=== PATIENT | female | born 1995 | race Two or more races ===

== ENCOUNTER 2021-09-30 12:34 | Outpatient (REF) | payer SELFPAY ==
[2021-09-30 14:18] LABS: Binax Internal Control QC Valid; Binax Now Covid-19 Ag Positive (Negative)
== END 2021-09-30 12:35 | disposition home or self-care (01) ==
LOC: HO.LAB 12:34
PROVIDERS: Visit Provider Internal Medicine
DX: Z20.822 Contact with and (suspected) exposure to COVID-19 (principal)
CPT/HCPCS: 36415; C9803

== ENCOUNTER 2022-07-12 20:42 | Emergency (ER) | payer OTHER, SELFPAY ==
--- NOTE | ~2022-07-12 | CT_ITS ---
EXAMINATION: CT ABDOMEN AND PELVIS WITH CONTRAST CT LEFT LOWER EXTREMITY WITH CONTRAST CLINICAL INFORMATION: Right hip pain. Question of abscess in the left lower extremity. COMPARISON: None TECHNIQUE: Multidetector volumetric images were obtained from the superior aspect of the liver through the pubic symphysis following administration 100 mL of Omnipaque 350 intravenous contrast. Sagittal and coronal reformatted images were obtained on the technologist's workstation. Oral contrast: No Multidetector CT imaging of the left lower extremity was subsequently performed. Coronal and sagittal reformats created on an independent workstation were reviewed. This CT examination was performed using dose optimization techniques as appropriate, variously including the following: *Automated exposure control *Adjustment of mA and/or kV according to patient size (this includes techniques or standardized protocols for targeted exams where dose is matched to indication/reason for exam; i.e. extremities or head) *Use of iterative reconstruction technique DLP: 853 mGy-cm FINDINGS: LUNG BASES: The visualized lung bases are unremarkable. LIVER, GALLBLADDER, AND BILIARY TREE: The liver is normal in size, shape, and attenuation. Subcentimeter cyst in the right lobe liver. No suspicious liver lesions. No biliary ductal dilatation is present. Gallbladder unremarkable. PANCREAS: Unremarkable. SPLEEN: Unremarkable. ADRENAL GLANDS: Unremarkable. KIDNEYS AND URETERS: The kidneys are normal in size, shape, and attenuation. No hydronephrosis, hydroureter, or calculi seen. No perinephric stranding. BLADDER: Unremarkable. GASTROINTESTINAL TRACT: Moderate stool and gas present throughout the right colon. No intestinal obstruction or inflammation. Tiny sliding-type hiatal hernia. ABDOMINAL WALL: No significant hernia is appreciated. LYMPH NODES: Normal. VASCULAR: Unremarkable. PELVIC VISCERA: Uterus and adnexa unremarkable. OSSEOUS STRUCTURES: No acute or suspicious osseous abnormalities. Femoral heads are spherical. No hip joint effusion. LEFT LOWER EXTREMITY: There is mild subcutaneous induration overlying distal peroneal musculature at the level of the distal fibula. Subcutaneous fat otherwise unremarkable. Musculature of the left lower leg is normal in bulk and attenuation. No evidence of myositis or intramuscular abscess. No soft tissue gas to suggest necrotizing fasciitis. No periosteal reaction or cortical destruction to suggest osteomyelitis. CT/CT abdomen pelvis w IV con IMPRESSION: * No acute findings within the abdomen or pelvis. * Moderate constipation, predominantly right hemicolonic. * No evidence of abscess or necrotizing fasciitis in the left lower extremity. * Minimal subcutaneous fat stranding lateral to the peroneal musculature could reflect a site of cellulitis. * No evidence of osteomyelitis. * Unremarkable right hip
[2022-07-12 21:29] VITALS: BP 133/92; PULSE 108; PULSE 92; RESP 18; TEMP 37.3; O2SAT 100; BMI 21.9
--- NOTE | 2022-07-12 21:33 | PC.NURSE ---
patient refused to have any lab work in triage.
[2022-07-12 23:44] VITALS: BP 121/84; PULSE 70; RESP 12; TEMP 37.3; O2SAT 100
[2022-07-13 00:46] LABS: Basophils Percent Auto 0.2 % (0-2); Eosinophils Percent Auto 0.5 % (0-4); Hematocrit 29.2 % (37.0-47.0); Hemoglobin 8.4 g/dl (12.0-16.0); Imm Gran Abs Auto 0.04 X10*3/uL (0.00-0.03); Imm Gran Pct Auto 0.5 % (0.0-0.4); Lymphocytes Absolute Auto 1.1 X10*3/uL (1.2-4.9); Lymphocytes Percent Auto 12.2 % (20-40); MANUAL DIFF FLAG NO; Mean Corpuscular HGB Conc 28.8 g/dl (31.0-35.0); Mean Corpuscular Hemoglobin 19.3 pg (27.0-33.0); Mean Platelet Volume 9.5 fL (9.4-12.3); Monocytes Absolute Auto 0.8 X10*3/uL (0.1-1.2); Monocytes Percent Auto 8.8 % (2-11); Neutrophils Absolute Auto 6.9 x10*3/uL (2.0-8.3); Neutrophils Percent Auto 77.8 % (45-73); Platelet Count 216 X10*3/uL (160-400); Red Blood Count 4.36 X10*6/uL (4.20-5.50); Red Cell Distribution Width 17.3 % (11.0-16.0); White Blood Count 8.9 X10*3/uL (4.8-10.8)
[2022-07-13 00:52] LABS: INTERNATIONAL NORM RATIO 1.2 (0.9-1.1); Prothrombin Time 13.4 SEC (10.0-13.1)
[2022-07-13 01:03] LABS: Lactic Acid 0.7 mmol/L (0.5-2.0)
[2022-07-13 01:06] LABS: Alanine Aminotransferase 26 U/L (0-31); Alkaline Phosphatase 57 U/L (39-117); Anion Gap 17 (12-20); Aspartate Amino Transferase 36 U/L (5-31); Bilirubin Total 0.4 mg/dL (0.0-1.0); Blood Urea Nitrogen 7 mg/dL (9-16); Carbon Dioxide 20 mmol/L (22-29); Chloride 106 mmol/L (96-108); Creatinine Clr Calc Pharmacy 80.8; Estimated Glomerular Filt Rate > 60; Glucose Random 103 mg/dL (60-115); Potassium 3.8 mmol/L (3.3-5.1); Sodium 139 mmol/L (135-145); Total Protein 7.2 g/dL (6.5-8.0)
[2022-07-13 01:13] LABS: HCG Quantitative < 2 mIU/mL
--- NOTE | 2022-07-13 01:22 | ED.GENADULT ---
HPI - General Adult General Chief complaint: General Medical Stated complaint: leg pain Time Seen by Provider: 07/12/22 23:58 Source: patient Mode of arrival: EMS History of Present Illness HPI narrative: 27-year-old female with history of IVDA, brought in by EMS when [place] and patient states that her left lower leg has been hurting since 3 days and worsening. She states that she cannot find any position where the left leg is comfortable. She denies any falls, physical assault, and denies any fevers or chills. Related Data Allergies Allergy/AdvReac Type Severity Reaction Status Date / Time No Known Allergies Allergy Verified 07/13/22 00:07 Review of Systems Review of Systems: Pertinent positives and negatives as stated in HPI 10 point review of systems is otherwise negative. PMFSH Past Medical History Source: nursing notes reviewed Social History Social History Advance Directives: No Advance Directives Information Provided: Yes Physical Exam ED Vital Signs: Vital Signs - 24 hr 07/12/22 21:29 07/12/22 23:44 07/13/22 02:21 Temperature 99.1 F 99.2 F 98.8 F Pulse Rate 92 70 76 Respiratory Rate 18 12 16 Blood Pressure 133/92 H 121/84 124/83 Pulse Oximetry 100 100 100 Oxygen Delivery Method Room Air Room Air Room Air 07/13/22 04:10 Temperature Pulse Rate Respiratory Rate 16 Blood Pressure Pulse Oximetry Oxygen Delivery Method BMI result Body Mass Index 21.9 VITAL SIGNS: Reviewed. GENERAL: Well developed, well nourished, in no acute distress. HEAD: Normocephalic/atraumatic EYES: PERRLA, EOMI EARS: Ext canals without abnormality OROPHARYNX: no oral lesions noted, posterior pharynx clear LUNGS: Normal breath sounds. No adventitious sounds or accessory muscle use. SpO2<100> CARDIOVASCULAR: Regular rate and rhythm without noted murmurs ABDOMEN: Soft, non-tender, non-distended with bowel sounds. MUSCULOSKELETAL: No tenderness, deformities, or effusions noted on gross inspection. EXTREMITIES: No cyanosis, clubbing or edema; LEFT LOWER EXTREMITY: No erythema or induration noted, no palpable cords, no edema but patient reporting significant pain down entire left lower extremity there is no obvious skin color change or coolness to the skin. SKIN: Inspection of the skin reveals no rashes NEUROLOGIC: Alert and oriented x 4. Strength and sensation to light touch were grossly intact x 4. Course Course Course Narrative: 27-year-old female with history and clinical presentation suspicious for possible abscess versus less likely DVT. Review of all investigations negative for acute findings. Patient is otherwise medically cleared for discharge with home Narcan. She is declining any detox at this time. Procedures EJ/Peripheral Line Arm L: Time Out Performed: No Skin Cleansed in Sterile Fashion: Yes Size (gauge): 18 IV Secured and Dressing Applied: Yes Patient Tolerated Procedure: well and no complications Additional Comments: Placed via ultrasound guidance Medical Decision Making Lab Data Result diagrams: 07/13/22 00:17 07/13/22 00:17 Labs: Lab Results 07/13/22 07/13/22 07/13/22 Range/Units 00:17 00:17 00:17 WBC 8.9 (4.8-10.8) X10*3/uL RBC 4.36 (4.20-5.50) X10*6/uL Hgb 8.4 L (12.0-16.0) g/dl Hct 29.2 L (37.0-47.0) % MCV 67.0 L (80.0-98.0) fL MCH 19.3 L (27.0-33.0) pg MCHC 28.8 L (31.0-35.0) g/dl RDW 17.3 H (11.0-16.0) % Plt Count 216 (160-400) X10*3/uL MPV 9.5 (9.4-12.3) fL Immature Gran % (Auto) 0.5 H (0.0-0.4) % Neut % (Auto) 77.8 H (45-73) % Lymph % (Auto) 12.2 L (20-40) % [place] % (Auto) 8.8 (2-11) % Eos % (Auto) 0.5 (0-4) % Baso % (Auto) 0.2 (0-2) % Lymph # (Auto) 1.1 L (1.2-4.9) X10*3/uL [place] # (Auto) 0.8 (0.1-1.2) X10*3/uL Eos # (Auto) 0.0 (0.0-0.4) X10*3/uL Baso # (Auto) 0.0 (0.0-0.2) X10*3/uL Abs Immat Gran (auto) 0.04 H (0.00-0.03) X10*3/uL Absolute Neuts (auto) 6.9 (2.0-8.3) x10*3/uL Absolute Nucleated RBC 0.000 (0.0-0.012) X10*3/uL Nucleated RBC % (auto) 0.0 (0.0-0.2) /100WBC PT 13.4 H (10.0-13.1) SEC INR 1.2 H (0.9-1.1) Sodium 139 (135-145) mmol/L Potassium 3.8 (3.3-5.1) mmol/L Chloride 106 (96-108) mmol/L Carbon Dioxide 20 L (22-29) mmol/L Anion Gap 17 (12-20) BUN 7 L (9-16) mg/dL Creatinine 0.82 (0.5-1.4) mg/dL Estim Creat Clear Calc 80.8 Estimated GFR > 60 Random Glucose 103 (60-115) mg/dL Lactic Acid (0.5-2.0) mmol/L Calcium 9.0 (8.4-10.2) mg/dL Total Bilirubin 0.4 (0.0-1.0) mg/dL AST 36 H (5-31) U/L ALT 26 (0-31) U/L Alkaline Phosphatase 57 (39-117) U/L Total Protein 7.2 (6.5-8.0) g/dL Albumin 4.0 (3.5-5.0) g/dL Beta HCG, Quant < 2 mIU/mL 07/13/22 Range/Units 00:17 WBC (4.8-10.8) X10*3/uL RBC (4.20-5.50) X10*6/uL Hgb (12.0-16.0) g/dl Hct (37.0-47.0) % MCV (80.0-98.0) fL MCH (27.0-33.0) pg MCHC (31.0-35.0) g/dl RDW (11.0-16.0) % Plt Count (160-400) X10*3/uL MPV (9.4-12.3) fL Immature Gran % (Auto) (0.0-0.4) % Neut % (Auto) (45-73) % Lymph % (Auto) (20-40) % [place] % (Auto) (2-11) % Eos % (Auto) (0-4) % Baso % (Auto) (0-2) % Lymph # (Auto) (1.2-4.9) X10*3/uL [place] # (Auto) (0.1-1.2) X10*3/uL Eos # (Auto) (0.0-0.4) X10*3/uL Baso # (Auto) (0.0-0.2) X10*3/uL Abs Immat Gran (auto) (0.00-0.03) X10*3/uL Absolute Neuts (auto) (2.0-8.3) x10*3/uL Absolute Nucleated RBC (0.0-0.012) X10*3/uL Nucleated RBC % (auto) (0.0-0.2) /100WBC PT (10.0-13.1) SEC INR (0.9-1.1) Sodium (135-145) mmol/L Potassium (3.3-5.1) mmol/L Chloride (96-108) mmol/L Carbon Dioxide (22-29) mmol/L Anion Gap (12-20) BUN (9-16) mg/dL Creatinine (0.5-1.4) mg/dL Estim Creat Clear Calc Estimated GFR Random Glucose (60-115) mg/dL Lactic Acid 0.7 (0.5-2.0) mmol/L Calcium (8.4-10.2) mg/dL Total Bilirubin (0.0-1.0) mg/dL AST (5-31) U/L ALT (0-31) U/L Alkaline Phosphatase (39-117) U/L Total Protein (6.5-8.0) g/dL Albumin (3.5-5.0) g/dL Beta HCG, Quant mIU/mL Critical Care Time Critical Care Time Critical Care Time: Yes Total Critical Care Time: 30 Attestation: I personally attest to this time spent taking care of the patient. Discharge Plan Discharge Clinical Impression: Polysubstance use disorder, Leg pain Patient Disposition: Home, Self-Care Instructions: Polysubstance Abuse (ED), Leg Pain (ED) Additional Instructions: Follow-up with your primary care provider in the next 2-3 days.
[2022-07-13] MEDS: 0.9 % Sodium Chloride 1,000 ML 999 ML IV (02:14)
[2022-07-13] MEDS: iohexoL 350 MG/ML 100 ML INFUS..BTL IV (02:16)
[2022-07-13 02:21] VITALS: BP 124/83; PULSE 76; RESP 16; TEMP 37.1; O2SAT 100
--- NOTE | 2022-07-13 03:50 | PC.NURSE ---
pt refusing second set of blood cultures, wants to sleep .
[2022-07-13 04:10] VITALS: RESP 16
[2022-07-13 05:59] VITALS: BP 123/81; PULSE 71; RESP 16; TEMP 37.1; O2SAT 100
== END 2022-07-13 08:07 | disposition home or self-care (01) ==
PROVIDERS: Emergency Provider Student in an Organized Health Care Education/Training Program
DX: M79.662 Pain in left lower leg (principal); R10.2 Pelvic and perineal pain; F11.10 Opioid abuse, uncomplicated; Z71.51 Drug abuse counseling and surveillance of drug abuser; Z79.899 Other long term (current) drug therapy
CPT/HCPCS: 36415; 36556; 73701; 74177; 80053; 83605; 84702; 85025; 85610; 87040; 87077; 87205; 99283; 99284; Q9967

== ENCOUNTER 2022-08-19 05:40 | Inpatient (IN) | payer OTHER, SELFPAY ==
[2022-08-19] VITALS (8 sets, daily range): BP systolic 120–137; BP diastolic 64–83; PULSE 65–97; RESP 15–18; TEMP 36.8–37.4; O2SAT 95–100; BMI 22.3
--- NOTE | ~2022-08-19 | CT_ITS ---
EXAMINATION: CT ABDOMEN AND PELVIS WITH CONTRAST CLINICAL INFORMATION: Abdominal and leg pain. History of IVDA. COMPARISON: None TECHNIQUE: Multidetector volumetric images were obtained from the superior aspect of the liver through the pubic symphysis following administration 85 mL of Omnipaque 350 intravenous contrast. Sagittal and coronal reformatted images were obtained on the technologist's workstation. Oral contrast: No. Subsequently axial 5 mm thin and reformatted 2 mm thin sagittal coronal images of left lower extremity were were obtained. DLP [id number] examination was performed using dose optimization techniques as appropriate, variously including the following: *Automated exposure control *Adjustment of mA and/or kV according to patient size (this includes techniques or standardized protocols for targeted exams where dose is matched to indication/reason for exam; i.e. extremities or head) *Use of iterative reconstruction technique DLP: 937 mGy-cm FINDINGS: Abdomen and pelvis: LUNG BASES: The lung bases are clear. Heart size is normal. LIVER, GALLBLADDER, AND BILIARY TREE: The liver is enlarged in size, normal shape, and attenuation. There are 4 mm hypodense lesions in right left lobes of the liver, too small to correctly characterize. No intrahepatic ductal dilatation seen. The gallbladder is unremarkable with no evidence of radiopaque gallstones, gallbladder wall thickening, or obvious pericholecystic inflammatory changes. PANCREAS: Unremarkable. SPLEEN: Unremarkable. ADRENAL GLANDS: Unremarkable. KIDNEYS AND URETERS: The kidneys are normal in size, shape, and attenuation. No hydronephrosis, hydroureter, or calculi seen. No perinephric stranding. BLADDER: Unremarkable. GASTROINTESTINAL TRACT: There is large amount of stool seen in the colon without significant distention. The small bowel loops are normal caliber. There is no free air or free fluid. Appendix is not visualized. No free fluid seen. ABDOMINAL WALL: No significant hernia is appreciated. LYMPH NODES: Normal. VASCULAR: Unremarkable. PELVIC VISCERA: Unremarkable. OSSEOUS STRUCTURES: Unremarkable. Left lower extremity: There is no visible soft tissue edema, gas collection or abscess in the left lower extremity. There is no gross bony abnormality seen. CT/CT abdomen pelvis w IV con IMPRESSION: 1. Moderate constipation. No obstruction seen. 2. No radiopaque urolith or hydroureteronephrosis. There is no soft tissue abscess, mass or fluid collection in the left lower extremity. No abnormal enhancement seen either. Fleischner guidelines were followed.
--- NOTE | ~2022-08-19 | US_ITS ---
EXAMINATION: US ABDOMEN LIMITED CLINICAL INFORMATION: Right upper quadrant pain, transaminitis. COMPARISON: CT abdomen and pelvis 08/19/2022. TECHNIQUE: Real-time imaging of the right upper quadrant abdominal viscera. FINDINGS: PANCREAS: Normal. LIVER: The liver is enlarged measuring less than 16 cm in length. The liver contour is normal. Parenchymal echogenicity is normal. No focal hepatic lesion. There is no intrahepatic biliary duct dilatation seen. There is normal hepatopedal flow seen in the portal vein and antegrade flow is seen in the hepatic vein. The waveforms appear normal. GALLBLADDER: The gallbladder is contracted as patient is non-fasting. Gallbladder wall thickness is 0.7 cm. COMMON BILE DUCT: Normal in caliber measuring 0.6 cm in diameter. RIGHT KIDNEY: Normal. No hydronephrosis. No renal calculi or focal parenchymal lesions. The kidney measures 11.3 cm in maximum dimension. FREE FLUID: None. US/US duplex arterial venous comp IMPRESSION: 1. Mild hepatomegaly. No focal lesion seen. 2. The gallbladder is contracted as patient is non fasting. 3. Visualized pancreas, right kidney and the CBD appears unremarkable.
--- NOTE | ~2022-08-19 | US_ITS ---
EXAMINATION: US VENOUS ULTRASOUND WITH DOPPLER LOWER EXTREMITY, LEFT CLINICAL INFORMATION: Swollen left leg COMPARISON: None TECHNIQUE: Ultrasound of the deep veins is performed from the hip to the calf with compression sonography and color and pulse Doppler assessment. Spectral analysis with color-flow imaging is performed. FINDINGS: There is normal venous compression and respiratory variation and augmented flow. The visualized common femoral vein, superficial femoral vein, profunda femoral vein, popliteal vein, and the trifurcation region shows no evidence of deep venous thrombosis. There is no significant popliteal fossa cyst. If the patient's symptoms persist, followup ultrasound in 5 days 7 days might be of value to exclude proximal propagation from a non-visualized calf vein. US/US venous duplex LE LT IMPRESSION: No DVT demonstrated in the left lower extremity.
--- NOTE | ~2022-08-19 | US_ITS ---
EXAMINATION: US ABDOMEN LIMITED CLINICAL INFORMATION: Right upper quadrant pain, transaminitis. COMPARISON: CT abdomen and pelvis 08/19/2022. TECHNIQUE: Real-time imaging of the right upper quadrant abdominal viscera. FINDINGS: PANCREAS: Normal. LIVER: The liver is enlarged measuring less than 16 cm in length. The liver contour is normal. Parenchymal echogenicity is normal. No focal hepatic lesion. There is no intrahepatic biliary duct dilatation seen. There is normal hepatopedal flow seen in the portal vein and antegrade flow is seen in the hepatic vein. The waveforms appear normal. GALLBLADDER: The gallbladder is contracted as patient is non-fasting. Gallbladder wall thickness is 0.7 cm. COMMON BILE DUCT: Normal in caliber measuring 0.6 cm in diameter. RIGHT KIDNEY: Normal. No hydronephrosis. No renal calculi or focal parenchymal lesions. The kidney measures 11.3 cm in maximum dimension. FREE FLUID: None. US/US abdomen limited IMPRESSION: 1. Mild hepatomegaly. No focal lesion seen. 2. The gallbladder is contracted as patient is non fasting. 3. Visualized pancreas, right kidney and the CBD appears unremarkable.
--- NOTE | ~2022-08-19 | XR_ITS ---
EXAMINATION: XR CHEST CLINICAL INFORMATION: Cough COMPARISON: None TECHNIQUE: Frontal view of the chest was obtained. FINDINGS: No significant abnormality is noted involving the heart, lungs, mediastinum, bony thorax or soft tissues. XR/XR chest 1V IMPRESSION: Unremarkable examination.
--- NOTE | 2022-08-19 05:49 | ED.GENADULT ---
HPI - General Adult General Chief complaint: Extremity Injury, Lower Stated complaint: Leg pain Time Seen by Provider: 08/19/22 05:52 Source: patient and EMS Mode of arrival: EMS Limitations: no limitations History of Present Illness HPI narrative: Patient comes to the emergency room complaining of left lower extremity pain that started approximately 2 weeks ago. Patient denies fever chills. Patient states that she has noticed some swelling from the knee towards her ankle. Patient states that she has not used any recent IV drugs. Patient was seen here approximately a month ago with similar complaints. Patient denies any injury, denies any signs of cellulitis. Related Data Allergies Allergy/AdvReac Type Severity Reaction Status Date / Time No Known Allergies Allergy Verified 07/13/22 00:07 Review of Systems Review of Systems: Constitutional : No Weight loss, No Fever, No Chills, No Night Sweats, No Fatigue, No Malaise ENT/Mouth : No Hearing loss, No Ear Pain, No Nasal Congestion, No Sinus Pain, No Hoarseness, No sore throat, No Rhinorrhea, No Swallowing Difficulty Eyes: No Eye Pain, No Swelling, No Redness, No Foreign Body, No Discharge, No Vision Changes Cardiovascular : No Chest Pain, No SOB, No Dyspnea on Exertion, No Orthopnea, No Edema, No Palpitations Respiratory : No Cough, No Sputum, No Wheezing, No Smoke Exposure, No Dyspnea Gastrointestinal : No Nausea, No Vomiting, No Diarrhea, No Constipation, No abdominal Pain, No Hematochezia, No Melena Genitourinary : no irregular bleeding, No Dysuria, No Urinary Frequency, No Hematuria, No Urinary Incontinence, No Urgency, No Flank Pain, No Urinary Flow Changes, No Hesitancy Musculoskeletal : No joint pain, No Myalgias, complaining of left lower extremity pain and swelling especially from the knee down Skin : No Skin Lesions, No rash Neuro : No Weakness, No Numbness, No Paresthesias, No Loss of Consciousness, No Dizziness, No Headache Psych : No Anxiety/Panic, No Depression, No SI/HI/AH/VH, No Social Issues, Heme/Lymph: No Bruising, No Bleeding,No Lymphadenopathy Endocrine : No Polyuria, No Polydipsia, No Temperature Intolerance PMFSH Past Medical History Medical History IV drug user Social History Social History Alcohol intake: unknown Use of substances other than those prescribed or required for medical reasons: Unknown Advance Directives: No Advance Directives Information Provided: Yes Physical Exam ED Vital Signs: Vital Signs - 24 hr 08/19/22 05:54 Temperature 98.2 F Pulse Rate 88 Respiratory Rate 18 Blood Pressure 137/83 Pulse Oximetry 100 Oxygen Delivery Method Room Air BMI result Body Mass Index 22.3 Const Other: Appearance: Alert. Oriented X3. No acute distress. Eyes: Pupils equal, round and reactive to light. ENT: Pharynx normal. Neck: Normal inspection. Neck supple. No lymph nodes noted. No crepitus CVS: Normal heart rate and rhythm. Pulses normal. Normal S1 and S2 Respiratory: No respiratory distress. Breath sounds normal. No Wheezing. No rales Abdomen: Soft and nontender. No rigidity. No distention. Skin: Skin warm and dry. Normal skin color. Normal skin turgor. Extremities: +1 pitting edema in the left lower extremity, no erythema. No Lacerations. No Rash Neuro: Oriented X 3. No motor deficit. No sensory deficit. Moving all extremities. No slurred speech. CN 2 through 12 grossly intact Psych: calm, cooperative, normal affect Course Course Course Narrative: Patient's labs pending. Also, ultrasound of the lower extremity will be ordered to rule out DVT. US/labs pending, sign out given to Dr. Cintron Discharge Plan Discharge Clinical Impression: Left leg pain Patient Disposition: Still a Patient
--- NOTE | 2022-08-19 06:25 | PC.NURSE ---
Pt taken to ultrasound prior to lab workup
[2022-08-19 06:50] LABS: COVID-19 Test Negative (Negative); IDNOW Serial# 16C4AD1C
[2022-08-19 06:53] LABS: MANUAL DIFF FLAG NO
[2022-08-19 06:56] LABS: Basophils Percent Auto 0.5 % (0-2); Eosinophils Absolute Auto 0.2 X10*3/uL (0.0-0.4); Eosinophils Percent Auto 2.5 % (0-4); Hematocrit 33.7 % (37.0-47.0); Hemoglobin 9.9 g/dl (12.0-16.0); Imm Gran Abs Auto 0.03 X10*3/uL (0.00-0.03); Imm Gran Pct Auto 0.4 % (0.0-0.4); Lymphocytes Percent Auto 25.2 % (20-40); Mean Corpuscular HGB Conc 29.4 g/dl (31.0-35.0); Mean Corpuscular Hemoglobin 20.1 pg (27.0-33.0); Mean Corpuscular Volume 68.4 fL (80.0-98.0); Mean Platelet Volume 9.6 fL (9.4-12.3); Monocytes Absolute Auto 0.8 X10*3/uL (0.1-1.2); Monocytes Percent Auto 9.4 % (2-11); Neutrophils Absolute Auto 4.9 x10*3/uL (2.0-8.3); Platelet Count 282 X10*3/uL (160-400); Red Blood Count 4.93 X10*6/uL (4.20-5.50); Red Cell Distribution Width 21.3 % (11.0-16.0)
[2022-08-19 07:17] LABS: Alanine Aminotransferase 1159 U/L (0-31); Albumin Level 3.2 g/dL (3.5-5.0); Alkaline Phosphatase 217 U/L (39-117); Anion Gap 8 (12-20); Aspartate Amino Transferase 873 U/L (5-31); Bilirubin Total 2.1 mg/dL (0.0-1.0); Blood Urea Nitrogen 9 mg/dL (9-16); C Reactive Protein 4.04 mg/dL (< or = 0.50); Calcium 8.9 mg/dL (8.4-10.2); Carbon Dioxide 27 mmol/L (22-29); Chloride 103 mmol/L (96-108); Creatinine Clr Calc Pharmacy 118.5; Estimated Glomerular Filt Rate > 60; Glucose Random 92 mg/dL (60-115); Potassium 3.6 mmol/L (3.3-5.1); Sodium 134 mmol/L (135-145); Total Protein 6.9 g/dL (6.5-8.0)
[2022-08-19 07:37] LABS: Erythrocyte Sedimentation Rate 22 MM/HR (0-20)
[2022-08-19] MEDS: Ketorolac Tromethamine 30 MG/ML VIAL IVPUSH (07:53)
--- NOTE | 2022-08-19 08:40 | PC.NURSE ---
patient a/ox4 . igor . heart rate regular at 71 beats per minute .breathing even and unlabored . lungs clear though out . left ankle cool to touchby this RN , pain 8 out of 10 patient reports consistently progressing over the last three weeks . pulses positive . skin pink warm and dry on rest of body . abdomen soft not tender . positive bowel sounds . patient has been medicated with IVP toridal and Ketamine 20mg . patient on child monitor . patient aware of plan of care .
--- NOTE | 2022-08-19 09:28 | PC.NURSE ---
Patient transported to [facility] for images . patient aware of plan of care .
[2022-08-19] MEDS: iohexoL 350 MG/ML 100 ML INFUS..BTL IV (10:14)
[2022-08-19] MEDS: vancomycin HCL 1,250 MG in 0.9 % Sodium Chloride 250 ML 166.67 MG IV (10:40)
--- NOTE | 2022-08-19 13:35 | P.HPHOSP_ITS ---
History of Present Illness Date of Service: 08/19/22 Attending physician on admission: Ihsan Waldrop Chief Complaint: Left Leg Pain Pt is a 37-year-old female with a PMH significant for homelessness and IVDA who last used five hours prior to arrival, who was brought to the ED via ambulance c omplaining of left leg pain. Pt describes the pain as stabbing/shooting, is located from above her left knee to her ankle, and has been going on for the past few weeks. She was unable to walk due to pain. She has also noticed some swelling around her left knee. Pt states she has occasionally been SOB and had palpitations since the onset of the pain. Denies chest pain or pressure. No F/C, N/V, abdominal pain. Denies erythema of leg. Of note, pt was seen in the ED on 07/13/22 for a similar complaint and blood cultures came back positive for strep viridans. However pt left before cultures came back and the ED was unable to reach her by phone so her bacteremia was left untreated. In the ED pt's ultrasound of left leg showed no evidence of DVT. CT of abdomen, pelvis, and lower leg revealed an enlarged liver with 4mm hypodense lesions on the right and left lobes, moderate constipation, and no soft tissue abscess, mass or fluid collection in the left lower extremity. Labs were significant for elevated AST 873, ALT 1159, Alk Phos 217, total Bilirubin 2.1, direct bilirubin 1.0, and C-reactive protein 4.04. She was treated with Vanco 1.250g IV and ketorolac and ketamine for pain control. Pt will be admitted to the hospital for treatment of bacteremia. Review of Systems Review of Systems: Left left pain from above knee to ankle SOB and palpitations Swelling around left knee Denies F/C, N/V Denies left leg erythema Yes all other systems are reviewed and are negative [facility] Medical History IV drug user Social History Alcohol intake: unknown Use of substances other than those prescribed or required for medical reasons: Unknown Advance Directives: No Advance Directives Information Provided: Yes Meds Allergies Allergy/AdvReac Type Severity Reaction Status Date / Time No Known Allergies Allergy Verified 07/13/22 00:07 Active Medications: Current Medications Acetaminophen (Acetaminophen 325 Mg Tablet) 650 mg PO Q6H PRN PRN Reason: Pain, Mild (Pain Scale 1-3) Docusate Sodium (Docusate Sodium 100 Mg Capsule) 100 mg PO DAILY PRN PRN Reason: Constipation Enoxaparin Sodium (Enoxaparin Sodium 40 Mg/0.4 Ml Syringe) 40 mg SUBCUT Q24H SC H Hydromorphone HCl (Hydromorphone Hcl 1 Mg/Ml Syringe) 0.5 mg IVPUSH Q4H PRN; Protocol PRN Reason: Pain, Severe (Pain Scale 7-10) Ondansetron HCl (Ondansetron Hcl 4 Mg/2 Ml Vial) 4 mg IVPUSH Q8H PRN PRN Reason: Nausea and Vomiting Oxycodone HCl (Oxycodone Hcl Immed Release 5 Mg Tablet) 5 mg PO Q6H PRN PRN Reason: Pain, Moderate (Pain Scale 4-6 Pharmacy Consult (Consult Rx Perform Med Rec) 1 each MISCELLANE ONCE PRN PRN Reason: Consult order Sodium Chloride (0.9 % Sodium Chloride Flush 3 Ml Syringe) 3 ml IVFLUSH QSHIFT PENDING SALE TO [facility] Physical Exam Vital Signs and Narrative: Vital Signs: Last Vital Signs Temp 98.9 F 08/19/22 13:25 Pulse 97 08/19/22 13:25 Resp 16 08/19/22 13:25 BP 123/74 08/19/22 13:25 Pulse Ox 98 08/19/22 13:25 O2 Del Method 08/19/22 13:25 BMI result Body Mass Index 22.3 Constitutional: Alert, in no acute distress. Mental Status: Oriented to person, place and time. Eyes: Pupils are equal, round, and reactive to light. Ear, Nose, and Throat: Oropharynx clear, mucous membranes moist. Ears and nose without deformities. Trachea midline. Respiratory: Clear to auscultation bilaterally. No wheezing, rales, or rhonchi. Cardiovascular: S1, S2 regular. Faint, 1/6 systolic murmur best heard at left sternal border. No rubs or gallops. Gastrointestinal: RUQ tenderness to palpation. Abdomen soft, non-distended. Normal bowel sounds. Neurologic: Cranial nerves II-XI are grossly intact. No focal neurological defi cits. Moves all extremities spontaneously. Skin: Warm and dry. Normal skin color. Musculoskeletal: No cyanosis or clubbing. Extremities: 1+ pitting edema lower left leg. No erythema. Psychiatric: Normal mood and affect. Results Labs CBC and Chem 7: 08/19/22 06:07 08/19/22 06:07 Labs: Laboratory Results - last 24 hr 08/19/22 08/19/22 08/19/22 06:07 06:07 06:07 MCV 68.4 L MCH 20.1 L MCHC 29.4 L RDW 21.3 H Plt Count 282 D MPV 9.6 Immature Gran % (Auto) 0.4 Neut % (Auto) 62.0 Lymph % (Auto) 25.2 [place] % (Auto) 9.4 Eos % (Auto) 2.5 Baso % (Auto) 0.5 Lymph # (Auto) 2.0 [place] # (Auto) 0.8 Eos # (Auto) 0.2 Baso # (Auto) 0.0 Abs Immat Gran (auto) 0.03 Absolute Neuts (auto) 4.9 Absolute Nucleated RBC 0.000 Nucleated RBC % (auto) 0.0 ESR Anion Gap 8 L Estim Creat Clear Calc 118.5 Estimated GFR > 60 Random Glucose 92 Lactic Acid 1.0 Calcium 8.9 Total Bilirubin 2.1 H Direct Bilirubin 1.0 H AST 873 H ALT 1159 H Alkaline Phosphatase 217 H Total Creatine Kinase 107 C-Reactive Protein 4.04 H Total Protein 6.9 Albumin 3.2 L COVID-19 ([place]) COVID-19 Clin Com 08/19/22 08/19/22 06:07 06:07 MCV MCH MCHC RDW Plt Count MPV Immature Gran % (Auto) Neut % (Auto) Lymph % (Auto) [place] % (Auto) Eos % (Auto) Baso % (Auto) Lymph # (Auto) [place] # (Auto) Eos # (Auto) Baso # (Auto) Abs Immat Gran (auto) Absolute Neuts (auto) Absolute Nucleated RBC Nucleated RBC % (auto) ESR 22 H Anion Gap Estim Creat Clear Calc Estimated GFR Random Glucose Lactic Acid Calcium Total Bilirubin Direct Bilirubin AST ALT Alkaline Phosphatase Total Creatine Kinase C-Reactive Protein Total Protein Albumin COVID-19 ([place]) Negative COVID-19 Clin Com See Note Imaging Radiologist's Impressions: Impressions Venous Duplex 08/19/22 06:25 IMPRESSION: No DVT demonstrated in the left lower extremity. Abdomen/Pelvis CT 08/19/22 10:14 IMPRESSION: 1. Moderate constipation. No obstruction seen. 2. No radiopaque urolith or hydroureteronephrosis. There is no soft tissue abscess, mass or fluid collection in the left lower extremity. No abnormal enhancement seen either. Fleischner guidelines were followed. Lower Extremity CT 08/19/22 10:14 IMPRESSION: 1. Moderate constipation. No obstruction seen. 2. No radiopaque urolith or hydroureteronephrosis. There is no soft tissue abscess, mass or fluid collection in the left lower extremity. No abnormal enhancement seen either. Fleischner guidelines were followed. Assessment and Plan (1) Left leg pain: Status: Acute (2) IV drug abuse: Status: Acute Plan Pt is a 37-year-old female with a PMH significant for homelessness and IVDA who last used five hours prior to arrival, who was brought to the ED via ambulance complaining of left leg pain. Pt was seen in the ED on 07/13/22 for a similar complaint and blood cultures came back positive for strep viridans, but pt left before receiving treatment. Pt does not meet sepsis criteria. She will be admitted to the hospital and treated for bacteremia. # bacteremia likely caused by IVDA -- pt seen on 07/13/22 for a similar complaint of left leg pain. Blood cultures came back positive for strep viridans but pt left before receiving treatment -- cultures pending -- vanco 1g IV q12 -- zosyn 3.375g IV q6 -- pt does not meet sepsis criteria -- ID consult -- echocardiogram to r/o endocarditis # elevated LFTs & hyperbilirubinemia -- AST 873, ALT 1159, Alk Phos 217, total Bilirubin 2.1, direct bilirubin 1.0 -- possibly secondary to bacteremia -- CT of abdomen showed hepatomegaly -- RUQ pain on physical exam -- RUQ ultrasound to r/o cholecystitis -- hepatitis panel -- follow CMP -- GI consult # IVDU -- HIV panel -- consult with addiction medicine Full code DVT prophylaxis: Lovenox Attending: Dr. Waldrop Due to pt's need for treatment for bacteremia, the pt will require a minimum hospital stay of at least two nights. Quality Stroke Does the patient have a stroke diagnosis?: No VTE Prior VTE?: No VTE Risk Level:: Medical - moderate - high VTE Device Contraindication: N/A - Device Ordered VTE Drug Contraindication: N/A - Med Ordered
[2022-08-19 15:12] LABS: Lactate Dehydrogenase 584 U/L (122-220)
--- NOTE | 2022-08-19 15:19 | PM.GICN ---
History of Present Illness Data of Consult Service Date: 08/19/22 Requesting physician: Kanu Braden Primary Care Provider: Unknown Physician HPI Reason for consult: Elevated LFTs This is a 27-year-old female with past medical history of IV drug use, ongoing neck pain for months, who presents to the emergency room earlier today for left leg. She had a similar ER visit last month. At that time, blood cultures were positive for strep viridans, however patient had left AMA before treatment. Gastroenterology has been consulted due to findings of elevated LFTs on labs. Patient does not report any abdominal pain, nausea, vomiting, changes in appetite, diarrhea, blood in stool. No fevers, chills or night sweats. Main complaint is excruciating left leg pain. Reports pain more severe in upper leg than lower leg, feels better when she moves her leg around compared to resting. She reports using heroin and cocaine last night (injected). She is not aware of any personal history of hepatitis. No family history of chronic liver disease or liver cancer. Labs show microcytic anemia, elevated ESR, INR 1.2. CMP significant for ALT 1159, AST 873, alk-phos 217 and total bilirubin 2.1. Review of Systems Review of Systems: Yes all other systems are reviewed and are negative PMFSH Past Medical History Medical History IV drug user Social History Social History Alcohol intake: unknown Use of substances other than those prescribed or required for medical reasons: Unknown Advance Directives: No Advance Directives Information Provided: Yes Meds Allergies Allergy/AdvReac Type Severity Reaction Status Date / Time No Known Allergies Allergy Verified 07/13/22 00:07 Active Medications: Current Medications Acetaminophen (Acetaminophen 325 Mg Tablet) 650 mg PO Q6H PRN PRN Reason: Pain, Mild (Pain Scale 1-3) Docusate Sodium (Docusate Sodium 100 Mg Capsule) 100 mg PO DAILY PRN PRN Reason: Constipation Enoxaparin Sodium (Enoxaparin Sodium 40 Mg/0.4 Ml Syringe) 40 mg SUBCUT Q24H [facility] Hydromorphone HCl (Hydromorphone Hcl 1 Mg/Ml Syringe) 0.5 mg IVPUSH Q4H PRN; Protocol PRN Reason: Pain, Severe (Pain Scale 7-10) Piperacillin Sod/Tazobactam (Sod 3.375 gm/ Sodium Chloride) 50 mls @ 100 mls/hr IV Q6H [facility] Vancomycin HCl 750 mg/ Sodium (Chloride) 265 mls @ 265 mls/hr IV Q12H [facility] Ondansetron HCl (Ondansetron Hcl 4 Mg/2 Ml Vial) 4 mg IVPUSH Q8H PRN PRN Reason: Nausea and Vomiting Oxycodone HCl (Oxycodone Hcl Immed Release 5 Mg Tablet) 5 mg PO Q6H PRN PRN Reason: Pain, Moderate (Pain Scale 4-6 Pharmacy Consult (Consult Rx Perform Med Rec) 1 each MISCELLANE ONCE PRN PRN Reason: Consult order Pharmacy Consult (Consult Rx Vancomycin Dosing) 1 each MISCELLANE DAILY PRN PRN Reason: Consult order Sodium Chloride (0.9 % Sodium Chloride Flush 3 Ml Syringe) 3 ml IVFLUSH QSHIFT [facility] Physical Exam Vital Signs: Vital Signs: Last Vital Signs Temp 98.9 F 08/19/22 13:25 Pulse 97 08/19/22 13:25 Resp 16 08/19/22 13:25 BP 123/74 08/19/22 13:25 Pulse Ox 98 08/19/22 13:25 O2 Del Method 08/19/22 13:25 BMI result Body Mass Index 22.3 Gen appear: Young female, somnolent but easily awakened to verbal cues HEENT: mild scleral icterus, no cervical lymphadenopathy Chest: No overt resp distress CVS: S1/S2, regular Abd: soft, nontender, nondistended Psych: answering questions appropriately Neuro: Initially somnolent but easily awakened, Ox3, Ext: L leg warm to touch, no redness or swelling noted. Very tender to touch. Derm: multiple track enriquez on L hand Results Labs CBC & Chem 7: 08/19/22 06:07 08/19/22 06:07 Labs: Short CBC 08/19/22 Range/Units 06:07 WBC 8.0 (4.8-10.8) X10*3/uL Hgb 9.9 L (12.0-16.0) g/dl Hct 33.7 L (37.0-47.0) % Plt Count 282 D (160-400) X10*3/uL BMP 08/19/22 06:07 Sodium 134 L Potassium 3.6 Chloride 103 Carbon Dioxide 27 BUN 9 Creatinine 0.61 Calcium 8.9 Cardiac Enzymes 08/19/22 Range/Units 06:07 Total Creatine Kinase 107 (26-140) U/L Liver Function 08/19/22 Range/Units 06:07 Total Bilirubin 2.1 H (0.0-1.0) mg/dL Direct Bilirubin 1.0 H (0.0-0.5) mg/dL AST 873 H (5-31) U/L ALT 1159 H (0-31) U/L Alkaline Phosphatase 217 H (39-117) U/L Albumin 3.2 L (3.5-5.0) g/dL Assessment and Plan (1) Elevated LFTs: Status: Acute (2) IV drug abuse: Status: Acute (3) Anemia: Status: Acute Plan LFTs elevated in a predominantly hepatocellular pattern with high LDH. Most likely due to toxic hepatic injury in the setting of cocaine use which can have a pattern similar to ischemic hepatitis. Other DDx include ischemic hepatitis, acute viral hepatitis, tylenol toxicity less likely as pt reports no use in the last few days. Chronic microcytic anemia noted. No evidence of overt GIB at this time. Recommendations: - Urine tox screen ordered - Follow hepatitis serology - Agree with US abd, please obtain with doppler for hepatic and portal vein - ASA and Tylenol level ordered - Addiction medicine consult once pt able to participate - Repeat LFTs tomorrow AM Procedures Date of Service Date of Service: 08/19/22
[2022-08-19] MEDS: Piperacillin Sodium/Tazobactam 3.375 GM in 0.9 % Sodium Chloride 50 ML IV ×2 (15:37→20:07)
[2022-08-19] MEDS: Enoxaparin Sodium 40 MG/0.4 ML SYRINGE SUBCUT (15:38)
[2022-08-19] MEDS: HYDROmorphone HCl 1 MG/ML SYRINGE 0.5 MG IVPUSH ×2 (15:47→21:48)
--- NOTE | 2022-08-19 16:16 | HO.ADDICTCON ---
History of Present Illness Date of Service: 08/19/2022 Chief Complaint: Left leg pain Reason for Consult: OUD-withdrawal management HPI Narrative: Patient is a 27 year old famle currently medically admitted with bacteremia secondary to IVDU. Consult requested to eval and treat withdrawal sx. Patient seen in ED room 9 while awaiting room assignment. Laying in bed, awake, moaning and restless. Reporting she uses approx 4 bags of heroin daily IV along with cocaine. Reporting she has been using for more than one year. Denies any history of overdose Denies any history of methadone Previously prescribed suboxone (per [facility]) Reporting withdrawal sx and pain---restlessness, anxiety, nausea, chills Review of Systems Constitutional: Reports as per HPI Diagnostics Vital Signs (24Hr): Vital Signs - 24 hr 08/19/22 05:54 08/19/22 08:39 08/19/22 11:32 Temperature 98.2 F 98.5 F Pulse Rate 88 84 82 Respiratory Rate 18 16 18 Blood Pressure 137/83 136/78 120/64 Pulse Oximetry 100 100 100 Oxygen Delivery Method Room Air Room Air Room Air 08/19/22 12:49 08/19/22 13:25 08/19/22 15:34 Temperature 98.9 F 99.4 F Pulse Rate 65 97 93 Respiratory Rate 15 16 16 Blood Pressure 123/74 Pulse Oximetry 98 98 Oxygen Delivery Method Room Air Room Air BMI result Body Mass Index 22.3 Labs Results: 08/19/22 06:07 08/19/22 06:07 Labs: Laboratory Results - last 48 hr 08/19/22 08/19/22 08/19/22 06:07 06:07 06:07 WBC 8.0 RBC 4.93 Hgb 9.9 L Hct 33.7 L MCV 68.4 L MCH 20.1 L MCHC 29.4 L RDW 21.3 H Plt Count 282 D MPV 9.6 Immature Gran % (Auto) 0.4 Neut % (Auto) 62.0 Lymph % (Auto) 25.2 [place] % (Auto) 9.4 Eos % (Auto) 2.5 Baso % (Auto) 0.5 Lymph # (Auto) 2.0 [place] # (Auto) 0.8 Eos # (Auto) 0.2 Baso # (Auto) 0.0 Abs Immat Gran (auto) 0.03 Absolute Neuts (auto) 4.9 Absolute Nucleated RBC 0.000 Nucleated RBC % (auto) 0.0 ESR Sodium 134 L Potassium 3.6 Chloride 103 Carbon Dioxide 27 Anion Gap 8 L BUN 9 Creatinine 0.61 Estim Creat Clear Calc 118.5 Estimated GFR > 60 Random Glucose 92 Lactic Acid 1.0 Calcium 8.9 Total Bilirubin 2.1 H Direct Bilirubin 1.0 H AST 873 H ALT 1159 H Alkaline Phosphatase 217 H Lactate Dehydrogenase 584 H Total Creatine Kinase 107 C-Reactive Protein 4.04 H Total Protein 6.9 Albumin 3.2 L COVID-19 ([place]) COVID-19 Clin Com 08/19/22 08/19/22 06:07 06:07 WBC RBC Hgb Hct MCV MCH MCHC RDW Plt Count MPV Immature Gran % (Auto) Neut % (Auto) Lymph % (Auto) [place] % (Auto) Eos % (Auto) Baso % (Auto) Lymph # (Auto) [place] # (Auto) Eos # (Auto) Baso # (Auto) Abs Immat Gran (auto) Absolute Neuts (auto) Absolute Nucleated RBC Nucleated RBC % (auto) ESR 22 H Sodium Potassium Chloride Carbon Dioxide Anion Gap BUN Creatinine Estim Creat Clear Calc Estimated GFR Random Glucose Lactic Acid Calcium Total Bilirubin Direct Bilirubin AST ALT Alkaline Phosphatase Lactate Dehydrogenase Total Creatine Kinase C-Reactive Protein Total Protein Albumin COVID-19 ([place]) Negative COVID-19 Clin Com See Note Imaging Radiology Impressions: ITS Impressions Venous Duplex 08/19/22 06:25 IMPRESSION: No DVT demonstrated in the left lower extremity. Abdomen/Pelvis CT 08/19/22 10:14 IMPRESSION: 1. Moderate constipation. No obstruction seen. 2. No radiopaque urolith or hydroureteronephrosis. There is no soft tissue abscess, mass or fluid collection in the left lower extremity. No abnormal enhancement seen either. Fleischner guidelines were followed. Lower Extremity CT 08/19/22 10:14 IMPRESSION: 1. Moderate constipation. No obstruction seen. 2. No radiopaque urolith or hydroureteronephrosis. There is no soft tissue abscess, mass or fluid collection in the left lower extremity. No abnormal enhancement seen either. Fleischner guidelines were followed. Chest X-Ray 08/19/22 12:40 IMPRESSION: Unremarkable examination. Mental Status Exam Mental Status Exam Patient Appearance: Disheveled Level of Consciousness: Awake and Restless Affect Description: Anxious Medications Medications Current Medications Acetaminophen (Acetaminophen 325 Mg Tablet) 650 mg PO Q6H PRN PRN Reason: Pain, Mild (Pain Scale 1-3) Docusate Sodium (Docusate Sodium 100 Mg Capsule) 100 mg PO DAILY PRN PRN Reason: Constipation Enoxaparin Sodium (Enoxaparin Sodium 40 Mg/0.4 Ml Syringe) 40 mg SUBCUT Q24H [facility] Last Admin: 08/19/22 15:38 Dose: 40 mg Hydromorphone HCl (Hydromorphone Hcl 1 Mg/Ml Syringe) 0.5 mg IVPUSH Q4H PRN; Protocol PRN Reason: Pain, Severe (Pain Scale 7-10) Last Admin: 08/19/22 15:47 Dose: 0.5 mg Piperacillin Sod/Tazobactam (Sod 3.375 gm/ Sodium Chloride) 50 mls @ 100 mls/hr IV Q6H [facility] Last Admin: 08/19/22 15:37 Dose: 100 mls/hr Vancomycin HCl 750 mg/ Sodium (Chloride) 265 mls @ 265 mls/hr IV Q12H [facility] Methadone HCl (Methadone Hcl 20 Mg/2 Ml Oral.Conc) 20 mg PO ONCE ONE Stop: 08/19/22 16:15 Ondansetron HCl (Ondansetron Hcl 4 Mg/2 Ml Vial) 4 mg IVPUSH Q8H PRN PRN Reason: Nausea and Vomiting Oxycodone HCl (Oxycodone Hcl Immed Release 5 Mg Tablet) 5 mg PO Q6H PRN PRN Reason: Pain, Moderate (Pain Scale 4-6 Pharmacy Consult (Consult Rx Perform Med Rec) 1 each MISCELLANE ONCE PRN PRN Reason: Consult order Pharmacy Consult (Consult Rx Vancomycin Dosing) 1 each MISCELLANE DAILY PRN PRN Reason: Consult order Sodium Chloride (0.9 % Sodium Chloride Flush 3 Ml Syringe) 3 ml IVFLUSH QSHIFT [facility] Allergies Allergies Allergy/AdvReac Type Severity Reaction Status Date / Time No Known Allergies Allergy Verified 07/13/22 00:07 Assessment & Plan Assessment & Plan (1) Opioid withdrawal: Status: Acute Code(s): F11.93 - Opioid use, unspecified with withdrawal Assessment and Plan: UDS methadone 20mg X1 will follow up in AM HIV, hepatitis panel (2) Opioid use disorder: Status: Acute Code(s): F11.90 - Opioid use, unspecified, uncomplicated I spent ___30___ minutes with the patient and/or on the patient floor today, greater than?50% of which was spent counseling/coordinating care. [facility] Past Medical History Medical History IV drug user Social History Social History Alcohol intake: unknown Use of substances other than those prescribed or required for medical reasons: Unknown Advance Directives: No Advance Directives Information Provided: Yes
--- NOTE | 2022-08-19 16:27 | PHA.MEDREC ---
MED REC COMPLETE, PATIENT SAYS NO MEDICATIONS Pharmacy Consult ? Medication Reconciliation Pharmacy has completed the medication reconciliation.
[2022-08-19] MEDS: 0.9 % Sodium Chloride Flush 3 ML SYRINGE IVFLUSH (17:30)
[2022-08-19] MEDS: methADONE HCl 20 MG/2 ML ORAL.CONC PO (17:34)
--- NOTE | 2022-08-19 18:43 | PC.NURSE ---
pt was incontinent of urine ,bed bath given linen change ,pt boyfriend at bedside .
--- NOTE | 2022-08-19 18:56 | MHC.CM.PN ---
Addendum entered by Luz Benitez 08/19/22 19:04: coach driver, Shimon, aware of patient admission. Original Note: CM met with admitted patient with bed assignment pending. Pt awakened for assessment. Pt is homeless and does not have a phone. Pt did not have any contact information listed. Pt provided contact with telephone number. Pt has no PCP or HCP. Pt agreeable to complete HCP. Reviewed, completed and signed. Copies given. Uploaded into [employer] and [facility] [employer]. HCP/boyfriend/contact Remy Dallas ([phone]). Remy stays in a retirement. Pt is actively using IV drugs, heroin and cocaine. Had 2 covid vaccinations, cannot remember occupational ther. No booster. Pt agreeable to MAT. Rubina Ortega is following patient. Methadone started. Pt reports that she has no d/c plan or transport at discharge. Pt is considering rehab treatment at discharge. CM will follow for any discharge needs.
--- NOTE | 2022-08-19 19:48 | PC.NURSE ---
Pt asked to provide urine for urine sample. P t states she is unable to go right now. Pt educated on the need for urine for a drug screen . Pt instructed to ring call rodgers if assisted is needed walking to the bathroom Rn made aware
--- NOTE | 2022-08-19 21:41 | MHC.RECOVSUP ---
? Reason for consult:OTHER o? Current location:ED09? o? Identified substance use concern:? -? Overdose ? Intervention: o? Harm reduction discussion ? Plan: o? Follow up tomorrow? o? Patient awaiting crisis evaluation ? Additional information:RC went to meet with pt but she was sleeping, so I didn't speak with her.
--- NOTE | 2022-08-19 21:54 | PC.NURSE ---
Assumed care of pt. at 190. Pt. sleeping but arousable. Pt. c/o pain 10/10 in legs. Medicated with PRN dilaudid per NOV. Was unable to scan med as syringe was discarded in sharps container prior to scanning. Pt. is moving to overflow. Report called and [facility] is transporting.
--- NOTE | 2022-08-19 21:57 | PC.NURSE ---
Pt. still pending urine tox screen. Pt. is aware that we need urine but hasn't been able to void at this time.
[2022-08-19] MEDS: vancomycin HCL 750 MG in 0.9 % Sodium Chloride 250 ML 265 MG IV (23:22)
[2022-08-19] MEDS: Midazolam HCl/PF 2 MG/2 ML VIAL IVPUSH (23:22)
[2022-08-20 00:16] LABS: Amphetamine Screen Urine Not Detected (Not Detect); Barbiturates, Urine Not Detected (Not Detect); Benzodiazepines Screen Urine Not Detected (Not Detect); Cannabinoid Screen Urine POSITIVE (Not Detect); Cocaine Screen Urine POSITIVE (Not Detect); Fentanyl, urine POSITIVE (Not Detect); Opiate Screen Urine POSITIVE (Not Detect); Phencyclidine Screen Urine Not Detected (Not Detect)
[2022-08-20] MEDS: Piperacillin Sodium/Tazobactam 3.375 GM in 0.9 % Sodium Chloride 50 ML IV ×3 (02:00→15:34)
[2022-08-20] MEDS: oxyCODONE HCl Immed Release 5 MG TABLET PO ×2 (02:28→09:08)
--- NOTE | 2022-08-20 06:13 | PC.NURSE ---
pt was in and out of sleep snaking on her food , pt cant walk , i ask how does she go to the br her other half stated he helps her on and off the bedpan, her urine was obtain last night on my shift.. no problems or issues
--- NOTE | 2022-08-20 06:37 | PC.NURSE ---
pt has boyfriend at the bedside. boyfriend was asked to leave at the time of transfer of patient from ED to overflow as visiting hours were over. patient threatened to leave AMA if he had to go. MD and Airport Operations Duty Manager to the bedside. MD made exception due to patient illness and not wanting her to AMA. Boyfriend educated that he cannot go in and out and that if he does leave he cannot come back until visiting hours start.
--- NOTE | 2022-08-20 07:00 | CA_ITS ---
Transthoracic Echocardiogram Patient (Last, First, Middle): Adry Le A Gender: Female Date of : 1995 Age: 27 Procedure Date: 08/20/2022 Procedure Type: Transthoracic Echocardiogram Location: ER Height: 162.56 cm Weight: 58.97 kg BSA: 1.63 m2 Heart Rate: 72 bpm BP: 123 / 74 mmHg Cellophane Press Operator: SB Referring MD: Kanu CASTANEDA Symptoms: IVDU w/possible bacteremia Study Quality: Adequate ECG Rhythm: Sinus Conclusions: - Essentially normal study. Findings Left Ventricle Normal left ventricular size, thickness, systolic function, and wall motion. The visually estimated ejection fraction is between 65-70%. Diastolic function is normal for age. Right Ventricle Normal right ventricular cavity size and systolic function. Atria Both atria are normal in size. Aortic Valve Normal aortic valve structure and function. There is no aortic valve stenosis. There is no aortic valve regurgitation. Mitral Valve Normal mitral valve structure and function. There is no mitral valve regurgitation. There is no mitral valve stenosis. Pulmonic Valve The pulmonic valve was not well visualized. Tricuspid Valve Normal tricuspid valve structure and function. There is no tricuspid valve regurgitation. Normal right atrial pressure. There is no evidence of pulmonary hypertension. Great Vessels All visible segments of the aorta are normal in size. The visualized portions of the pulmonary artery and branches are normal. Venous The inferior vena cava is normal in size and collapses greater than 50% with inspiration. Pericardium/Pleural There is no evidence of pericardial effusion. Measurements 2D Linear Measurements IVSd: 0.65 0.6-0.9/0.6-1.0 cm LVIDd: 4.45 3.9-5.3/4.2-5.9 cm LVIDd Index: 2.73 2.4-3.2/2.2-3.1 cm/m2 LVIDs: 2.53 2.0-3.6 cm LVPWd: 0.80 0.7-1.1 cm LA Diam: 2.90 2.7-3.8/3.0-4.0 cm LAIDs Index: 1.78 1.5-2.3 cm/m2 LV Mass: 122.38 67-162/88-224 g LV Mass Index: 75.08 43-95/49-115 g/m2 LVOT Diam: 1.90 3.0+(-)1.3 cm 2D Systolic Function EF 4C: 73.80 >55% EF 2C: 78.80 >55% EF BiP: 76.20 >55% Mitral Valve MV Pk E: 0.95 MV PK A: 0.43 MV Decel Time: 136.00 E/A: 2.20 E'Lateral: 14.30 E'Medial: 11.20 E/E' Med: 8.50 E/E' Lat: 6.70 PHT: 40.00 MVA PHT: 5.50 Decel Turner: 7.01 Aortic Valve AoV Pk Nando: 1.50 AoV Pk Grad: 9.00 HORACE: 3.00 LVOT LVOT Pk Nando: 1.59 LVOT Mn Nando: 1.03 LVOT VTI: 0.33 LVOT Pk Grad: 10.00 LVOT Mn Grad: 5.00 LVOT Diam: 1.90 LVOT Area: 2.84 Diastolic Function MV Pk E: 0.95 MV Pk A: 0.43 E/A: 2.20 E'Medial: 11.20 E/E' Med: 8.50 E' Laterial: 14.30 E/E' Lat: 6.70 Right Ventricle TAPSE (mm): 25.00 TVS' Nando: 16.90 Tricuspid Valve TR Pk Nando: 2.46 TR Pk Grad: 24.00 RA Press: 3.00 RVSP: 27.00 Great Vessels Aorta Sinus of Valsalva: 2.60 2.0-3.5 cm Pulmonary Veins Pulm Vein S/D 1.00 Pulmonary Valve PV Pk Nando: 1.09 Peak PV Grad: 5.00 Updated in Other Vendor System with Status of Final Patrice Werner MD electronically signed on 08/20/2022 9:13:24 PM with status of Final
[2022-08-20 07:17] LABS: Hematocrit 27.3 % (37.0-47.0); Hemoglobin 8.1 g/dl (12.0-16.0); Mean Corpuscular HGB Conc 29.7 g/dl (31.0-35.0); Mean Corpuscular Hemoglobin 20.1 pg (27.0-33.0); Mean Corpuscular Volume 67.7 fL (80.0-98.0); Mean Platelet Volume 9.7 fL (9.4-12.3); Platelet Count 275 X10*3/uL (160-400); Red Blood Count 4.03 X10*6/uL (4.20-5.50); White Blood Count 6.7 X10*3/uL (4.8-10.8)
[2022-08-20 07:32] LABS: Creatinine Clr Calc Pharmacy 116.6; Estimated Glomerular Filt Rate > 60
[2022-08-20 07:40] LABS: Acetaminophen LAB < 1 mcg/mL (<30); Salicylate < 5.0 mg/dL (15-30)
[2022-08-20 07:41] LABS: Blood Urea Nitrogen 8 mg/dL (9-16); Calcium 8.3 mg/dL (8.4-10.2); Creatinine Clr Calc Pharmacy 118.5; Estimated Glomerular Filt Rate > 60; Glucose Random 87 mg/dL (60-115)
[2022-08-20 07:52] LABS: Anion Gap 9 (12-20); Carbon Dioxide 24 mmol/L (22-29); Chloride 106 mmol/L (96-108); Potassium 3.9 mmol/L (3.3-5.1); Sodium 135 mmol/L (135-145)
--- NOTE | 2022-08-20 08:00 | PC.NURSE ---
pt currently sleeping, will assess shortly
[2022-08-20 08:56] LABS: HIV AB/AG Nonreactive (Nonreactive); HIV Num 1 0.06 S/CO (0.00-0.99)
[2022-08-20 09:02] LABS: HBS Num1 26.71 mIU/mL (0-7.99); HBc Num1 0.34 S/CO (0.00-0.79); HBsAGNum1 0.25 S/CO (0.00-0.99); Hepatitis A Antibody IgM 0.16 Index (0-0.79); Hepatitis B Core Antibody Nonreactive (Nonreactive); Hepatitis B Surface Antigen Negative (Negative); ~HepC Num1 10.91 S/CO (0.00-0.79); ~Hepatitis A Antibody IgM Nonreactive (Nonreactive); ~Hepatitis B Surface Antibody REACTIVE (Nonreactive); ~Hepatitis C Antibody Reactive (Nonreactive)
[2022-08-20 09:07] VITALS: BP 133/69; PULSE 81; RESP 14; TEMP 36.7; O2SAT 98
[2022-08-20] MEDS: Docusate Sodium 100 MG CAPSULE PO (09:08)
[2022-08-20] MEDS: 0.9 % Sodium Chloride Flush 3 ML SYRINGE IVFLUSH ×2 (09:16→15:34)
--- NOTE | 2022-08-20 09:16 | PC.NURSE ---
patient a&ox3, iv antibiotics given per order, pt medicated for leg pain per order 04/30, pt turn/positioned to comfort, call rodgers within reach, will continue to monitor
--- NOTE | 2022-08-20 10:03 | MHC.RECOVRN ---
This rewriter met w/ pt. Pt was awake and alert, on the phone when t/w entered room. Pt states I need something , pt states Methadone only worked for a little bit, like 2 hours . Pt reporting body aches, cold sweat/chills, pt visibly diaphoretic. Provider aware.
[2022-08-20 10:19] LABS: Alanine Aminotransferase 765 U/L (0-31); Albumin Level 2.6 g/dL (3.5-5.0); Alkaline Phosphatase 171 U/L (39-117); Aspartate Amino Transferase 569 U/L (5-31); Bilirubin Direct 0.8 mg/dL (0.0-0.5); Bilirubin Total 1.2 mg/dL (0.0-1.0); C Reactive Protein 3.43 mg/dL (< or = 0.50); Total Protein 5.5 g/dL (6.5-8.0)
[2022-08-20] MEDS: vancomycin HCL 750 MG in 0.9 % Sodium Chloride 250 ML 265 MG IV (10:55)
[2022-08-20] MEDS: methADONE HCl 20 MG/2 ML ORAL.CONC 30 MG PO (10:55)
--- NOTE | 2022-08-20 11:01 | PC.NURSE ---
pt medicated per order, c/o 04/30 pain.
--- NOTE | 2022-08-20 11:44 | P.PNIM_ITS ---
Subjective Subjective Date of Service: 08/20/22 Interval History: Pt seen for f/u for left leg pain and possible bacteremia secondary to IVDU. Interval history: pt continues to complain of left leg pain, though feels better than yesterday. Complains of heroin withdrawal symptoms -- F/C, SOTO, diaphoresis, restlessness. Was seen by addiction medicine and prescribed methadone 20mg daily. No N/V, rhinorrhea, lacrimation, or diarrhea. No chest pain/pressure, palpitations, or SOB. Denies abdominal pain. Review of Systems Left leg pain centered around the knee F/C SOTO Diaphoresis No chest pain or pressure, palpitaitons or SOB Review of Systems: Yes all other systems are reviewed and are negative Physical Exam Vital Signs: Vital Signs: Last Vital Signs Temp 98.1 F 08/20/22 09:07 Pulse 81 08/20/22 09:07 Resp 14 08/20/22 09:07 BP 133/69 08/20/22 09:07 Pulse Ox 98 08/20/22 09:07 O2 Del Method 08/20/22 09:07 BMI result Body Mass Index 22.3 General: AOx3, no acute distress Eyes: sclera nonicteric Resp: CTA bilaterally CVS: S1, S2, RRR GI: Mild RUQ tenderness to palpation, diminished from yesterday. +BS, NT, no distention Skin: No rash Extremeties: Mild tenderness to palpation throughout, much diminished from yesterday. No erythema. Neuro: Motor grossly intact Psych: Appropriate affect Objective Data Active Medications Acetaminophen (Acetaminophen 325 Mg Tablet) 650 mg PO Q6H PRN PRN Reason: Pain, Mild (Pain Scale 1-3) Docusate Sodium (Docusate Sodium 100 Mg Capsule) 100 mg PO DAILY PRN PRN Reason: Constipation Last Admin: 08/20/22 09:08 Dose: 100 mg Documented By: GISELLA Enoxaparin Sodium (Enoxaparin Sodium 40 Mg/0.4 Ml Syringe) 40 mg SUBCUT Q24H BENNETT Last Admin: 08/19/22 15:38 Dose: 40 mg Documented By: LORRIE Hydromorphone HCl (Hydromorphone Hcl 1 Mg/Ml Syringe) 0.5 mg IVPUSH Q4H PRN; Protocol PRN Reason: Pain, Severe (Pain Scale 7-10) Last Admin: 08/19/22 21:48 Dose: 0.5 mg Documented By: ESPERANZA Piperacillin Sod/Tazobactam (Sod 3.375 gm/ Sodium Chloride) 50 mls @ 100 mls/hr IV Q6H [facility] Last Infusion: 08/20/22 09:59 Dose: 0 mls/hr Documented By: GISELLA Vancomycin HCl 750 mg/ Sodium (Chloride) 265 mls @ 265 mls/hr IV Q12H [facility] Last Admin: 08/20/22 10:55 Dose: 265 mls/hr Documented By: GISELLA Ondansetron HCl (Ondansetron Hcl 4 Mg/2 Ml Vial) 4 mg IVPUSH Q8H PRN PRN Reason: Nausea and Vomiting Oxycodone HCl (Oxycodone Hcl Immed Release 5 Mg Tablet) 5 mg PO Q6H PRN PRN Reason: Pain, Moderate (Pain Scale 4-6 Last Admin: 08/20/22 09:08 Dose: 5 mg Documented By: GISELLA Pharmacy Consult (Consult Rx Perform Med Rec) 1 each MISCELLANE ONCE PRN PRN Reason: Consult order Pharmacy Consult (Consult Rx Vancomycin Dosing) 1 each MISCELLANE DAILY PRN PRN Reason: Consult order Sodium Chloride (0.9 % Sodium Chloride Flush 3 Ml Syringe) 3 ml IVFLUSH QSHIFT [facility] Last Admin: 08/20/22 09:16 Dose: 3 ml Documented By: GISELLA Labs CBC & Chem 7: 08/20/22 06:56 08/20/22 06:56 Labs: Laboratory Results - last 24 hr 08/19/22 08/19/22 08/19/22 06:07 14:14 14:15 MCV MCH MCHC RDW Plt Count MPV Absolute Nucleated RBC Nucleated RBC % (auto) Anion Gap Estim Creat Clear Calc Estimated GFR Random Glucose Calcium Total Bilirubin Direct Bilirubin AST ALT Alkaline Phosphatase Lactate Dehydrogenase 584 H Total Creatine Kinase C-Reactive Protein Total Protein Albumin Salicylates Urine Opiates Screen Urine Fentanyl Screen Acetaminophen Ur Barbiturates Screen Ur Phencyclidine Scrn Ur Amphetamines Screen U Benzodiazepines Scrn Urine Cocaine Screen U Marijuana (THC) Screen Hepatitis A IgM Ab Nonreactive Hep Bs Antigen Negative Hep Bs Antibody REACTIVE Hep B Core Total Ab Nonreactive Hepatitis C Ab (EIA) Reactive H HIV 1&2 Ab/P24 Ag 4thGn Nonreactive 08/19/22 08/20/22 08/20/22 23:49 06:56 06:56 MCV 67.7 L MCH 20.1 L MCHC 29.7 L RDW 21.0 H Plt Count 275 MPV 9.7 Absolute Nucleated RBC 0.000 Nucleated RBC % (auto) 0.0 Anion Gap Estim Creat Clear Calc Estimated GFR Random Glucose Calcium Total Bilirubin Direct Bilirubin AST ALT Alkaline Phosphatase Lactate Dehydrogenase Total Creatine Kinase 34 C-Reactive Protein Total Protein Albumin Salicylates < 5.0 L Urine Opiates Screen POSITIVE H Urine Fentanyl Screen POSITIVE H Acetaminophen < 1 Ur Barbiturates Screen Not Detected Ur Phencyclidine Scrn Not Detected Ur Amphetamines Screen Not Detected U Benzodiazepines Scrn Not Detected Urine Cocaine Screen POSITIVE H U Marijuana (THC) Screen POSITIVE H Hepatitis A IgM Ab Hep Bs Antigen Hep Bs Antibody Hep B Core Total Ab Hepatitis C Ab (EIA) HIV 1&2 Ab/P24 Ag 4thGn 08/20/22 08/20/22 06:56 06:56 MCV MCH MCHC RDW Plt Count MPV Absolute Nucleated RBC Nucleated RBC % (auto) Anion Gap 9 L Estim Creat Clear Calc 118.5 116.6 Estimated GFR > 60 > 60 Random Glucose 87 Calcium 8.3 L D Total Bilirubin 1.2 H Direct Bilirubin 0.8 H AST 569 H ALT 765 H Alkaline Phosphatase 171 H Lactate Dehydrogenase Total Creatine Kinase C-Reactive Protein 3.43 H Total Protein 5.5 L Albumin 2.6 L Salicylates Urine Opiates Screen Urine Fentanyl Screen Acetaminophen Ur Barbiturates Screen Ur Phencyclidine Scrn Ur Amphetamines Screen U Benzodiazepines Scrn Urine Cocaine Screen U Marijuana (THC) Screen Hepatitis A IgM Ab Hep Bs Antigen Hep Bs Antibody Hep B Core Total Ab Hepatitis C Ab (EIA) HIV 1&2 Ab/P24 Ag 4thGn Microbiology Microbiology Results: Microbiology 08/19/22 06:50 Blood Culture - Preliminary Blood - Venous No growth after 24 hours. 08/19/22 06:50 Blood Culture - Preliminary Blood - Venous No growth after 24 hours. Assessment and Plan (1) Opioid use disorder: Status: Acute (2) Opioid withdrawal: Status: Acute (3) Elevated LFTs: Status: Acute (4) Bacteremia due to Gram-positive bacteria: Status: Acute (5) IV drug abuse: Status: Acute Plan Plan Pt is a 37-year-old female with a PMH significant for homelessness and IVDA who last used five hours prior to arrival, who was brought to the ED via ambulance complaining of left leg pain. Pt was seen in the ED on 07/13/22 for a similar complaint and blood cultures came back positive for strep viridans, but pt left before receiving treatment. Pt does not meet sepsis criteria. She was admitted to the hospital and treated for bacteremia and opioid withdrawal. # bacteremia likely caused by IVDA -- pt seen on 07/13/22 for a similar complaint of left leg pain. Blood cultures came back positive for strep viridans but pt left before receiving treatment -- cultures pending, no growth after 24 hours -- vanco 1g IV q12 -- zosyn 3.375g IV q6 -- pt does not meet sepsis criteria -- ID consult, will switch abx to ceftriaxone 2mg daily if blood cultures positive for strep viridans -- echocardiogram to r/o endocarditis # transaminitis & hyperbilirubinemia -- GI consulted and suggest likely due to toxic hepatic injury in the setting of cocaine use -- LFTs trending down, AST 873-->569, ALT 1159-->765, Alk Phos 217-->171, total Bilirubin 2.1-->1.2, direct bilirubin 1.0-->0.8 -- CT of abdomen showed hepatomegaly -- mild RUQ pain on physical exam, diminished since yesterday -- RUQ ultrasound to r/o cholecystitis, read pending -- hepatitis panel was positive for Hepatitis C Ab. Viral load and genotype ordered -- follow CMP # IVDU -- pt says she uses at least four bags daily along with cocaine -- currently shoots up in her arms -- HIV panel negative -- urine drug screen positive for opiates, fentanyl, cocaine, and marijuana -- addiction medicine consulted, treating for opioid withdrawal with methadone 20mg daily # constipation -- CT of abdomen showed moderate constipation with no obstruction seen -- pt has not reported bowel movement since admission -- docusate/senna 1 tablet bid -- monitor Full code DVT prophylaxis: Lovenox Attending: Dr. Waldrop Quality Stroke Does the patient have a stroke diagnosis?: No VTE Prior VTE?: No VTE Risk Level:: Medical - moderate - high VTE Device Contraindication: N/A - Device Ordered VTE Drug Contraindication: N/A - Med Ordered
--- NOTE | 2022-08-20 11:45 | PM.GIPN ---
Subjective Subjective Date of Service: 08/20/22 Interval History: Pt seen and examined at bedside. C/o chills and restlessness. No abd pain, N,V. Just finished a sandwich. Tox screen + cocaine, heroin, fentanyl and marijuana HCV Ab + Pt not aware of prior dx of Hep C. Critical Care Time (minutes): 0 Physical Exam Vital Signs: Vital Signs: Last Vital Signs Temp 98.1 F 08/20/22 09:07 Pulse 81 08/20/22 09:07 Resp 14 08/20/22 09:07 BP 133/69 08/20/22 09:07 Pulse Ox 98 08/20/22 09:07 O2 Del Method 08/20/22 09:07 BMI result Body Mass Index 22.3 Gen appear: Somnolent Abd: soft, nontender, nondistended Objective Data Labs CBC & Chem 7: 08/20/22 06:56 08/20/22 06:56 Labs: Laboratory Results - last 24 hr 08/19/22 08/19/22 08/19/22 06:07 14:14 14:15 WBC RBC Hgb Hct MCV MCH MCHC RDW Plt Count MPV Absolute Nucleated RBC Nucleated RBC % (auto) Sodium Potassium Chloride Carbon Dioxide Anion Gap BUN Creatinine Estim Creat Clear Calc Estimated GFR Random Glucose Calcium Total Bilirubin Direct Bilirubin AST ALT Alkaline Phosphatase Lactate Dehydrogenase 584 H Total Creatine Kinase C-Reactive Protein Total Protein Albumin Salicylates Urine Opiates Screen Urine Fentanyl Screen Acetaminophen Ur Barbiturates Screen Ur Phencyclidine Scrn Ur Amphetamines Screen U Benzodiazepines Scrn Urine Cocaine Screen U Marijuana (THC) Screen Hepatitis A IgM Ab Nonreactive Hep Bs Antigen Negative Hep Bs Antibody REACTIVE Hep B Core Total Ab Nonreactive Hepatitis C Ab (EIA) Reactive H HIV 1&2 Ab/P24 Ag 4thGn Nonreactive 08/19/22 08/20/22 08/20/22 23:49 06:56 06:56 WBC 6.7 RBC 4.03 L Hgb 8.1 L Hct 27.3 L MCV 67.7 L MCH 20.1 L MCHC 29.7 L RDW 21.0 H Plt Count 275 MPV 9.7 Absolute Nucleated RBC 0.000 Nucleated RBC % (auto) 0.0 Sodium Potassium Chloride Carbon Dioxide Anion Gap BUN Creatinine Estim Creat Clear Calc Estimated GFR Random Glucose Calcium Total Bilirubin Direct Bilirubin AST ALT Alkaline Phosphatase Lactate Dehydrogenase Total Creatine Kinase 34 C-Reactive Protein Total Protein Albumin Salicylates < 5.0 L Urine Opiates Screen POSITIVE H Urine Fentanyl Screen POSITIVE H Acetaminophen < 1 Ur Barbiturates Screen Not Detected Ur Phencyclidine Scrn Not Detected Ur Amphetamines Screen Not Detected U Benzodiazepines Scrn Not Detected Urine Cocaine Screen POSITIVE H U Marijuana (THC) Screen POSITIVE H Hepatitis A IgM Ab Hep Bs Antigen Hep Bs Antibody Hep B Core Total Ab Hepatitis C Ab (EIA) HIV 1&2 Ab/P24 Ag 4thGn 08/20/22 08/20/22 06:56 06:56 WBC RBC Hgb Hct MCV MCH MCHC RDW Plt Count MPV Absolute Nucleated RBC Nucleated RBC % (auto) Sodium 135 Potassium 3.9 Chloride 106 Carbon Dioxide 24 Anion Gap 9 L BUN 8 L Creatinine 0.61 0.62 Estim Creat Clear Calc 118.5 116.6 Estimated GFR > 60 > 60 Random Glucose 87 Calcium 8.3 L D Total Bilirubin 1.2 H Direct Bilirubin 0.8 H AST 569 H ALT 765 H Alkaline Phosphatase 171 H Lactate Dehydrogenase Total Creatine Kinase C-Reactive Protein 3.43 H Total Protein 5.5 L Albumin 2.6 L Salicylates Urine Opiates Screen Urine Fentanyl Screen Acetaminophen Ur Barbiturates Screen Ur Phencyclidine Scrn Ur Amphetamines Screen U Benzodiazepines Scrn Urine Cocaine Screen U Marijuana (THC) Screen Hepatitis A IgM Ab Hep Bs Antigen Hep Bs Antibody Hep B Core Total Ab Hepatitis C Ab (EIA) HIV 1&2 Ab/P24 Ag 4thGn Microbiology Microbiology Results: Microbiology 08/19/22 06:50 Blood - Venous Blood Culture - Preliminary No growth after 24 hours. 08/19/22 06:50 Blood - Venous Blood Culture - Preliminary No growth after 24 hours. Procedures Date of Service Date of Service: 08/20/22 Progress Note: A&P Assessment and plan (1) Elevated LFTs: Status: Acute (2) IV drug abuse: Status: Acute (3) Hepatitis C antibody positive in blood: Status: Acute Plan LFTs trending down as expected likely from cocaine related hepato-toxicity. Reviewed finding of positive hep C antibody with the patient. Discussed that we will need RNA levels to determine if she has chronic hep C vs resolved infection. Plan: - HCV RNA and genotype ordered. - US Abd read pending - Will follow Time Spent With Patient Time: Total time spent is greater than 50% in coordination of care (as documented) at patient's floor/unit and/or counseling patient: Quality Stroke Does the patient have a stroke diagnosis?: No VTE Prior VTE?: No VTE Risk Level:: Medical - moderate - high VTE Device Contraindication: N/A - Device Ordered VTE Drug Contraindication: N/A - Med Ordered
--- NOTE | 2022-08-20 11:52 | PC.NURSE ---
pt had minimal relief of pain despite po pain medications, pt also got a dose of methadone. iv antibiotics continue to run per order, call rodgers within reach, will continue to monitor
--- NOTE | 2022-08-20 13:12 | PC.NURSE ---
first dose of senokot was held by provider as pt already had colace at 9am, pt colace is now on hold and will have bid senokot instead.
[2022-08-20] MEDS: Enoxaparin Sodium 40 MG/0.4 ML SYRINGE SUBCUT (15:34)
[2022-08-20] MEDS: Acetaminophen 325 MG TABLET 650 MG PO (15:37)
[2022-08-20] MEDS: Nicotine 21 MG PATCH.TD24 TRANSDERMA (15:39)
--- NOTE | 2022-08-20 15:42 | PC.NURSE ---
pt medicated per order
--- NOTE | 2022-08-20 16:37 | PC.NURSE ---
pt assisted oob to wheelchair to bathroom with tech, boyfriend at bedside and wished to help, this nurse sent tech to assist patient.
--- NOTE | 2022-08-20 18:25 | PC.NURSE ---
patient was found to be smoking in the bathroom, security was called. pt was confronted by this nurse about smoking as pt had requested a second nicotine patch after losing her previous patch. dr. hassan was notified of the patient smoking as well. will apply the new nicotine patch if pt still wants it.
--- NOTE | 2022-08-20 18:57 | PC.NURSE ---
security came to see the patient, pt now refusing all medications, pt wanting to leave ama, dr. hassan notified and ja come see the patient shortly pt made aware
--- NOTE | 2022-08-20 19:10 | PC.NURSE ---
Addendum entered by Cee Leung RN 08/20/22 20:40: pt threating to remove her IV if the provider doesnt come. pt stated that she wants to leave AMA. Dr. Driscoll arrived to bedside, spoke with the pt regarding the life risk of leaving AMA, pt stated that she is aware of the risk and stated that she wants to leave. pt had two IV which was removed by this RN. Pt signed AMA form, left with significant other. all pt belonging left with the pt Original Note: report received from SHAR Rudolph
--- NOTE | 2022-08-20 20:08 | PC.NURSE ---
pt refused vitals because she wanted to leave.
--- NOTE | 2022-08-20 20:39 | HO.ADDICTPRO ---
Subjective Subjective Date of Service: 08/20/22 Reason For Visit: Left leg pain Interim History: Patient seen in follow up. Friend Viktor at bedside during interview. At time of visit patient was awake, alert and reporting feeling much better . Received methadone 30mg earlier in the day which she reports was helpful, but still complaining of chills and body aches. Overall patient presentation much improved from yesterday--no longer restless, diaphoretic, grimacing, moaning. She has been able to eat some. Received methadone 20mg yesterday and methadone 30mg today She would like to continue with methadone titration a this time. Review of Systems Acute medical concerns: Yes Review of Systems Constitutional: Reports as per [facility] Mental Status Exam Mental Status Exam Patient Appearance: Appropriate Patient Orientation: Person, Place, Time and Situation Level of Consciousness: Awake, Appropriate and Alert Patient Behavior: Appropriate and Guarded Mood Description: Blunted Affect Description: Blunted Speech Pattern: Clear Thought Process: Intact Thought Content: positive for Intact Judgement: Fair Diagnostics Vital Signs (24Hr): Vital Signs - 24 hr 08/19/22 21:48 08/20/22 09:07 Temperature 98.1 F Pulse Rate 81 Respiratory Rate 16 14 Blood Pressure 133/69 Pulse Oximetry 98 Oxygen Delivery Method Room Air BMI result Body Mass Index 22.3 Labs Results: 08/20/22 06:56 08/20/22 06:56 Labs: Laboratory Results - last 48 hr 08/19/22 08/19/22 08/19/22 06:07 06:07 06:07 WBC 8.0 RBC 4.93 Hgb 9.9 L Hct 33.7 L MCV 68.4 L MCH 20.1 L MCHC 29.4 L RDW 21.3 H Plt Count 282 D MPV 9.6 Immature Gran % (Auto) 0.4 Neut % (Auto) 62.0 Lymph % (Auto) 25.2 Edwards % (Auto) 9.4 Eos % (Auto) 2.5 Baso % (Auto) 0.5 Lymph # (Auto) 2.0 Edwards # (Auto) 0.8 Eos # (Auto) 0.2 Baso # (Auto) 0.0 Abs Immat Gran (auto) 0.03 Absolute Neuts (auto) 4.9 Absolute Nucleated RBC 0.000 Nucleated RBC % (auto) 0.0 ESR Sodium 134 L Potassium 3.6 Chloride 103 Carbon Dioxide 27 Anion Gap 8 L BUN 9 Creatinine 0.61 Estim Creat Clear Calc 118.5 Estimated GFR > 60 Random Glucose 92 Lactic Acid 1.0 Calcium 8.9 Total Bilirubin 2.1 H Direct Bilirubin 1.0 H AST 873 H ALT 1159 H Alkaline Phosphatase 217 H Lactate Dehydrogenase 584 H Total Creatine Kinase 107 C-Reactive Protein 4.04 H Total Protein 6.9 Albumin 3.2 L Salicylates Urine Opiates Screen Urine Fentanyl Screen Acetaminophen Ur Barbiturates Screen Ur Phencyclidine Scrn Ur Amphetamines Screen U Benzodiazepines Scrn Urine Cocaine Screen U Marijuana (THC) Screen COVID-19 ([place]) COVID-19 Clin Com Hepatitis A IgM Ab Hep Bs Antigen Hep Bs Antibody Hep B Core Total Ab Hepatitis C Ab (EIA) Hep C Viral Load Hep C Viral Load Log Hepatitis C Genotype HIV 1&2 Ab/P24 Ag 4thGn 08/19/22 08/19/22 08/19/22 06:07 06:07 14:14 WBC RBC Hgb Hct MCV MCH MCHC RDW Plt Count MPV Immature Gran % (Auto) Neut % (Auto) Lymph % (Auto) Edwards % (Auto) Eos % (Auto) Baso % (Auto) Lymph # (Auto) Edwards # (Auto) Eos # (Auto) Baso # (Auto) Abs Immat Gran (auto) Absolute Neuts (auto) Absolute Nucleated RBC Nucleated RBC % (auto) ESR 22 H Sodium Potassium Chloride Carbon Dioxide Anion Gap BUN Creatinine Estim Creat Clear Calc Estimated GFR Random Glucose Lactic Acid Calcium Total Bilirubin Direct Bilirubin AST ALT Alkaline Phosphatase Lactate Dehydrogenase Total Creatine Kinase C-Reactive Protein Total Protein Albumin Salicylates Urine Opiates Screen Urine Fentanyl Screen Acetaminophen Ur Barbiturates Screen Ur Phencyclidine Scrn Ur Amphetamines Screen U Benzodiazepines Scrn Urine Cocaine Screen U Marijuana (THC) Screen COVID-19 ([place]) Negative COVID-19 Clin Com See Note Hepatitis A IgM Ab Nonreactive Hep Bs Antigen Negative Hep Bs Antibody REACTIVE Hep B Core Total Ab Nonreactive Hepatitis C Ab (EIA) Reactive H Hep C Viral Load Hep C Viral Load Log Hepatitis C Genotype HIV 1&2 Ab/P24 Ag 4thGn 08/19/22 08/19/22 08/20/22 14:15 23:49 06:56 WBC RBC Hgb Hct MCV MCH MCHC RDW Plt Count MPV Immature Gran % (Auto) Neut % (Auto) Lymph % (Auto) Edwards % (Auto) Eos % (Auto) Baso % (Auto) Lymph # (Auto) Edwards # (Auto) Eos # (Auto) Baso # (Auto) Abs Immat Gran (auto) Absolute Neuts (auto) Absolute Nucleated RBC Nucleated RBC % (auto) ESR Sodium Potassium Chloride Carbon Dioxide Anion Gap BUN Creatinine Estim Creat Clear Calc Estimated GFR Random Glucose Lactic Acid Calcium Total Bilirubin Direct Bilirubin AST ALT Alkaline Phosphatase Lactate Dehydrogenase Total Creatine Kinase 34 C-Reactive Protein Total Protein Albumin Salicylates < 5.0 L Urine Opiates Screen POSITIVE H Urine Fentanyl Screen POSITIVE H Acetaminophen < 1 Ur Barbiturates Screen Not Detected Ur Phencyclidine Scrn Not Detected Ur Amphetamines Screen Not Detected U Benzodiazepines Scrn Not Detected Urine Cocaine Screen POSITIVE H U Marijuana (THC) Screen POSITIVE H COVID-19 ([place]) COVID-19 Clin Com Hepatitis A IgM Ab Hep Bs Antigen Hep Bs Antibody Hep B Core Total Ab Hepatitis C Ab (EIA) Hep C Viral Load Hep C Viral Load Log Hepatitis C Genotype HIV 1&2 Ab/P24 Ag 4thGn Nonreactive 08/20/22 08/20/22 08/20/22 06:56 06:56 06:56 WBC 6.7 RBC 4.03 L Hgb 8.1 L Hct 27.3 L MCV 67.7 L MCH 20.1 L MCHC 29.7 L RDW 21.0 H Plt Count 275 MPV 9.7 Immature Gran % (Auto) Neut % (Auto) Lymph % (Auto) Edwards % (Auto) Eos % (Auto) Baso % (Auto) Lymph # (Auto) Edwards # (Auto) Eos # (Auto) Baso # (Auto) Abs Immat Gran (auto) Absolute Neuts (auto) Absolute Nucleated RBC 0.000 Nucleated RBC % (auto) 0.0 ESR Sodium 135 Potassium 3.9 Chloride 106 Carbon Dioxide 24 Anion Gap 9 L BUN 8 L Creatinine 0.61 0.62 Estim Creat Clear Calc 118.5 116.6 Estimated GFR > 60 > 60 Random Glucose 87 Lactic Acid Calcium 8.3 L D Total Bilirubin 1.2 H Direct Bilirubin 0.8 H AST 569 H ALT 765 H Alkaline Phosphatase 171 H Lactate Dehydrogenase Total Creatine Kinase C-Reactive Protein 3.43 H Total Protein 5.5 L Albumin 2.6 L Salicylates Urine Opiates Screen Urine Fentanyl Screen Acetaminophen Ur Barbiturates Screen Ur Phencyclidine Scrn Ur Amphetamines Screen U Benzodiazepines Scrn Urine Cocaine Screen U Marijuana (THC) Screen COVID-19 ([place]) COVID-19 Clin Com Hepatitis A IgM Ab Hep Bs Antigen Hep Bs Antibody Hep B Core Total Ab Hepatitis C Ab (EIA) Hep C Viral Load Hep C Viral Load Log Hepatitis C Genotype HIV 1&2 Ab/P24 Ag 4thGn 08/20/22 12:32 WBC RBC Hgb Hct MCV MCH MCHC RDW Plt Count MPV Immature Gran % (Auto) Neut % (Auto) Lymph % (Auto) Edwards % (Auto) Eos % (Auto) Baso % (Auto) Lymph # (Auto) Edwards # (Auto) Eos # (Auto) Baso # (Auto) Abs Immat Gran (auto) Absolute Neuts (auto) Absolute Nucleated RBC Nucleated RBC % (auto) ESR Sodium Potassium Chloride Carbon Dioxide Anion Gap BUN Creatinine Estim Creat Clear Calc Estimated GFR Random Glucose Lactic Acid Calcium Total Bilirubin Direct Bilirubin AST ALT Alkaline Phosphatase Lactate Dehydrogenase Total Creatine Kinase C-Reactive Protein Total Protein Albumin Salicylates Urine Opiates Screen Urine Fentanyl Screen Acetaminophen Ur Barbiturates Screen Ur Phencyclidine Scrn Ur Amphetamines Screen U Benzodiazepines Scrn Urine Cocaine Screen U Marijuana (THC) Screen COVID-19 ([place]) COVID-19 Clin Com Hepatitis A IgM Ab Hep Bs Antigen Hep Bs Antibody Hep B Core Total Ab Hepatitis C Ab (EIA) Hep C Viral Load Cancelled Hep C Viral Load Log Cancelled Hepatitis C Genotype Cancelled HIV 1&2 Ab/P24 Ag 4thGn Imaging Radiology Impressions: ITS Impressions Venous Duplex 08/19/22 06:25 IMPRESSION: No DVT demonstrated in the left lower extremity. Abdomen/Pelvis CT 08/19/22 10:14 IMPRESSION: 1. Moderate constipation. No obstruction seen. 2. No radiopaque urolith or hydroureteronephrosis. There is no soft tissue abscess, mass or fluid collection in the left lower extremity. No abnormal enhancement seen either. Fleischner guidelines were followed. Lower Extremity CT 08/19/22 10:14 IMPRESSION: 1. Moderate constipation. No obstruction seen. 2. No radiopaque urolith or hydroureteronephrosis. There is no soft tissue abscess, mass or fluid collection in the left lower extremity. No abnormal enhancement seen either. Fleischner guidelines were followed. Chest X-Ray 08/19/22 12:40 IMPRESSION: Unremarkable examination. Abdomen Ultrasound 08/19/22 19:13 IMPRESSION: 1. Mild hepatomegaly. No focal lesion seen. 2. The gallbladder is contracted as patient is non fasting. 3. Visualized pancreas, right kidney and the CBD appears unremarkable. Medications Medications Current Medications Acetaminophen (Acetaminophen 325 Mg Tablet) 650 mg PO Q6H PRN PRN Reason: Pain, Mild (Pain Scale 1-3) Last Admin: 08/20/22 15:37 Dose: 650 mg Docusate Sodium (Docusate Sodium 100 Mg Capsule) 100 mg PO DAILY PRN PRN Reason: Constipation Last Admin: 08/20/22 09:08 Dose: 100 mg Enoxaparin Sodium (Enoxaparin Sodium 40 Mg/0.4 Ml Syringe) 40 mg SUBCUT Q24H [facility] Last Admin: 08/20/22 15:34 Dose: 40 mg Hydromorphone HCl (Hydromorphone Hcl 1 Mg/Ml Syringe) 0.5 mg IVPUSH Q4H PRN; Protocol PRN Reason: Pain, Severe (Pain Scale 7-10) Last Admin: 08/19/22 21:48 Dose: 0.5 mg Piperacillin Sod/Tazobactam (Sod 3.375 gm/ Sodium Chloride) 50 mls @ 100 mls/hr IV Q6H [facility] Last Infusion: 08/20/22 16:04 Dose: Infused Vancomycin HCl 750 mg/ Sodium (Chloride) 265 mls @ 265 mls/hr IV Q12H [facility] Last Infusion: 08/20/22 11:55 Dose: Infused Nicotine (Nicotine 21 Mg Patch.Td24) 21 mg TRANSDERMA DAILY [facility] Last Admin: 08/20/22 19:15 Dose: Not Given Ondansetron HCl (Ondansetron Hcl 4 Mg/2 Ml Vial) 4 mg IVPUSH Q8H PRN PRN Reason: Nausea and Vomiting Oxycodone HCl (Oxycodone Hcl Immed Release 5 Mg Tablet) 5 mg PO Q6H PRN PRN Reason: Pain, Moderate (Pain Scale 4-6 Last Admin: 08/20/22 09:08 Dose: 5 mg Pharmacy Consult (Consult Rx Perform Med Rec) 1 each MISCELLANE ONCE PRN PRN Reason: Consult order Pharmacy Consult (Consult Rx Vancomycin Dosing) 1 each MISCELLANE DAILY PRN PRN Reason: Consult order Senna/Docusate Sodium (Sennosides/Docusate Sodium Tablet) 1 tab PO BID [facility] Last Admin: 08/20/22 13:11 Dose: Not Given Sodium Chloride (0.9 % Sodium Chloride Flush 3 Ml Syringe) 3 ml IVFLUSH QSHIFT [facility] Last Admin: 08/20/22 15:34 Dose: 3 ml Allergies Allergies Allergy/AdvReac Type Severity Reaction Status Date / Time No Known Allergies Allergy Verified 07/13/22 00:07 Assessment & Plan Assessment & Plan (1) Opioid use disorder: Status: Acute Code(s): F11.90 - Opioid use, unspecified, uncomplicated Assessment and Plan: methadone 40mg tomorrow AM continue to follow RSRN to coordinate OTP referral I spent __30____ minutes with the patient and/or on the patient floor today, greater than?50% of which was spent counseling/coordinating care.
--- NOTE | 2022-08-21 05:22 | PM.EVENT ---
Event Note Date of Service: 08/21/22 Event Note: I was mssgd by nurse that pt wanted to leave AMA. It appears that pt was found smoking in her room earlier, pt got upset and requested to leave. I spoke to pt exentsively about her need to stay given her hx and need for IV antibiotics until further results of blood work as well as echo. pt adamant that she wants to leave. family memeber at bedside. explained the risk of leaving AMA including risk of sepsis and worst case scenario, due to sepsis. pt demonstrated understanding of the risk and wants to leave. She will be leaving AMA. I did send a script for doxycycline to pharmacy for her , informed her and asked her to follow with primary doctor as soon as possible or return to ED when she feels that she needs to
--- NOTE | 2022-08-21 13:49 | PM.DS ---
DS: Providers Provider Date of Service: 08/21/22 Date of admission: 08/19/22 12:53 Primary care physician: Unknown Physician Consults: 08/19/22 12:37 Consult to Care Team Stat Comment: Reason for consultation: ? strting methadone pt will be admitted to the hospital she is IVDA 08/19/22 12:59 Consult to Infectious Diseases Routine Consulting Provider: Krista Sutton Reason for consultation: Possible Bacteremia Has provider been notified: No 08/19/22 13:17 Consult to Gastroenterology Routine Consulting Provider: Margareth Rodriguez Reason for consultation: Elevated LFTs and hyperbilirubinemia Has provider been notified: No 08/19/22 14:30 Addiction Medicine Routine Consulting Provider: Addiction Covering Reason for consultation: IVDA Has provider been notified: No DS: Diagnosis Discharge Diagnosis (1) Opioid use disorder: Status: Acute DS: Summary Hospital Course Hospital Course: Presenting HPI: Chief Complaint: Left Leg Pain Pt is a 37-year-old female with a PMH significant for homelessness and IVDA who last used five hours prior to arrival, who was brought to the ED via ambulance complaining of left leg pain. Pt describes the pain as stabbing/shooting, is located from above her left knee to her ankle, and has been going on for the past few weeks. She was unable to walk due to pain. She has also noticed some swelling around her left knee. Pt states she has occasionally been SOB and had palpitations since the onset of the pain. Denies chest pain or pressure. No F/C, N/V, abdominal pain. Denies erythema of leg. Of note, pt was seen in the ED on 07/13/22 for a similar complaint and blood cultures came back positive for strep viridans. However pt left before cultures came back and the ED was unable to reach her by phone so her bacteremia was left untreated. In the ED pt's ultrasound of left leg showed no evidence of DVT. CT of abdomen, pelvis, and lower leg revealed an enlarged liver with 4mm hypodense lesions on the right and left lobes, moderate constipation, and no soft tissue abscess, mass or fluid collection in the left lower extremity. Labs were significant for elevated AST 873, ALT 1159, Alk Phos 217, total Bilirubin 2.1, direct bilirubin 1.0, and C-reactive protein 4.04. She was treated with Vanco 1.250g IV and ketorolac and ketamine for pain control. Pt will be admitted to the hospital for treatment of bacteremia. Hospital course: Patient was admitted for transaminitis and possible bacteremia. Consult placed to Addiction Medicine, Gastroenterology, and Infectious Disease. While cultures were pending pt was treated with vanco 750mg IV q12 and Zosyn 3.375g IV q6 for possible bacteremia. During initial exam patient complained of right upper quadrant pain and an ultrasound was ordered to rule out cholecystitis; ultrasound showed no acute concerns. Hepatitis panel was positive for hep C antibody is with genotype and viral load pending. Patient received an echocardiogram the that was a ?essentially normal study. After the first night the patient began experiencing early opioid withdrawal symptoms -- F/C, SOTO, diaphoresis, restlessness -- and was prescribed methadone 20mg daily by addiction medicine. During the course of the day pt became increasingly agitated and desirous of going outside to smoke and get some fresh air. Nicotine replacement therapy offered little relief. Later in the day patient was caught smoking in in her bed by a nurse, whereupon she became upset and then requested to leave. Dr Driscoll spoke to the patient about her need to continue her treatment and the risks of leaving early, including risk of sepsis and worst case scenario, due to sepsis. However, she still requested to leave AMA. She was prescribed doxycycline and encouraged to follow-up with her PCP as soon as possible. Time spent discussing smoking cessation with patient: 3 to 10 minutes Status at Discharge Cognitive/behavioral status at discharge: Pt left AMA Time Spent with Patient Time attestation: Total time spent providing and/or coordinating discharge services: Discharge coordination time: Greater than 30 minutes Quality: Safe Use of Opioids Does Pt have an Active Cancer Diagnosis on the Problem List?: No Quality: Stroke Does the patient have a stroke diagnosis?: No Physical Exam Vital Signs: Vital Signs: Last Vital Signs Temp 98.1 F 08/20/22 09:07 Pulse 81 08/20/22 09:07 Resp 14 08/20/22 09:07 BP 133/69 08/20/22 09:07 Pulse Ox 98 08/20/22 09:07 O2 Del Method 08/20/22 09:07 BMI result Body Mass Index 22.3 Pt left hospital AMA. Physical exam was unable to be performed. DS: Data Data Completed and Pending Labs on day of discharge: Laboratory Results - last 24 hr 08/20/22 12:32 Hep C Viral Load Cancelled Hep C Viral Load Log Cancelled Hepatitis C Genotype Cancelled Preliminary micro results at discharge 08/19/22 06:50 Blood Culture - Preliminary Blood - Venous No growth after 48 hours. 08/19/22 06:50 Blood Culture - Preliminary Blood - Venous No growth after 48 hours. Discharge Plan Discharge Patient Disposition: Left Against Medical Advice Discharge Diagnosis: Left leg pain Opioid use disorder Referrals: Physician,Unknown J [Primary Care Provider] - 1 Week Discharge Medications: New doxycycline hyclate 100 mg tablet 100 mg PO BID 14 Days Qty: 28 0RF No Action No Known Home Meds Discharge Orders: Discharge Order (Routine); Ordered 08/21/22 Ordered By: Kanu Braden Diet: Advance to usual diet Activity on Discharge: As tolerated Stand Alone Forms: Community Support Care Plan Goals: Resume all home meds Health Concerns: Follow up with PCP as soon as possible Follow up with addiction medicine Plan of Treatment: Complete course of antibiotics Return to ED if pain persists or worsens, or you develop fever or chills Assessment: See discharge summary Discharge Date/Time: 08/20/22 20:10
[2022-08-23 14:13] LABS: HCV RNA PCR Qn 249000 IU/mL (NOT DETECTED)
[2022-09-04 13:13] LABS: HCV Genotype LiPA 1a
== END 2022-08-20 20:10 | disposition left against medical advice (07) | DRG 816 ==
LOC: HO.ED 06:51 → HO.EDOVER 13:45 → HO.S3 08-20 19:17
PROVIDERS: Emergency Medicine; Internal Medicine; Admitting Provider Student in an Organized Health Care Education/Training Program; Emergency Provider Emergency Medicine; Visit Provider Student in an Organized Health Care Education/Training Program
DX: T40.5X1A Poisoning by cocaine, accidental (unintentional), initial encounter (principal); K71.9 Toxic liver disease, unspecified; R78.81 Bacteremia; D50.9 Iron deficiency anemia, unspecified; F11.13 Opioid abuse with withdrawal; F14.10 Cocaine abuse, uncomplicated; B19.20 Unspecified viral hepatitis C without hepatic coma; K59.00 Constipation, unspecified; Z20.822 Contact with and (suspected) exposure to COVID-19; Z59.02 Unsheltered homelessness; Z56.0 Unemployment, unspecified; Z71.51 Drug abuse counseling and surveillance of drug abuser
CPT/HCPCS: 36415; 71045; 73701; 74177; 76705; 80048; 80076; 80143; 80179; 80307; 82550; 82565; 83605; 83615; 85025; 85027; 85652; 86140; 86704; 86706; 86709; 86803; 87040; 87340; 87389; 87522; 87635; 87902; 93306; 93971; 93975; 94640; 99218; 99285; J1170; J1650; J1885; J2250; J2543; J3370; Q9967

== ENCOUNTER 2022-10-07 23:23 | Inpatient (IN) | payer OTHER, SELFPAY ==
--- NOTE | ~2022-10-07 | XR_ITS ---
EXAMINATION: XR HIP, LEFT CLINICAL INFORMATION: Hip fracture COMPARISON: CT abdomen and pelvis with runoff TECHNIQUE: Two views of the left hip. FINDINGS: There is a intertrochanteric fracture medial angulation as seen on previous CAT scans. There is no dislocation. Right hip joint is normal. SI joints are normal. The soft tissues are normal. XR/XR hip LT w PEL1V IMPRESSION: Intertrochanteric fracture left hip with medial angulation.
--- NOTE | ~2022-10-07 | FL_ITS ---
EXAMINATION: XR FLUOROSCOPY WITH IMAGES CLINICAL INFORMATION: Left hip fracture COMPARISON: Left hip x-ray on 10/10/2022 TECHNIQUE: Fluoroscopy Supervised By: Dr. Doug Vieyra. Fluoroscopy Time: 0.1 minutes. Cumulative Dose: 1.37 mGy. DAP: 0.0237 Gycm2. Images: 2. FINDINGS: Redemonstration of the left intertrochanteric femoral neck fracture. FL/FL guidance in OR IMPRESSION: Fluoroscopy provided for the orthopedic department. Please see operative report for additional information.
--- NOTE | ~2022-10-07 | CT_ITS ---
EXAMINATION: CT ANGIOGRAPHY LEGS WITH RUNOFF CLINICAL INFORMATION: Bilateral leg pain, swelling, ischemic toes. COMPARISON: CT 08/19/2022 TECHNIQUE: Multidetector volumetric imaging of the abdomen, pelvis, and bilateral lower extremities is performed after administration of 100 mL of Omnipaque 350 IV contrast. Coronal, sagittal, and three-dimensional/MIP reformatted images are obtained on the technologist workstation under concurrent radiologist supervision. This CT examination was performed using dose optimization techniques as appropriate, variously including the following: *Automated exposure control *Adjustment of mA and/or kV according to patient size (this includes techniques or standardized protocols for targeted exams where dose is matched to indication/reason for exam; i.e. extremities or head) *Use of iterative reconstruction technique DLP: 350 mGy-cm FINDINGS: VASCULAR: 1. The aorta is normal in course and caliber. No dissection or atherosclerotic disease. 2. Normal appearance of the celiac axis, superior mesenteric artery, and inferior mesenteric artery. 3. Single bilateral renal arteries are widely patent. 4. The bilateral common iliac arteries, internal iliac arteries, and external iliac arteries are widely patent. 5. Right lower extremity: The common femoral artery, superficial femoral artery, profunda femoral artery, and popliteal artery are widely patent. Normal 3 vessel runoff in the calf to the ankle. 6. Left lower extremity: The common femoral artery, superficial femoral artery, profunda femoral artery, and popliteal artery are widely patent. Normal 3 vessel runoff in the calf to the ankle. NONVASCULAR: LUNG BASES: The visualized lung bases are unremarkable. LIVER, GALLBLADDER, AND BILIARY TREE: The liver is normal in size, shape, and attenuation. No focal hepatic lesion or biliary ductal dilatation is present. The gallbladder is unremarkable with no evidence of radiopaque gallstones, gallbladder wall thickening, or obvious pericholecystic inflammatory changes. PANCREAS: Unremarkable. SPLEEN: Unremarkable. ADRENAL GLANDS: Unremarkable. KIDNEYS AND URETERS: The kidneys are normal in size, shape, and attenuation. No hydronephrosis, hydroureter, or calculi seen. No perinephric stranding. BLADDER: Unremarkable. GASTROINTESTINAL TRACT: The small and large bowel are unremarkable. The appendix is not seen. ABDOMINAL WALL: No significant hernia is appreciated. LYMPH NODES: Normal. PELVIC VISCERA: The uterus and adnexa are unremarkable. LOWER EXTREMITY SOFT TISSUES: There is mild edema in the subcutaneous tissues of both thighs. There is left greater than right subcutaneous edema in the lower legs. Mild circumferential edema at the left ankle. Symmetric appearance of the lower extremity musculature. No soft tissue gas. No fluid collection. OSSEOUS STRUCTURES: No acute or suspicious osseous abnormality. Redemonstration of a left femoral neck fracture, as seen on the prior CT. There is some callus formation noted, though the fracture remains and is still well evident. Persistent varus angulation at the fracture site. The femoral head remains seated within its acetabulum. Appropriate alignment throughout both lower extremities otherwise. CT/CT angio abd aorta runoff IMPRESSION: 1. Normal appearance of the vasculature with no evidence of stenosis or occlusion. 2. No acute finding in the abdomen or pelvis. 3. Redemonstration of the left femoral neck fracture with persistent varus angulation. There is some callus formation now present.
[2022-10-07 23:31] VITALS: BMI 25.0
[2022-10-07 23:32] VITALS: BP 144/51; PULSE 112; RESP 21; TEMP 36.9; O2SAT 96
[2022-10-07 23:42] VITALS: BP 129/83; PULSE 125; RESP 16; TEMP 36.9; O2SAT 98
[2022-10-08] VITALS (10 sets, daily range): BP systolic 107–152; BP diastolic 62–93; PULSE 100–134; RESP 14–28; TEMP 36.6–39.2; O2SAT 95–100
[2022-10-08 00:31] LABS: MANUAL DIFF FLAG NO
[2022-10-08 00:33] LABS: Basophils Absolute Auto 0.1 X10*3/uL (0.0-0.2); Basophils Percent Auto 0.2 % (0-2); Eosinophils Absolute Auto 0.2 X10*3/uL (0.0-0.4); Eosinophils Percent Auto 0.8 % (0-4); Hemoglobin 8.3 g/dl (12.0-16.0); Imm Gran Abs Auto 0.11 X10*3/uL (0.00-0.03); Imm Gran Pct Auto 0.5 % (0.0-0.4); Lymphocytes Absolute Auto 2.5 X10*3/uL (1.2-4.9); Lymphocytes Percent Auto 12.1 % (20-40); Mean Corpuscular HGB Conc 29.6 g/dl (31.0-35.0); Mean Corpuscular Hemoglobin 19.6 pg (27.0-33.0); Mean Platelet Volume 9.2 fL (9.4-12.3); Monocytes Absolute Auto 1.2 X10*3/uL (0.1-1.2); Monocytes Percent Auto 5.8 % (2-11); Neutrophils Absolute Auto 16.5 x10*3/uL (2.0-8.3); Neutrophils Percent Auto 80.6 % (45-73); Platelet Count 276 X10*3/uL (160-400); Red Blood Count 4.24 X10*6/uL (4.20-5.50); Red Cell Distribution Width 17.4 % (11.0-16.0); White Blood Count 20.5 X10*3/uL (4.8-10.8)
[2022-10-08 00:36] LABS: Appearance Urine Cloudy; Color Urine Dark Yellow; Glucose Urine UA Negative (Negative); Leukocyte Esterase Urine Small (1+) (Negative); Nitrite Urine Negative (Negative); Specific Gravity - Urine >= 1.030 (1.005-1.025); UMIC TRIGGER UACC YES; Urine Blood Negative (Negative); Urine Ketones Trace mg/dL (Negative); Urine Protein Trace mg/dL (Neg-Trace)
[2022-10-08 00:47] LABS: Alanine Aminotransferase 135 U/L (0-31); Albumin Level 3.4 g/dL (3.5-5.0); Alkaline Phosphatase 82 U/L (39-117); Anion Gap 13 (12-20); Aspartate Amino Transferase 100 U/L (5-31); Bilirubin Total 0.4 mg/dL (0.0-1.0); Blood Urea Nitrogen 20 mg/dL (9-16); Calcium 9.2 mg/dL (8.4-10.2); Carbon Dioxide 25 mmol/L (22-29); Chloride 104 mmol/L (96-108); Creatinine Clr Calc Pharmacy 112.5; Estimated Glomerular Filt Rate > 60; Glucose Random 119 mg/dL (60-115); Sodium 138 mmol/L (135-145); Total Protein 6.9 g/dL (6.5-8.0)
[2022-10-08 00:57] LABS: Bacteria Urine 1+ (None Seen); Calcium Oxalate Crystals Urine Present; Hyaline Casts Urine 0-2 /LPF (0-2); UACC Culture Trigger YES
[2022-10-08 01:03] LABS: UPreg QC Valid YES; Urine Pregnancy NEGATIVE (NEGATIVE)
--- NOTE | 2022-10-08 01:34 | PC.NURSE ---
The pt present ed via EMS, sobbing in pain, for evaluation of LLE severe pain presumably due to harp bite, per the pt and per EMS who brought pt in. Pt was immediately undressed on arrival - her skin is all cool to the touch, body temperature WNL per oral thermometer. Pt's feet are dusky, dark colored, very cold to the touch. Pedal pulses present via doppler on arrival to both R and L feet. Shahana LUI was notified of these symptoms upon pts arrival. Warm blankets were applied to feet while pt awaits initial provider eval. Pt remains alert, oriented x 3, writhing in pain. No chest pain. NO SOB.
--- NOTE | 2022-10-08 01:36 | ED_ITS ---
HPI - Extremity Injury (Lower) General Chief Complaint: Extremity Injury, Lower Stated Complaint: leg injury Time Seen by Provider: 10/08/22 01:25 Source: patient Mode of arrival: EMS Limitations: no limitations History of Present Illness HPI Narrative: 27-year-old female who presents emergency department for evaluation of bilateral lower extremity swelling and pain. The patient states that she is homeless and was living outside. She believes that she may have gotten frostbite of both of her lower extremities 1 week prior. She states that she has been having severe pain in her lower legs specially over her feet. She states that her feet are numb and she cannot feel them. She denied fever or chills. I did review the patient's last hospital admission from 08/19/2022 until 08/21/2022. According the record the patient is homeless and has a history of of IVDA. At that time the patient was complaining of pain in both of her legs. Patient had blood cultures which grew strep viridans. She was treated with vancomycin and Zosyn. Patient left against medical advice prior to completing her treatment. She was discharged with a prescription for doxycycline of the son clear she completed this course of medications. Related Data Home Medications Medication Instructions Recorded Confirmed No Known Home Meds 08/19/22 08/19/22 Previous Rx's Medication Instructions Recorded doxycycline hyclate 100 mg tablet 100 mg PO BID 14 days #28 tabs 08/20/22 Allergies Allergy/AdvReac Type Severity Reaction Status Date / Time No Known Allergies Allergy Verified 07/13/22 00:07 [facility] Past Medical History Medical History Anemia Bacteremia due to Gram-positive bacteria Elevated LFTs IV drug user Left leg pain Opioid withdrawal Social History Social History Alcohol intake: unknown Patient Tobacco Use Status: Current everyday Tobacco user Advance Directives: No Advance Directives Information Provided: No service: No Current occupational status: unemployed Physical Exam Vital Signs: Vital Signs: Last Vital Signs Temp 102.4 F H 10/08/22 05:55 Pulse 125 H 10/08/22 07:10 Resp 28 H 10/08/22 07:10 BP 134/68 10/08/22 07:10 Pulse Ox 100 10/08/22 07:10 O2 Del Method 10/08/22 07:10 BMI result Body Mass Index 25.0 Const: Other: General: The patient is awake, she appears to be in significant distress secondary to her lower extremity pain HEENT : Normal cephalic atraumatic, pupils equal round reactive light, sclera contact however normal, mouth revealed moist membranes neck: Supple lungs: Breath sounds symmetric bilaterally heart: Regular rate rhythm, normal S1-S2, no murmurs rubs gallops abdomen: Soft nontender , normal active bowel sounds Extremities: The patient has any purplish discoloration of her to lose and feet bilaterally, there is an open blister to the left ventral aspect of the foot, patient does have swelling of both lower extremities left greater than right with erythema to the left lower extremity. Extrem: Other: Medications Administered Discontinued Medications Generic Name Dose Route Start Last Admin Trade Name Freq PRN Reason Stop Dose Admin Acetaminophen 650 mg 10/08/22 05:53 10/08/22 06:50 Acetaminophen Supp 650 Mg Supp.Rect NC 10/08/22 05:54 650 mg ONCE ONE Administration Diphenhydramine HCl 25 mg 10/08/22 03:33 10/08/22 03:40 Diphenhydramine Hcl 50 Mg/Ml Vial IVPUSH 10/08/22 03:34 25 mg ONCE ONE Administration Haloperidol Lactate 5 mg 10/08/22 03:33 10/08/22 03:40 Haloperidol Lactate 5 Mg/Ml Vial IVPUSH 10/08/22 03:34 5 mg STAT STA Administration Haloperidol Lactate 5 mg 10/08/22 04:35 10/08/22 04:41 Haloperidol Lactate 5 Mg/Ml Vial IVPUSH 10/08/22 04:36 5 mg ONCE ONE Administration Hydromorphone HCl 1 mg 10/08/22 01:34 10/08/22 01:52 Hydromorphone Hcl 1 Mg/Ml Syringe IVPUSH 10/08/22 01:35 1 mg ONCE STA Administration Protocol Hydromorphone HCl 2 mg 10/08/22 02:45 10/08/22 02:52 Hydromorphone Hcl 2 Mg/Ml Vial IVPUSH 10/08/22 02:46 2 mg ONCE ONE Administration Protocol Hydromorphone HCl 1 mg 10/08/22 04:35 10/08/22 04:42 Hydromorphone Hcl 1 Mg/Ml Syringe IVPUSH 10/08/22 04:36 1 mg ONCE STA Administration Protocol Ceftriaxone Sodium 1 gm/ 50 mls @ 100 mls/hr 10/08/22 01:34 10/08/22 02:27 Sodium Chloride IV 10/08/22 02:03 Infused ONCE ONE Infusion Vancomycin HCl 1,000 mg/ 535 mls @ 267.5 mls/hr 10/08/22 01:34 10/08/22 02:53 Vancomycin HCl 750 mg/ Sodium IV 10/08/22 03:33 267.5 mls/hr Chloride ONCE ONE Administration Iohexol 100 ml 10/08/22 05:55 10/08/22 05:56 Iohexol 350 Mg/Ml 100 Ml Infus..Btl IV 10/08/22 05:56 100 ml ONCE ONE Administration Ketamine HCl 70 mg 10/08/22 05:16 10/08/22 05:16 Ketamine Hcl/Ns 50 Mg/5 Ml Syringe IVPUSH 10/08/22 05:17 70 mg ONCE ONE Administration Ketamine HCl 100 mg 10/08/22 05:31 10/08/22 05:31 Ketamine Hcl/Ns 50 Mg/5 Ml Syringe IVPUSH 10/08/22 05:32 100 mg ONCE ONE Administration Medical Decision Making Medical Decision Making MDM Narrative: 27-year-old female with a history of IVDA, bacteremia with strep viridans 08/19/2022 who presents emergency department for evaluation of 1 week of lower extremity pain possibly secondary to frostbite. Patient was in significant distress secondary to her lower extremity pain. Patient's findings are consistent for vascular damage to the toes and feet which could be consistent with frostbite. I did order laboratory evaluation on the patient to include CBC, CMP, lactic acid, blood cultures x2, urinalysis, urine test. I also ordered a CT aortic angiogram with runoff to evaluate the arterial circu lation of her lower extremities. Patient was ordered to get vancomycin and ceftriaxone IV. patient was ordered to get Dilaudid 1 mg IV and Zofran 4 mg I 0513: My interpretation of the laboratory evaluation is as follows: Elevated WBC 69505, anemia which is chronic with an H&H of 8.3 and 28. Elevated glucose 119. [place] [address]. The patient has not been able tolerate lying flat at CT scan despite being medicated with Dilaudid, Haldol, Benadryl. Therefore the patient will be given procedural sedation with ketamine IV in order to complete the CT scan. 0559: Patient does have a fever of 102.4. and was ordered to get Tylenol 650 mg per rectum 0715: The CT angiogram of the abdominal morning with runoff did not reveal any arterial vascular compromise, the patient's presentation is consistent with cellulitis of the lower extremities. I will discuss admission with the covering hospitalist. 0739: I did discuss the patient's presentation with the covering hospitalist, Dr. Berger. After this discussion Dr. Albright requested a surgical consult. I did discuss the patient's presentation over tiger text with the covering surgeon, Dr. Hackett and he states that his see the patient in emergency department. Differential Diagnosis Differential diagnosis includes but is not limited to cellulitis, arterial thrombosis secondary to septic emboli or frostbite injury Consult Healthcare Provider Management of the patient was discussed with: Hospitalist Lab Data MDM Lab Attestation statement: I reviewed the patient's lab results. 10/08/22 00:27 10/08/22 00:27 Labs: Lab Results 10/08/22 10/08/22 10/08/22 Range/Units 00:27 00:27 00:29 WBC 20.5 H (4.8-10.8) X10*3/uL RBC 4.24 (4.20-5.50) X10*6/uL Hgb 8.3 L (12.0-16.0) g/dl Hct 28.0 L (37.0-47.0) % MCV 66.0 L (80.0-98.0) fL MCH 19.6 L (27.0-33.0) pg MCHC 29.6 L (31.0-35.0) g/dl RDW 17.4 H (11.0-16.0) % Plt Count 276 (160-400) X10*3/uL MPV 9.2 L (9.4-12.3) fL Immature Gran % (Auto) 0.5 H (0.0-0.4) % Neut % (Auto) 80.6 H (45-73) % Lymph % (Auto) 12.1 L (20-40) % Lipscomb % (Auto) 5.8 (2-11) % Eos % (Auto) 0.8 (0-4) % Baso % (Auto) 0.2 (0-2) % Lymph # (Auto) 2.5 (1.2-4.9) X10*3/uL Lipscomb # (Auto) 1.2 (0.1-1.2) X10*3/uL Eos # (Auto) 0.2 (0.0-0.4) X10*3/uL Baso # (Auto) 0.1 (0.0-0.2) X10*3/uL Abs Immat Gran (auto) 0.11 H (0.00-0.03) X10*3/uL Absolute Neuts (auto) 16.5 H (2.0-8.3) x10*3/uL Absolute Nucleated RBC 0.000 (0.0-0.012) X10*3/uL Nucleated RBC % (auto) 0.0 (0.0-0.2) /100WBC Sodium 138 (135-145) mmol/L Potassium 4.0 (3.3-5.1) mmol/L Chloride 104 (96-108) mmol/L Carbon Dioxide 25 (22-29) mmol/L Anion Gap 13 (12-20) BUN 20 H (9-16) mg/dL Creatinine 0.67 (0.5-1.4) mg/dL Estim Creat Clear Calc 112.5 Estimated GFR > 60 Random Glucose 119 H (60-115) mg/dL Lactic Acid (0.5-2.0) mmol/L Calcium 9.2 D (8.4-10.2) mg/dL Total Bilirubin 0.4 (0.0-1.0) mg/dL AST 100 H (5-31) U/L ALT 135 H (0-31) U/L Alkaline Phosphatase 82 (39-117) U/L Total Protein 6.9 (6.5-8.0) g/dL Albumin 3.4 L (3.5-5.0) g/dL Urine Color Dark Yellow Urine Appearance Cloudy Urine pH 6.0 (5.0-9.0) Ur Specific Warren >= 1.030 H (1.005-1.025) Urine Protein Trace (Neg-Trace) mg/dL Urine Glucose (UA) Negative (Negative) mg/dL Urine Ketones Trace (Negative) mg/dL Urine Blood Negative (Negative) Urine Nitrite Negative (Negative) Ur Leukocyte Esterase Small (1+) H (Negative) Urine RBC 11-20 H (0-2) /HPF Urine WBC 6-10 H (0-5) /HPF Ur Squamous Epith Cells 3-5 (0-2) /HPF Calcium Oxalate Crystal Present Urine Bacteria 1+ (None Seen) Hyaline Casts 0-2 (0-2) /LPF Urine Test (NEGATIVE) Urine Opiates Screen (Not Detect) Urine Fentanyl Screen (Not Detect) Ur Barbiturates Screen (Not Detect) Ur Phencyclidine Scrn (Not Detect) Ur Amphetamines Screen (Not Detect) U Benzodiazepines Scrn (Not Detect) Urine Cocaine Screen (Not Detect) U Marijuana (THC) Screen (Not Detect) 10/08/22 10/08/22 10/08/22 Range/Units 00:29 00:29 01:55 WBC (4.8-10.8) X10*3/uL RBC (4.20-5.50) X10*6/uL Hgb (12.0-16.0) g/dl Hct (37.0-47.0) % MCV (80.0-98.0) fL MCH (27.0-33.0) pg MCHC (31.0-35.0) g/dl RDW (11.0-16.0) % Plt Count (160-400) X10*3/uL MPV (9.4-12.3) fL Immature Gran % (Auto) (0.0-0.4) % Neut % (Auto) (45-73) % Lymph % (Auto) (20-40) % Lipscomb % (Auto) (2-11) % Eos % (Auto) (0-4) % Baso % (Auto) (0-2) % Lymph # (Auto) (1.2-4.9) X10*3/uL Lipscomb # (Auto) (0.1-1.2) X10*3/uL Eos # (Auto) (0.0-0.4) X10*3/uL Baso # (Auto) (0.0-0.2) X10*3/uL Abs Immat Gran (auto) (0.00-0.03) X10*3/uL Absolute Neuts (auto) (2.0-8.3) x10*3/uL Absolute Nucleated RBC (0.0-0.012) X10*3/uL Nucleated RBC % (auto) (0.0-0.2) /100WBC Sodium (135-145) mmol/L Potassium (3.3-5.1) mmol/L Chloride (96-108) mmol/L Carbon Dioxide (22-29) mmol/L Anion Gap (12-20) BUN (9-16) mg/dL Creatinine (0.5-1.4) mg/dL Estim Creat Clear Calc Estimated GFR Random Glucose (60-115) mg/dL Lactic Acid 1.3 (0.5-2.0) mmol/L Calcium (8.4-10.2) mg/dL Total Bilirubin (0.0-1.0) mg/dL AST (5-31) U/L ALT (0-31) U/L Alkaline Phosphatase (39-117) U/L Total Protein (6.5-8.0) g/dL Albumin (3.5-5.0) g/dL Urine Color Urine Appearance Urine pH (5.0-9.0) Ur Specific Warren (1.005-1.025) Urine Protein (Neg-Trace) mg/dL Urine Glucose (UA) (Negative) mg/dL Urine Ketones (Negative) mg/dL Urine Blood (Negative) Urine Nitrite (Negative) Ur Leukocyte Esterase (Negative) Urine RBC (0-2) /HPF Urine WBC (0-5) /HPF Ur Squamous Epith Cells (0-2) /HPF Calcium Oxalate Crystal Urine Bacteria (None Seen) Hyaline Casts (0-2) /LPF Urine Test NEGATIVE (NEGATIVE) Urine Opiates Screen POSITIVE H (Not Detect) Urine Fentanyl Screen POSITIVE H (Not Detect) Ur Barbiturates Screen Not Detected (Not Detect) Ur Phencyclidine Scrn Not Detected (Not Detect) Ur Amphetamines Screen POSITIVE H (Not Detect) U Benzodiazepines Scrn Not Detected (Not Detect) Urine Cocaine Screen POSITIVE H (Not Detect) U Marijuana (THC) Screen POSITIVE H (Not Detect) Radiology Impression Discussion of test interpretation with radiology: I have reviewed the radiologist's reading. Radiologist Impression: CT angio abd aorta runoff IMPRESSION: 1. Normal appearance of the vasculature with no evidence of stenosis or occlusion. 2. No acute finding in the abdomen or pelvis. 3. Redemonstration of the left femoral neck fracture with persistent varus angulation. There is some callus formation now present. Dictated By:Joseluis Escalona MDSigned By:<Electronically signed by Joseluis Escalona MD in OV>10/08/22 0627 Procedures Procedural Sedation Indication: other ( CT angiogram of abdominal aorta with runoff) Presedation Evaluation: patient was somnolent secondary to medications given to try to obtain the CT scan and she was unable to give consent for procedural sedation ASA Class: I Mallampati Class: I Preparation: athletic monitor applied, pulse oximeter and supplemental O2 applied Ketamine: IV Ketamine dose (mg): 240 Patient Tolerated Procedure: well Complications: none Interventions: oxygen applied ( prior to procedure, patient had no drop in her O2 saturation) Discharge Plan Discharge Patient Disposition: Admitted As Inpatient
[2022-10-08] MEDS: HYDROmorphone HCl 1 MG/ML SYRINGE IVPUSH ×2 (01:52→04:42)
[2022-10-08] MEDS: cefTRIAXone sodium 1 GM in 0.9 % Sodium Chloride 50 ML IV (01:53)
[2022-10-08 02:04] LABS: Amphetamine Screen Urine POSITIVE (Not Detect); Barbiturates, Urine Not Detected (Not Detect); Benzodiazepines Screen Urine Not Detected (Not Detect); Cannabinoid Screen Urine POSITIVE (Not Detect); Cocaine Screen Urine POSITIVE (Not Detect); Fentanyl, urine POSITIVE (Not Detect); Opiate Screen Urine POSITIVE (Not Detect); Phencyclidine Screen Urine Not Detected (Not Detect)
[2022-10-08 02:15] LABS: Lactic Acid 1.3 mmol/L (0.5-2.0)
[2022-10-08] MEDS: HYDROmorphone HCl 2 MG/ML VIAL IVPUSH (02:52)
[2022-10-08] MEDS: vancomycin HCL 1,000 MG, vancomycin HCL 750 MG in 0.9 % Sodium Chloride 500 ML 267.5 MG IV (02:53)
[2022-10-08] MEDS: Haloperidol Lactate 5 MG/ML VIAL IVPUSH ×2 (03:40→04:41)
[2022-10-08] MEDS: diphenhydrAMINE HCL 50 MG/ML VIAL 25 MG IVPUSH (03:40)
--- NOTE | 2022-10-08 05:10 | PC.NURSE ---
Pt to CT via stretcher. This is the third attempt at obtaining the CT of her lower extremities. it has been difficult to help the pt obtain adequate pain control that would allow us to obtain an artifact free scan. Prior to bringing pt to CT it was noted that she had things in her bra - she was completely undressed and placed in hospital clothes with security standing by. all of her clothes and belongings were given to security and placed in decon.
[2022-10-08] MEDS: Ketamine HCl/NS 50 MG/5 ML SYRINGE 70 MG IVPUSH (05:16)
[2022-10-08] MEDS: Ketamine HCl/NS 50 MG/5 ML SYRINGE 100 MG IVPUSH (05:31)
[2022-10-08] MEDS: iohexoL 350 MG/ML 100 ML INFUS..BTL IV (05:56)
--- NOTE | 2022-10-08 06:02 | PC.NURSE ---
Adry has had her CT and is currently awaiting result. It was difficult to make Adry comfortable and still enough to obtain an adequate CT. In order to obtain the CT we needed to give multiple doses of ketamine per direction Dr. Arreaga who was at the beside throughout. We began to administer Ketamine IVP in ED bed 12 and then moved the pt to CT where, while preparing her for CT, she became too arousable and, under the direction of Guanako LUI who was at the CT bedside, administered additional ketamine IVP. The pt was monitored throughout with all bedside monitors, RT remained at bedside, ETCO2 monitoring performed. Awaiting CT dispo. Will continue to monitor.
[2022-10-08] MEDS: Acetaminophen Supp 650 MG SUPP.RECT PR ×2 (06:50→07:33)
--- NOTE | 2022-10-08 07:47 | PC.NURSE ---
patient answers to name . arielvalentino . heart rate regular band tachcardic at 125 beats per minute . breathing even and labored . circumferential redness and darkness noted around buttocks and back of patient . bilaterally on patients feet and toes are red and black , pulses found with Doppler . left foot has wound on top noted . right foot has blister . see provider chart for documented pictures . patient has rectal tempter of 101.6 , medicated with UT of 650mg Tylenol and cool packs under arms also changed patient due to incontinent episodes . patient continues on traffic monitor specialist .
--- NOTE | 2022-10-08 07:58 | PC.NURSE ---
Hospitalist had bedside for admission assessment . patient aware of plan of care .
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
--- NOTE | 2022-10-08 08:29 | MHC.EDTECH ---
put a purewick on pt, washed and cleaned patient
[2022-10-08 08:33] LABS: C Reactive Protein 11.41 mg/dL (< or = 0.50)
[2022-10-08] MEDS: Lactated Ringers 1,000 ML 999 ML IV ×2 (09:03)
[2022-10-08 09:06] LABS: Influenza A PCR NEGATIVE (Negative); Influenza B PCR NEGATIVE (Negative); Resp Syncy Virus RNA Qual PCR NEGATIVE (Negative); SARS COV2 PCR INHOUSE NEGATIVE (Negative)
[2022-10-08 09:54] LABS: Erythrocyte Sedimentation Rate 54 MM/HR (0-20)
[2022-10-08] MEDS: Ketorolac Tromethamine 15 MG/ML VIAL 30 MG IVPUSH (10:45)
--- NOTE | 2022-10-08 10:55 | PC.NURSE ---
Patient remains febrile at 101 rectally . obtained order from DR Brown for IVP toradal 30mg , administered as ordered . will reassess . patient continues on monitor .
--- NOTE | 2022-10-08 12:35 | PHA.PROG ---
Admission Date/Time: October 08, 2022 11:36 Indication: Sepsis Weight in k.039 kg Adjusted body weight in K.416 [place] body weight in K.666 Obesity Dosing Indication % IBW: Not obese Serum Creatinine - Last 168 Hours 10/08/22 00:27 Creatinine 0.67 Estimated CrCl and GFR - Last 168 Hours 10/08/22 00:27 Estim Creat Clear Calc 112.5 Estimated GFR > 60 Vancomycin Loading Dose: 1750 MG Current Vancomycin Dosing Regimen: 1250 MG q12h Vancomycin Monitoring using AUC goal of 400 - 600 range with trough as surrogate marker: 507 mg/L/hr Date and Time for next Vancomycin Level to be drawn: 10/09 @1300 Pharmacist Comments on Vancomycin Plan: Patient received proper load dose Patient has good renal function, crcl 112.5 mL/min. Q12H dosing chosen Patients indication is sepsis, went with more aggressive dosing 18.4 mg/kg Vancomycin dosing will take advantage of [employer] as a clinical decision support tool that uses Bayesian modeling to calculate individual patient's pharmacokinetic parameters and forecast the patient's drug concentration time course with the target goal AUC 24 range of 400 - 600 mg/L/hr.
[2022-10-08] MEDS: Enoxaparin Sodium 40 MG/0.4 ML SYRINGE SUBCUT (12:37)
[2022-10-08] MEDS: Dextrose 5 % and 0.9 % NaCl 1,000 ML 100 ML IVCONT ×2 (12:38→23:03)
--- NOTE | 2022-10-08 13:15 | PC.NURSE ---
DR Villafuerte aware of patient temperature of 101.2 rectally and interventions done at this point . no new orders at this time . 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
--- NOTE | 2022-10-08 13:55 | PHA.MEDREC ---
Pharmacy Consult ? Medication Reconciliation Pharmacy has completed the medication reconciliation.
--- NOTE | 2022-10-08 15:00 | MHC.EDTECH ---
this pct assumed care of patient at 1500 ,patient is asleep vitals sign taken ,call rodgers within reach .
[2022-10-08] MEDS: vancomycin HCL 1,250 MG in 0.9 % Sodium Chloride 250 ML 166.67 MG IV (15:26)
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
--- NOTE | 2022-10-08 17:09 | PM.EVENT ---
Event Note Date of Service: 10/08/22 Event Note: seen on afternoon rounds seems to be comfortable, asleep stable VS no change with regards to discoloration on lower extremities urine positive for multiple substances of abuse continue IV hydration rule out other sources of infections will follow Time Spent With Patient Time: Total time managing care of this patient today ____ minutes.
--- NOTE | 2022-10-08 17:11 | MHC.CM.PN ---
CM attempted to meet with admitted patient with bed assignment [id number] for discharge planning, but pt soundly asleep. Pt with frostbite to lower extremities/feet. Homeless. IVDA. Positive tox screen-opiates, fentanyl, cocaine, amphetamines. Pt hep C positive. Admitted to [facility] on 08/19 for positive blood cultures, but left AMA on 08/21. Was given script for po antibiotics, unclear if pt completed po antibiotics. Pt has HCP on file. CM will need to meet with patient for discharge planning when she wakes. CM to follow for discharge planning.
[2022-10-08] MEDS: Acetaminophen 325 MG TABLET 650 MG PO (18:33)
--- NOTE | 2022-10-08 18:34 | PC.NURSE ---
Patient given 650 mg of Tylenol P.O. for temperature of 102.6 . patient aware of plan of care for admission up stairs .
--- NOTE | 2022-10-08 18:49 | PC.NURSE ---
Report given to Fatou MYLES . patient ready for transport to floor .
[2022-10-09] VITALS (7 sets, daily range): BP systolic 119–139; BP diastolic 63–86; PULSE 80–100; RESP 17–20; TEMP 36.6–36.9; O2SAT 98–100
[2022-10-09] MEDS: vancomycin HCL 1,250 MG in 0.9 % Sodium Chloride 250 ML 166.67 MG IV ×2 (03:11→15:32)
[2022-10-09] MEDS: cloNIDine HCL 0.1 MG TABLET PO ×2 (03:22→19:04)
[2022-10-09] MEDS: Morphine Sulfate 4 MG/ML CARTRIDGE 2 MG IVPUSH ×3 (04:49→19:04)
[2022-10-09 07:58] LABS: Hematocrit 25.9 % (37.0-47.0); Hemoglobin 7.7 g/dl (12.0-16.0); Mean Corpuscular HGB Conc 29.7 g/dl (31.0-35.0); Mean Corpuscular Hemoglobin 19.9 pg (27.0-33.0); Mean Corpuscular Volume 67.1 fL (80.0-98.0); Platelet Count 299 X10*3/uL (160-400); Red Blood Count 3.86 X10*6/uL (4.20-5.50); Red Cell Distribution Width 17.7 % (11.0-16.0)
[2022-10-09 08:21] LABS: Creatinine Clr Calc Pharmacy 134.6; Estimated Glomerular Filt Rate > 60
--- NOTE | 2022-10-09 09:50 | MHC.CM.PN ---
PATIENT IS ASLEEP SHE DID WAKE TO THIS FILM COLOR TESTER'S ATTEMPTS AND THEN CLOSED HER EYES AND HAS NOT RESPONDED TO ANY CONVERSATION ATTEMPTS. PATIENT AWARE THAT CM WILL RETURN AT A MORE APPROPRIATE TIME. CM NAME AND DC PLAN WRITTEN ON [facility] HCP ON FILE AND VERIFIED
--- NOTE | 2022-10-09 10:24 | P.PNIM_ITS ---
Subjective Subjective Date of Service: 10/09/22 Review of Systems f/u cellulitis of the feet interval history: fever resolved, feet still in pain, she is more awake Physical Exam Vital Signs: Vital Signs: Last Vital Signs Temp 97.8 F 10/09/22 07:56 Pulse 80 10/09/22 07:56 Resp 20 10/09/22 07:56 BP 120/70 10/09/22 07:56 Pulse Ox 98 10/09/22 07:56 O2 Del Method 10/09/22 07:56 BMI result Body Mass Index 25.0 Const: Other: General: AO X 3, no acute distress, essentially unchanged Resp: CTA bilateral CVS: S1,S2,RRR GI: +BS, NT, no distention Skin: Neuro: motor grossly intact Psych: appropriate affect Objective Data Active Medications Acetaminophen (Acetaminophen 325 Mg Tablet) 650 mg PO Q4H PRN PRN Reason: fever Last Admin: 10/08/22 18:33 Dose: 650 mg Documented By: LORRIE Clonidine HCl (Clonidine Hcl 0.1 Mg Tablet) 0.1 mg PO BID PRN; Protocol PRN Reason: opioid withdrawal Last Admin: 10/09/22 03:22 Dose: 0.1 mg Documented By: SATYA Enoxaparin Sodium (Enoxaparin Sodium 40 Mg/0.4 Ml Syringe) 40 mg SUBCUT Q24H [facility] Last Admin: 10/08/22 12:37 Dose: 40 mg Documented By: LORRIE Dextrose/Sodium Chloride (D5ns) 1,000 mls @ 100 mls/hr IVCONT .Q10H [facility] Last Infusion: 10/09/22 04:41 Dose: 100 mls/hr Documented By: SATYA Vancomycin HCl 1,250 mg/ (Sodium Chloride) 250 mls @ 166.667 mls/hr IV Q12H [facility] Last Infusion: 10/09/22 04:42 Dose: 0 mls/hr Documented By: SATYA Melatonin (Melatonin 3 Mg Tablet) 6 mg PO BEDTIME PRN PRN Reason: Sleep Morphine Sulfate (Morphine Sulfate 4 Mg/Ml Cartridge) 2 mg IVPUSH Q4H PRN; Protocol PRN Reason: Pain, Severe (Pain Scale 7-10) Last Admin: 10/09/22 04:49 Dose: 2 mg Documented By: SATYA Ondansetron HCl (Ondansetron Hcl 4 Mg/2 Ml Vial) 4 mg IVPUSH Q8H PRN PRN Reason: Nausea and Vomiting Pharmacy Consult (Consult Rx Perform Med Rec) 1 each MISCELLANE ONCE PRN PRN Reason: Consult order Pharmacy Consult (Consult Rx Vancomycin Dosing) 1 each MISCELLANE DAILY PRN PRN Reason: Consult order Sodium Chloride (0.9 % Sodium Chloride Flush 3 Ml Syringe) 3 ml IVFLUSH QSHIFT [facility] Last Admin: 10/09/22 07:21 Dose: Not Given Documented By: MARCIN Non-Admin Reason: IV Running Labs 10/09/22 07:51 10/09/22 07:51 Labs: Laboratory Results - last 24 hr 10/09/22 10/09/22 07:51 07:51 MCV 67.1 L MCH 19.9 L MCHC 29.7 L RDW 17.7 H Plt Count 299 MPV 10.0 Absolute Nucleated RBC 0.000 Nucleated RBC % (auto) 0.0 Estim Creat Clear Calc 134.6 Estimated GFR > 60 Microbiology Microbiology Results: Microbiology 10/08/22 01:55 Blood Culture - Preliminary Blood - Venous No growth after 24 hours. 10/08/22 01:55 Blood Culture - Preliminary Blood - Venous No growth after 24 hours. Assessment and Plan (1) Bilateral cellulitis of lower leg: Status: Acute (2) Frostbite of both lower extremities: Status: Acute (3) Hepatitis C antibody positive in blood: Status: Acute (4) Opioid use disorder: Status: Acute (5) IV drug abuse: Status: Acute Plan / with substance abuse, history of strep viridan bacteremaia here with pain in the feet, concern for cellulitis, fever and sepsis Cellulitis of the feet, Sepsis, history of sepsis.. blood cultures thus far negative at 24 horus continue vancomycin and follow culture ID consult IVF fluid morphine for pain Frosbite--early stage, seen by surgery, no indication for surgery IVDA + for opioid, amphetamine, cocaine, canabis, fentanyl clonidine for withdrawal addiction med consult pending, but I personally advised her against substance use Time Spent With Patient Time: Total time managing care of this patient today ____ minutes. Quality Stroke Does the patient have a stroke diagnosis?: No VTE Prior VTE?: No VTE Risk Level:: Medical - moderate - high VTE Device Contraindication: N/A - Device Ordered VTE Drug Contraindication: N/A - Med Ordered
--- NOTE | 2022-10-09 10:57 | P.PNGS_ITS ---
Subjective Subjective Date of Service: 10/09/22 Interval history: no further fever spikes seems to have been more comfortable overnight Physical Exam Vital Signs: Vital Signs: Last Vital Signs Temp 97.8 F 10/09/22 07:56 Pulse 80 10/09/22 07:56 Resp 20 10/09/22 07:56 BP 120/70 10/09/22 07:56 Pulse Ox 98 10/09/22 07:56 O2 Del Method 10/09/22 07:56 BMI result Body Mass Index 25.0 Const: Other: still very drowsy General: comfortable and no acute distress Resp: Effort & Inspection: normal respiratory effort Cardio: Rate: regular rate GI: Palpation (GI): Soft to palpation, not firm and no guarding Extrem: Other: ecchymotic dark discoloration on both feet thighs and buttocks consistent with frostbite, some cellulitic changes on both lower legs, no induration, no discharge Objective Data Active Medications Acetaminophen (Acetaminophen 325 Mg Tablet) 650 mg PO Q4H PRN PRN Reason: fever Last Admin: 10/08/22 18:33 Dose: 650 mg Documented By: LORRIE Clonidine HCl (Clonidine Hcl 0.1 Mg Tablet) 0.1 mg PO BID PRN; Protocol PRN Reason: opioid withdrawal Last Admin: 10/09/22 03:22 Dose: 0.1 mg Documented By: SATYA Enoxaparin Sodium (Enoxaparin Sodium 40 Mg/0.4 Ml Syringe) 40 mg SUBCUT Q24H [facility] Last Admin: 10/08/22 12:37 Dose: 40 mg Documented By: LORRIE Dextrose/Sodium Chloride (D5ns) 1,000 mls @ 100 mls/hr IVCONT .Q10H [facility] Last Infusion: 10/09/22 04:41 Dose: 100 mls/hr Documented By: SATYA Vancomycin HCl 1,250 mg/ (Sodium Chloride) 250 mls @ 166.667 mls/hr IV Q12H [facility] Last Infusion: 10/09/22 04:42 Dose: 0 mls/hr Documented By: SATYA Melatonin (Melatonin 3 Mg Tablet) 6 mg PO BEDTIME PRN PRN Reason: Sleep Morphine Sulfate (Morphine Sulfate 4 Mg/Ml Cartridge) 2 mg IVPUSH Q4H PRN; Protocol PRN Reason: Pain, Severe (Pain Scale 7-10) Last Admin: 10/09/22 04:49 Dose: 2 mg Documented By: SATYA Ondansetron HCl (Ondansetron Hcl 4 Mg/2 Ml Vial) 4 mg IVPUSH Q8H PRN PRN Reason: Nausea and Vomiting Pharmacy Consult (Consult Rx Perform Med Rec) 1 each MISCELLANE ONCE PRN PRN Reason: Consult order Pharmacy Consult (Consult Rx Vancomycin Dosing) 1 each MISCELLANE DAILY PRN PRN Reason: Consult order Sodium Chloride (0.9 % Sodium Chloride Flush 3 Ml Syringe) [facility] Last Admin: 10/09/22 07:21 Dose: Not Given Documented By: MARCIN Non-Admin Reason: IV Running Labs 10/09/22 07:51 10/09/22 07:51 Labs: Laboratory Results - last 24 hr 10/09/22 10/09/22 07:51 07:51 MCV 67.1 L MCH 19.9 L MCHC 29.7 L RDW 17.7 H Plt Count 299 MPV 10.0 Absolute Nucleated RBC 0.000 Nucleated RBC % (auto) 0.0 Estim Creat Clear Calc 134.6 Estimated GFR > 60 Microbiology Microbiology Results: Microbiology 10/08/22 01:55 Blood Culture - Preliminary Blood - Venous No growth after 24 hours. 10/08/22 01:55 Blood Culture - Preliminary Blood - Venous No growth after 24 hours. Procedures Date of Service Date of Service: 10/09/22 Progress Note: A&P Assessment and plan (1) Frostbite of both lower extremities: Status: Acute Assessment and Plan: skin changes have been stable good palpable pulses noted distally hopefully, ecchymotic changes will be limited to the skin will await for demarcation as there is a possibility she might require amputation continue current care will continue to follow closely Time Spent With Patient Time: Total time managing care of this patient today ____ minutes. Quality Stroke Does the patient have a stroke diagnosis?: No VTE Prior VTE?: No VTE Risk Level:: Medical - moderate - high VTE Device Contraindication: N/A - Device Ordered VTE Drug Contraindication: N/A - Med Ordered
[2022-10-09] MEDS: Dextrose 5 % and 0.9 % NaCl 1,000 ML 100 ML IVCONT ×2 (11:15→20:14)
[2022-10-09] MEDS: Enoxaparin Sodium 40 MG/0.4 ML SYRINGE SUBCUT (11:15)
[2022-10-09] MEDS: methADONE HCl 20 MG/2 ML ORAL.CONC 30 MG PO (12:19)
[2022-10-09] MEDS: Nicotine 21 MG PATCH.TD24 TRANSDERMA (14:19)
[2022-10-09 14:35] LABS: Vancomycin Trough 3.7 mcg/mL (10.0-20.0)
--- NOTE | 2022-10-09 15:05 | HE.PHANOTE ---
vancomycin addendum Trough came back at 3.7, increased dosing to 1250 mg q 8 hours, will recheck level after 3 more doses
--- NOTE | 2022-10-09 15:43 | HO.ADDICTCON ---
History of Present Illness Date of Service: 10/09/2022 Chief Complaint: Sepsis Cellulitis Reason for Consult: opioid use HPI Narrative: Patient is a 27 year old female with OUD currently medically admitted with frostbite and bilateral cellulitis of lower legs. Patient known to this fiction writer via previous admission Seen in room 387. Guarded, providing minimal responses to questions Reporting withdrawal sx including chills, body aches, irritability. Visibly diaphoretic when seen by this fiction writer. Methadone 30mg ordered and administered with some effect--no longer diaphoretic when seen by this fiction writer in follow up, however reporting that she still feels sick . Agreeable to continuation of methadone dose titration Review of Systems Constitutional: Reports as per HPI, Reports body ache(s), Reports difficulty sleeping and Reports malaise Diagnostics Vital Signs (24Hr): Vital Signs - 24 hr 10/08/22 15:58 10/08/22 17:44 10/08/22 19:50 Temperature 99.6 F 102.6 F H 97.9 F Pulse Rate 112 H 104 H Respiratory Rate 16 18 Blood Pressure 107/67 119/65 Pulse Oximetry 100 98 Oxygen Delivery Method Room Air Room Air 10/08/22 23:37 10/09/22 03:37 10/09/22 05:50 Temperature 98 F 98.4 F Pulse Rate 100 100 Respiratory Rate 18 18 18 Blood Pressure 130/62 139/63 Pulse Oximetry 97 100 Oxygen Delivery Method Room Air Room Air 10/09/22 07:56 10/09/22 11:15 Temperature 97.8 F Pulse Rate 80 Respiratory Rate 20 20 Blood Pressure 120/70 Pulse Oximetry 98 Oxygen Delivery Method Room Air BMI result Body Mass Index 25.0 Labs 10/09/22 07:51 10/09/22 07:51 Labs: Laboratory Results - last 48 hr 10/08/22 10/08/22 10/08/22 00:27 00:27 00:29 WBC 20.5 H RBC 4.24 Hgb 8.3 L Hct 28.0 L MCV 66.0 L MCH 19.6 L MCHC 29.6 L RDW 17.4 H Plt Count 276 MPV 9.2 L Immature Gran % (Auto) 0.5 H Neut % (Auto) 80.6 H Lymph % (Auto) 12.1 L [place]al[place] % (Auto) 5.8 Eos % (Auto) 0.8 Baso % (Auto) 0.2 Lymph # (Auto) 2.5 [place]alier # (Auto) 1.2 Eos # (Auto) 0.2 Baso # (Auto) 0.1 Abs Immat Gran (auto) 0.11 H Absolute Neuts (auto) 16.5 H Absolute Nucleated RBC 0.000 Nucleated RBC % (auto) 0.0 ESR Sodium 138 Potassium 4.0 Chloride 104 Carbon Dioxide 25 Anion Gap 13 BUN 20 H Creatinine 0.67 Estim Creat Clear Calc 112.5 Estimated GFR > 60 Random Glucose 119 H Lactic Acid Calcium 9.2 D Total Bilirubin 0.4 AST 100 H ALT 135 H Alkaline Phosphatase 82 Total Creatine Kinase 1264 H C-Reactive Protein 11.41 H Total Protein 6.9 Albumin 3.4 L Urine Color Dark Yellow Urine Appearance Cloudy Urine pH 6.0 Ur Specific [place] >= 1.030 H Urine Protein Trace Urine Glucose (UA) Negative Urine Ketones Trace Urine Blood Negative Urine Nitrite Negative Ur Leukocyte Esterase Small (1+) H Urine RBC 11-20 H Urine WBC 6-10 H Ur Squamous Epith Cells 3-5 Calcium Oxalate Crystal Present Urine Bacteria 1+ Hyaline Casts 0-2 Urine Test Vancomycin Trough Urine Opiates Screen Urine Fentanyl Screen Ur Barbiturates Screen Ur Phencyclidine Scrn Ur Amphetamines Screen U Benzodiazepines Scrn Urine Cocaine Screen U Marijuana (THC) Screen Influenza Type A (PCR) Influenza Type B (PCR) RSV RNA Qual (PCR) SARS-CoV-2 RNA (RT-PCR) 10/08/22 10/08/22 10/08/22 00:29 00:29 01:55 WBC RBC Hgb Hct MCV MCH MCHC RDW Plt Count MPV Immature Gran % (Auto) Neut % (Auto) Lymph % (Auto) [place] % (Auto) Eos % (Auto) Baso % (Auto) Lymph # (Auto) [place] # (Auto) Eos # (Auto) Baso # (Auto) Abs Immat Gran (auto) Absolute Neuts (auto) Absolute Nucleated RBC Nucleated RBC % (auto) ESR Sodium Potassium Chloride Carbon Dioxide Anion Gap BUN Creatinine Estim Creat Clear Calc Estimated GFR Random Glucose Lactic Acid 1.3 Calcium Total Bilirubin AST ALT Alkaline Phosphatase Total Creatine Kinase C-Reactive Protein Total Protein Albumin Urine Color Urine Appearance Urine pH Ur Specific [place] Urine Protein Urine Glucose (UA) Urine Ketones Urine Blood Urine Nitrite Ur Leukocyte Esterase Urine RBC Urine WBC Ur Squamous Epith Cells Calcium Oxalate Crystal Urine Bacteria Hyaline Casts Urine Test NEGATIVE Vancomycin Trough Urine Opiates Screen POSITIVE H Urine Fentanyl Screen POSITIVE H Ur Barbiturates Screen Not Detected Ur Phencyclidine Scrn Not Detected Ur Amphetamines Screen POSITIVE H U Benzodiazepines Scrn Not Detected Urine Cocaine Screen POSITIVE H U Marijuana (THC) Screen POSITIVE H Influenza Type A (PCR) Influenza Type B (PCR) RSV RNA Qual (PCR) SARS-CoV-2 RNA (RT-PCR) 10/08/22 10/08/22 10/09/22 08:18 08:54 07:51 WBC RBC Hgb Hct MCV MCH MCHC RDW Plt Count MPV Immature Gran % (Auto) Neut % (Auto) Lymph % (Auto) [place] % (Auto) Eos % (Auto) Baso % (Auto) Lymph # (Auto) [place] # (Auto) Eos # (Auto) Baso # (Auto) Abs Immat Gran (auto) Absolute Neuts (auto) Absolute Nucleated RBC Nucleated RBC % (auto) ESR 54 H Sodium Potassium Chloride Carbon Dioxide Anion Gap BUN Creatinine 0.56 Estim Creat Clear Calc 134.6 Estimated GFR > 60 Random Glucose Lactic Acid Calcium Total Bilirubin AST ALT Alkaline Phosphatase Total Creatine Kinase C-Reactive Protein Total Protein Albumin Urine Color Urine Appearance Urine pH Ur Specific [place] Urine Protein Urine Glucose (UA) Urine Ketones Urine Blood Urine Nitrite Ur Leukocyte Esterase Urine RBC Urine WBC Ur Squamous Epith Cells Calcium Oxalate Crystal Urine Bacteria Hyaline Casts Urine Test Vancomycin Trough Urine Opiates Screen Urine Fentanyl Screen Ur Barbiturates Screen Ur Phencyclidine Scrn Ur Amphetamines Screen U Benzodiazepines Scrn Urine Cocaine Screen U Marijuana (THC) Screen Influenza Type A (PCR) NEGATIVE Influenza Type B (PCR) NEGATIVE RSV RNA Qual (PCR) NEGATIVE SARS-CoV-2 RNA (RT-PCR) NEGATIVE 10/09/22 10/09/22 07:51 13:15 WBC 13.0 H RBC 3.86 L Hgb 7.7 L Hct 25.9 L MCV 67.1 L MCH 19.9 L MCHC 29.7 L RDW 17.7 H Plt Count 299 MPV 10.0 Immature Gran % (Auto) Neut % (Auto) Lymph % (Auto) [place] % (Auto) Eos % (Auto) Baso % (Auto) Lymph # (Auto) [place] # (Auto) Eos # (Auto) Baso # (Auto) Abs Immat Gran (auto) Absolute Neuts (auto) Absolute Nucleated RBC 0.000 Nucleated RBC % (auto) 0.0 ESR Sodium Potassium Chloride Carbon Dioxide Anion Gap BUN Creatinine Estim Creat Clear Calc Estimated GFR Random Glucose Lactic Acid Calcium Total Bilirubin AST ALT Alkaline Phosphatase Total Creatine Kinase C-Reactive Protein Total Protein Albumin Urine Color Urine Appearance Urine pH Ur Specific [place] Urine Protein Urine Glucose (UA) Urine Ketones Urine Blood Urine Nitrite Ur Leukocyte Esterase Urine RBC Urine WBC Ur Squamous Epith Cells Calcium Oxalate Crystal Urine Bacteria Hyaline Casts Urine Test Vancomycin Trough 3.7 L Urine Opiates Screen Urine Fentanyl Screen Ur Barbiturates Screen Ur Phencyclidine Scrn Ur Amphetamines Screen U Benzodiazepines Scrn Urine Cocaine Screen U Marijuana (THC) Screen Influenza Type A (PCR) Influenza Type B (PCR) RSV RNA Qual (PCR) SARS-CoV-2 RNA (RT-PCR) Imaging Radiology Impressions: ITS Impressions Aorta w/Runoff CTA 10/08/22 06:10 IMPRESSION: 1. Normal appearance of the vasculature with no evidence of stenosis or occlusion. 2. No acute finding in the abdomen or pelvis. 3. Redemonstration of the left femoral neck fracture with persistent varus angulation. There is some callus formation now present. Mental Status Exam Mental Status Exam Patient Appearance: Unkempt Level of Consciousness: Awake and Alert Patient Behavior: Guarded Affect Description: Blunted Judgement: Fair Medications Medications Current Medications Acetaminophen (Acetaminophen 325 Mg Tablet) 650 mg PO Q4H PRN PRN Reason: fever Last Admin: 10/08/22 18:33 Dose: 650 mg Clonidine HCl (Clonidine Hcl 0.1 Mg Tablet) 0.1 mg PO BID PRN; Protocol PRN Reason: opioid withdrawal Last Admin: 10/09/22 03:22 Dose: 0.1 mg Enoxaparin Sodium (Enoxaparin Sodium 40 Mg/0.4 Ml Syringe) 40 mg SUBCUT Q24H [facility] Last Admin: 10/09/22 11:15 Dose: 40 mg Dextrose/Sodium Chloride (D5ns) 1,000 mls @ 100 mls/hr IVCONT .Q10H [facility] Last Admin: 10/09/22 11:15 Dose: 100 mls/hr Vancomycin HCl 1,250 mg/ (Sodium Chloride) 250 mls @ 166.667 mls/hr IV Q8H [facility] Last Admin: 01/19/23 15:32 Dose: 166.67 mls/hr Melatonin (Melatonin 3 Mg Tablet) 6 mg PO BEDTIME PRN PRN Reason: Sleep Methadone HCl (Methadone Hcl 20 Mg/2 Ml Oral.Conc) 30 mg PO DAILY [facility] Last Admin: 10/09/22 12:19 Dose: 30 mg Morphine Sulfate (Morphine Sulfate 4 Mg/Ml Cartridge) 2 mg IVPUSH Q4H PRN; Protocol PRN Reason: Pain, Severe (Pain Scale 7-10) Last Admin: 10/09/22 11:15 Dose: 2 mg Nicotine (Nicotine 21 Mg Patch.Td24) 21 mg TRANSDERMA DAILY [facility] Last Admin: 10/09/22 14:19 Dose: 21 mg Ondansetron HCl (Ondansetron Hcl 4 Mg/2 Ml Vial) 4 mg IVPUSH Q8H PRN PRN Reason: Nausea and Vomiting Pharmacy Consult (Consult Rx Perform Med Rec) 1 each MISCELLANE ONCE PRN PRN Reason: Consult order Pharmacy Consult (Consult Rx Vancomycin Dosing) 1 each MISCELLANE DAILY PRN PRN Reason: Consult order Sodium Chloride (0.9 % Sodium Chloride Flush 3 Ml Syringe) 3 ml IVFLUSH QSHIFT [facility] Last Admin: 10/09/22 14:37 Dose: Not Given Allergies Allergies Allergy/AdvReac Type Severity Reaction Status Date / Time No Known Allergies Allergy Verified 07/13/22 00:07 Assessment & Plan Assessment & Plan (1) Opioid use disorder: Status: Acute Code(s): F11.90 - Opioid use, unspecified, uncomplicated Assessment and Plan: methadone 40mg in AM will continue to follow Total time managing care of this patient today __45__ minutes. PMFSH Past Medical History Medical History Anemia Bacteremia due to Gram-positive bacteria Elevated LFTs IV drug user Left leg pain Opioid withdrawal Social History Social History Household Members: Unknown / Unable to assess Housing: Homeless Alcohol intake: unknown Patient Tobacco Use Status: Tobacco use Unknown Substance Use Type: Unknown service: No Current occupational status: unemployed
[2022-10-10] MEDS: vancomycin HCL 1,250 MG in 0.9 % Sodium Chloride 250 ML 166.67 MG IV (00:12)
[2022-10-10] MEDS: Morphine Sulfate 4 MG/ML CARTRIDGE 2 MG IVPUSH ×5 (03:54→21:16)
[2022-10-10 04:00] VITALS: BP 121/69; PULSE 91; RESP 18; TEMP 37.1; O2SAT 99
[2022-10-10] MEDS: cloNIDine HCL 0.1 MG TABLET PO ×2 (06:14→22:19)
[2022-10-10 06:22] LABS: Creatinine Clr Calc Pharmacy 129.9; Estimated Glomerular Filt Rate > 60
[2022-10-10] MEDS: Nicotine 21 MG PATCH.TD24 TRANSDERMA (07:43)
[2022-10-10] MEDS: methADONE HCl 20 MG/2 ML ORAL.CONC 40 MG PO (07:43)
[2022-10-10] MEDS: Dextrose 5 % and 0.9 % NaCl 1,000 ML 100 ML IVCONT ×3 (07:44→20:22)
[2022-10-10] MEDS: vancomycin HCL 1,250 MG in 0.9 % Sodium Chloride 250 ML 166.66 MG IV ×2 (07:44→16:45)
[2022-10-10 07:59] VITALS: BP 114/64; PULSE 86; RESP 17; TEMP 37.1; O2SAT 99
[2022-10-10 09:40] LABS: Anion Gap 12 (12-20); Blood Urea Nitrogen 6 mg/dL (9-16); Calcium 8.2 mg/dL (8.4-10.2); Carbon Dioxide 21 mmol/L (22-29); Chloride 109 mmol/L (96-108); Glucose Random 115 mg/dL (60-115); Potassium 3.5 mmol/L (3.3-5.1); Sodium 138 mmol/L (135-145)
--- NOTE | 2022-10-10 09:44 | MHC.RECOVRN ---
Met with pt in 387 to assess for withdrawal and discuss methadone titration. Pt sitting in bed, awake, alert, visibly uncomfortable, diaphoretic. Pt reporting need for increased methadone dose. Pt states I'm sweating, hot and cold, I feel like I'm going to shit my pants. Pt reports using 1-2 packs heroin daily, IV, last use [employer]. Pt reports hx Suboxone about 2 years ago. Has not been on methadone in the past. Pt would like to continue titration and be linked to OTP. Pt is currently unstably housed, has been living outside x 4 months in [place]. Pt denies questions and concerns at this time. Discussed with Rubina Vivas APRN.
[2022-10-10] MEDS: methADONE HCl 20 MG/2 ML ORAL.CONC 10 MG PO (10:34)
[2022-10-10] MEDS: Enoxaparin Sodium 40 MG/0.4 ML SYRINGE SUBCUT (10:34)
[2022-10-10] MEDS: Acetaminophen 325 MG TABLET 650 MG PO (10:40)
--- NOTE | 2022-10-10 10:52 | P.PNIM_ITS ---
Subjective Subjective Date of Service: 10/10/22 Review of Systems f/u cellulitis of the feet interval history: fever resolved, feet still in pain, frosbite is more prominent Physical Exam Vital Signs: Vital Signs: Last Vital Signs Temp 98.7 F 10/10/22 07:59 Pulse 86 10/10/22 07:59 Resp 17 10/10/22 07:59 BP 114/64 10/10/22 07:59 Pulse Ox 99 10/10/22 07:59 O2 Del Method 10/10/22 07:59 BMI result Body Mass Index 25.0 Const: Other: General: AO X 3, no acute distress, essentially unchanged Resp: CTA bilateral CVS: S1,S2,RRR GI: +BS, NT, no distention Skin: admission today Neuro: motor grossly intact Psych: appropriate affect Objective Data Active Medications Acetaminophen (Acetaminophen 325 Mg Tablet) 650 mg PO Q4H PRN PRN Reason: fever Last Admin: 10/10/22 10:40 Dose: 650 mg Documented By: LUCIO Clonidine HCl (Clonidine Hcl 0.1 Mg Tablet) 0.1 mg PO BID PRN; Protocol PRN Reason: opioid withdrawal Last Admin: 10/10/22 06:14 Dose: 0.1 mg Documented By: SATYA Enoxaparin Sodium (Enoxaparin Sodium 40 Mg/0.4 Ml Syringe) 40 mg SUBCUT Q24H [facility] Last Admin: 10/10/22 10:34 Dose: 40 mg Documented By: LUCIO Dextrose/Sodium Chloride (D5ns) 1,000 mls @ 100 mls/hr IVCONT .Q10H [facility] Last Admin: 10/10/22 09:27 Dose: 100 mls/hr Documented By: LUCIO Vancomycin HCl 1,250 mg/ (Sodium Chloride) 250 mls @ 166.667 mls/hr IV Q8H [facility] Last Infusion: 10/10/22 09:29 Dose: 0 mls/hr Documented By: LUCIO Melatonin (Melatonin 3 Mg Tablet) 6 mg PO BEDTIME PRN PRN Reason: Sleep Methadone HCl (Methadone Hcl 20 Mg/2 Ml Oral.Conc) 55 mg PO DAILY [facility] Morphine Sulfate (Morphine Sulfate 4 Mg/Ml Cartridge) 2 mg IVPUSH Q4H PRN; Protocol PRN Reason: Pain, Severe (Pain Scale 7-10) Last Admin: 10/10/22 07:52 Dose: 2 mg Documented By: LUCIO Nicotine (Nicotine 21 Mg Patch.Td24) 21 mg TRANSDERMA DAILY [facility] Last Admin: 10/10/22 07:43 Dose: 21 mg Documented By: LUCIO Ondansetron HCl (Ondansetron Hcl 4 Mg/2 Ml Vial) 4 mg IVPUSH Q8H PRN PRN Reason: Nausea and Vomiting Pharmacy Consult (Consult Rx Perform Med Rec) 1 each MISCELLANE ONCE PRN PRN Reason: Consult order Pharmacy Consult (Consult Rx Vancomycin Dosing) 1 each MISCELLANE DAILY PRN PRN Reason: Consult order Sodium Chloride (0.9 % Sodium Chloride Flush 3 Ml Syringe) 3 ml IVFLUSH QSHIFT [facility] Last Admin: 10/10/22 07:44 Dose: Not Given Documented By: LUCIO Non-Admin Reason: IV Running Labs 10/09/22 07:51 10/10/22 05:16 Labs: Laboratory Results - last 24 hr 10/09/22 10/10/22 13:15 05:16 Anion Gap 12 Estim Creat Clear Calc 129.9 Estimated GFR > 60 Random Glucose 115 Calcium 8.2 L D Vancomycin Trough 3.7 L Microbiology Microbiology Results: Microbiology 10/08/22 01:55 Blood Culture - Preliminary Blood - Venous No growth after 48 hours. 10/08/22 01:55 Blood Culture - Preliminary Blood - Venous No growth after 48 hours. 10/08/22 00:00 Urine Culture - Final Urine clean catch - Clean Catch Midstream Assessment and Plan (1) Bilateral cellulitis of lower leg: Status: Acute (2) Frostbite of both lower extremities: Status: Acute (3) Hepatitis C antibody positive in blood: Status: Acute (4) Opioid use disorder: Status: Acute (5) IV drug abuse: Status: Acute Plan 27/ with substance abuse, history of strep viridan bacteremaia here with pain in the feet, concern for cellulitis, fever and sepsis Cellulitis of the feet, Sepsis, history of sepsis.. blood cultures thus far negative at 24 horus continue vancomycin and follow culture ID consult IVF fluid morphine for pain Frosbite--more prominent today see pictures above, surgery following IVDA + for opioid, amphetamine, cocaine, canabis, fentanyl clonidine for withdrawal addiction med consult pending, but I personally advised her against substance . Methadone Time Spent With Patient Time: Total time managing care of this patient today ____ minutes. Quality Stroke Does the patient have a stroke diagnosis?: No VTE Prior VTE?: No VTE Risk Level:: Medical - moderate - high VTE Device Contraindication: N/A - Device Ordered VTE Drug Contraindication: N/A - Med Ordered
--- NOTE | 2022-10-10 13:06 | P.CONOP_ITS ---
History of Present Illness HPI Consult date: 10/10/22 Chief complaint: Sepsis Cellulitis Narrative: ?27-year-old female who admitted to the medical service for bilateral lower extremity swelling and pain/frostbite.? The patient states that she is homeless and living outside has a history of of IVDA with heroin and cocaine. Last use was just prior to admission.? On exam in the hospital, a CT scan was obtained on the pelvis which demonstrated a non union / fracture through the intertro chanteric region of the left femur. She is being treated by general surgery for the harp bite injuries. Orthopedics was consulted for further recommendations of the left hip. Review of Systems Review of Systems: per [facility] Past Medical History Medical History Anemia Bacteremia due to Gram-positive bacteria Elevated LFTs IV drug user Left leg pain Opioid withdrawal Social History Social History Household Members: Unknown / Unable to assess Housing: Homeless Alcohol intake: unknown Patient Tobacco Use Status: Tobacco use Unknown Substance Use Type: Unknown service: No Current occupational status: unemployed Meds Allergies Allergy/AdvReac Type Severity Reaction Status Date / Time No Known Allergies Allergy Verified 07/13/22 00:07 Active Medications: Current Medications Acetaminophen (Acetaminophen 325 Mg Tablet) 650 mg PO Q4H PRN PRN Reason: fever Last Admin: 10/10/22 10:40 Dose: 650 mg Clonidine HCl (Clonidine Hcl 0.1 Mg Tablet) 0.1 mg PO BID PRN; Protocol PRN Reason: opioid withdrawal Last Admin: 10/10/22 06:14 Dose: 0.1 mg Enoxaparin Sodium (Enoxaparin Sodium 40 Mg/0.4 Ml Syringe) 40 mg SUBCUT Q24H [facility] Last Admin: 10/10/22 10:34 Dose: 40 mg Dextrose/Sodium Chloride (D5ns) 1,000 mls @ 100 mls/hr IVCONT .Q10H [facility] Last Admin: 10/10/22 09:27 Dose: 100 mls/hr Vancomycin HCl 1,250 mg/ (Sodium Chloride) 250 mls @ 166.667 mls/hr IV Q8H [facility] Last Infusion: 10/10/22 09:29 Dose: Infused Melatonin (Melatonin 3 Mg Tablet) 6 mg PO BEDTIME PRN PRN Reason: Sleep Methadone HCl (Methadone Hcl 20 Mg/2 Ml Oral.Conc) 55 mg PO DAILY [facility] Morphine Sulfate (Morphine Sulfate 4 Mg/Ml Cartridge) 2 mg IVPUSH Q4H PRN; Protocol PRN Reason: Pain, Severe (Pain Scale 7-10) Last Admin: 10/10/22 12:25 Dose: 2 mg Nicotine (Nicotine 21 Mg Patch.Td24) 21 mg TRANSDERMA DAILY [facility] Last Admin: 10/10/22 07:43 Dose: 21 mg Ondansetron HCl (Ondansetron Hcl 4 Mg/2 Ml Vial) 4 mg IVPUSH Q8H PRN PRN Reason: Nausea and Vomiting Pharmacy Consult (Consult Rx Perform Med Rec) 1 each MISCELLANE ONCE PRN PRN Reason: Consult order Pharmacy Consult (Consult Rx Vancomycin Dosing) 1 each MISCELLANE DAILY PRN PRN Reason: Consult order Sodium Chloride (0.9 % Sodium Chloride Flush 3 Ml Syringe) 3 ml IVFLUSH QSHIFT [facility] Last Admin: 10/10/22 07:44 Dose: Not Given Home Medications Medication Instructions Recorded Confirmed Last Taken Type No Known Home Meds 08/19/22 10/08/22 Unknown History Physical Exam Vital Signs: Vital Signs: Last Vital Signs Temp 98.7 F 10/10/22 07:59 Pulse 86 10/10/22 07:59 Resp 17 10/10/22 07:59 BP 114/64 10/10/22 07:59 Pulse Ox 99 10/10/22 07:59 O2 Del Method 10/10/22 07:59 BMI result Body Mass Index 25.0 Const: General: cooperative, healthy appearing, comfortable and no acute distress Extrem: Other: Left hip normal to inspection, she has pain with log roll and is unable to perform SLR. ecchymotic dark di scoloration on bot h feet thighs and buttocks consisten t with? frostbite, some cellulitic c hanges on both low er legs, no indura tion, no discharge Results Labs 10/09/22 07:51 10/10/22 05:16 Labs: Abnormal lab results 10/09/22 10/10/22 Range/Units 13:15 05:16 Chloride 109 H (96-108) mmol/L Carbon Dioxide 21 L (22-29) mmol/L BUN 6 L (9-16) mg/dL Calcium 8.2 L D (8.4-10.2) mg/dL Vancomycin Trough 3.7 L (10.0-20.0) mcg/mL H & H 10/08/22 10/09/22 Range/Units 00:27 07:51 Hgb 8.3 L 7.7 L (12.0-16.0) g/dl Hct 28.0 L 25.9 L (37.0-47.0) % All other labs normal. Assessment and Plan (1) Intertrochanteric fracture of left femur: Status: Acute Plan I discussed the case with Dr Vieyra and explained the extent of the injury to the patient and options available which include surgical intervention. I explained the procedure in detail along with the length of recovery and rehab course. I explained the risk, benefits and alternatives. Risk including, but not limited to infection, blood clots, bleeding, non union or malunion and nerve/tissue damage to surrounding areas. I answered all their questions and with their understanding they have consented to move forward with Operative Fixation of the left femur . The patient will be T&S, med clearance obtained and we will plan for surgery this upcoming thu/ due to chronicity of fracture. Time Spent With Patient Time: Total time managing care of this patient today ____ minutes. Procedures Date of Service Date of Service: 10/10/22
[2022-10-10] MEDS: oxyCODONE HCl Immed Release 5 MG TABLET PO ×2 (14:21→20:22)
--- NOTE | 2022-10-10 14:53 | P.PNADD_ITS ---
Subjective Subjective Date of Service: 10/10/22 Reason For Visit: Sepsis Cellulitis Interim History: Patient seen in follow up Seen by [facility] RN this after receiving methadone 40mg dose, patient reporting continued withdrawal sx and appearing uncomfortable, diaphoretic and restless. Additional 10mg methadone ordered (total of 50mg today). Seen several hours later, and no longer diaphoretic or restless, however still reporting cravings and feeling sick . Use history provided to RN--reporting 1-1.5 packs daily (100-150 bags). Please see oceanologist note for additional information. found to have fracture of the left femur. Surgery scheduled for early next week. Review of Systems Constitutional: Reports as per HPI Mental Status Exam Mental Status Exam Patient Appearance: Unkempt Level of Consciousness: Awake and Alert Patient Behavior: Guarded Affect Description: Blunted Judgement: Fair Diagnostics Vital Signs (24Hr): Vital Signs - 24 hr 10/09/22 16:00 10/09/22 19:04 10/09/22 19:22 Temperature 98.4 F 98.4 F Pulse Rate 99 98 Respiratory Rate 17 19 18 Blood Pressure 119/68 130/86 Pulse Oximetry 98 98 Oxygen Delivery Method Room Air Room Air 10/10/22 04:00 10/10/22 07:59 Temperature 98.8 F 98.7 F Pulse Rate 91 86 Respiratory Rate 18 17 Blood Pressure 121/69 114/64 Pulse Oximetry 99 99 Oxygen Delivery Method Room Air Room Air BMI result Body Mass Index 25.0 Labs 10/09/22 07:51 10/10/22 05:16 Labs: Laboratory Results - last 48 hr 10/09/22 10/09/22 10/09/22 07:51 07:51 13:15 WBC 13.0 H RBC 3.86 L Hgb 7.7 L Hct 25.9 L MCV 67.1 L MCH 19.9 L MCHC 29.7 L RDW 17.7 H Plt Count 299 MPV 10.0 Absolute Nucleated RBC 0.000 Nucleated RBC % (auto) 0.0 Sodium Potassium Chloride Carbon Dioxide Anion Gap BUN Creatinine 0.56 Estim Creat Clear Calc 134.6 Estimated GFR > 60 Random Glucose Calcium Vancomycin Trough 3.7 L 10/10/22 05:16 WBC RBC Hgb Hct MCV MCH MCHC RDW Plt Count MPV Absolute Nucleated RBC Nucleated RBC % (auto) Sodium 138 Potassium 3.5 Chloride 109 H Carbon Dioxide 21 L Anion Gap 12 BUN 6 L Creatinine 0.58 Estim Creat Clear Calc 129.9 Estimated GFR > 60 Random Glucose 115 Calcium 8.2 L D Vancomycin Trough Imaging Radiology Impressions: ITS Impressions Aorta w/Runoff CTA 10/08/22 06:10 IMPRESSION: 1. Normal appearance of the vasculature with no evidence of stenosis or occlusion. 2. No acute finding in the abdomen or pelvis. 3. Redemonstration of the left femoral neck fracture with persistent varus angulation. There is some callus formation now present. Medications Medications Current Medications Acetaminophen (Acetaminophen 325 Mg Tablet) 650 mg PO Q4H PRN PRN Reason: fever Last Admin: 10/10/22 10:40 Dose: 650 mg Clonidine HCl (Clonidine Hcl 0.1 Mg Tablet) 0.1 mg PO BID PRN; Protocol PRN Reason: opioid withdrawal Last Admin: 10/10/22 06:14 Dose: 0.1 mg Enoxaparin Sodium (Enoxaparin Sodium 40 Mg/0.4 Ml Syringe) 40 mg SUBCUT Q24H [facility] Last Admin: 10/10/22 10:34 Dose: 40 mg Dextrose/Sodium Chloride (D5ns) 1,000 mls @ 100 mls/hr IVCONT .Q10H [facility] Last Admin: 10/10/22 09:27 Dose: 100 mls/hr Vancomycin HCl 1,250 mg/ (Sodium Chloride) 250 mls @ 166.667 mls/hr IV Q8H [facility] Last Infusion: 10/10/22 09:29 Dose: Infused Melatonin (Melatonin 3 Mg Tablet) 6 mg PO BEDTIME PRN PRN Reason: Sleep Methadone HCl (Methadone Hcl 20 Mg/2 Ml Oral.Conc) 55 mg PO DAILY [facility] Morphine Sulfate (Morphine Sulfate 4 Mg/Ml Cartridge) 2 mg IVPUSH Q4H PRN; Protocol PRN Reason: Pain, Severe (Pain Scale 7-10) Last Admin: 10/10/22 12:25 Dose: 2 mg Nicotine (Nicotine 21 Mg Patch.Td24) 21 mg TRANSDERMA DAILY [facility] Last Admin: 10/10/22 07:43 Dose: 21 mg Ondansetron HCl (Ondansetron Hcl 4 Mg/2 Ml Vial) 4 mg IVPUSH Q8H PRN PRN Reason: Nausea and Vomiting Oxycodone HCl (Oxycodone Hcl Immed Release 5 Mg Tablet) 5 mg PO Q6H PRN PRN Reason: Pain, Severe (Pain Scale 7-10) Last Admin: 10/10/22 14:21 Dose: 5 mg Pharmacy Consult (Consult Rx Perform Med Rec) 1 each MISCELLANE ONCE PRN PRN Reason: Consult order Pharmacy Consult (Consult Rx Vancomycin Dosing) 1 each MISCELLANE DAILY PRN PRN Reason: Consult order Sodium Chloride (0.9 % Sodium Chloride Flush 3 Ml Syringe) 3 ml IVFLUSH QSHIFT [facility] Last Admin: 10/10/22 07:44 Dose: Not Given Allergies Allergies Allergy/AdvReac Type Severity Reaction Status Date / Time No Known Allergies Allergy Verified 07/13/22 00:07 Assessment & Plan Assessment & Plan (1) Opioid use disorder: Status: Acute Code(s): F11.90 - Opioid use, unspecified, uncomplicated Assessment and Plan: * methadone 55mg tomorrow (10/11) AM. * will continue to follow Total time managing care of this patient today _25___ minutes.
[2022-10-10 15:33] VITALS: BP 126/75; PULSE 86; RESP 18; TEMP 36.6; O2SAT 100
[2022-10-10 16:20] LABS: Vancomycin Trough 11.3 mcg/mL (10.0-20.0)
--- NOTE | 2022-10-10 16:32 | P.PNGS_ITS ---
Subjective Subjective Date of Service: 10/10/22 Interval history: Complains of pain on both lower extremities more communicative and alert today Physical Exam Vital Signs: Vital Signs: Last Vital Signs Temp 97.9 F 10/10/22 15:33 Pulse 86 10/10/22 15:33 Resp 18 10/10/22 15:33 BP 126/75 10/10/22 15:33 Pulse Ox 100 10/10/22 15:33 O2 Del Method 10/10/22 15:33 BMI result Body Mass Index 25.0 Const: General: comfortable and no acute distress Resp: Effort & Inspection: normal respiratory effort Cardio: Rate: regular rate GI: Palpation (GI): Soft to palpation Extrem: Other: dark discoloration on all toes, consistent with frostbite with beginning demarcation of ischemic process; patchy areas of duration on both feet noted as well Objective Data Active Medications Acetaminophen (Acetaminophen 325 Mg Tablet) 650 mg PO Q4H PRN PRN Reason: fever Last Admin: 10/10/22 10:40 Dose: 650 mg Documented By: LUCIO Clonidine HCl (Clonidine Hcl 0.1 Mg Tablet) 0.1 mg PO BID PRN; Protocol PRN Reason: opioid withdrawal Last Admin: 10/10/22 06:14 Dose: 0.1 mg Documented By: SATYA Enoxaparin Sodium (Enoxaparin Sodium 40 Mg/0.4 Ml Syringe) 40 mg SUBCUT Q24H [facility] Last Admin: 10/10/22 10:34 Dose: 40 mg Documented By: LUCIO Dextrose/Sodium Chloride (D5ns) 1,000 mls @ 100 mls/hr IVCONT .Q10H [facility] Last Admin: 10/10/22 09:27 Dose: 100 mls/hr Documented By: LUCIO Vancomycin HCl 1,250 mg/ (Sodium Chloride) 250 mls @ 166.667 mls/hr IV Q8H [facility] Last Infusion: 10/10/22 09:29 Dose: 0 mls/hr Documented By: LUCIO Melatonin (Melatonin 3 Mg Tablet) 6 mg PO BEDTIME PRN PRN Reason: Sleep Methadone HCl (Methadone Hcl 20 Mg/2 Ml Oral.Conc) 55 mg PO DAILY [facility] Morphine Sulfate (Morphine Sulfate 4 Mg/Ml Cartridge) 2 mg IVPUSH Q4H PRN; Protocol PRN Reason: Pain, Severe (Pain Scale 7-10) Last Admin: 10/10/22 12:25 Dose: 2 mg Documented By: JAMIN Nicotine (Nicotine 21 Mg Patch.Td24) 21 mg TRANSDERMA DAILY [facility] Last Admin: 10/10/22 07:43 Dose: 21 mg Documented By: LUCIO Ondansetron HCl (Ondansetron Hcl 4 Mg/2 Ml Vial) 4 mg IVPUSH Q8H PRN PRN Reason: Nausea and Vomiting Oxycodone HCl (Oxycodone Hcl Immed Release 5 Mg Tablet) 5 mg PO Q6H PRN PRN Reason: Pain, Severe (Pain Scale 7-10) Last Admin: 10/10/22 14:21 Dose: 5 mg Documented By: JAMIN Pharmacy Consult (Consult Rx Perform Med Rec) 1 each MISCELLANE ONCE PRN PRN Reason: Consult order Pharmacy Consult (Consult Rx Vancomycin Dosing) 1 each MISCELLANE DAILY PRN PRN Reason: Consult order Sodium Chloride (0.9 % Sodium Chloride Flush 3 Ml Syringe) 3 ml IVFLUSH QSHIFT [facility] Last Admin: 10/10/22 07:44 Dose: Not Given Documented By: LUCIO Non-Admin Reason: IV Running Labs 10/09/22 07:51 10/10/22 05:16 Labs: Laboratory Results - last 24 hr 10/10/22 10/10/22 05:16 14:20 Anion Gap 12 Estim Creat Clear Calc 129.9 Estimated GFR > 60 Random Glucose 115 Calcium 8.2 L D Vancomycin Trough 11.3 Microbiology Microbiology Results: Microbiology 10/08/22 01:55 Blood Culture - Preliminary Blood - Venous No growth after 48 hours. 10/08/22 01:55 Blood Culture - Preliminary Blood - Venous No growth after 48 hours. Procedures Date of Service Date of Service: 10/10/22 Progress Note: A&P Assessment and plan (1) Frostbite of both lower extremities: Status: Acute Assessment and Plan: allow demarcation of ischemic areas both feet appears to be starting to have mummification of the tips of the toes mild cellulitis I had a long discussion with patient and family at bedside- I explained to them that we will await for further demarcation of this ischemic changes of the foot wants demarcation is clear, she will likely need amputation, at least of all the toes and possibly BKA control pain antibiotics Time Spent With Patient Time: Total time managing care of this patient today ____ minutes. Quality Stroke Does the patient have a stroke diagnosis?: No VTE Prior VTE?: No VTE Risk Level:: Medical - moderate - high VTE Device Contraindication: N/A - Device Ordered VTE Drug Contraindication: N/A - Med Ordered
[2022-10-10] MEDS: 0.9 % Sodium Chloride Flush 3 ML SYRINGE IVFLUSH (16:45)
[2022-10-10] MEDS: Melatonin 3 MG TABLET 6 MG PO (18:07)
[2022-10-10 19:29] VITALS: BP 120/62; PULSE 98; RESP 17; TEMP 37; O2SAT 99
[2022-10-11] MEDS: vancomycin HCL 1,250 MG in 0.9 % Sodium Chloride 250 ML 166.67 MG IV ×3 (00:03→15:02)
[2022-10-11] MEDS: 0.9 % Sodium Chloride Flush 3 ML SYRINGE IVFLUSH ×2 (00:03→23:57)
[2022-10-11] MEDS: Morphine Sulfate 4 MG/ML CARTRIDGE 2 MG IVPUSH ×3 (02:04→10:25)
[2022-10-11 03:34] VITALS: BP 133/75; PULSE 93; RESP 18; TEMP 36.8; O2SAT 98
[2022-10-11] MEDS: oxyCODONE HCl Immed Release 5 MG TABLET PO ×3 (04:31→19:56)
[2022-10-11 06:37] LABS: Creatinine Clr Calc Pharmacy 127.7; Estimated Glomerular Filt Rate > 60
[2022-10-11] MEDS: methADONE HCl 20 MG/2 ML ORAL.CONC 55 MG PO (07:42)
[2022-10-11] MEDS: Nicotine 21 MG PATCH.TD24 TRANSDERMA (07:43)
--- NOTE | 2022-10-11 07:55 | PM.EVENT ---
Event Note Date of Service: 10/11/22 Event Note: closer reviewed of CT of abdomen and pelvis showed that there was a left hip fracture which was present in July. She denies hip pain. Ortho consulted for further management. Time Spent With Patient Time: Total time managing care of this patient today ____ minutes.
--- NOTE | 2022-10-11 07:57 | HO.PM.IMPN ---
Subjective Subjective Date of Service: 10/11/22 Interval History: f/u on frosbite, cellulitis, hip fracture interval history: toes continues to be necrotic looking and painful Review of Systems pain in the feet, no hip pain Physical Exam Vital Signs: Vital Signs: Last Vital Signs Temp 98.3 F 10/11/22 03:34 Pulse 93 10/11/22 03:34 Resp 18 10/11/22 03:34 BP 133/75 10/11/22 03:34 Pulse Ox 98 10/11/22 03:34 O2 Del Method 10/11/22 03:34 BMI result Body Mass Index 25.0 Const: General: comfortable and no acute distress Resp: Effort & Inspection: normal respiratory effort Cardio: Rate: regular rate GI: Palpation (GI): Soft to palpation Skin: Other: see Extrem: Other: dark discoloration on all toes, consistent with frostbite with beginning demarcation of ischemic process; patchy areas of duration on both feet noted as well Objective Data Active Medications Acetaminophen (Acetaminophen 325 Mg Tablet) 650 mg PO Q4H PRN PRN Reason: fever Last Admin: 10/10/22 10:40 Dose: 650 mg Documented By: LUCIO Clonidine HCl (Clonidine Hcl 0.1 Mg Tablet) 0.1 mg PO BID PRN; Protocol PRN Reason: opioid withdrawal Last Admin: 10/10/22 22:19 Dose: 0.1 mg Documented By: ALYSSA Enoxaparin Sodium (Enoxaparin Sodium 40 Mg/0.4 Ml Syringe) 40 mg SUBCUT Q24H [facility] Last Admin: 10/10/22 10:34 Dose: 40 mg Documented By: LUCIO Dextrose/Sodium Chloride (D5ns) 1,000 mls @ 100 mls/hr IVCONT .Q10H [facility] Last Admin: 10/10/22 20:22 Dose: 100 mls/hr Documented By: ALYSSA Vancomycin HCl 1,250 mg/ (Sodium Chloride) 250 mls @ 166.667 mls/hr IV Q8H [facility] Last Admin: 10/11/22 07:43 Dose: 166.67 mls/hr Documented By: PITA Melatonin (Melatonin 3 Mg Tablet) 6 mg PO BEDTIME PRN PRN Reason: Sleep Last Admin: 10/10/22 18:07 Dose: 6 mg Documented By: ALYSSA Methadone HCl (Methadone Hcl 20 Mg/2 Ml Oral.Conc) 55 mg PO DAILY [facility] Last Admin: 10/11/22 07:42 Dose: 55 mg Documented By: PITA Morphine Sulfate (Morphine Sulfate 4 Mg/Ml Cartridge) 2 mg IVPUSH Q4H PRN; Protocol PRN Reason: Pain, Severe (Pain Scale 7-10) Last Admin: 10/11/22 06:39 Dose: 2 mg Documented By: JULIO Nicotine (Nicotine 21 Mg Patch.Td24) 21 mg TRANSDERMA DAILY [facility] Last Admin: 10/11/22 07:43 Dose: 21 mg Documented By: PITA Ondansetron HCl (Ondansetron Hcl 4 Mg/2 Ml Vial) 4 mg IVPUSH Q8H PRN PRN Reason: Nausea and Vomiting Oxycodone HCl (Oxycodone Hcl Immed Release 5 Mg Tablet) 5 mg PO Q6H PRN PRN Reason: Pain, Severe (Pain Scale 7-10) Last Admin: 10/11/22 04:31 Dose: 5 mg Documented By: JULIO Pharmacy Consult (Consult Rx Perform Med Rec) 1 each MISCELLANE ONCE PRN PRN Reason: Consult order Pharmacy Consult (Consult Rx Vancomycin Dosing) 1 each MISCELLANE DAILY PRN PRN Reason: Consult order Sodium Chloride (0.9 % Sodium Chloride Flush 3 Ml Syringe) 3 ml IVFLUSH QSHIFT [facility] Last Admin: 10/11/22 07:48 Dose: Not Given Documented By: PITA Non-Admin Reason: IV Running Labs 10/09/22 07:51 10/11/22 05:44 Labs: Laboratory Results - last 24 hr 10/10/22 10/10/22 10/11/22 05:16 14:20 05:44 Anion Gap 12 Estim Creat Clear Calc 129.9 127.7 Estimated GFR > 60 > 60 Random Glucose 115 Calcium 8.2 L D Vancomycin Trough 11.3 Microbiology Microbiology Results: Microbiology 10/08/22 01:55 Blood Culture - Preliminary Blood - Venous No growth after 48 hours. 10/08/22 01:55 Blood Culture - Preliminary Blood - Venous No growth after 48 hours. Assessment and Plan (1) Bilateral cellulitis of lower leg: Status: Acute (2) Frostbite of both lower extremities: Status: Acute (3) Hepatitis C antibody positive in blood: Status: Acute (4) Opioid use disorder: Status: Acute (5) IV drug abuse: Status: Acute Plan 27/F with substance abuse, history of strep viridan bacteremaia here with pain in the feet, concern for cellulitis and frosbite, fever and sepsis Cellulitis of the feet, Sepsis, history of sepsis.. blood cultures thus far negative continue vancomycin and follow culture morphine for pain Frosbite--more prominent today see pictures above, surgery following and if continues in current direction might need surgery (amputation) IVDA + for opioid, amphetamine, cocaine, canabis, fentanyl clonidine for withdrawal addiction med consult pending, but I personally advised her against substance . Methadone started here Left hip fracture--Ortho will do surgery next week DVT prophylaxis: Lovenox Need for inpatient: Frosbite with necrotic feet, cellulitis of IV Abx and hip fracture that will need surgery Time Spent With Patient Time: Total time managing care of this patient today ____ minutes. Quality Stroke Does the patient have a stroke diagnosis?: No VTE Prior VTE?: No VTE Risk Level:: Medical - moderate - high VTE Device Contraindication: N/A - Device Ordered VTE Drug Contraindication: N/A - Med Ordered
[2022-10-11 08:00] VITALS: BP 125/81; PULSE 90; RESP 17; TEMP 36.7; O2SAT 98
[2022-10-11 08:09] LABS: Anion Gap 15 (12-20); Carbon Dioxide 20 mmol/L (22-29); Chloride 110 mmol/L (96-108); Potassium 3.5 mmol/L (3.3-5.1); Sodium 141 mmol/L (135-145)
[2022-10-11] MEDS: Dextrose 5 % and 0.9 % NaCl 1,000 ML 100 ML IVCONT (09:25)
[2022-10-11] MEDS: Enoxaparin Sodium 40 MG/0.4 ML SYRINGE SUBCUT (11:05)
[2022-10-11] MEDS: Morphine Sulfate 2 MG/ML CARTRIDGE IVPUSH (11:05)
--- NOTE | 2022-10-11 11:24 | MHC.RECOVRN ---
0900- Met with pt to follow up and assess withdrawal. Pt sitting in bed, awake, alert, eating breakfast, quiet and guarded. Pt does not appear diaphoretic, does not appear to be experiencing withdrawal symptoms. Pt reports feeling okay with methadone dose, however, is reporting increased pain in her left foot. Pt reports pain made it difficult to sleep last night. Pt requesting better pain management. Denies other questions or concerns. Discussed with Rubina Vivas. SHELLY.
[2022-10-11 13:57] LABS: Vancomycin Random 14.6 mcg/mL (15-20)
--- NOTE | 2022-10-11 14:05 | HE.PHANOTE ---
Vanocmycin Dosing Level therapeutic today. Continue current regimen vanco 1250 mg Q8H. Next level is scheduled for 10/12 @ 1400. Kirti ArenasD
[2022-10-11] MEDS: Acetaminophen 325 MG TABLET 650 MG PO ×2 (14:08→23:53)
[2022-10-11] MEDS: Morphine Sulfate 4 MG/ML CARTRIDGE IVPUSH ×2 (14:41→21:37)
--- NOTE | 2022-10-11 15:33 | MHC.RECOVRN ---
Met with pt to follow up regarding increased pain medication (morphine 2 mg to 4 mg). Pt laying in bed, awake, alert, wincing. Pt reports increased dose helped, however, continues to report increased pain in bilateral feet, tingling and throbbing. Requesting pain medication. In regards to opioid withdrawal, pt reports diaphoresis and would like to continue methadone titration. Pts partner, Remy, present. Questions regarding OTP and further ROSEMARY tx answered. Pt denies other questions or concerns. Discussed with RN as well as Rubina Vivas APRN.
[2022-10-11 16:00] VITALS: BP 125/72; PULSE 94; RESP 18; TEMP 36.4; O2SAT 99
[2022-10-11] MEDS: methADONE HCl 20 MG/2 ML ORAL.CONC 5 MG PO (17:28)
[2022-10-11 19:12] VITALS: BP 132/82; PULSE 81; RESP 16; TEMP 37.1; O2SAT 100
[2022-10-11 20:53] LABS: Glucose, Whole Blood 103 mg/dL (60-115)
[2022-10-11] MEDS: vancomycin HCL 1,250 MG in 0.9 % Sodium Chloride 250 ML 166.6 MG IV (23:53)
[2022-10-11] MEDS: Melatonin 3 MG TABLET 6 MG PO (23:53)
[2022-10-12] MEDS: Morphine Sulfate 4 MG/ML CARTRIDGE IVPUSH ×5 (01:42→21:21)
[2022-10-12 03:35] VITALS: BP 137/91; PULSE 79; RESP 16; TEMP 36.4; O2SAT 100
[2022-10-12] MEDS: oxyCODONE HCl Immed Release 5 MG TABLET PO ×3 (03:41→17:46)
[2022-10-12] MEDS: Dextrose 5 % and 0.9 % NaCl 1,000 ML 100 ML IVCONT (06:31)
[2022-10-12 06:41] LABS: Creatinine Clr Calc Pharmacy 139.5; Estimated Glomerular Filt Rate > 60
[2022-10-12 07:56] VITALS: BP 144/93; PULSE 86; RESP 16; TEMP 37.1; O2SAT 100
[2022-10-12] MEDS: methADONE HCl 20 MG/2 ML ORAL.CONC 60 MG PO (07:58)
[2022-10-12] MEDS: Nicotine 21 MG PATCH.TD24 TRANSDERMA (07:59)
[2022-10-12] MEDS: vancomycin HCL 1,250 MG in 0.9 % Sodium Chloride 250 ML 166.67 MG IV ×2 (08:30→15:17)
[2022-10-12 08:41] LABS: Hematocrit 31.4 % (37.0-47.0); Hemoglobin 9.1 g/dl (12.0-16.0); Mean Corpuscular Hemoglobin 19.4 pg (27.0-33.0); Mean Corpuscular Volume 67.1 fL (80.0-98.0); Mean Platelet Volume 9.4 fL (9.4-12.3); Platelet Count 377 X10*3/uL (160-400); Red Blood Count 4.68 X10*6/uL (4.20-5.50); Red Cell Distribution Width 17.6 % (11.0-16.0); White Blood Count 7.4 X10*3/uL (4.8-10.8)
--- NOTE | 2022-10-12 09:05 | HO.PM.IMPN ---
Subjective Subjective Date of Service: 10/12/22 Interval History: f/u on frosbite, cellulitis, hip fracture interval history: toes continues to be necrotic looking and painful Review of Systems pain in the feet, no hip pain Physical Exam Vital Signs: Vital Signs: Last Vital Signs Temp 98.8 F 10/12/22 07:56 Pulse 86 10/12/22 07:56 Resp 16 10/12/22 07:56 BP 144/93 H 10/12/22 07:56 Pulse Ox 100 10/12/22 07:56 O2 Del Method 10/12/22 07:56 BMI result Body Mass Index 25.0 Const: General: comfortable and no acute distress Resp: Effort & Inspection: normal respiratory effort Cardio: Rate: regular rate GI: Palpation (GI): Soft to palpation Skin: Other: see earlier pictures, essentially unchanged Extrem: Other: dark discoloration on all toes, consistent with frostbite with beginning demarcation of ischemic process; patchy areas of duration on both feet noted as well Objective Data Active Medications Acetaminophen (Acetaminophen 325 Mg Tablet) 650 mg PO Q4H PRN PRN Reason: fever Last Admin: 10/11/22 23:53 Dose: 650 mg Documented By: CHRISSY Clonidine HCl (Clonidine Hcl 0.1 Mg Tablet) 0.1 mg PO BID PRN; Protocol PRN Reason: opioid withdrawal Last Admin: 10/10/22 22:19 Dose: 0.1 mg Documented By: ALYSSA Enoxaparin Sodium (Enoxaparin Sodium 40 Mg/0.4 Ml Syringe) 40 mg SUBCUT Q24H [facility] Last Admin: 10/11/22 11:05 Dose: 40 mg Documented By: PITA Vancomycin HCl 1,250 mg/ (Sodium Chloride) 250 mls @ 166.667 mls/hr IV Q8H [facility] Last Admin: 10/12/22 08:30 Dose: 166.67 mls/hr Documented By: PITA Melatonin (Melatonin 3 Mg Tablet) 6 mg PO BEDTIME PRN PRN Reason: Sleep Last Admin: 10/11/22 23:53 Dose: 6 mg Documented By: CHRISSY Methadone HCl (Methadone Hcl 20 Mg/2 Ml Oral.Conc) 60 mg PO DAILY [facility] Last Admin: 10/12/22 07:58 Dose: 60 mg Documented By: PITA Methadone HCl (Methadone Hcl 20 Mg/2 Ml Oral.Conc) 5 mg PO DAILY@1800 [facility] Last Admin: 10/11/22 17:28 Dose: 5 mg Documented By: PITA Morphine Sulfate (Morphine Sulfate 4 Mg/Ml Cartridge) 4 mg IVPUSH Q4H PRN; Protocol PRN Reason: Pain, Severe (Pain Scale 7-10) Last Admin: 10/12/22 06:30 Dose: 4 mg Documented By: CHRISSY Nicotine (Nicotine 21 Mg Patch.Td24) 21 mg TRANSDERMA DAILY [facility] Last Admin: 10/12/22 07:59 Dose: 21 mg Documented By: PITA Ondansetron HCl (Ondansetron Hcl 4 Mg/2 Ml Vial) 4 mg IVPUSH Q8H PRN PRN Reason: Nausea and Vomiting Oxycodone HCl (Oxycodone Hcl Immed Release 5 Mg Tablet) 5 mg PO Q6H PRN PRN Reason: Pain, Severe (Pain Scale 7-10) Last Admin: 10/12/22 03:41 Dose: 5 mg Documented By: CHRISSY Pharmacy Consult (Consult Rx Perform Med Rec) 1 each MISCELLANE ONCE PRN PRN Reason: Consult order Pharmacy Consult (Consult Rx Vancomycin Dosing) 1 each MISCELLANE DAILY PRN PRN Reason: Consult order Sodium Chloride (0.9 % Sodium Chloride Flush 3 Ml Syringe) 3 ml IVFLUSH QSHIFT [facility] Last Admin: 10/12/22 08:01 Dose: Not Given Documented By: PITA Non-Admin Reason: IV Running Labs 10/12/22 07:40 10/12/22 05:40 Labs: Laboratory Results - last 24 hr 10/11/22 10/11/22 10/12/22 13:40 20:24 05:40 MCV MCH MCHC RDW Plt Count MPV Absolute Nucleated RBC Nucleated RBC % (auto) Estim Creat Clear Calc 139.5 Estimated GFR > 60 POC Glucose 103 Random Vancomycin 14.6 L 10/12/22 07:40 MCV 67.1 L MCH 19.4 L MCHC 29.0 L RDW 17.6 H Plt Count 377 D MPV 9.4 Absolute Nucleated RBC 0.000 Nucleated RBC % (auto) 0.0 Estim Creat Clear Calc Estimated GFR POC Glucose Random Vancomycin Assessment and Plan (1) Intertrochanteric fracture of left femur: Status: Acute (2) Bilateral cellulitis of lower leg: Status: Acute (3) Frostbite of both lower extremities: Status: Acute (4) Hepatitis C antibody positive in blood: Status: Acute Plan 27/ with substance abuse, history of strep viridan bacteremaia here with pain in the feet, concern for cellulitis and frosbite, fever and sepsis Cellulitis of the feet, Sepsis, history of sepsis.. blood cultures thus far negative continue vancomycin and follow culture morphine for pain Frosbite--more prominent today see pictures above, surgery following and if continues in current direction might need surgery (amputation) IVDA + for opioid, amphetamine, cocaine, canabis, fentanyl clonidine for withdrawal addiction med consult pending, but I personally advised her against substance . Methadone started here Left hip fracture--Ortho will do surgery next week DVT prophylaxis: Lovenox Need for inpatient: Frosbite with necrotic feet, cellulitis of IV Abx and hip fracture that will need surgery Time Spent With Patient Time: Total time managing care of this patient today ____ minutes. Quality Stroke Does the patient have a stroke diagnosis?: No VTE Prior VTE?: No VTE Risk Level:: Medical - moderate - high VTE Device Contraindication: N/A - Device Ordered VTE Drug Contraindication: N/A - Med Ordered
[2022-10-12] MEDS: Enoxaparin Sodium 40 MG/0.4 ML SYRINGE SUBCUT (11:06)
--- NOTE | 2022-10-12 11:06 | MHC.RECOVRN ---
Met with pt in 368 to follow up and provide support. Pt laying in bed, awake, alert, flat affect, does not appear to be uncomfortable. Partner at bedside. Pt reports pain continues to increase in hip and feet, however, increased dose of morphine does help. Pt reports 5 additional mg methadone at 6PM yesterday helped with sweating overnight. Received 60 mg this morning, reports this dose feels appropriate. Denies withdrawal symptoms. Pt denies questions or concerns. Discussed with Rubina Vivas APRN.
[2022-10-12] MEDS: Acetaminophen 325 MG TABLET 650 MG PO (13:02)
--- NOTE | 2022-10-12 14:57 | HE.PHANOTE ---
Vancomycin Dosing Addendum Patients level came back this evening at 13 mg/L. Patients level is therapeutic, estimated AUC is 452 mg/L/hr. Continue dose of 1250 mg Q8H, next draw 10/13 @1400.
[2022-10-12 15:34] VITALS: BP 134/89; PULSE 86; RESP 15; TEMP 36.7; O2SAT 98
[2022-10-12] MEDS: methADONE HCl 20 MG/2 ML ORAL.CONC 5 MG PO (17:14)
[2022-10-12 19:45] VITALS: BP 147/76; PULSE 90; RESP 18; TEMP 36.4; O2SAT 100
[2022-10-13] MEDS: vancomycin HCL 1,250 MG in 0.9 % Sodium Chloride 250 ML 166.67 MG IV (00:25)
[2022-10-13] MEDS: Acetaminophen 325 MG TABLET 650 MG PO ×3 (00:41→15:24)
[2022-10-13] MEDS: oxyCODONE HCl Immed Release 5 MG TABLET PO ×5 (00:41→19:59)
[2022-10-13] MEDS: Morphine Sulfate 4 MG/ML CARTRIDGE IVPUSH ×4 (02:16→22:49)
[2022-10-13 04:00] VITALS: BP 134/88; PULSE 75; RESP 15; TEMP 37.3; O2SAT 99
[2022-10-13 06:51] LABS: Creatinine Clr Calc Pharmacy 125.5; Estimated Glomerular Filt Rate > 60
[2022-10-13 07:30] VITALS: BP 140/85; PULSE 80; RESP 18; TEMP 36.9; O2SAT 100
--- NOTE | 2022-10-13 07:41 | P.PNIM_ITS ---
Subjective Subjective Date of Service: 10/13/22 Interval History: f/u on frosbite, cellulitis, hip fracture interval history: toes continues to be necrotic looking and painful Review of Systems pain in the feet, no hip pain Physical Exam Vital Signs: Vital Signs: Last Vital Signs Temp 98.5 F 10/13/22 07:30 Pulse 80 10/13/22 07:30 Resp 18 10/13/22 07:30 BP 140/85 H 10/13/22 07:30 Pulse Ox 100 10/13/22 07:30 O2 Del Method 10/13/22 07:30 BMI result Body Mass Index 25.0 Const: General: comfortable and no acute distress Resp: Effort & Inspection: normal respiratory effort Cardio: Rate: regular rate GI: Palpation (GI): Soft to palpation Skin: Other: see earlier pictures, essentially unchanged 10/13 10/13 Extrem: Other: dark discoloration on all toes, consistent with frostbite with beginning demarcation of ischemic process; patchy areas of duration on both feet noted as well Objective Data Active Medications Acetaminophen (Acetaminophen 325 Mg Tablet) 650 mg PO Q4H PRN PRN Reason: fever Last Admin: 10/13/22 00:41 Dose: 650 mg Documented By: JAMESON Clonidine HCl (Clonidine Hcl 0.1 Mg Tablet) 0.1 mg PO BID PRN; Protocol PRN Reason: opioid withdrawal Last Admin: 10/10/22 22:19 Dose: 0.1 mg Documented By: ALYSSA Enoxaparin Sodium (Enoxaparin Sodium 40 Mg/0.4 Ml Syringe) 40 mg SUBCUT Q24H [facility] Last Admin: 10/12/22 11:06 Dose: 40 mg Documented By: PITA Vancomycin HCl 1,250 mg/ (Sodium Chloride) 250 mls @ 166.667 mls/hr IV Q8H [facility] Last Infusion: 10/13/22 03:33 Dose: 0 mls/hr Documented By: JAMESON Melatonin (Melatonin 3 Mg Tablet) 6 mg PO BEDTIME PRN PRN Reason: Sleep Last Admin: 10/11/22 23:53 Dose: 6 mg Documented By: CHRISSY Methadone HCl (Methadone Hcl 20 Mg/2 Ml Oral.Conc) 60 mg PO DAILY [facility] Last Admin: 10/12/22 07:58 Dose: 60 mg Documented By: PITA Methadone HCl (Methadone Hcl 20 Mg/2 Ml Oral.Conc) 5 mg PO DAILY@1800 [facility] Last Admin: 10/12/22 17:14 Dose: 5 mg Documented By: PITA Morphine Sulfate (Morphine Sulfate 4 Mg/Ml Cartridge) 4 mg IVPUSH Q4H PRN; Protocol PRN Reason: Pain, Severe (Pain Scale 7-10) Last Admin: 10/13/22 06:13 Dose: 4 mg Documented By: JAMESON Nicotine (Nicotine 21 Mg Patch.Td24) 21 mg TRANSDERMA DAILY [facility] Last Admin: 10/12/22 07:59 Dose: 21 mg Documented By: PITA Ondansetron HCl (Ondansetron Hcl 4 Mg/2 Ml Vial) 4 mg IVPUSH Q8H PRN PRN Reason: Nausea and Vomiting Oxycodone HCl (Oxycodone Hcl Immed Release 5 Mg Tablet) 5 mg PO Q6H PRN PRN Reason: Pain, Severe (Pain Scale 7-10) Last Admin: 10/13/22 00:41 Dose: 5 mg Documented By: JAMESON Pharmacy Consult (Consult Rx Perform Med Rec) 1 each MISCELLANE ONCE PRN PRN Reason: Consult order Pharmacy Consult (Consult Rx Vancomycin Dosing) 1 each MISCELLANE DAILY PRN PRN Reason: Consult order Sodium Chloride (0.9 % Sodium Chloride Flush 3 Ml Syringe) 3 ml IVFLUSH QSHIFT [facility] Last Admin: 10/13/22 02:06 Dose: Not Given Documented By: JAMESON Non-Admin Reason: IV Running Labs 10/12/22 07:40 10/13/22 06:23 Labs: Laboratory Results - last 24 hr 10/12/22 10/12/22 10/13/22 07:40 14:23 06:23 MCV 67.1 L MCH 19.4 L MCHC 29.0 L RDW 17.6 H Plt Count 377 D MPV 9.4 Absolute Nucleated RBC 0.000 Nucleated RBC % (auto) 0.0 Estim Creat Clear Calc 125.5 Estimated GFR > 60 Vancomycin Trough 13.0 Microbiology Microbiology Results: Microbiology 10/08/22 01:55 Blood Culture - Final Blood - Venous No growth after 5 days. 10/08/22 01:55 Blood Culture - Final Blood - Venous No growth after 5 days. Assessment and Plan (1) Intertrochanteric fracture of left femur: Status: Acute (2) Bilateral cellulitis of lower leg: Status: Acute (3) Frostbite of both lower extremities: Status: Acute Plan / with substance abuse, history of strep viridan bacteremaia here with pain in the feet, concern for cellulitis and frosbite, fever and sepsis Cellulitis of the feet, at this point feet don't appear to be infected blood cultures thus far negative On vanco for 5 days now, ID eval and maybe stop Abx morphine for pain Frosbite--feet continue to demarcate with dry gangrene, surgery following IVDA + for opioid, amphetamine, cocaine, canabis, fentanyl clonidine for withdrawal addiction med following and started on Methadone, but I personally advised her against substance . Left hip fracture--Ortho will do surgery next week DVT prophylaxis: Lovenox Need for inpatient: Frosbite with necrotic feet, cellulitis of IV Abx and hip fracture that will need surgery Time Spent With Patient Time: Total time managing care of this patient today ____ minutes. Quality Stroke Does the patient have a stroke diagnosis?: No VTE Prior VTE?: No VTE Risk Level:: Medical - moderate - high VTE Device Contraindication: N/A - Device Ordered VTE Drug Contraindication: N/A - Med Ordered
--- NOTE | 2022-10-13 08:18 | PM.PNGS ---
Subjective Subjective Date of Service: 10/15/22 Interval history: says she has some pain on both feet no events reported Physical Exam Vital Signs: Vital Signs: Last Vital Signs Temp 98.5 F 10/13/22 07:30 Pulse 80 10/13/22 07:30 Resp 18 10/13/22 07:30 BP 140/85 H 10/13/22 07:30 Pulse Ox 100 10/13/22 07:30 O2 Del Method 10/13/22 07:30 BMI result Body Mass Index 25.0 Const: Other: flat affect, looks comfortable General: no acute distress Resp: Effort & Inspection: normal respiratory effort Cardio: Rate: regular rate GI: Palpation (GI): Soft to palpation Objective Data Active Medications Acetaminophen (Acetaminophen 325 Mg Tablet) 650 mg PO Q4H PRN PRN Reason: fever Last Admin: 10/13/22 00:41 Dose: 650 mg Documented By: JAMESON Clonidine HCl (Clonidine Hcl 0.1 Mg Tablet) 0.1 mg PO BID PRN; Protocol PRN Reason: opioid withdrawal Last Admin: 10/10/22 22:19 Dose: 0.1 mg Documented By: ALYSSA Enoxaparin Sodium (Enoxaparin Sodium 40 Mg/0.4 Ml Syringe) 40 mg SUBCUT Q24H [facility] Last Admin: 10/12/22 11:06 Dose: 40 mg Documented By: PITA Vancomycin HCl 1,250 mg/ (Sodium Chloride) 250 mls @ 166.667 mls/hr IV Q8H [facility] Last Infusion: 10/13/22 03:33 Dose: 0 mls/hr Documented By: JAMESON Melatonin (Melatonin 3 Mg Tablet) 6 mg PO BEDTIME PRN PRN Reason: Sleep Last Admin: 10/11/22 23:53 Dose: 6 mg Documented By: CHRISSY Methadone HCl (Methadone Hcl 20 Mg/2 Ml Oral.Conc) 60 mg PO DAILY [facility] Last Admin: 10/12/22 07:58 Dose: 60 mg Documented By: PITA Methadone HCl (Methadone Hcl 20 Mg/2 Ml Oral.Conc) 5 mg PO DAILY@1800 [facility] Last Admin: 10/12/22 17:14 Dose: 5 mg Documented By: PITA Morphine Sulfate (Morphine Sulfate 4 Mg/Ml Cartridge) 4 mg IVPUSH Q4H PRN; Protocol PRN Reason: Pain, Severe (Pain Scale 7-10) Last Admin: 10/13/22 06:13 Dose: 4 mg Documented By: JAMESON Nicotine (Nicotine 21 Mg Patch.Td24) 21 mg TRANSDERMA DAILY [facility] Last Admin: 10/12/22 07:59 Dose: 21 mg Documented By: PITA Ondansetron HCl (Ondansetron Hcl 4 Mg/2 Ml Vial) 4 mg IVPUSH Q8H PRN PRN Reason: Nausea and Vomiting Oxycodone HCl (Oxycodone Hcl Immed Release 5 Mg Tablet) 5 mg PO Q6H PRN PRN Reason: Pain, Severe (Pain Scale 7-10) Last Admin: 10/13/22 00:41 Dose: 5 mg Documented By: JAMESON Pharmacy Consult (Consult Rx Perform Med Rec) 1 each MISCELLANE ONCE PRN PRN Reason: Consult order Pharmacy Consult (Consult Rx Vancomycin Dosing) 1 each MISCELLANE DAILY PRN PRN Reason: Consult order Sodium Chloride (0.9 % Sodium Chloride Flush 3 Ml Syringe) 3 ml IVFLUSH QSHIFT [facility] Last Admin: 10/13/22 02:06 Dose: Not Given Documented By: JAMESON Non-Admin Reason: IV Running Labs 10/12/22 07:40 10/13/22 06:23 Labs: Laboratory Results - last 24 hr 10/12/22 10/12/22 10/13/22 07:40 14:23 06:23 MCV 67.1 L MCH 19.4 L MCHC 29.0 L RDW 17.6 H Plt Count 377 D MPV 9.4 Absolute Nucleated RBC 0.000 Nucleated RBC % (auto) 0.0 Estim Creat Clear Calc 125.5 Estimated GFR > 60 Vancomycin Trough 13.0 Microbiology Microbiology Results: Microbiology 10/08/22 01:55 Blood Culture - Final Blood - Venous No growth after 5 days. 10/08/22 01:55 Blood Culture - Final Blood - Venous No growth after 5 days. Procedures Date of Service Date of Service: 10/13/22 Progress Note: A&P Assessment and plan (1) Frostbite of both lower extremities: Status: Acute Assessment and Plan: tissue injury seens to be demarcating on level of all 10 toes on left foot dorsum is note of area of ischemic skin as well mummification of the toes noted will need to have amputation of all 10 toes/transmet bilaterally may not have adequate skin coverage of dorsum of left she says she will need to think about surgery Time Spent With Patient Time: Total time managing care of this patient today ____ minutes. Quality Stroke Does the patient have a stroke diagnosis?: No VTE Prior VTE?: No VTE Risk Level:: Medical - moderate - high VTE Device Contraindication: N/A - Device Ordered VTE Drug Contraindication: N/A - Med Ordered
[2022-10-13] MEDS: Nicotine 21 MG PATCH.TD24 TRANSDERMA (08:29)
[2022-10-13] MEDS: 0.9 % Sodium Chloride Flush 3 ML SYRINGE IVFLUSH (08:30)
[2022-10-13] MEDS: vancomycin HCL 1,250 MG in 0.9 % Sodium Chloride 250 ML 166.66 MG IV (08:30)
[2022-10-13] MEDS: methADONE HCl 20 MG/2 ML ORAL.CONC 60 MG PO (08:30)
[2022-10-13] MEDS: Enoxaparin Sodium 40 MG/0.4 ML SYRINGE SUBCUT (10:56)
[2022-10-13 15:00] LABS: Vancomycin Random 25.6 mcg/mL (15-20)
[2022-10-13 16:00] VITALS: BP 131/75; PULSE 84; RESP 20; TEMP 37.5; O2SAT 98
--- NOTE | 2022-10-13 17:20 | HO.MIDLINE_ITS ---
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 Using ultrasound guidance, Right Basilic vein access was obtained by this RN on second attempt after 2 attempts by Ibis Roman RN. A 20 guage 8 cm NonPASV Midline was positioned. The procedure was performed in S272. Ultrasound was used to document vein patency and for needle entry. A formal ultrasound picture was recorded. Vascular [employer] has released the line for use and it is currently dressed with a StatLock, Tegaderm, and CHG disc. Verification has been performed for blood return and line patency. Arm Circumference: 26 cm Equipment: Bard PwereGlide ST Midline Catheter Catheter Type: 20 guage 8 cm Non PASV Midline Lot #: [id number]
[2022-10-13] MEDS: methADONE HCl 20 MG/2 ML ORAL.CONC 5 MG PO (18:03)
--- NOTE | 2022-10-13 19:56 | PC.NURSE ---
Patient BS 30 at 1903,patient weak and tired and shaky.Rapid response was called,D50 administered,patient seen by Dr. Driscoll,BS 243 at 1915,patient sitting up eating food from home,family at bedside
[2022-10-13 20:00] VITALS: BP 137/85; PULSE 88; RESP 18; TEMP 36.3; O2SAT 98
[2022-10-13 22:02] LABS: Vancomycin Random 12.4 mcg/mL (15-20)
[2022-10-14] VITALS (10 sets, daily range): BP systolic 106–140; BP diastolic 56–89; PULSE 66–90; RESP 16–18; TEMP 36.1–37; O2SAT 94–100
[2022-10-14] MEDS: Heparin Sodium,Porcine Flush 50 UNITS/5 ML SYRINGE IVFLUSH ×4 (00:10→23:51)
[2022-10-14] MEDS: vancomycin HCL 1,000 MG in 0.9 % Sodium Chloride 250 ML 270 MG IV ×3 (00:10→16:57)
[2022-10-14] MEDS: Morphine Sulfate 4 MG/ML CARTRIDGE IVPUSH ×5 (02:49→21:14)
[2022-10-14 06:59] LABS: Creatinine Clr Calc Pharmacy 101.8; Estimated Glomerular Filt Rate > 60
[2022-10-14] MEDS: methADONE HCl 20 MG/2 ML ORAL.CONC 60 MG PO (07:49)
[2022-10-14] MEDS: Nicotine 21 MG PATCH.TD24 TRANSDERMA (07:50)
[2022-10-14] MEDS: 0.9 % Sodium Chloride Flush 3 ML SYRINGE IVFLUSH ×2 (07:50→23:51)
[2022-10-14 08:12] LABS: MANUAL DIFF FLAG NO
[2022-10-14 08:18] LABS: Basophils Absolute Auto 0.1 X10*3/uL (0.0-0.2); Basophils Percent Auto 0.7 % (0-2); Eosinophils Absolute Auto 0.3 X10*3/uL (0.0-0.4); Hematocrit 34.8 % (37.0-47.0); Hemoglobin 9.9 g/dl (12.0-16.0); Imm Gran Abs Auto 0.23 X10*3/uL (0.00-0.03); Imm Gran Pct Auto 1.7 % (0.0-0.4); Lymphocytes Absolute Auto 2.3 X10*3/uL (1.2-4.9); Lymphocytes Percent Auto 16.8 % (20-40); Mean Corpuscular HGB Conc 28.4 g/dl (31.0-35.0); Mean Corpuscular Hemoglobin 19.1 pg (27.0-33.0); Mean Corpuscular Volume 67.3 fL (80.0-98.0); Mean Platelet Volume 8.9 fL (9.4-12.3); Monocytes Absolute Auto 0.7 X10*3/uL (0.1-1.2); Neutrophils Absolute Auto 10.2 x10*3/uL (2.0-8.3); Neutrophils Percent Auto 73.8 % (45-73); Platelet Count 730 X10*3/uL (160-400); Red Blood Count 5.17 X10*6/uL (4.20-5.50); Red Cell Distribution Width 18.5 % (11.0-16.0); White Blood Count 13.8 X10*3/uL (4.8-10.8)
[2022-10-14 08:49] LABS: Anion Gap 18 (12-20); Blood Urea Nitrogen 12 mg/dL (9-16); Calcium 9.8 mg/dL (8.4-10.2); Carbon Dioxide 25 mmol/L (22-29); Chloride 98 mmol/L (96-108); Creatinine Clr Calc Pharmacy 106.1; Estimated Glomerular Filt Rate > 60; Glucose Random 95 mg/dL (60-115); Potassium 5.6 mmol/L (3.3-5.1); Sodium 135 mmol/L (135-145)
--- NOTE | 2022-10-14 08:50 | MHC.CM.PN ---
PATIENT GIVES PERMISSION FOR THIS PURCHASE ORDER CHECKER TO PLACE REFERRALS FOR HER LT IV ABX NEEDS. SHE DOES NOT ANSWER QUESTIONS ABOUT WHERE SHE IS CURRENTLY LIVING AND STATES I AM SO NAUSEOUS AND IN PAIN PATIENT AWARE THAT CM CAN RETURN AT A BETTER TIME. PLAN IS FOR O.R. TODAY AT APPROX. 1400.
[2022-10-14] MEDS: Acetaminophen 325 MG TABLET 650 MG PO (09:12)
[2022-10-14] MEDS: ondansetron HCL 4 MG/2 ML VIAL IVPUSH (09:13)
[2022-10-14] MEDS: oxyCODONE HCl Immed Release 5 MG TABLET PO ×2 (09:13→23:58)
[2022-10-14] MEDS: cloNIDine HCL 0.1 MG TABLET PO (09:17)
[2022-10-14] MEDS: 0.9 % Sodium Chloride 1,000 ML 999 ML IVCONT ×2 (10:44→11:51)
[2022-10-14] MEDS: LORazepam 0.5 MG TABLET PO (10:51)
[2022-10-14 12:31] LABS: Vancomycin Random 16.9 mcg/mL (15-20)
--- NOTE | 2022-10-14 12:31 | HO.PM.IMPN ---
Subjective Subjective Date of Service: 10/14/22 Interval History: f/u on frosbite, cellulitis, hip fracture,hyperkalemia Review of Systems toes continues to be necrotic looking and painful denies any fever or chest pain or sob. Physical Exam Vital Signs: Vital Signs: Last Vital Signs Temp 97.4 F 10/14/22 07:38 Pulse 69 10/14/22 12:25 Resp 18 10/14/22 12:25 BP 114/59 L 10/14/22 12:25 Pulse Ox 97 10/14/22 12:25 O2 Del Method 10/14/22 12:25 BMI result Body Mass Index 25.0 Appearance: Alert.? Oriented X3.? still has pain? cvs: rrr, [id number] . res: clear to auscultation ,no rhonchii or wheezing abd: no rebound or guarding ,nt, bs present. ext :dark discoloration on all toes, consistent with frostbite with? beginning ? demarcation of ischemic process; patchy areas of duration on both feet noted as well please see pics 10/13) neuro: axo3 , nonfocal. Objective Data Active Medications Acetaminophen (Acetaminophen 325 Mg Tablet) 650 mg PO Q4H PRN PRN Reason: fever Last Admin: 10/14/22 09:12 Dose: 650 mg Documented By: LUCIO Clonidine HCl (Clonidine Hcl 0.1 Mg Tablet) 0.1 mg PO BID PRN; Protocol PRN Reason: opioid withdrawal Last Admin: 10/14/22 09:17 Dose: 0.1 mg Documented By: LUCIO Enoxaparin Sodium (Enoxaparin Sodium 40 Mg/0.4 Ml Syringe) 40 mg SUBCUT Q24H [facility] Last Admin: 10/13/22 10:56 Dose: 40 mg Documented By: LUCIO Heparin Sodium (Porcine) (Heparin Sodium,Porcine Flush 50 Units/5 Ml Syringe) 50 units IVFLUSH QSHIFT [facility] Last Admin: 10/14/22 07:50 Dose: 50 units Documented By: LUCIO Vancomycin HCl 1,000 mg/ (Sodium Chloride) 270 mls @ 270 mls/hr IV Q8H [facility] Last Infusion: 10/14/22 08:55 Dose: 0 mls/hr Documented By: LUCIO Melatonin (Melatonin 3 Mg Tablet) 6 mg PO BEDTIME PRN PRN Reason: Sleep Last Admin: 10/11/22 23:53 Dose: 6 mg Documented By: CHRISSY Methadone HCl (Methadone Hcl 20 Mg/2 Ml Oral.Conc) 60 mg PO DAILY [facility] Last Admin: 10/14/22 07:49 Dose: 60 mg Documented By: LUCIO Methadone HCl (Methadone Hcl 20 Mg/2 Ml Oral.Conc) 5 mg PO DAILY@1800 [facility] Last Admin: 10/13/22 18:03 Dose: 5 mg Documented By: ALYSSA Morphine Sulfate (Morphine Sulfate 4 Mg/Ml Cartridge) 4 mg IVPUSH Q4H PRN; Protocol PRN Reason: Pain, Severe (Pain Scale 7-10) Last Admin: 10/14/22 12:23 Dose: 4 mg Documented By: LUCIO Nicotine (Nicotine 21 Mg Patch.Td24) 21 mg TRANSDERMA DAILY [facility] Last Admin: 10/14/22 07:50 Dose: 21 mg Documented By: LUCIO Ondansetron HCl (Ondansetron Hcl 4 Mg/2 Ml Vial) 4 mg IVPUSH Q8H PRN PRN Reason: Nausea and Vomiting Last Admin: 10/14/22 09:13 Dose: 4 mg Documented By: LUCIO Oxycodone HCl (Oxycodone Hcl Immed Release 5 Mg Tablet) 5 mg PO Q6H PRN PRN Reason: Pain, Severe (Pain Scale 7-10) Last Admin: 10/14/22 09:13 Dose: 5 mg Documented By: LUCIO Pharmacy Consult (Consult Rx Perform Med Rec) 1 each MISCELLANE ONCE PRN PRN Reason: Consult order Pharmacy Consult (Consult Rx Vancomycin Dosing) 1 each MISCELLANE DAILY PRN PRN Reason: Consult order Sodium Chloride (0.9 % Sodium Chloride Flush 3 Ml Syringe) 3 ml IVFLUSH QSHIFT [facility] Last Admin: 10/14/22 07:50 Dose: 3 ml Documented By: LUCIO Labs 10/14/22 08:00 10/14/22 08:00 Labs: Laboratory Results - last 24 hr 10/13/22 10/13/22 10/14/22 14:00 21:25 05:49 MCV MCH MCHC RDW Plt Count MPV Immature Gran % (Auto) Neut % (Auto) Lymph % (Auto) [place] % (Auto) Eos % (Auto) Baso % (Auto) Lymph # (Auto) [place] # (Auto) Eos # (Auto) Baso # (Auto) Abs Immat Gran (auto) Absolute Neuts (auto) Absolute Nucleated RBC Nucleated RBC % (auto) Anion Gap Estim Creat Clear Calc 101.8 Estimated GFR > 60 Random Glucose Calcium Random Vancomycin 25.6 H* 12.4 L Blood Type Antibody Screen 10/14/22 10/14/22 10/14/22 08:00 08:00 08:00 MCV 67.3 L MCH 19.1 L MCHC 28.4 L RDW 18.5 H Plt Count 730 H D MPV 8.9 L Immature Gran % (Auto) 1.7 H Neut % (Auto) 73.8 H Lymph % (Auto) 16.8 L [place] % (Auto) 5.0 Eos % (Auto) 2.0 Baso % (Auto) 0.7 Lymph # (Auto) 2.3 [place] # (Auto) 0.7 Eos # (Auto) 0.3 Baso # (Auto) 0.1 Abs Immat Gran (auto) 0.23 H Absolute Neuts (auto) 10.2 H Absolute Nucleated RBC 0.000 Nucleated RBC % (auto) 0.0 Anion Gap 18 Estim Creat Clear Calc 106.1 Estimated GFR > 60 Random Glucose 95 Calcium 9.8 D Random Vancomycin Blood Type A Positive Antibody Screen NEGATIVE Assessment and Plan (1) Intertrochanteric fracture of left femur: Status: Acute (2) Bilateral cellulitis of lower leg: Status: Acute (3) Frostbite of both lower extremities: Status: Acute Plan / with substance abuse, history of strep viridan bacteremaia here with pain in the feet, concern for cellulitis and frosbite, fever and sepsis Cellulitis of the feet, at this point feet don't appear to be infected blood cultures thus far negative On vanco for 5 days now, ID eval and maybe stop Abx morphine for pain Frosbite--feet continue to demarcate with dry gangrene, surgery following IVDA + for opioid, amphetamine, cocaine, canabis, fentanyl clonidine for withdrawal addiction med following and started on Methadone, but I personally advised her against substance . Left hip fracture--Ortho will do surgery next week DVT prophylaxis: Lovenox Need for inpatient: Frosbite with necrotic feet, cellulitis of IV Abx and hip fracture that will need surgery Time Spent With Patient Time: Total time managing care of this patient today ____ minutes. Quality Stroke Does the patient have a stroke diagnosis?: No VTE Prior VTE?: No VTE Risk Level:: Medical - moderate - high VTE Device Contraindication: N/A - Device Ordered VTE Drug Contraindication: N/A - Med Ordered
--- NOTE | 2022-10-14 13:02 | HE.PHANOTE ---
Vancomycin Dosing Addendum Patients level came back this afternoon at 16.9 mg/L. Patients level is therapeutic, continue dose of 1 gram Q8hr. Renal function slightly increased from 0.6 to 0.74. Predicted AUC 508 mg/L/hr
[2022-10-14 13:32] LABS: Anion Gap 13 (12-20); Blood Urea Nitrogen 11 mg/dL (9-16); Calcium 8.4 mg/dL (8.4-10.2); Carbon Dioxide 26 mmol/L (22-29); Chloride 102 mmol/L (96-108); Creatinine Clr Calc Pharmacy 119.6; Estimated Glomerular Filt Rate > 60; Glucose Random 85 mg/dL (60-115); Potassium 4.6 mmol/L (3.3-5.1); Sodium 136 mmol/L (135-145)
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
--- NOTE | 2022-10-14 15:23 | MHC.SHP ---
Pre-Procedural Eval Section A Date of Service: 10/14/22 The patient is an INPATIENT: Yes Changes since office visit: No Cold of Flu in the past 2 weeks, No New Medical Problems, No Changes in Medication and No Patient answered all questions The History & Physical has been completed within 30 days and I have reviewed it.: Yes Section B Chief Complaint: Sepsis Cellulitis Allergies: Allergies Allergy/AdvReac Type Severity Reaction Status Date / Time No Known Allergies Allergy Verified 07/13/22 00:07 Plan I have reviewed the history and physical and performed a pertinent physical examination on my patient. No changes have occurred unless specified. Time Spent With Patient Time: Total time managing care of this patient today ____ minutes.
--- NOTE | 2022-10-14 15:23 | PM.OP ---
Brief Operative Note Date of Service: 10/14/22 Pre-op diagnosis: Healed left hip IT fracture Post-op diagnosis: same Procedure: Exam under anesthesia left hip Implants: none Surgeon: Doug Vieyra MD Anesthesia: GETA Was an Employment Law Attorney used for this Procedure?: No Estimated blood loss (mL): 0 IV fluids (mL): 200 Pathology: none sent Condition: stable Disposition: PACU
--- NOTE | 2022-10-14 16:56 | PM.EVENT ---
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
[2022-10-14] MEDS: methADONE HCl 20 MG/2 ML ORAL.CONC 5 MG PO (19:47)
[2022-10-15] MEDS: vancomycin HCL 1,000 MG in 0.9 % Sodium Chloride 250 ML 270 MG IV ×4 (00:05→23:45)
[2022-10-15] MEDS: Morphine Sulfate 4 MG/ML CARTRIDGE IVPUSH ×6 (01:18→22:26)
[2022-10-15] MEDS: Acetaminophen 325 MG TABLET 650 MG PO ×3 (02:34→23:41)
[2022-10-15 04:00] VITALS: BP 128/68; PULSE 68; RESP 18; TEMP 36.8; O2SAT 98
--- NOTE | 2022-10-15 06:52 | HO.POSTANES ---
Post Anesthesia Evaluation Post Anesthesia Evaluation Vital Signs: Vital Signs Temp Pulse Resp BP Pulse Ox O2 Del Method 10/15/22 04:00 98.2 F 68 18 128/68 98 Room Air 10/14/22 19:04 98.0 F 86 18 121/67 98 Room Air Anesthesia: General Endotracheal-GETA Mental Status: Awake Pain Control: Satisfactory (05/31) Nausea/Vomiting: Mild Hydration: Adequate Anesthesia-Related Issues: No Anes. Related Issues
[2022-10-15 07:12] LABS: Creatinine Clr Calc Pharmacy 106.1; Estimated Glomerular Filt Rate > 60
[2022-10-15 07:29] VITALS: BP 127/73; PULSE 80; RESP 17; TEMP 36.9; O2SAT 100
--- NOTE | 2022-10-15 08:00 | PM.PNORT ---
Subjective Subjective Date of Service: 10/15/22 Interval history: POD 1 sp evaluation under anesthesia and fluoroscopy right hip no overnigt events resting in bed, no concerns Physical Exam Vital Signs: Vital Signs: Last Vital Signs Temp 98.5 F 10/15/22 07:29 Pulse 80 10/15/22 07:29 Resp 17 10/15/22 07:29 BP 127/73 10/15/22 07:29 Pulse Ox 100 10/15/22 07:29 O2 Del Method 10/15/22 07:29 O2 Flow Rate 2 10/14/22 16:09 BMI result Body Mass Index 25.0 Extrem: Other: Right hip normal to inspection, mild discomfort with log roll, able to initiate SLR but weak Procedures Date of Service Date of Service: 10/15/22 Progress Note: A&P Assessment and plan (1) Intertrochanteric fracture of left femur: Status: Acute Assessment and Plan: Healing, stable fracture found on exam under anesthesia and fluoro PT/OT for wbat , gait traning, strength Lovenox for dvt ppx per medicine dispo-when medically cleared Time Spent With Patient Time: Total time managing care of this patient today ____ minutes. Quality Stroke Does the patient have a stroke diagnosis?: No VTE Prior VTE?: No VTE Risk Level:: Medical - moderate - high VTE Device Contraindication: N/A - Device Ordered VTE Drug Contraindication: N/A - Med Ordered
[2022-10-15] MEDS: oxyCODONE HCl Immed Release 5 MG TABLET PO (08:02)
[2022-10-15] MEDS: methADONE HCl 20 MG/2 ML ORAL.CONC 60 MG PO (08:04)
[2022-10-15] MEDS: 0.9 % Sodium Chloride Flush 3 ML SYRINGE IVFLUSH ×3 (08:04→23:43)
[2022-10-15] MEDS: Nicotine 21 MG PATCH.TD24 TRANSDERMA (08:04)
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
[2022-10-15] MEDS: Heparin Sodium,Porcine Flush 50 UNITS/5 ML SYRINGE IVFLUSH ×3 (09:46→23:42)
[2022-10-15 10:14] LABS: Haloperidol 12 ng/mL (5-15)
--- NOTE | 2022-10-15 11:24 | MHC.RECOVRN ---
Met with pt in 368 along with Lisa RN. Pt sitting in chair, awake, alert, engages easier in conversation than previous days. Pt appears comfortable. Pt reports pain in bilateral feet has increased due to moving from bed to chair. Reports desire to continue moving around in order for hip/body to not be stiff. Pt requesting to speak with the CARE Team to discuss anxiety and mental health. Pt is also requesting partner, Remy, to be able to spend tonight at the hospital. In regards to methadone, pt reports positive effect during the day but continues to have some diaphoresis overnight. Denies other questions or concerns at this time. Discussed with RN as well as Rubina Vivas APRN.
[2022-10-15] MEDS: Enoxaparin Sodium 40 MG/0.4 ML SYRINGE SUBCUT (12:58)
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
[2022-10-15 14:39] LABS: Vancomycin Random 12.6 mcg/mL (15-20)
--- NOTE | 2022-10-15 14:53 | HE.PHANOTE ---
Vancomycin Dosing Patient is therapuetic today at 12.6. Continue current regimen. Next level 09/15 @ 1400. Elaine Pratt PharmD
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
--- NOTE | 2022-10-15 14:57 | P.PNIM_ITS ---
Subjective Subjective Date of Service: 10/15/22 Interval History: f/u on frosbite, cellulitis, hip fracture,hyperkalemia Review of Systems toes continues to be necrotic looking and painful denies any fever or chest pain or sob. Physical Exam Vital Signs: Vital Signs: Last Vital Signs Temp 98.5 F 10/15/22 07:29 Pulse 80 10/15/22 07:29 Resp 17 10/15/22 07:29 BP 127/73 10/15/22 07:29 Pulse Ox 100 10/15/22 07:29 O2 Del Method 10/15/22 07:29 O2 Flow Rate 2 10/14/22 16:09 BMI result Body Mass Index 25.0 ?Appearance: Alert.? Oriented X3.? still has pain? cvs: rrr, [id number] . res: clear to auscultation ,no rhonchii or wheezing abd: no rebound or guarding ,nt, bs present. ext :dark discoloration on all toes, consistent with frostbite with? beginning ? demarcation of ischemic process; patchy areas of duration on both feet noted as well please see pics 10/13) neuro: axo3 , nonfocal. Objective Data Active Medications Acetaminophen (Acetaminophen 325 Mg Tablet) 650 mg PO Q4H PRN PRN Reason: fever Last Admin: 10/15/22 08:01 Dose: 650 mg Documented By: LUCIO Clonidine HCl (Clonidine Hcl 0.1 Mg Tablet) 0.1 mg PO BID PRN; Protocol PRN Reason: opioid withdrawal Last Admin: 10/14/22 09:17 Dose: 0.1 mg Documented By: LUCIO Enoxaparin Sodium (Enoxaparin Sodium 40 Mg/0.4 Ml Syringe) 40 mg SUBCUT Q24H [facility] Last Admin: 10/15/22 12:58 Dose: 40 mg Documented By: LUCIO Heparin Sodium (Porcine) (Heparin Sodium,Porcine Flush 50 Units/5 Ml Syringe) 50 units IVFLUSH QSHIFT [facility] Last Admin: 10/15/22 09:46 Dose: 50 units Documented By: LUCIO Vancomycin HCl 1,000 mg/ (Sodium Chloride) 270 mls @ 270 mls/hr IV Q8H [facility] Last Infusion: 10/15/22 09:12 Dose: 0 mls/hr Documented By: LUCIO Melatonin (Melatonin 3 Mg Tablet) 6 mg PO BEDTIME PRN PRN Reason: Sleep Last Admin: 10/11/22 23:53 Dose: 6 mg Documented By: CHRISSY Methadone HCl (Methadone Hcl 20 Mg/2 Ml Oral.Conc) 60 mg PO DAILY [facility] Last Admin: 10/15/22 08:04 Dose: 60 mg Documented By: LUCIO Methadone HCl (Methadone Hcl 20 Mg/2 Ml Oral.Conc) 5 mg PO DAILY@1800 [facility] Last Admin: 10/14/22 19:47 Dose: 5 mg Documented By: ALYSSA Morphine Sulfate (Morphine Sulfate 4 Mg/Ml Cartridge) 4 mg IVPUSH Q4H PRN; Protocol PRN Reason: Pain, Severe (Pain Scale 7-10) Last Admin: 10/15/22 13:44 Dose: 4 mg Documented By: LUCIO Nicotine (Nicotine 21 Mg Patch.Td24) 21 mg TRANSDERMA DAILY [facility] Last Admin: 10/15/22 08:04 Dose: 21 mg Documented By: LUCIO Ondansetron HCl (Ondansetron Hcl 4 Mg/2 Ml Vial) 4 mg IVPUSH Q8H PRN PRN Reason: Nausea and Vomiting Last Admin: 10/14/22 09:13 Dose: 4 mg Documented By: LUCIO Ondansetron HCl (Ondansetron Hcl 4 Mg/2 Ml Vial) 4 mg IVPUSH Q6H PRN PRN Reason: Nausea Pharmacy Consult (Consult Rx Perform Med Rec) 1 each MISCELLANE ONCE PRN PRN Reason: Consult order Pharmacy Consult (Consult Rx Vancomycin Dosing) 1 each MISCELLANE DAILY PRN PRN Reason: Consult order Sodium Chloride (0.9 % Sodium Chloride Flush 3 Ml Syringe) 3 ml IVFLUSH QSHIFT [facility] Last Admin: 10/15/22 08:04 Dose: 3 ml Documented By: LUCIO Labs 10/14/22 08:00 10/15/22 06:00 Labs: Laboratory Results - last 24 hr 10/08/22 10/15/22 10/15/22 08:18 06:00 14:02 Estim Creat Clear Calc 106.1 Estimated GFR > 60 Random Vancomycin 12.6 L Haloperidol 12 Assessment and Plan (1) Intertrochanteric fracture of left femur: Status: Acute (2) Bilateral cellulitis of lower leg: Status: Acute (3) Frostbite of both lower extremities: Status: Acute Plan 27/F with substance abuse, history of strep viridan bacteremaia here with pain in the feet, concern for cellulitis and frosbite, fever and sepsis intially thought to be Cellulitis of the feet, at this point feet don't appear to be infected blood cultures thus far negative received vanco , seen by infectious disease-less likely cellulitis, more likely changes due to frosbite, seen by ID-moniter off antibiotics morphine for pain Frosbite--feet continue to demarcate with dry gangrene, surgery following added vascular eval IVDA + for opioid, amphetamine, cocaine, canabis, fentanyl clonidine for withdrawal addiction med following and started on Methadone, but I personally advised her against substance . depressed/anxiety: added psych eval. Left hip fracture-Healing, stable fracture found on exam under anesthesia and fluoro. ortho followin DVT prophylaxis: Lovenox Need for inpatient: Frosbite with necrotic feet-Need monitering /vascular eval. Time Spent With Patient Time: Total time managing care of this patient today ____ minutes. Quality Stroke Does the patient have a stroke diagnosis?: No VTE Prior VTE?: No VTE Risk Level:: Medical - moderate - high VTE Device Contraindication: N/A - Device Ordered VTE Drug Contraindication: N/A - Med Ordered
[2022-10-15 15:16] VITALS: BP 136/68; PULSE 98; RESP 16; TEMP 37.4; O2SAT 98
[2022-10-15] MEDS: methADONE HCl 20 MG/2 ML ORAL.CONC 5 MG PO (18:35)
[2022-10-15 19:22] VITALS: BP 133/72; PULSE 97; RESP 16; TEMP 36.6; O2SAT 98
[2022-10-15] MEDS: Docusate Sodium 100 MG CAPSULE PO (20:37)
[2022-10-15] MEDS: Melatonin 3 MG TABLET 6 MG PO (23:41)
--- NOTE | 2022-10-16 | ECG_ITS ---
Test Reason : QTc prolongation check Blood Pressure : / mmHG Vent. Rate : 088 BPM Atrial Rate : 088 BPM P-R Int : 114 ms QRS Dur : 072 ms QT Int : 384 ms P-R-T Axes : 000 144 136 degrees QTc Int : 464 ms Normal sinus rhythm Right axis deviation Nonspecific T wave abnormality Abnormal ECG No previous ECGs available Referred By: Rubina Vivas Electronically Signed By:MERLYN PAYNE
[2022-10-16 04:00] VITALS: BP 123/71; PULSE 83; RESP 18; TEMP 36.5; O2SAT 98
[2022-10-16] MEDS: Morphine Sulfate 4 MG/ML CARTRIDGE IVPUSH ×4 (04:13→20:58)
[2022-10-16 06:43] LABS: Creatinine Clr Calc Pharmacy 106.1; Estimated Glomerular Filt Rate > 60
[2022-10-16] MEDS: Sertraline HCL 25 MG TABLET PO (07:48)
[2022-10-16] MEDS: Docusate Sodium 100 MG CAPSULE PO (07:48)
[2022-10-16] MEDS: Nicotine 21 MG PATCH.TD24 TRANSDERMA (07:48)
[2022-10-16] MEDS: 0.9 % Sodium Chloride Flush 3 ML SYRINGE IVFLUSH ×3 (07:48→19:56)
[2022-10-16] MEDS: methADONE HCl 20 MG/2 ML ORAL.CONC 60 MG PO (07:49)
[2022-10-16 08:00] VITALS: BP 130/74; PULSE 84; RESP 17; TEMP 36.3; O2SAT 97
--- NOTE | 2022-10-16 08:31 | HO.PM.IMPN ---
Subjective Subjective Date of Service: 10/16/22 Interval History: f/u on frosbite, hip fracture. Review of Systems toes continues to be necrotic looking and painful denies any fever or chest pain or sob. Physical Exam Vital Signs: Vital Signs: Last Vital Signs Temp 97.3 F 10/16/22 08:00 Pulse 84 10/16/22 08:00 Resp 17 10/16/22 08:00 BP 130/74 10/16/22 08:00 Pulse Ox 97 10/16/22 08:00 O2 Del Method 10/16/22 08:00 O2 Flow Rate 2 10/14/22 16:09 BMI result Body Mass Index 25.0 ?Appearance: Alert.? Oriented X3.? still has pain? cvs: rrr, [id number] . res: clear to auscultation ,no rhonchii or wheezing abd: no rebound or guarding ,nt, bs present. ext :dark discoloration on all toes, consistent with frostbite with? beginning ? demarcation of ischemic process; patchy areas of duration on both feet noted as well please see pics 10/13) neuro: axo3 , nonfocal. Objective Data Active Medications Acetaminophen (Acetaminophen 325 Mg Tablet) 650 mg PO Q4H PRN PRN Reason: fever Last Admin: 10/15/22 23:41 Dose: 650 mg Documented By: SULEIMAN Clonidine HCl (Clonidine Hcl 0.1 Mg Tablet) 0.1 mg PO BID PRN; Protocol PRN Reason: opioid withdrawal Last Admin: 10/14/22 09:17 Dose: 0.1 mg Documented By: LUCIO Docusate Sodium (Docusate Sodium 100 Mg Capsule) 100 mg PO BID [facility] Last Admin: 10/16/22 07:48 Dose: 100 mg Documented By: CARMEL Enoxaparin Sodium (Enoxaparin Sodium 40 Mg/0.4 Ml Syringe) 40 mg SUBCUT Q24H [facility] Last Admin: 10/15/22 12:58 Dose: 40 mg Documented By: LUCIO Heparin Sodium (Porcine) (Heparin Sodium,Porcine Flush 50 Units/5 Ml Syringe) 50 units IVFLUSH QSHIFT [facility] Last Admin: 10/15/22 23:42 Dose: 50 units Documented By: SULEIMAN Vancomycin HCl 1,000 mg/ (Sodium Chloride) 270 mls @ 270 mls/hr IV Q8H [facility] Last Infusion: 10/16/22 01:28 Dose: 0 mls/hr Documented By: SULEIMAN Melatonin (Melatonin 3 Mg Tablet) 6 mg PO BEDTIME PRN PRN Reason: Sleep Last Admin: 10/15/22 23:41 Dose: 6 mg Documented By: SULEIMAN Methadone HCl (Methadone Hcl 20 Mg/2 Ml Oral.Conc) 60 mg PO DAILY [facility] Last Admin: 10/16/22 07:49 Dose: 60 mg Documented By: CARMEL Methadone HCl (Methadone Hcl 20 Mg/2 Ml Oral.Conc) 5 mg PO DAILY@1800 [facility] Last Admin: 10/15/22 18:35 Dose: 5 mg Documented By: ALYSSA Morphine Sulfate (Morphine Sulfate 4 Mg/Ml Cartridge) 4 mg IVPUSH Q4H PRN; Protocol PRN Reason: Pain, Severe (Pain Scale 7-10) Last Admin: 10/16/22 04:13 Dose: 4 mg Documented By: SULEIMAN Nicotine (Nicotine 21 Mg Patch.Td24) 21 mg TRANSDERMA DAILY [facility] Last Admin: 10/16/22 07:48 Dose: 21 mg Documented By: CARMEL Ondansetron HCl (Ondansetron Hcl 4 Mg/2 Ml Vial) 4 mg IVPUSH Q8H PRN PRN Reason: Nausea and Vomiting Last Admin: 10/14/22 09:13 Dose: 4 mg Documented By: LUCIO Ondansetron HCl (Ondansetron Hcl 4 Mg/2 Ml Vial) 4 mg IVPUSH Q6H PRN PRN Reason: Nausea Pharmacy Consult (Consult Rx Perform Med Rec) 1 each MISCELLANE ONCE PRN PRN Reason: Consult order Pharmacy Consult (Consult Rx Vancomycin Dosing) 1 each MISCELLANE DAILY PRN PRN Reason: Consult order Sertraline HCl (Sertraline Hcl 25 Mg Tablet) 25 mg PO DAILY [facility] Last Admin: 10/16/22 07:48 Dose: 25 mg Documented By: CARMEL Sodium Chloride (0.9 % Sodium Chloride Flush 3 Ml Syringe) 3 ml IVFLUSH QSHIFT [facility] Last Admin: 10/16/22 07:48 Dose: 3 ml Documented By: CARMEL Labs 10/14/22 08:00 10/16/22 05:41 Labs: Laboratory Results - last 24 hr 10/08/22 10/15/22 10/16/22 08:18 14:02 05:41 Estim Creat Clear Calc 106.1 Estimated GFR > 60 Random Vancomycin 12.6 L Haloperidol 12 Assessment and Plan (1) Intertrochanteric fracture of left femur: Status: Acute (2) Bilateral cellulitis of lower leg: Status: Acute (3) Frostbite of both lower extremities: Status: Acute Plan 27/ with substance abuse, history of strep viridan bacteremaia here with pain in the feet, concern for cellulitis and frosbite, fever and sepsis intially thought to be Cellulitis of the feet, at this point feet don't appear to be infected blood cultures thus far negative received vanco , seen by infectious disease-less likely cellulitis, more likely changes due to frosbite, seen by ID-moniter off antibiotics morphine for pain Frosbite--feet continue to demarcate with dry gangrene, surgery following added vascular eval IVDA + for opioid, amphetamine, cocaine, canabis, fentanyl clonidine for withdrawal addiction med following and started on Methadone, but I personally advised her against substance . depressed/anxiety: added zoloft. Left hip fracture-Healing, stable fracture found on exam under anesthesia and fluoro. ortho followin DVT prophylaxis: Lovenox Need for inpatient: Frosbite with necrotic feet-Need monitering /vascular eval. Time Spent With Patient Time: Total time managing care of this patient today ____ minutes. Quality Stroke Does the patient have a stroke diagnosis?: No VTE Prior VTE?: No VTE Risk Level:: Medical - moderate - high VTE Device Contraindication: N/A - Device Ordered VTE Drug Contraindication: N/A - Med Ordered
--- NOTE | 2022-10-16 09:04 | PM.PNORT ---
Subjective Subjective Date of Service: 10/16/22 Interval history: POD 2 sp evaluation under anesthesia and fluoroscopy right hip no overnigt events she states she did get out of bed yesterday with PT and her hip was not bad resting in bed, no concerns Physical Exam Vital Signs: Vital Signs: Last Vital Signs Temp 97.3 F 10/16/22 08:00 Pulse 84 10/16/22 08:00 Resp 17 10/16/22 08:00 BP 130/74 10/16/22 08:00 Pulse Ox 97 10/16/22 08:00 O2 Del Method 10/16/22 08:00 O2 Flow Rate 2 10/14/22 16:09 BMI result Body Mass Index 25.0 Extrem: Other: Right hip normal to inspection, mild discomfort with log roll, able to initiate SLR but weak Procedures Date of Service Date of Service: 10/16/22 Progress Note: A&P Assessment and plan (1) Intertrochanteric fracture of left femur: Status: Acute Assessment and Plan: Healing, stable fracture found on exam under anesthesia and fluoro PT/OT for wbat , gait traning, strength Lovenox for dvt ppx per medicine dispo-when medically cleared Time Spent With Patient Time: Total time managing care of this patient today ____ minutes. Quality Stroke Does the patient have a stroke diagnosis?: No VTE Prior VTE?: No VTE Risk Level:: Medical - moderate - high VTE Device Contraindication: N/A - Device Ordered VTE Drug Contraindication: N/A - Med Ordered
--- NOTE | 2022-10-16 11:21 | HO.MIDLINE ---
Midline Insertion MIDLINE INSERTION Diagnosis: cellulitis Indication: IV Access Pertinent Labs: reviewed Technique: Using sterile technique including cap and mask, glove and drape, the right arm was prepped and draped in the usual sterile fashion of full barrier technique with G. Using ultrasound guidance, right basilic vein access was obtained on first attempt. [[id number] Non PASV ST Midline] was positioned. The procedure was performed in [S272]. Ultrasound was used to document vein patency and for needle entry. A formal ultrasound picture was recorded. [employer] Supervisor has released the line for use and it is currently dressed with a StatLock, Tegaderm, and CHG disc. Verification has been performed for blood return and line patency. Arm Circumference: 24CM Equipment: BARD PowerGlide ST Midline Catheter Type: 20G X 10CM Non-PASV Midline Lot #: [id number]
--- NOTE | 2022-10-16 11:24 | HE.PHANOTE ---
Vancomycin Dosing Addendum Was called by an RN to retime vancomycin as patient missed last nights dose because the patient lost line access. Vancomycin timing changed to next dose to be given at 12. Cancelled random draw scheduled for today because its known that patient will be sub therapeutic as theyve missed a dose. Will get level now for 10/17 @1000
--- NOTE | 2022-10-16 11:39 | PC.NURSE ---
LATE ENTRY--0940AM--Right upper arm midline leaking. Dressing removed. Catheter was kinked. unable to reestablish blood flow. Midline removed.
[2022-10-16] MEDS: Enoxaparin Sodium 40 MG/0.4 ML SYRINGE SUBCUT (11:48)
[2022-10-16] MEDS: vancomycin HCL 1,000 MG in 0.9 % Sodium Chloride 250 ML 270 MG IV ×2 (11:48→19:55)
[2022-10-16 13:11] VITALS: BP 130/74; PULSE 84; O2SAT 97
[2022-10-16] MEDS: cloNIDine HCL 0.1 MG TABLET PO (13:51)
[2022-10-16] MEDS: Acetaminophen 325 MG TABLET 650 MG PO ×2 (15:26→19:51)
[2022-10-16] MEDS: Heparin Sodium,Porcine Flush 50 UNITS/5 ML SYRINGE IVFLUSH (15:27)
[2022-10-16 15:47] VITALS: BP 124/69; PULSE 102; RESP 18; TEMP 36.6; O2SAT 98
--- NOTE | 2022-10-16 15:57 | MHC.CM.PN ---
CM MET WITH PT AND S/O AT THEIR REQUEST PTS BF, MARI, REPORTS HE SPOKE TO THE NURSE AND THEY HAVE GIVEN PERMISSION FOR HIM TO SPEND THE NIGHT TOMORROW FOLLOWING THE PTS SURGERY. HE AND THE PT REPORT THEY ARE CONCERNED THAT HE HAS TO WORK TOMORROW AND WILL NOT BE ABLE TO GET HERE UNTIL LATE IN THE EVENING. PT ASKS THAT A LETTER BE PROVIDED STATING SHE WILL HAVE SURGERY TOMORROW SO THAT HE CAN PRESENT IT TO HIS BOSS. LETTER PROVIDED, REVIEWED AND ACCEPTED BY PT
--- NOTE | 2022-10-16 16:31 | P.PNGS_ITS ---
Subjective Subjective Date of Service: 10/17/22 Interval history: No changes with regards to status Sitting up on chair Complains of foot pain, hip pain Physical Exam Vital Signs: Vital Signs: Last Vital Signs Temp 98 F 10/16/22 15:47 Pulse 102 H 10/16/22 15:47 Resp 18 10/16/22 15:47 BP 124/69 10/16/22 15:47 Pulse Ox 98 10/16/22 15:47 O2 Del Method 10/16/22 15:47 O2 Flow Rate 2 10/14/22 16:09 BMI result Body Mass Index 25.0 Const: General: comfortable and no acute distress Resp: Effort & Inspection: normal respiratory effort Cardio: Rate: regular rate GI: Palpation (GI): Soft to palpation Extrem: Other: Mummification of all toes, well demarcated, some skin eschar on the dorsum of left Objective Data Active Medications Acetaminophen (Acetaminophen 325 Mg Tablet) 650 mg PO Q4H PRN PRN Reason: fever Last Admin: 10/16/22 15:26 Dose: 650 mg Documented By: CARMEL Clonidine HCl (Clonidine Hcl 0.1 Mg Tablet) 0.1 mg PO BID PRN; Protocol PRN Reason: opioid withdrawal Last Admin: 10/16/22 13:51 Dose: 0.1 mg Documented By: CARMEL Docusate Sodium (Docusate Sodium 100 Mg Capsule) 100 mg PO BID [facility] Last Admin: 10/16/22 07:48 Dose: 100 mg Documented By: CARMEL Enoxaparin Sodium (Enoxaparin Sodium 40 Mg/0.4 Ml Syringe) 40 mg SUBCUT Q24H [facility] Last Admin: 10/16/22 11:48 Dose: 40 mg Documented By: CARMEL Heparin Sodium (Porcine) (Heparin Sodium,Porcine Flush 50 Units/5 Ml Syringe) 50 units IVFLUSH QSHIFT [facility] Last Admin: 10/16/22 15:27 Dose: 50 units Documented By: CARMEL Vancomycin HCl 1,000 mg/ (Sodium Chloride) 270 mls @ 270 mls/hr IV Q8H [facility] Last Infusion: 10/16/22 12:53 Dose: 0 mls/hr Documented By: CARMEL Melatonin (Melatonin 3 Mg Tablet) 6 mg PO BEDTIME PRN PRN Reason: Sleep Last Admin: 10/15/22 23:41 Dose: 6 mg Documented By: SULEIMAN Methadone HCl (Methadone Hcl 20 Mg/2 Ml Oral.Conc) 60 mg PO DAILY [facility] Last Admin: 10/16/22 07:49 Dose: 60 mg Documented By: CARMEL Methadone HCl (Methadone Hcl 20 Mg/2 Ml Oral.Conc) 5 mg PO DAILY@1800 [facility] Last Admin: 10/15/22 18:35 Dose: 5 mg Documented By: ALYSSA Morphine Sulfate (Morphine Sulfate 4 Mg/Ml Cartridge) 4 mg IVPUSH Q4H PRN; Protocol PRN Reason: Pain, Mild (Pain Scale 1-3) Last Admin: 10/16/22 12:53 Dose: 4 mg Documented By: CARMEL Nicotine (Nicotine 21 Mg Patch.Td24) 21 mg TRANSDERMA DAILY [facility] Last Admin: 10/16/22 07:48 Dose: 21 mg Documented By: CARMEL Ondansetron HCl (Ondansetron Hcl 4 Mg/2 Ml Vial) 4 mg IVPUSH Q8H PRN PRN Reason: Nausea and Vomiting Last Admin: 10/14/22 09:13 Dose: 4 mg Documented By: LUCIO Ondansetron HCl (Ondansetron Hcl 4 Mg/2 Ml Vial) 4 mg IVPUSH Q6H PRN PRN Reason: Nausea Pharmacy Consult (Consult Rx Perform Med Rec) 1 each MISCELLANE ONCE PRN PRN Reason: Consult order Pharmacy Consult (Consult Rx Vancomycin Dosing) 1 each MISCELLANE DAILY PRN PRN Reason: Consult order Sertraline HCl (Sertraline Hcl 25 Mg Tablet) 25 mg PO DAILY [facility] Last Admin: 10/16/22 07:48 Dose: 25 mg Documented By: CARMEL Sodium Chloride (0.9 % Sodium Chloride Flush 3 Ml Syringe) 3 ml IVFLUSH QSHIFT [facility] Last Admin: 10/16/22 15:27 Dose: 3 ml Documented By: CARMEL Labs 10/14/22 08:00 10/16/22 05:41 Labs: Laboratory Results - last 24 hr 10/16/22 05:41 Estim Creat Clear Calc 106.1 Estimated GFR > 60 Procedures Date of Service Date of Service: 10/16/22 Progress Note: A&P Assessment and plan (1) Frostbite of both lower extremities: Status: Acute Assessment and Plan: She already has demarcation and mummification of all toes I had reviewed with her the technique of transmetatarsal amputation bilaterally I explained the risks including but not limited to bleeding, infections, poor healing, wound breakdown, postop pain, as well as the benefits and alternatives She understands is always a possibility of her requiring further surgeries including more proximal amputation She now agrees to proceed as long as her significant other Remy is allowed to stay with her postoperatively in the room Remy was in the room during the discussion Will put on the schedule for bilateral transmetatarsal amputation tomorrow Time Spent With Patient Time: Total time managing care of this patient today ____ minutes. Quality Stroke Does the patient have a stroke diagnosis?: No VTE Prior VTE?: No VTE Risk Level:: Medical - moderate - high VTE Device Contraindication: N/A - Device Ordered VTE Drug Contraindication: N/A - Med Ordered
--- NOTE | 2022-10-16 16:33 | MHC.RECOVRN ---
This feature writer met with patient, patient laying in bed, grimacing, wincing, only whispered very few words. Patient reports in pain. RN notified states patient not due for pain meds for 30 more minutes. Patient states experiencing sweats throughout the night. Patients fiance at bedside, with patients consent discussed MAT and recovery supports with Fiance. T/W to return tomorrow with resources at the bedside for patient and fiance to review together. Provider aware.
[2022-10-16] MEDS: methADONE HCl 20 MG/2 ML ORAL.CONC 5 MG PO (16:56)
[2022-10-16 20:00] VITALS: BP 129/62; PULSE 88; RESP 18; TEMP 36.9; O2SAT 98
[2022-10-16] MEDS: Melatonin 3 MG TABLET 6 MG PO (21:24)
[2022-10-17] VITALS (10 sets, daily range): BP systolic 98–142; BP diastolic 52–90; PULSE 71–87; RESP 8–18; TEMP 36.2–37; O2SAT 97–100
[2022-10-17] MEDS: Morphine Sulfate 4 MG/ML CARTRIDGE IVPUSH ×4 (02:42→18:33)
[2022-10-17] MEDS: oxyCODONE HCl Immed Release 5 MG TABLET PO ×3 (03:51→23:55)
[2022-10-17] MEDS: vancomycin HCL 1,000 MG in 0.9 % Sodium Chloride 250 ML 270 MG IV (03:52)
--- NOTE | 2022-10-17 07:01 | PC.NURSE ---
clarification note. Antibotics scanned 0153 10/08/22 where indeed given 1 minute after blood cultures drawn at 0155 10/08/22
[2022-10-17 07:13] LABS: Creatinine Clr Calc Pharmacy 104.6; Estimated Glomerular Filt Rate > 60
[2022-10-17] MEDS: methADONE HCl 20 MG/2 ML ORAL.CONC 65 MG PO (07:27)
[2022-10-17] MEDS: 0.9 % Sodium Chloride Flush 3 ML SYRINGE IVFLUSH ×3 (07:27→20:10)
[2022-10-17] MEDS: Nicotine 21 MG PATCH.TD24 TRANSDERMA (07:27)
[2022-10-17] MEDS: Heparin Sodium,Porcine Flush 50 UNITS/5 ML SYRINGE IVFLUSH ×3 (07:28→23:55)
[2022-10-17] MEDS: Docusate Sodium 100 MG CAPSULE PO (07:28)
[2022-10-17] MEDS: Sertraline HCL 25 MG TABLET PO (07:28)
--- NOTE | 2022-10-17 09:57 | P.PNIM_ITS ---
Subjective Subjective Date of Service: 10/17/22 Interval History: f/u on frosbite, hip fracture. Review of Systems toes -necrotic looking and painful denies any fever or chest pain or sob. Physical Exam Vital Signs: Vital Signs: Last Vital Signs Temp 97.2 F 10/17/22 09:51 Pulse 73 10/17/22 09:51 Resp 16 10/17/22 09:51 BP 110/67 10/17/22 09:51 Pulse Ox 98 10/17/22 09:51 O2 Del Method 10/17/22 09:51 O2 Flow Rate 2 10/14/22 16:09 BMI result Body Mass Index 25.0 ?Appearance: Alert.? Oriented X3.? still has pain? cvs: rrr, [id number] . res: clear to auscultation ,no rhonchii or wheezing abd: no rebound or guarding ,nt, bs present. ext :dark discoloration on all toes, consistent with frostbite with? beginning ? demarcation of ischemic process; patchy areas of duration on both feet noted as well please see pics 10/13) neuro: axo3 , nonfocal. Objective Data Active Medications Acetaminophen (Acetaminophen 325 Mg Tablet) 650 mg PO Q4H PRN PRN Reason: fever Last Admin: 10/16/22 19:51 Dose: 650 mg Documented By: PIO Clonidine HCl (Clonidine Hcl 0.1 Mg Tablet) 0.1 mg PO BID PRN; Protocol PRN Reason: opioid withdrawal Last Admin: 10/16/22 13:51 Dose: 0.1 mg Documented By: CARMEL Docusate Sodium (Docusate Sodium 100 Mg Capsule) 100 mg PO BID [facility] Last Admin: 10/17/22 07:28 Dose: 100 mg Documented By: CARMEL Enoxaparin Sodium (Enoxaparin Sodium 40 Mg/0.4 Ml Syringe) 40 mg SUBCUT Q24H [facility] Last Admin: 10/16/22 11:48 Dose: 40 mg Documented By: CARMEL Heparin Sodium (Porcine) (Heparin Sodium,Porcine Flush 50 Units/5 Ml Syringe) 50 units IVFLUSH QSHIFT [facility] Last Admin: 10/17/22 07:28 Dose: 50 units Documented By: CARMEL Vancomycin HCl 1,000 mg/ (Sodium Chloride) 270 mls @ 270 mls/hr IV Q8H [facility] Last Infusion: 10/17/22 05:18 Dose: 0 mls/hr Documented By: PIO Melatonin (Melatonin 3 Mg Tablet) 6 mg PO BEDTIME PRN PRN Reason: Sleep Last Admin: 10/16/22 21:24 Dose: 6 mg Documented By: PIO Methadone HCl (Methadone Hcl 20 Mg/2 Ml Oral.Conc) 5 mg PO DAILY@1800 [facility] Last Admin: 10/16/22 16:56 Dose: 5 mg Documented By: CARMEL Methadone HCl (Methadone Hcl 20 Mg/2 Ml Oral.Conc) 65 mg PO DAILY [facility] Last Admin: 10/17/22 07:27 Dose: 65 mg Documented By: CARMEL Morphine Sulfate (Morphine Sulfate 4 Mg/Ml Cartridge) 4 mg IVPUSH Q4H PRN; Protocol PRN Reason: Pain, Mild (Pain Scale 1-3) Last Admin: 10/17/22 07:28 Dose: 4 mg Documented By: CARMEL Nicotine (Nicotine 21 Mg Patch.Td24) 21 mg TRANSDERMA DAILY [facility] Last Admin: 10/17/22 07:27 Dose: 21 mg Documented By: CARMEL Ondansetron HCl (Ondansetron Hcl 4 Mg/2 Ml Vial) 4 mg IVPUSH Q8H PRN PRN Reason: Nausea and Vomiting Last Admin: 10/14/22 09:13 Dose: 4 mg Documented By: LUCIO Ondansetron HCl (Ondansetron Hcl 4 Mg/2 Ml Vial) 4 mg IVPUSH Q6H PRN PRN Reason: Nausea Oxycodone HCl (Oxycodone Hcl Immed Release 5 Mg Tablet) 5 mg PO Q6H PRN PRN Reason: Pain, Severe (Pain Scale 7-10) Last Admin: 10/17/22 03:51 Dose: 5 mg Documented By: PIO Pharmacy Consult (Consult Rx Perform Med Rec) 1 each MISCELLANE ONCE PRN PRN Reason: Consult order Pharmacy Consult (Consult Rx Vancomycin Dosing) 1 each MISCELLANE DAILY PRN PRN Reason: Consult order Sertraline HCl (Sertraline Hcl 25 Mg Tablet) 25 mg PO DAILY [facility] Last Admin: 10/17/22 07:28 Dose: 25 mg Documented By: CARMEL Sodium Chloride (0.9 % Sodium Chloride Flush 3 Ml Syringe) 3 ml IVFLUSH QSHIFT [facility] Last Admin: 10/17/22 07:27 Dose: 3 ml Documented By: CARMEL Labs 10/14/22 08:00 10/17/22 05:43 Labs: Laboratory Results - last 24 hr 10/17/22 05:43 Estim Creat Clear Calc 104.6 Estimated GFR > 60 Assessment and Plan (1) Intertrochanteric fracture of left femur: Status: Acute (2) Bilateral cellulitis of lower leg: Status: Acute (3) Frostbite of both lower extremities: Status: Acute Plan with substance abuse, history of strep viridan bacteremaia here with pain in the feet, concern for cellulitis and frosbite, fever and sepsis intially thought to be Cellulitis of the feet, at this point feet don't appear to be infected blood cultures thus far negative received vanco , seen by infectious disease-less likely cellulitis, more likely changes due to frosbite, seen by ID-moniter off antibiotics morphine for pain Frosbite--feet continue to demarcate with dry gangrene, surgery following added vascular eval IVDA + for opioid, amphetamine, cocaine, canabis, fentanyl clonidine for withdrawal addiction med following and started on Methadone, but I personally advised her against substance . depressed/anxiety: added zoloft. Left hip fracture-Healing, stable fracture found on exam under anesthesia and fluoro. ortho followin DVT prophylaxis: Lovenox Need for inpatient: Frosbite with necrotic feet-possible foot surgery today. Time Spent With Patient Time: Total time managing care of this patient today ____ minutes. Quality Stroke Does the patient have a stroke diagnosis?: No VTE Prior VTE?: No VTE Risk Level:: Medical - moderate - high VTE Device Contraindication: N/A - Device Ordered VTE Drug Contraindication: N/A - Med Ordered
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
--- NOTE | 2022-10-17 13:07 | P.OP_ITS ---
Operative Note Operative Note Date of Service: 10/17/22 Narrative: Preop diagnosis: frostbite, on all toes, left and right Postop diagnosis: The same Procedure: Transmetatarsal amputation, bilateral Surgeon: David Hackett MD assistant professor of marine biology: LEONEL Lancaster The patient is a 27-year-old female, homeless with a long history of IV drug abuse, admitted because of pain on left hip as well as both feet. She was noted to have left him more fracture, as well as bite of both feet as well as on patchy areas of buttocks and thighs. We had allowed demarcation of the frostbite changes. This eventually led to mummification of all 10 toes. I had explained to her that she would need bilateral transmetatarsal amputation because of this. She had initially did this but eventually gave consent yesterday after discussions with her significant other. She understood the technique of the planned procedure and was aware of the risks, benefits, and alternatives. Because of a patchy areas of gangrene of the skin on the dorsal aspect of the left foot, she understood that there was risk of wound breakdown as well of the amputation site. She was brought to the operating room placed supine under general anesthesia via laryngeal mask airway. Both feet were prepped draped in usual sterile fashion. A surgical time-out was done. The patient received cefazolin 2 g IV preoperatively. A marked the planned line of the incision. I infiltrated this with lidocaine 1%. I started with the right foot. I made the incision skin using a blade 15. His was made all around the some of the base of the toes circumferentially to was the plantar aspect. This was carried down through the full-thickness of the skin and subcutaneous fat with electrocautery. I developed my flaps on both the plantar and dorsal aspects to include skin and the healthy soft tissue and a plane was above the toes. By doing so was able to expose the metatarsal heads on all toes. I divided tissues surrounding these with may scissors as well as electrocautery. I then proceeded to start with the 1st metatarsal. I used electrocautery to dissect around the distal metatarsal and completely define this. I used the periosteal elevator to clear up the rest of the soft tissue surrounding the distal metatarsal. Once this was achieved, I encircled this distal metatarsal with gauze to isolate this. I then used the bone saw to divide this distal metatarsal completely. I divided the rest of the surrounding soft tissue including tendons. Then proceeded to define the distal metatarsal of the 2nd toe as well and insert consists again with gauze. I divided this using the bone saw. This procedure was duplicated on all the other remain on distal metatarsals until all the 5 toes were divided at the metatarsal. I then used a rongeur to make sure that we had sharp edges. I used the bone file as well to smooth an all the edges. I copiously irrigated to make sure that there were no remaining bone fragments. I then observed for hemostasis. All oozing areas and fine vessels were to arise. Once hemostasis was confirmed, I reapposed the the soft tissues Dexon 3-0 simple multiple interrupted sutures. The skin was closed with multiple nylon 2-0 sutures. I proceeded to repeat this above procedure on the left toe. This was a little more challenging because of the presence of areas of skin eschar. I debrided some of this and this did not appear to be full-thickness. I was therefore able to develop the flaps on the dorsal aspect which appeared viable as well. I also started with amputation of the 1st metatarsal at the distal end. I divided soft tissues to expose all 5 metatarsals with [place] scissors as well as with electrocautery. I used the bone so to divide all the distal metatarsals. I developed the planes both superior inferior flaps. This both appeared viable although there was note of some eschar on the dorsal flap on the superficial skin. I observed for hemostasis. Once hemostasis confirmed, I copies irrigated. I had smootehned the divided edges earlier using the bone file as well as the rongeur. I then re apposed with deep soft and subcutaneous tissues using multiple interrupted Dexon 3-0 sutures. Skin closure was achieved with nylon 2 0 simple interrupted sutures. Again the concern was because the dorsal aspect of the left had area of superficial eschar. This is therefore at risk for wound breakdown. All incisions were infiltrated with Marcaine 0.5% for postop analgesia.I covered both stumps with fluffy gauze and wrapped these with Kerlix rolls as well as Martínez bandages The procedure was completed. The patient tolerated the procedure well. There were no immediate complications. Initial and final counts of sponges and instruments were correct. Estimated blood loss was about 100 cc. No tourniquets were used. The patient was then extubated without difficulty and transferred to the recovery room with stable vital signs.
--- NOTE | 2022-10-17 15:15 | PM.EVENT ---
Event Note Date of Service: 10/17/22 Event Note: Seen postop Underwent transmetatarsal amputation, bilaterally for frostbite Appears to have good pain control at this time Dressings dry Would keep the same dressings on for 2-3 days She has this area of eschar on the some of the left foot, which appears to be non full-thickness - however, this is right on recall site so there is risk for wound breakdown Explained procedure and care with and significant other Remy at bedside Pain management Leg elevation No weight-bearing for now on both feet Explained the above to nurse as well Time Spent With Patient Time: Total time managing care of this patient today ____ minutes.
[2022-10-17] MEDS: cloNIDine HCL 0.1 MG TABLET PO (15:40)
[2022-10-17] MEDS: methADONE HCl 20 MG/2 ML ORAL.CONC 5 MG PO (16:53)
[2022-10-17] MEDS: Acetaminophen 1,000 MG/100 ML PIGGYBACK 400 MG IV ×2 (16:53→23:54)
[2022-10-17] MEDS: Ketorolac Tromethamine 30 MG/ML VIAL IVPUSH (19:55)
[2022-10-18] VITALS (9 sets, daily range): BP systolic 100–115; BP diastolic 52–77; PULSE 74–89; RESP 16–20; TEMP 36.1–37.1; O2SAT 99–100
[2022-10-18] MEDS: Morphine Sulfate 4 MG/ML CARTRIDGE IVPUSH ×4 (01:48→18:12)
[2022-10-18] MEDS: Acetaminophen 1,000 MG/100 ML PIGGYBACK 400 MG IV ×4 (04:30→22:46)
[2022-10-18] MEDS: Ketorolac Tromethamine 30 MG/ML VIAL IVPUSH ×3 (04:33→20:42)
[2022-10-18 07:10] LABS: MANUAL DIFF FLAG NO
[2022-10-18 07:21] LABS: Basophils Absolute Auto 0.1 X10*3/uL (0.0-0.2); Basophils Percent Auto 0.7 % (0-2); Eosinophils Absolute Auto 0.1 X10*3/uL (0.0-0.4); Hematocrit 23.3 % (37.0-47.0); Imm Gran Abs Auto 0.06 X10*3/uL (0.00-0.03); Imm Gran Pct Auto 0.7 % (0.0-0.4); Lymphocytes Absolute Auto 1.8 X10*3/uL (1.2-4.9); Lymphocytes Percent Auto 20.8 % (20-40); Mean Corpuscular HGB Conc 27.5 g/dl (31.0-35.0); Mean Corpuscular Hemoglobin 18.9 pg (27.0-33.0); Mean Corpuscular Volume 68.9 fL (80.0-98.0); Mean Platelet Volume 9.4 fL (9.4-12.3); Monocytes Absolute Auto 0.7 X10*3/uL (0.1-1.2); Monocytes Percent Auto 7.9 % (2-11); Neutrophils Percent Auto 68.9 % (45-73); Platelet Count 485 X10*3/uL (160-400); Red Blood Count 3.38 X10*6/uL (4.20-5.50); Red Cell Distribution Width 17.8 % (11.0-16.0); White Blood Count 8.7 X10*3/uL (4.8-10.8)
[2022-10-18 07:47] LABS: Creatinine Clr Calc Pharmacy 115.9; Estimated Glomerular Filt Rate > 60
[2022-10-18 08:05] LABS: Hemoglobin 6.4 g/dl (12.0-16.0)
[2022-10-18] MEDS: Nicotine 21 MG PATCH.TD24 TRANSDERMA (08:08)
[2022-10-18] MEDS: Heparin Sodium,Porcine Flush 50 UNITS/5 ML SYRINGE IVFLUSH ×3 (08:08→23:39)
[2022-10-18] MEDS: Sertraline HCL 25 MG TABLET PO (08:09)
[2022-10-18] MEDS: 0.9 % Sodium Chloride Flush 3 ML SYRINGE IVFLUSH ×3 (08:09→23:40)
[2022-10-18] MEDS: methADONE HCl 20 MG/2 ML ORAL.CONC 65 MG PO (08:09)
[2022-10-18] MEDS: Docusate Sodium 100 MG CAPSULE PO ×2 (08:09→20:37)
[2022-10-18] MEDS: oxyCODONE HCl Immed Release 5 MG TABLET PO ×2 (08:10→16:09)
--- NOTE | 2022-10-18 09:25 | PM.PNGS ---
Subjective Subjective Date of Service: 10/18/22 Patient reports: no new complaints Interval history: patient complains of bilateral foot pain Physical Exam Vital Signs: Vital Signs: Last Vital Signs Temp 97.7 F 10/18/22 07:24 Pulse 74 10/18/22 07:24 Resp 20 10/18/22 07:24 BP 100/57 L 10/18/22 07:24 Pulse Ox 99 10/18/22 07:24 O2 Del Method 10/18/22 07:24 O2 Flow Rate 2.0 10/17/22 14:33 BMI result Body Mass Index 25.0 Const: General: no acute distress Nutritional Appearance: well nourished Orientation/consciousness: patient oriented x3 Limitations: no limitations Resp: Effort & Inspection: normal respiratory effort, no audible wheezes, no cough and no respiratory distress Skin: Other: warm, dry, no rash Neuro: General: patient oriented x3 Extrem: Other: bilateral lower extremity dressings clean and intact without discharge. Lower extremity without edema or erythema. Objective Data Active Medications Clonidine HCl (Clonidine Hcl 0.1 Mg Tablet) 0.1 mg PO BID PRN; Protocol PRN Reason: opioid withdrawal Last Admin: 10/17/22 15:40 Dose: 0.1 mg Documented By: CARMEL Dextrose (Dextrose 50 % 25 Gm/50 Ml Syringe) 25 gm IVPUSH Q15M PRN; Protocol PRN Reason: per Hypoglycemia Standing Ord. Docusate Sodium (Docusate Sodium 100 Mg Capsule) 100 mg PO BID [facility] Last Admin: 10/18/22 08:09 Dose: 100 mg Documented By: RONNIE Enoxaparin Sodium (Enoxaparin Sodium 40 Mg/0.4 Ml Syringe) 40 mg SUBCUT Q24H [facility] Last Admin: 10/17/22 11:43 Dose: Not Given Documented By: CARMEL Non-Admin Reason: pt in surgery Glucose (Glucose Gel 15 Gm Gel..Gram.) 15 gm PO Q15M PRN; Protocol PRN Reason: per Hypoglycemia Standing Ord. Heparin Sodium (Porcine) (Heparin Sodium,Porcine Flush 50 Units/5 Ml Syringe) 50 units IVFLUSH QSHIFT [facility] Last Admin: 10/18/22 08:08 Dose: 50 units Documented By: RONNIE Acetaminophen (Ofirmev) 1,000 mg in 100 mls @ 400 mls/hr IV Q6H [facility] Last Infusion: 10/18/22 04:55 Dose: 0 mls/hr Documented By: JAMESON Ketorolac Tromethamine (Ketorolac Tromethamine 30 Mg/Ml Vial) 30 mg IVPUSH Q6H PRN PRN Reason: foot pain Last Admin: 10/18/22 04:33 Dose: 30 mg Documented By: JAMESON Melatonin (Melatonin 3 Mg Tablet) 6 mg PO BEDTIME PRN PRN Reason: Sleep Last Admin: 10/16/22 21:24 Dose: 6 mg Documented By: ODRISM Methadone HCl (Methadone Hcl 20 Mg/2 Ml Oral.Conc) 5 mg PO DAILY@1800 [facility] Last Admin: 10/17/22 16:53 Dose: 5 mg Documented By: PARFABIA Methadone HCl (Methadone Hcl 20 Mg/2 Ml Oral.Conc) 65 mg PO DAILY [facility] Last Admin: 10/18/22 08:09 Dose: 65 mg Documented By: RONNIE Morphine Sulfate (Morphine Sulfate 4 Mg/Ml Cartridge) 4 mg IVPUSH Q4H PRN; Protocol PRN Reason: Pain, Mild (Pain Scale 1-3) Last Admin: 10/18/22 05:54 Dose: 4 mg Documented By: JAMESON Nicotine (Nicotine 21 Mg Patch.Td24) 21 mg TRANSDERMA DAILY [facility] Last Admin: 10/18/22 08:08 Dose: 21 mg Documented By: RONNIE Ondansetron HCl (Ondansetron Hcl 4 Mg/2 Ml Vial) 4 mg IVPUSH Q8H PRN PRN Reason: Nausea and Vomiting Last Admin: 10/14/22 09:13 Dose: 4 mg Documented By: LUCIO Ondansetron HCl (Ondansetron Hcl 4 Mg/2 Ml Vial) 4 mg IVPUSH Q6H PRN PRN Reason: Nausea Oxycodone HCl (Oxycodone Hcl Immed Release 5 Mg Tablet) 5 mg PO Q6H PRN PRN Reason: Pain, Severe (Pain Scale 7-10) Last Admin: 10/18/22 08:10 Dose: 5 mg Documented By: RONNIE Pharmacy Consult (Consult Rx Perform Med Rec) 1 each MISCELLANE ONCE PRN PRN Reason: Consult order Sertraline HCl (Sertraline Hcl 25 Mg Tablet) 25 mg PO DAILY [facility] Last Admin: 10/18/22 08:09 Dose: 25 mg Documented By: RONNIE Sodium Chloride (0.9 % Sodium Chloride Flush 3 Ml Syringe) 3 ml IVFLUSH QSHIFT [facility] Last Admin: 10/18/22 08:09 Dose: 3 ml Documented By: RONNIE Labs 10/18/22 05:46 10/18/22 05:46 Labs: Laboratory Results - last 24 hr 10/18/22 10/18/22 05:46 05:46 MCV 68.9 L MCH 18.9 L MCHC 27.5 L RDW 17.8 H Plt Count 485 H D MPV 9.4 Immature Gran % (Auto) 0.7 H Neut % (Auto) 68.9 Lymph % (Auto) 20.8 [place] % (Auto) 7.9 Eos % (Auto) 1.0 Baso % (Auto) 0.7 Lymph # (Auto) 1.8 [place] # (Auto) 0.7 Eos # (Auto) 0.1 Baso # (Auto) 0.1 Abs Immat Gran (auto) 0.06 H Absolute Neuts (auto) 6.0 Absolute Nucleated RBC 0.000 Nucleated RBC % (auto) 0.0 Estim Creat Clear Calc 115.9 Estimated GFR > 60 Procedures Date of Service Date of Service: 10/18/22 Progress Note: A&P Assessment and plan (1) Frostbite of both lower extremities: Status: Acute Plan 27-year-old female presenting with bilateral frostbite of the toes, S/P bilateral transmetatarsal amputation pod 1. Patient reports pain in the foot. Dressings are clean, dry and intact. Plan is for dressing change on Thursday. Time Spent With Patient Time: Total time managing care of this patient today ____ minutes. Quality Stroke Does the patient have a stroke diagnosis?: No VTE Prior VTE?: No VTE Risk Level:: Medical - moderate - high VTE Device Contraindication: N/A - Device Ordered VTE Drug Contraindication: N/A - Med Ordered
--- NOTE | 2022-10-18 10:40 | P.PNIM_ITS ---
Subjective Subjective Date of Service: 10/18/22 Interval History: acute blood loss anemia /postop, frosbite Review of Systems s/p foot surgery day1 still has pains in foot, denies any fever or chest pain or sob. Physical Exam Vital Signs: Vital Signs: Last Vital Signs Temp 97.7 F 10/18/22 07:24 Pulse 74 10/18/22 07:24 Resp 20 10/18/22 07:24 BP 100/57 L 10/18/22 07:24 Pulse Ox 99 10/18/22 07:24 O2 Del Method 10/18/22 07:24 O2 Flow Rate 2.0 10/17/22 14:33 BMI result Body Mass Index 25.0 Appearance: Alert.? Oriented X3.? still has pain? cvs: rrr, [id number] . res: clear to auscultation ,no rhonchii or wheezing abd: no rebound or guarding ,nt, bs present. ext :s/p surgery feets wrapped .?bilateral lower extremity dressings clean and intact without discharge.? Lower extremity without edema or erythema. neuro: axo3 , nonfocal. Objective Data Active Medications Clonidine HCl (Clonidine Hcl 0.1 Mg Tablet) 0.1 mg PO BID PRN; Protocol PRN Reason: opioid withdrawal Last Admin: 10/17/22 15:40 Dose: 0.1 mg Documented By: CARMEL Dextrose (Dextrose 50 % 25 Gm/50 Ml Syringe) 25 gm IVPUSH Q15M PRN; Protocol PRN Reason: per Hypoglycemia Standing Ord. Docusate Sodium (Docusate Sodium 100 Mg Capsule) 100 mg PO BID [facility] Last Admin: 10/18/22 08:09 Dose: 100 mg Documented By: RONNIE Enoxaparin Sodium (Enoxaparin Sodium 40 Mg/0.4 Ml Syringe) 40 mg SUBCUT Q24H [facility] Last Admin: 10/17/22 11:43 Dose: Not Given Documented By: CARMEL Non-Admin Reason: pt in surgery Glucose (Glucose Gel 15 Gm Gel..Gram.) 15 gm PO Q15M PRN; Protocol PRN Reason: per Hypoglycemia Standing Ord. Heparin Sodium (Porcine) (Heparin Sodium,Porcine Flush 50 Units/5 Ml Syringe) 50 units IVFLUSH QSHIFT [facility] Last Admin: 10/18/22 08:08 Dose: 50 units Documented By: RONNIE Acetaminophen (Ofirmev) 1,000 mg in 100 mls @ 400 mls/hr IV Q6H [facility] Last Admin: 10/18/22 10:18 Dose: 400 mls/hr Documented By: RONNIE Ketorolac Tromethamine (Ketorolac Tromethamine 30 Mg/Ml Vial) 30 mg IVPUSH Q6H PRN PRN Reason: foot pain Last Admin: 10/18/22 04:33 Dose: 30 mg Documented By: JAMESON Melatonin (Melatonin 3 Mg Tablet) 6 mg PO BEDTIME PRN PRN Reason: Sleep Last Admin: 10/16/22 21:24 Dose: 6 mg Documented By: ODRISM Methadone HCl (Methadone Hcl 20 Mg/2 Ml Oral.Conc) 5 mg PO DAILY@1800 [facility] Last Admin: 10/17/22 16:53 Dose: 5 mg Documented By: PARROWA Methadone HCl (Methadone Hcl 20 Mg/2 Ml Oral.Conc) 65 mg PO DAILY [facility] Last Admin: 10/18/22 08:09 Dose: 65 mg Documented By: RONNIE Morphine Sulfate (Morphine Sulfate 4 Mg/Ml Cartridge) 4 mg IVPUSH Q4H PRN; Protocol PRN Reason: Pain, Mild (Pain Scale 1-3) Last Admin: 10/18/22 10:17 Dose: 4 mg Documented By: RONNIE Nicotine (Nicotine 21 Mg Patch.Td24) 21 mg TRANSDERMA DAILY [facility] Last Admin: 10/18/22 08:08 Dose: 21 mg Documented By: RONNIE Ondansetron HCl (Ondansetron Hcl 4 Mg/2 Ml Vial) 4 mg IVPUSH Q8H PRN PRN Reason: Nausea and Vomiting Last Admin: 10/14/22 09:13 Dose: 4 mg Documented By: LUCIO Ondansetron HCl (Ondansetron Hcl 4 Mg/2 Ml Vial) 4 mg IVPUSH Q6H PRN PRN Reason: Nausea Oxycodone HCl (Oxycodone Hcl Immed Release 5 Mg Tablet) 5 mg PO Q6H PRN PRN Reason: Pain, Severe (Pain Scale 7-10) Last Admin: 10/18/22 08:10 Dose: 5 mg Documented By: RONNIE Pharmacy Consult (Consult Rx Perform Med Rec) 1 each MISCELLANE ONCE PRN PRN Reason: Consult order Sertraline HCl (Sertraline Hcl 25 Mg Tablet) 25 mg PO DAILY [facility] Last Admin: 10/18/22 08:09 Dose: 25 mg Documented By: RONNIE Sodium Chloride (0.9 % Sodium Chloride Flush 3 Ml Syringe) 3 ml IVFLUSH QSHIFT [facility] Last Admin: 10/18/22 08:09 Dose: 3 ml Documented By: RONNIE Labs 10/18/22 05:46 10/18/22 05:46 Labs: Laboratory Results - last 24 hr 10/18/22 10/18/22 05:46 05:46 MCV 68.9 L MCH 18.9 L MCHC 27.5 L RDW 17.8 H Plt Count 485 H D MPV 9.4 Immature Gran % (Auto) 0.7 H Neut % (Auto) 68.9 Lymph % (Auto) 20.8 [place] % (Auto) 7.9 Eos % (Auto) 1.0 Baso % (Auto) 0.7 Lymph # (Auto) 1.8 [place] # (Auto) 0.7 Eos # (Auto) 0.1 Baso # (Auto) 0.1 Abs Immat Gran (auto) 0.06 H Absolute Neuts (auto) 6.0 Absolute Nucleated RBC 0.000 Nucleated RBC % (auto) 0.0 Estim Creat Clear Calc 115.9 Estimated GFR > 60 Assessment and Plan (1) Frostbite of both lower extremities: Status: Acute (2) Intertrochanteric fracture of left femur: Status: Acute (3) Acute blood loss anemia: Status: Acute Plan with substance abuse, history of strep viridan bacteremaia here with pain in the feet, concern for cellulitis and frosbite, fever and sepsis acute blood loss anemia postop h/h 6.4/23.3 type and cross 1 prbc moniter h/h Frosbite- s/p surgery b/l foot yesterday ?S/P bilateral transmetatarsal amputation pod 1 morphine for pain IVDA + for opioid, amphetamine, cocaine, canabis, fentanyl clonidine for withdrawal addiction med following and started on Methadone,? but I personally advised her against substance . depressed/anxiety: added zoloft. Left hip fracture-Healing, stable fracture found on exam under anesthesia and fluoro. ortho followin DVT prophylaxis: Lovenox Need for inpatient: Frosbite with necrotic feet-possible foot surgery today. Time Spent With Patient Time: Total time managing care of this patient today ____ minutes. Quality Stroke Does the patient have a stroke diagnosis?: No VTE Prior VTE?: No VTE Risk Level:: Medical - moderate - high VTE Device Contraindication: N/A - Device Ordered VTE Drug Contraindication: N/A - Med Ordered
[2022-10-18 10:55] LABS: Hematocrit 23.1 % (37.0-47.0)
[2022-10-18 11:01] LABS: Hemoglobin 6.6 g/dl (12.0-16.0)
[2022-10-18] MEDS: Enoxaparin Sodium 40 MG/0.4 ML SYRINGE SUBCUT (13:32)
--- NOTE | 2022-10-18 13:39 | HO.POSTANES ---
Post Anesthesia Evaluation Post Anesthesia Evaluation Vital Signs: Vital Signs Temp Pulse Resp BP Pulse Ox O2 Del Method 10/18/22 13:37 97 F 76 20 107/54 L 10/18/22 07:24 97.7 F 74 20 100/57 L 99 Room Air 10/18/22 03:32 98.7 F 89 18 104/55 L 99 Room Air Anesthesia: General Mental Status: Awake Pain Control: Satisfactory Nausea/Vomiting: None Hydration: Adequate Anesthesia-Related Issues: No Anes. Related Issues
[2022-10-18] MEDS: methADONE HCl 20 MG/2 ML ORAL.CONC 5 MG PO (18:12)
[2022-10-18 20:21] LABS: Hematocrit 25.4 % (37.0-47.0); Hemoglobin 7.6 g/dl (12.0-16.0); Mean Corpuscular HGB Conc 29.9 g/dl (31.0-35.0); Mean Corpuscular Hemoglobin 21.2 pg (27.0-33.0); Mean Corpuscular Volume 70.8 fL (80.0-98.0); Mean Platelet Volume 8.9 fL (9.4-12.3); Platelet Count 441 X10*3/uL (160-400); Red Blood Count 3.59 X10*6/uL (4.20-5.50); Red Cell Distribution Width 19.1 % (11.0-16.0)
[2022-10-18] MEDS: cloNIDine HCL 0.1 MG TABLET PO (21:48)
[2022-10-18] MEDS: Melatonin 3 MG TABLET 6 MG PO (21:48)
[2022-10-19 03:07] VITALS: RESP 19
[2022-10-19] MEDS: Morphine Sulfate 4 MG/ML CARTRIDGE IVPUSH ×5 (03:07→22:46)
[2022-10-19] MEDS: Acetaminophen 1,000 MG/100 ML PIGGYBACK 400 MG IV ×4 (04:51→22:46)
[2022-10-19] MEDS: Ketorolac Tromethamine 30 MG/ML VIAL IVPUSH (04:59)
[2022-10-19 07:03] LABS: Creatinine Clr Calc Pharmacy 129.9; Estimated Glomerular Filt Rate > 60
[2022-10-19 08:00] VITALS: BP 104/57; PULSE 71; RESP 18; TEMP 36.3; O2SAT 100
[2022-10-19 08:30] LABS: Hemoglobin 7.3 g/dl (12.0-16.0)
[2022-10-19] MEDS: Heparin Sodium,Porcine Flush 50 UNITS/5 ML SYRINGE IVFLUSH ×3 (08:44→22:47)
[2022-10-19] MEDS: methADONE HCl 20 MG/2 ML ORAL.CONC 65 MG PO (08:44)
[2022-10-19 08:45] LABS: Iron 21 mcg/dL (30-160); Percent Iron Saturation 6 % (15-50); Total Iron Binding Capacity 353 mcg/dL (228-428); Unsaturated Iron Binding 332 ug/dL
[2022-10-19] MEDS: Nicotine 21 MG PATCH.TD24 TRANSDERMA (08:45)
[2022-10-19] MEDS: Sertraline HCL 25 MG TABLET PO (08:46)
[2022-10-19 08:58] LABS: Ferritin 70 ng/mL (10-122)
[2022-10-19 09:14] LABS: Folate 3.1 ng/mL (> or = 4.0); Vitamin B12 306 pg/mL (200-900)
--- NOTE | 2022-10-19 10:38 | P.PNGS_ITS ---
Subjective Subjective Date of Service: 10/19/22 Patient reports: no new complaints Interval history: Continues to report foot pain however does get comfort when taking pain medication. Physical Exam Vital Signs: Vital Signs: Last Vital Signs Temp 97.4 F 10/19/22 08:00 Pulse 71 10/19/22 08:00 Resp 18 10/19/22 08:00 BP 104/57 L 10/19/22 08:00 Pulse Ox 100 10/19/22 08:00 O2 Del Method 10/19/22 08:00 O2 Flow Rate 2.0 10/17/22 14:33 BMI result Body Mass Index 25.0 Const: General: no acute distress Nutritional Appearance: well nourished Orientation/consciousness: patient oriented x3 Limitations: no limitations Resp: Effort & Inspection: normal respiratory effort, no audible wheezes, no cough and no respiratory distress Skin: Other: warm, dry, no rash Neuro: General: patient oriented x3 Extrem: Other: bilateral lower extremity dressings clean and intact without discharge. Lower extremity without edema or erythema. Objective Data Active Medications Clonidine HCl (Clonidine Hcl 0.1 Mg Tablet) 0.1 mg PO BID PRN; Protocol PRN Reason: opioid withdrawal Last Admin: 10/18/22 21:48 Dose: 0.1 mg Documented By: ALYSSA Dextrose (Dextrose 50 % 25 Gm/50 Ml Syringe) 25 gm IVPUSH Q15M PRN; Protocol PRN Reason: per Hypoglycemia Standing Ord. Docusate Sodium (Docusate Sodium 100 Mg Capsule) 100 mg PO BID [facility] [place] Last Admin: 10/19/22 09:21 Dose: Not Given Documented By: RONNIE Non-Admin Reason: Patient Refused Enoxaparin Sodium (Enoxaparin Sodium 40 Mg/0.4 Ml Syringe) 40 mg SUBCUT Q24H [facility] [place] Last Admin: 10/18/22 13:32 Dose: 40 mg Documented By: RONNIE Glucose (Glucose Gel 15 Gm Gel..Gram.) 15 gm PO Q15M PRN; Protocol PRN Reason: per Hypoglycemia Standing Ord. Heparin Sodium (Porcine) (Heparin Sodium,Porcine Flush 50 Units/5 Ml Syringe) 50 units IVFLUSH QSHIFT [facility] [place] Last Admin: 10/19/22 08:44 Dose: 50 units Documented By: RONNIE Acetaminophen (Ofirmev) 1,000 mg in 100 mls @ 400 mls/hr IV Q6H [facility] [place] Last Infusion: 10/19/22 05:11 Dose: 0 mls/hr Documented By: MARCIN Ketorolac Tromethamine (Ketorolac Tromethamine 30 Mg/Ml Vial) 30 mg IVPUSH Q6H PRN PRN Reason: foot pain Last Admin: 10/19/22 04:59 Dose: 30 mg Documented By: MARCIN Melatonin (Melatonin 3 Mg Tablet) 6 mg PO BEDTIME PRN PRN Reason: Sleep Last Admin: 10/18/22 21:48 Dose: 6 mg Documented By: ALYSSA Methadone HCl (Methadone Hcl 20 Mg/2 Ml Oral.Conc) 5 mg PO DAILY@1800 [facility] [place] Last Admin: 10/18/22 18:12 Dose: 5 mg Documented By: ALYSSA Methadone HCl (Methadone Hcl 20 Mg/2 Ml Oral.Conc) 65 mg PO DAILY [facility] [place] Last Admin: 10/19/22 08:44 Dose: 65 mg Documented By: RONNIE Morphine Sulfate (Morphine Sulfate 4 Mg/Ml Cartridge) 4 mg IVPUSH Q4H PRN; Protocol PRN Reason: Pain, Mild (Pain Scale 1-3) Last Admin: 10/19/22 08:45 Dose: 4 mg Documented By: RONNIE Nicotine (Nicotine 21 Mg Patch.Td24) 21 mg TRANSDERMA DAILY [facility] [place] Last Admin: 10/19/22 08:45 Dose: 21 mg Documented By: RONNIE Ondansetron HCl (Ondansetron Hcl 4 Mg/2 Ml Vial) 4 mg IVPUSH Q8H PRN PRN Reason: Nausea and Vomiting Last Admin: 10/14/22 09:13 Dose: 4 mg Documented By: LUCIO Ondansetron HCl (Ondansetron Hcl 4 Mg/2 Ml Vial) 4 mg IVPUSH Q6H PRN PRN Reason: Nausea Oxycodone HCl (Oxycodone Hcl Immed Release 5 Mg Tablet) 5 mg PO Q6H PRN PRN Reason: Pain, Severe (Pain Scale 7-10) Last Admin: 10/18/22 16:09 Dose: 5 mg Documented By: ALYSSA Pharmacy Consult (Consult Rx Perform Med Rec) 1 each MISCELLANE ONCE PRN PRN Reason: Consult order Sertraline HCl (Sertraline Hcl 25 Mg Tablet) 25 mg PO DAILY [facility] [place] Last Admin: 10/19/22 08:46 Dose: 25 mg Documented By: RONNIE Sodium Chloride (0.9 % Sodium Chloride Flush 3 Ml Syringe) 3 ml IVFLUSH QSHIFT [facility] [place] Last Admin: 10/19/22 09:20 Dose: Not Given Documented By: RONNIE Non-Admin Reason: No Access Labs 10/19/22 05:41 10/19/22 05:41 Labs: Laboratory Results - last 24 hr 10/18/22 10/18/22 10/19/22 10:43 20:12 05:41 MCV 70.8 L MCH 21.2 L MCHC 29.9 L RDW 19.1 H Plt Count 441 H MPV 8.9 L Absolute Nucleated RBC 0.000 Nucleated RBC % (auto) 0.0 Estim Creat Clear Calc 129.9 Estimated GFR > 60 Iron 21 L TIBC 353 % Saturation 6 L Unsat Iron Binding 332 Ferritin 70 Vitamin B12 Folate Blood Type A Positive Antibody Screen NEGATIVE Crossmatch See Detail 10/19/22 05:41 MCV MCH MCHC RDW Plt Count MPV Absolute Nucleated RBC Nucleated RBC % (auto) Estim Creat Clear Calc Estimated GFR Iron TIBC % Saturation Unsat Iron Binding Ferritin Vitamin B12 306 Folate 3.1 L Blood Type Antibody Screen Crossmatch Procedures Date of Service Date of Service: 10/19/22 Progress Note: A&P Assessment and plan (1) Frostbite of both lower extremities: Status: Acute Plan 27-year-old female presenting with bilateral frostbite of the toes, S/P bilateral transmetatarsal amputation pod 2. Patient reports pain in the foot but overall seems much improved. Dressings are clean, dry and intact. Plan is for dressing change tomorrow. Time Spent With Patient Time: Total time managing care of this patient today ____ minutes. Quality Stroke Does the patient have a stroke diagnosis?: No VTE Prior VTE?: No VTE Risk Level:: Medical - moderate - high VTE Device Contraindication: N/A - Device Ordered VTE Drug Contraindication: N/A - Med Ordered
[2022-10-19] MEDS: Enoxaparin Sodium 40 MG/0.4 ML SYRINGE SUBCUT (11:03)
[2022-10-19] MEDS: oxyCODONE HCl Immed Release 5 MG TABLET PO ×2 (11:03→19:34)
--- NOTE | 2022-10-19 12:42 | HO.PM.IMPN ---
Subjective Subjective Date of Service: 10/19/22 Interval History: acute blood loss anemia /postop, frosbite Review of Systems s/p foot surgery day2 still has pains in foot,no fevers denies any fever or chest pain or sob. Physical Exam Vital Signs: Vital Signs: Last Vital Signs Temp 97.4 F 10/19/22 08:00 Pulse 71 10/19/22 08:00 Resp 18 10/19/22 08:00 BP 104/57 L 10/19/22 08:00 Pulse Ox 100 10/19/22 08:00 O2 Del Method 10/19/22 08:00 O2 Flow Rate 2.0 10/17/22 14:33 BMI result Body Mass Index 25.0 ? Appearance: Alert.? Oriented X3.? still has pain? cvs: [id number], [id number] . res: clear to auscultation ,no rhonchii or wheezing abd: no rebound or guarding ,nt, bs present. ext :s/p surgery feets wrapped .?bilateral lower extremity dressings clean and intact without discharge.? Lower extremity without edema or erythema. neuro: axo3 , nonfocal. Objective Data Active Medications Clonidine HCl (Clonidine Hcl 0.1 Mg Tablet) 0.1 mg PO BID PRN; Protocol PRN Reason: opioid withdrawal Last Admin: 10/18/22 21:48 Dose: 0.1 mg Documented By: ALYSSA Dextrose (Dextrose 50 % 25 Gm/50 Ml Syringe) 25 gm IVPUSH Q15M PRN; Protocol PRN Reason: per Hypoglycemia Standing Ord. Docusate Sodium (Docusate Sodium 100 Mg Capsule) 100 mg PO BID [facility] Last Admin: 10/19/22 09:21 Dose: Not Given Documented By: RONNIE Non-Admin Reason: Patient Refused Enoxaparin Sodium (Enoxaparin Sodium 40 Mg/0.4 Ml Syringe) 40 mg SUBCUT Q24H [facility] Last Admin: 10/19/22 11:03 Dose: 40 mg Documented By: ROSE Glucose (Glucose Gel 15 Gm Gel..Gram.) 15 gm PO Q15M PRN; Protocol PRN Reason: per Hypoglycemia Standing Ord. Heparin Sodium (Porcine) (Heparin Sodium,Porcine Flush 50 Units/5 Ml Syringe) 50 units IVFLUSH QSHIFT [facility] Last Admin: 10/19/22 08:44 Dose: 50 units Documented By: RONNIE Acetaminophen (Ofirmev) 1,000 mg in 100 mls @ 400 mls/hr IV Q6H [facility] Last Admin: 10/19/22 11:02 Dose: 400 mls/hr Documented By: ROSE Ketorolac Tromethamine (Ketorolac Tromethamine 30 Mg/Ml Vial) 30 mg IVPUSH Q6H PRN PRN Reason: foot pain Last Admin: 10/19/22 04:59 Dose: 30 mg Documented By: COTEMA Melatonin (Melatonin 3 Mg Tablet) 6 mg PO BEDTIME PRN PRN Reason: Sleep Last Admin: 10/18/22 21:48 Dose: 6 mg Documented By: ALYSSA Methadone HCl (Methadone Hcl 20 Mg/2 Ml Oral.Conc) 5 mg PO DAILY@1800 [facility] Last Admin: 10/18/22 18:12 Dose: 5 mg Documented By: ALYSSA Methadone HCl (Methadone Hcl 20 Mg/2 Ml Oral.Conc) 65 mg PO DAILY [facility] Last Admin: 10/19/22 08:44 Dose: 65 mg Documented By: RONNIE Morphine Sulfate (Morphine Sulfate 4 Mg/Ml Cartridge) 4 mg IVPUSH Q4H PRN; Protocol PRN Reason: Pain, Mild (Pain Scale 1-3) Last Admin: 10/19/22 08:45 Dose: 4 mg Documented By: RONNIE Nicotine (Nicotine 21 Mg Patch.Td24) 21 mg TRANSDERMA DAILY [facility] Last Admin: 10/19/22 08:45 Dose: 21 mg Documented By: RONNIE Ondansetron HCl (Ondansetron Hcl 4 Mg/2 Ml Vial) 4 mg IVPUSH Q8H PRN PRN Reason: Nausea and Vomiting Last Admin: 10/14/22 09:13 Dose: 4 mg Documented By: LUCIO Ondansetron HCl (Ondansetron Hcl 4 Mg/2 Ml Vial) 4 mg IVPUSH Q6H PRN PRN Reason: Nausea Oxycodone HCl (Oxycodone Hcl Immed Release 5 Mg Tablet) 5 mg PO Q6H PRN PRN Reason: Pain, Severe (Pain Scale 7-10) Last Admin: 10/19/22 11:03 Dose: 5 mg Documented By: ROSE Pharmacy Consult (Consult Rx Perform Med Rec) 1 each MISCELLANE ONCE PRN PRN Reason: Consult order Sertraline HCl (Sertraline Hcl 25 Mg Tablet) 25 mg PO DAILY [facility] Last Admin: 10/19/22 08:46 Dose: 25 mg Documented By: RONNIE Sodium Chloride (0.9 % Sodium Chloride Flush 3 Ml Syringe) 3 ml IVFLUSH QSHIFT [facility] Last Admin: 10/19/22 09:20 Dose: Not Given Documented By: RONNIE Non-Admin Reason: No Access Labs 10/19/22 05:41 10/19/22 05:41 Labs: Laboratory Results - last 24 hr 10/18/22 10/18/22 10/19/22 10:43 20:12 05:41 MCV 70.8 L MCH 21.2 L MCHC 29.9 L RDW 19.1 H Plt Count 441 H MPV 8.9 L Absolute Nucleated RBC 0.000 Nucleated RBC % (auto) 0.0 Estim Creat Clear Calc 129.9 Estimated GFR > 60 Iron 21 L TIBC 353 % Saturation 6 L Unsat Iron Binding 332 Ferritin 70 Vitamin B12 Folate Blood Type A Positive Antibody Screen NEGATIVE Crossmatch See Detail 10/19/22 05:41 MCV MCH MCHC RDW Plt Count MPV Absolute Nucleated RBC Nucleated RBC % (auto) Estim Creat Clear Calc Estimated GFR Iron TIBC % Saturation Unsat Iron Binding Ferritin Vitamin B12 306 Folate 3.1 L Blood Type Antibody Screen Crossmatch Assessment and Plan (1) Frostbite of both lower extremities: Status: Acute (2) Intertrochanteric fracture of left femur: Status: Acute (3) Acute blood loss anemia: Status: Acute Plan with substance abuse, history of strep viridan bacteremaia here with pain in the feet, concern for cellulitis and frosbite, fever and sepsis. acute blood loss anemia postop s/p 1 pprbc -h/h improvin.3/25 moniter h/h Frosbite- s/p surgery b/l foot yesterday ?s/P bilateral transmetatarsal amputation pod 2 morphine for pain IVDA + for opioid, amphetamine, cocaine, canabis, fentanyl clonidine for withdrawal addiction med following and started on Methadone,? but I personally advised her against substance . depressed/anxiety: added zoloft. Left hip fracture-Healing, stable fracture found on exam under anesthesia and fluoro. ortho followin DVT prophylaxis: Lovenox Need for inpatient: Frosbite with necrotic feet-s/p s/p surgery b/l foot day2,acute blood loss anemia postop s/p transfusion -moniter h/h. Time Spent With Patient Time: Total time managing care of this patient today ____ minutes. Quality Stroke Does the patient have a stroke diagnosis?: No VTE Prior VTE?: No VTE Risk Level:: Medical - moderate - high VTE Device Contraindication: N/A - Device Ordered VTE Drug Contraindication: N/A - Med Ordered
[2022-10-19 15:20] VITALS: BP 111/58; PULSE 86; RESP 16; TEMP 36.1; O2SAT 100
[2022-10-19] MEDS: 0.9 % Sodium Chloride Flush 3 ML SYRINGE IVFLUSH ×2 (15:31→22:47)
[2022-10-19] MEDS: Ferrous Sulfate 324 MG TABLET.DR PO (17:11)
[2022-10-19] MEDS: methADONE HCl 20 MG/2 ML ORAL.CONC 5 MG PO (17:11)
[2022-10-19] MEDS: cloNIDine HCL 0.1 MG TABLET PO (19:34)
[2022-10-19] MEDS: Docusate Sodium 100 MG CAPSULE PO (22:48)
[2022-10-19 23:49] VITALS: BP 116/59; PULSE 74; RESP 16; TEMP 36.3; O2SAT 99
[2022-10-20] MEDS: oxyCODONE HCl Immed Release 5 MG TABLET PO ×3 (01:48→20:53)
[2022-10-20] MEDS: Melatonin 3 MG TABLET 6 MG PO (01:54)
[2022-10-20] MEDS: Morphine Sulfate 4 MG/ML CARTRIDGE IVPUSH ×5 (03:05→23:57)
[2022-10-20] MEDS: Acetaminophen 1,000 MG/100 ML PIGGYBACK 400 MG IV ×3 (05:05→16:03)
[2022-10-20] MEDS: Omeprazole 20 MG CAPSULE.DR PO (05:05)
[2022-10-20 06:49] LABS: Creatinine Clr Calc Pharmacy 110.8; Estimated Glomerular Filt Rate > 60
[2022-10-20 06:58] LABS: Hemoglobin 7.4 g/dl (12.0-16.0)
[2022-10-20 07:37] VITALS: BP 125/61; PULSE 77; RESP 18; TEMP 36.1; O2SAT 99
[2022-10-20] MEDS: Heparin Sodium,Porcine Flush 50 UNITS/5 ML SYRINGE IVFLUSH ×3 (09:28→23:58)
[2022-10-20] MEDS: Nicotine 21 MG PATCH.TD24 TRANSDERMA (09:28)
[2022-10-20] MEDS: Ferrous Sulfate 324 MG TABLET.DR PO ×2 (09:28→16:03)
[2022-10-20] MEDS: Docusate Sodium 100 MG CAPSULE PO ×2 (09:28→20:48)
[2022-10-20] MEDS: Sertraline HCL 25 MG TABLET PO (09:29)
[2022-10-20] MEDS: 0.9 % Sodium Chloride Flush 3 ML SYRINGE IVFLUSH ×3 (09:30→23:58)
[2022-10-20] MEDS: methADONE HCl 20 MG/2 ML ORAL.CONC 65 MG PO (09:30)
--- NOTE | 2022-10-20 11:29 | P.PNGS_ITS ---
Subjective Subjective Date of Service: 10/20/22 Interval history: Complaints of some pain on the hip on the left, and both amputation sites No event reported Physical Exam Vital Signs: Vital Signs: Last Vital Signs Temp 96.9 F 10/20/22 07:37 Pulse 77 10/20/22 07:37 Resp 18 10/20/22 07:37 BP 125/61 10/20/22 07:37 Pulse Ox 99 10/20/22 07:37 O2 Del Method 10/20/22 07:37 O2 Flow Rate 2.0 10/17/22 14:33 BMI result Body Mass Index 25.0 Const: General: comfortable and no acute distress Resp: Effort & Inspection: normal respiratory effort Cardio: Rate: regular rate Extrem: Other: Dressings taken down - both amputation sites are healing well, sutures intact, flaps all viable, no obvious wound breakdown at this time Objective Data Active Medications Clonidine HCl (Clonidine Hcl 0.1 Mg Tablet) 0.1 mg PO BID PRN; Protocol PRN Reason: opioid withdrawal Last Admin: 10/19/22 19:34 Dose: 0.1 mg Documented By: NICOLE Dextrose (Dextrose 50 % 25 Gm/50 Ml Syringe) 25 gm IVPUSH Q15M PRN; Protocol PRN Reason: per Hypoglycemia Standing Ord. Docusate Sodium (Docusate Sodium 100 Mg Capsule) 100 mg PO BID [facility] Last Admin: 10/20/22 09:28 Dose: 100 mg Documented By: CARMEL Enoxaparin Sodium (Enoxaparin Sodium 40 Mg/0.4 Ml Syringe) 40 mg SUBCUT Q24H [facility] Last Admin: 10/19/22 11:03 Dose: 40 mg Documented By: ROSE Ferrous Sulfate (Ferrous Sulfate 324 Mg Tablet.Dr) 324 mg PO BIDWM [facility] Last Admin: 10/20/22 09:28 Dose: 324 mg Documented By: CARMEL Glucose (Glucose Gel 15 Gm Gel..Gram.) 15 gm PO Q15M PRN; Protocol PRN Reason: per Hypoglycemia Standing Ord. Heparin Sodium (Porcine) (Heparin Sodium,Porcine Flush 50 Units/5 Ml Syringe) 50 units IVFLUSH QSHIFT [facility] Last Admin: 10/20/22 09:28 Dose: 50 units Documented By: CARMEL Acetaminophen (Ofirmev) 1,000 mg in 100 mls @ 400 mls/hr IV Q6H [facility] Last Infusion: 10/20/22 09:53 Dose: 0 mls/hr Documented By: CARMEL Melatonin (Melatonin 3 Mg Tablet) 6 mg PO BEDTIME PRN PRN Reason: Sleep Last Admin: 10/20/22 01:54 Dose: 6 mg Documented By: NICOLE Methadone HCl (Methadone Hcl 20 Mg/2 Ml Oral.Conc) 5 mg PO DAILY@1800 [facility] Last Admin: 10/19/22 17:11 Dose: 5 mg Documented By: ALYSSA Methadone HCl (Methadone Hcl 20 Mg/2 Ml Oral.Conc) 65 mg PO DAILY [facility] Last Admin: 10/20/22 09:30 Dose: 65 mg Documented By: CARMEL Morphine Sulfate (Morphine Sulfate 4 Mg/Ml Cartridge) 4 mg IVPUSH Q4H PRN; Protocol PRN Reason: Pain, Mild (Pain Scale 1-3) Last Admin: 10/20/22 07:26 Dose: 4 mg Documented By: CARMEL Nicotine (Nicotine 21 Mg Patch.Td24) 21 mg TRANSDERMA DAILY [facility] Last Admin: 10/20/22 09:28 Dose: 21 mg Documented By: CARMEL Omeprazole (Omeprazole 20 Mg Capsule.Dr) 20 mg PO DAILY@0630 [facility] Last Admin: 10/20/22 05:05 Dose: 20 mg Documented By: NICOLE Ondansetron HCl (Ondansetron Hcl 4 Mg/2 Ml Vial) 4 mg IVPUSH Q8H PRN PRN Reason: Nausea and Vomiting Last Admin: 10/14/22 09:13 Dose: 4 mg Documented By: LUCIO Ondansetron HCl (Ondansetron Hcl 4 Mg/2 Ml Vial) 4 mg IVPUSH Q6H PRN PRN Reason: Nausea Oxycodone HCl (Oxycodone Hcl Immed Release 5 Mg Tablet) 5 mg PO Q6H PRN PRN Reason: Pain, Severe (Pain Scale 7-10) Last Admin: 10/20/22 01:48 Dose: 5 mg Documented By: NICOLE Pharmacy Consult (Consult Rx Perform Med Rec) 1 each MISCELLANE ONCE PRN PRN Reason: Consult order Polyethylene Glycol (Polyethylene Glycol 3350 17 Gm Powd.Pack) 17 gm PO DAILY PRN PRN Reason: Constipation Sertraline HCl (Sertraline Hcl 25 Mg Tablet) 25 mg PO DAILY [facility] Last Admin: 10/20/22 09:29 Dose: 25 mg Documented By: CARMEL Sodium Chloride (0.9 % Sodium Chloride Flush 3 Ml Syringe) 3 ml IVFLUSH QSHIFT [facility] Last Admin: 10/20/22 09:30 Dose: 3 ml Documented By: CARMEL Labs 10/20/22 06:18 10/20/22 06:18 Labs: Laboratory Results - last 24 hr 10/18/22 10/20/22 05:46 06:18 Smear Path Review Estim Creat Clear Calc 110.8 Estimated GFR > 60 Procedures Date of Service Date of Service: 10/20/22 Progress Note: A&P Assessment and plan (1) Frostbite of both lower extremities: Status: Acute Assessment and Plan: Status post transmetatarsal amputation, bilateral Dressings changed Both amputation sites healing sutures intact, flaps viable, no evidence of wound infection Both feet wrapped in Kerlix roll and Martínez bandage No weight-bearing for now on both feet Daily dressing changes Time Spent With Patient Time: Total time managing care of this patient today ____ minutes. Quality Stroke Does the patient have a stroke diagnosis?: No VTE Prior VTE?: No VTE Risk Level:: Medical - moderate - high VTE Device Contraindication: N/A - Device Ordered VTE Drug Contraindication: N/A - Med Ordered
[2022-10-20] MEDS: Enoxaparin Sodium 40 MG/0.4 ML SYRINGE SUBCUT (11:38)
--- NOTE | 2022-10-20 14:17 | P.PNIM_ITS ---
Subjective Subjective Date of Service: 10/20/22 Interval History: frosbite Review of Systems s/p foot surgery day3 still has pains in foot,no fevers denies any fever or chest pain or sob. Physical Exam Vital Signs: Vital Signs: Last Vital Signs Temp 96.9 F 10/20/22 07:37 Pulse 77 10/20/22 07:37 Resp 18 10/20/22 07:37 BP 125/61 10/20/22 07:37 Pulse Ox 99 10/20/22 07:37 O2 Del Method 10/20/22 07:37 O2 Flow Rate 2.0 10/17/22 14:33 BMI result Body Mass Index 25.0 Appearance: Alert.? Oriented X3.? still has pain? cvs: rrr, [id number] . res: clear to auscultation ,no rhonchii or wheezing abd: no rebound or guarding ,nt, bs present. ext :s/p surgery feets wrapped .?bilateral lower extremity dressings clean and intact without discharge.? Lower extremity without edema or erythema. neuro: axo3 , nonfocal. ? Objective Data Active Medications Clonidine HCl (Clonidine Hcl 0.1 Mg Tablet) 0.1 mg PO BID PRN; Protocol PRN Reason: opioid withdrawal Last Admin: 10/19/22 19:34 Dose: 0.1 mg Documented By: NICOLE Dextrose (Dextrose 50 % 25 Gm/50 Ml Syringe) 25 gm IVPUSH Q15M PRN; Protocol PRN Reason: per Hypoglycemia Standing Ord. Docusate Sodium (Docusate Sodium 100 Mg Capsule) 100 mg PO BID [facility] Last Admin: 10/20/22 09:28 Dose: 100 mg Documented By: CARMEL Enoxaparin Sodium (Enoxaparin Sodium 40 Mg/0.4 Ml Syringe) 40 mg SUBCUT Q24H [facility] Last Admin: 10/20/22 11:38 Dose: 40 mg Documented By: CARMEL Ferrous Sulfate (Ferrous Sulfate 324 Mg Tablet.) 324 mg PO BIDWM [facility] Last Admin: 10/20/22 09:28 Dose: 324 mg Documented By: CARMEL Glucose (Glucose Gel 15 Gm Gel..Gram.) 15 gm PO Q15M PRN; Protocol PRN Reason: per Hypoglycemia Standing Ord. Heparin Sodium (Porcine) (Heparin Sodium,Porcine Flush 50 Units/5 Ml Syringe) 50 units IVFLUSH QSHIFT [facility] Last Admin: 10/20/22 09:28 Dose: 50 units Documented By: CARMEL Acetaminophen (Ofirmev) 1,000 mg in 100 mls @ 400 mls/hr IV Q6H [facility] Last Infusion: 10/20/22 09:53 Dose: 0 mls/hr Documented By: CARMEL Melatonin (Melatonin 3 Mg Tablet) 6 mg PO BEDTIME PRN PRN Reason: Sleep Last Admin: 10/20/22 01:54 Dose: 6 mg Documented By: NICOLE Methadone HCl (Methadone Hcl 20 Mg/2 Ml Oral.Conc) 5 mg PO DAILY@1800 [facility] Last Admin: 10/19/22 17:11 Dose: 5 mg Documented By: ALYSSA Methadone HCl (Methadone Hcl 20 Mg/2 Ml Oral.Conc) 65 mg PO DAILY [facility] Last Admin: 10/20/22 09:30 Dose: 65 mg Documented By: CARMEL Morphine Sulfate (Morphine Sulfate 4 Mg/Ml Cartridge) 4 mg IVPUSH Q4H PRN; Protocol PRN Reason: Pain, Mild (Pain Scale 1-3) Last Admin: 10/20/22 11:38 Dose: 4 mg Documented By: CARMEL Nicotine (Nicotine 21 Mg Patch.Td24) 21 mg TRANSDERMA DAILY [facility] Last Admin: 10/20/22 09:28 Dose: 21 mg Documented By: CARMEL Omeprazole (Omeprazole 20 Mg Capsule.Dr) 20 mg PO DAILY@0630 [facility] Last Admin: 10/20/22 05:05 Dose: 20 mg Documented By: NICOLE Ondansetron HCl (Ondansetron Hcl 4 Mg/2 Ml Vial) 4 mg IVPUSH Q8H PRN PRN Reason: Nausea and Vomiting Last Admin: 10/14/22 09:13 Dose: 4 mg Documented By: LUCIO Ondansetron HCl (Ondansetron Hcl 4 Mg/2 Ml Vial) 4 mg IVPUSH Q6H PRN PRN Reason: Nausea Oxycodone HCl (Oxycodone Hcl Immed Release 5 Mg Tablet) 5 mg PO Q6H PRN PRN Reason: Pain, Severe (Pain Scale 7-10) Last Admin: 10/20/22 14:06 Dose: 5 mg Documented By: CARMEL Pharmacy Consult (Consult Rx Perform Med Rec) 1 each MISCELLANE ONCE PRN PRN Reason: Consult order Polyethylene Glycol (Polyethylene Glycol 3350 17 Gm Powd.Pack) 17 gm PO DAILY PRN PRN Reason: Constipation Sertraline HCl (Sertraline Hcl 25 Mg Tablet) 25 mg PO DAILY [facility] Last Admin: 10/20/22 09:29 Dose: 25 mg Documented By: CARMEL Sodium Chloride (0.9 % Sodium Chloride Flush 3 Ml Syringe) 3 ml IVFLUSH QSHIFT [facility] Last Admin: 10/20/22 09:30 Dose: 3 ml Documented By: CARMEL Labs 10/20/22 06:18 10/20/22 06:18 Labs: Laboratory Results - last 24 hr 10/18/22 10/20/22 05:46 06:18 Smear Path Review Estim Creat Clear Calc 110.8 Estimated GFR > 60 Assessment and Plan (1) Frostbite of both lower extremities: Status: Acute (2) Intertrochanteric fracture of left femur: Status: Acute (3) Acute blood loss anemia: Status: Acute Plan with substance abuse, history of strep viridan bacteremaia here with pain in the feet, concern for cellulitis and frosbite, fever and sepsis. acute blood loss anemia postop s/p 1 prbc -h/h improvin.3/25 moniter h/h Frosbite- s/p surgery b/l foot yesterday ?s/P bilateral transmetatarsal amputation pod 2 morphine for pain IVDA + for opioid, amphetamine, cocaine, canabis, fentanyl clonidine for withdrawal addiction med following and started on Methadone,? but I personally advised her against substance . depressed/anxiety: added zoloft. Left hip fracture-Healing, stable fracture found on exam under anesthesia and fluoro. ortho followin DVT prophylaxis: Lovenox Need for inpatient: Frosbite with necrotic feet-s/p s/p surgery b/l foot day3,acute blood loss anemia postop s/p transfusion -moniter h/h. Time Spent With Patient Time: Total time managing care of this patient today ____ minutes. Quality Stroke Does the patient have a stroke diagnosis?: No VTE Prior VTE?: No VTE Risk Level:: Medical - moderate - high VTE Device Contraindication: N/A - Device Ordered VTE Drug Contraindication: N/A - Med Ordered
--- NOTE | 2022-10-20 14:53 | MHC.CM.PN ---
PER MD ROUNDS, PT NOT YET MEDICALLY CLEARED PT HAD A BI TRANSMET AMP ON 10/18/22 AND HAS A HIP FX AWAITING POST SURGERY PT EVAL TO DETERMINE DC NEEDS REFERRALS WERE MADE FOR STR, HOWEVER SHE HAS HAD NO BED OFFERS
[2022-10-20 15:47] VITALS: BP 107/57; PULSE 82; RESP 18; TEMP 36.3; O2SAT 98
--- NOTE | 2022-10-20 17:21 | HO.ADDICTPRO ---
Subjective Subjective Date of Service: 10/20/22 Reason For Visit: Sepsis Cellulitis Interim History: Patient seen in follow up Recently amputation of all toes Current methadone dose is 65mg in AM and 5mg at 6pm Patient laying in bed, appearing comfortable. Reporting withdrawal sx are managed during the day, but still experiencing some sweating at night . Review of Systems Acute medical concerns: Yes Medical Review of Systems: unchanged Mental Status Exam Mental Status Exam Patient Appearance: Disheveled Patient Orientation: Person, Place, Time and Situation Level of Consciousness: Awake and Appropriate Patient Behavior: Appropriate and Guarded Affect Description: Blunted Diagnostics Vital Signs (24Hr): Vital Signs - 24 hr 10/19/22 23:49 10/20/22 07:37 10/20/22 15:47 Temperature 97.4 F 96.9 F 97.3 F Pulse Rate 74 77 82 Respiratory Rate 16 18 18 Blood Pressure 116/59 L 125/61 107/57 L Pulse Oximetry 99 99 98 Oxygen Delivery Method Room Air Room Air Room Air BMI result Body Mass Index 25.0 Labs 10/20/22 06:18 10/20/22 06:18 Labs: Laboratory Results - last 48 hr 10/18/22 10/18/22 10/19/22 05:46 20:12 05:41 WBC 10.0 RBC 3.59 L Hgb 7.6 L Hct 25.4 L MCV 70.8 L MCH 21.2 L MCHC 29.9 L RDW 19.1 H Plt Count 441 H MPV 8.9 L Absolute Nucleated RBC 0.000 Nucleated RBC % (auto) 0.0 Smear Path Review Creatinine 0.58 Estim Creat Clear Calc 129.9 Estimated GFR > 60 Iron 21 L TIBC 353 % Saturation 6 L Unsat Iron Binding 332 Ferritin 70 Vitamin B12 Folate 10/19/22 10/19/22 10/20/22 05:41 05:41 06:18 WBC RBC Hgb 7.3 L Hct 25.0 L MCV MCH MCHC RDW Plt Count MPV Absolute Nucleated RBC Nucleated RBC % (auto) Smear Path Review Creatinine 0.68 Estim Creat Clear Calc 110.8 Estimated GFR > 60 Iron TIBC % Saturation Unsat Iron Binding Ferritin Vitamin B12 306 Folate 3.1 L 10/20/22 06:18 WBC RBC Hgb 7.4 L Hct 25.0 L MCV MCH MCHC RDW Plt Count MPV Absolute Nucleated RBC Nucleated RBC % (auto) Smear Path Review Creatinine Estim Creat Clear Calc Estimated GFR Iron TIBC % Saturation Unsat Iron Binding Ferritin Vitamin B12 Folate Imaging Radiology Impressions: ITS Impressions Aorta w/Runoff CTA 10/08/22 06:10 IMPRESSION: 1. Normal appearance of the vasculature with no evidence of stenosis or occlusion. 2. No acute finding in the abdomen or pelvis. 3. Redemonstration of the left femoral neck fracture with persistent varus angulation. There is some callus formation now present. Hip/Pelvis X-Ray 10/10/22 12:50 IMPRESSION: Intertrochanteric fracture left hip with medial angulation. Guidance Fluoroscopy 10/14/22 15:21 IMPRESSION: Fluoroscopy provided for the orthopedic department. Please see operative report for additional information. Medications Medications Current Medications Clonidine HCl (Clonidine Hcl 0.1 Mg Tablet) 0.1 mg PO BID PRN; Protocol PRN Reason: opioid withdrawal Last Admin: 10/19/22 19:34 Dose: 0.1 mg Dextrose (Dextrose 50 % 25 Gm/50 Ml Syringe) 25 gm IVPUSH Q15M PRN; Protocol PRN Reason: per Hypoglycemia Standing Ord. Docusate Sodium (Docusate Sodium 100 Mg Capsule) 100 mg PO BID [facility] Last Admin: 10/20/22 09:28 Dose: 100 mg Enoxaparin Sodium (Enoxaparin Sodium 40 Mg/0.4 Ml Syringe) 40 mg SUBCUT Q24H [facility] Last Admin: 10/20/22 11:38 Dose: 40 mg Ferrous Sulfate (Ferrous Sulfate 324 Mg Tablet.Dr) 324 mg PO BIDWM [facility] Last Admin: 10/20/22 16:03 Dose: 324 mg Glucose (Glucose Gel 15 Gm Gel..Gram.) 15 gm PO Q15M PRN; Protocol PRN Reason: per Hypoglycemia Standing Ord. Heparin Sodium (Porcine) (Heparin Sodium,Porcine Flush 50 Units/5 Ml Syringe) 50 units IVFLUSH QSHIFT [facility] Last Admin: 10/20/22 16:22 Dose: 50 units Melatonin (Melatonin 3 Mg Tablet) 6 mg PO BEDTIME PRN PRN Reason: Sleep Last Admin: 10/20/22 01:54 Dose: 6 mg Methadone HCl (Methadone Hcl 20 Mg/2 Ml Oral.Conc) 5 mg PO DAILY@1800 [facility] Last Admin: 10/19/22 17:11 Dose: 5 mg Methadone HCl (Methadone Hcl 20 Mg/2 Ml Oral.Conc) 65 mg PO DAILY [facility] Last Admin: 10/20/22 09:30 Dose: 65 mg Morphine Sulfate (Morphine Sulfate 4 Mg/Ml Cartridge) 4 mg IVPUSH Q4H PRN; Protocol PRN Reason: Pain, Mild (Pain Scale 1-3) Last Admin: 10/20/22 11:38 Dose: 4 mg Nicotine (Nicotine 21 Mg Patch.Td24) 21 mg TRANSDERMA DAILY [facility] Last Admin: 10/20/22 09:28 Dose: 21 mg Omeprazole (Omeprazole 20 Mg Capsule.Dr) 20 mg PO DAILY@0630 [facility] Last Admin: 10/20/22 05:05 Dose: 20 mg Ondansetron HCl (Ondansetron Hcl 4 Mg/2 Ml Vial) 4 mg IVPUSH Q8H PRN PRN Reason: Nausea and Vomiting Last Admin: 10/14/22 09:13 Dose: 4 mg Ondansetron HCl (Ondansetron Hcl 4 Mg/2 Ml Vial) 4 mg IVPUSH Q6H PRN PRN Reason: Nausea Oxycodone HCl (Oxycodone Hcl Immed Release 5 Mg Tablet) 5 mg PO Q6H PRN PRN Reason: Pain, Severe (Pain Scale 7-10) Last Admin: 10/20/22 14:06 Dose: 5 mg Pharmacy Consult (Consult Rx Perform Med Rec) 1 each MISCELLANE ONCE PRN PRN Reason: Consult order Polyethylene Glycol (Polyethylene Glycol 3350 17 Gm Powd.Pack) 17 gm PO DAILY PRN PRN Reason: Constipation Sertraline HCl (Sertraline Hcl 25 Mg Tablet) 25 mg PO DAILY [facility] Last Admin: 10/20/22 09:29 Dose: 25 mg Sodium Chloride (0.9 % Sodium Chloride Flush 3 Ml Syringe) 3 ml IVFLUSH QSHIFT [facility] Last Admin: 10/20/22 16:09 Dose: 3 ml Allergies Allergies Allergy/AdvReac Type Severity Reaction Status Date / Time No Known Allergies Allergy Verified 07/13/22 00:07 Assessment & Plan Assessment & Plan (1) Opioid use disorder: Status: Acute Code(s): F11.90 - Opioid use, unspecified, uncomplicated Assessment and Plan: continue methadone at current dose will continue to follow Total time managing care of this patient today __15__ minutes.
[2022-10-20] MEDS: methADONE HCl 20 MG/2 ML ORAL.CONC 5 MG PO (18:12)
[2022-10-20] MEDS: cloNIDine HCL 0.1 MG TABLET PO (20:56)
[2022-10-20 23:34] VITALS: BP 105/53; PULSE 77; RESP 18; TEMP 36.4; O2SAT 98
[2022-10-21] MEDS: oxyCODONE HCl Immed Release 5 MG TABLET PO ×2 (02:52→23:57)
[2022-10-21] MEDS: Morphine Sulfate 4 MG/ML CARTRIDGE IVPUSH ×5 (04:29→22:25)
[2022-10-21] MEDS: Omeprazole 20 MG CAPSULE.DR PO (06:09)
[2022-10-21 07:47] VITALS: BP 111/57; PULSE 72; RESP 18; TEMP 36.2; O2SAT 98
[2022-10-21 08:17] LABS: Hematocrit 29.5 % (37.0-47.0); Hemoglobin 8.9 g/dl (12.0-16.0); Mean Corpuscular HGB Conc 30.2 g/dl (31.0-35.0); Mean Corpuscular Hemoglobin 21.2 pg (27.0-33.0); Mean Corpuscular Volume 70.4 fL (80.0-98.0); Mean Platelet Volume 8.8 fL (9.4-12.3); Platelet Count 612 X10*3/uL (160-400); Red Blood Count 4.19 X10*6/uL (4.20-5.50); Red Cell Distribution Width 20.7 % (11.0-16.0); White Blood Count 9.6 X10*3/uL (4.8-10.8)
--- NOTE | 2022-10-21 08:26 | PM.PNGS ---
Subjective Subjective Date of Service: 10/21/22 <Estefanía Lancaster PA-C - Last Filed: 10/21/22 09:36> 10/21/22 <David Hackett MD - Last Filed: 10/21/22 15:36> Interval history: C/o severe pain. Relieved with medication but wears off too quickly. Nursing unable to access midline this morning. Has been participating a little with PT. <Estefanía Lancaster PA-C - Last Filed: 10/21/22 09:36> Physical Exam Vital Signs: Vital Signs: Last Vital Signs Temp 97.1 F 10/21/22 07:47 Pulse 72 10/21/22 07:47 Resp 18 10/21/22 07:47 BP 111/57 L 10/21/22 07:47 Pulse Ox 98 10/21/22 07:47 O2 Del Method 10/21/22 07:47 O2 Flow Rate 2.0 10/17/22 14:33 BMI result Body Mass Index 25.0 <Estefanía Lancaster PA-C - Last Filed: 10/21/22 09:36> Const: General: no acute distress and alert <Estefanía Lancaster PA-C - Last Filed: 10/21/22 09:36> Orientation/consciousness: patient oriented x3 <CONNOR Medrano Last Filed: 10/21/22 09:36> Resp: Effort & Inspection: normal respiratory effort <Estefanía Lancaster PA-C - Last Filed: 10/21/22 09:36> Skin: General skin exam: no rashes or lesions noted <Estefanía Lancaster PA-C - Last Filed: 10/21/22 09:36> Neuro: General: patient oriented x3 and moves all extremities <Estefanía Lancaster PA-C - Last Filed: 10/21/22 09:36> Extrem: Other: b/l foot dressings intact <CONNOR Medrano Last Filed: 10/21/22 09:36> Objective Data Active Medications Acetaminophen (Acetaminophen 325 Mg Tablet) 650 mg PO Q6H [facility] Clonidine HCl (Clonidine Hcl 0.1 Mg Tablet) 0.1 mg PO BID PRN; Protocol PRN Reason: opioid withdrawal Last Admin: 10/20/22 20:56 Dose: 0.1 mg Documented By: NICOLE Dextrose (Dextrose 50 % 25 Gm/50 Ml Syringe) 25 gm IVPUSH Q15M PRN; Protocol PRN Reason: per Hypoglycemia Standing Ord. Docusate Sodium (Docusate Sodium 100 Mg Capsule) 100 mg PO BID [facility] Last Admin: 10/20/22 20:48 Dose: 100 mg Documented By: NICOLE Enoxaparin Sodium (Enoxaparin Sodium 40 Mg/0.4 Ml Syringe) 40 mg SUBCUT Q24H [facility] Last Admin: 10/20/22 11:38 Dose: 40 mg Documented By: CARMEL Ferrous Sulfate (Ferrous Sulfate 324 Mg Tablet.) 324 mg PO BIDWM [facility] Last Admin: 10/20/22 16:03 Dose: 324 mg Documented By: CARMEL Glucose (Glucose Gel 15 Gm Gel..Gram.) 15 gm PO Q15M PRN; Protocol PRN Reason: per Hypoglycemia Standing Ord. Heparin Sodium (Porcine) (Heparin Sodium,Porcine Flush 50 Units/5 Ml Syringe) 50 units IVFLUSH QSHIFT [facility] Last Admin: 10/20/22 23:58 Dose: 50 units Documented By: NICOLE Melatonin (Melatonin 3 Mg Tablet) 6 mg PO BEDTIME PRN PRN Reason: Sleep Last Admin: 10/20/22 01:54 Dose: 6 mg Documented By: NICOLE Methadone HCl (Methadone Hcl 20 Mg/2 Ml Oral.Conc) 5 mg PO DAILY@1800 [facility] Last Admin: 10/20/22 18:12 Dose: 5 mg Documented By: CARMEL Methadone HCl (Methadone Hcl 20 Mg/2 Ml Oral.Conc) 65 mg PO DAILY [facility] Last Admin: 10/20/22 09:30 Dose: 65 mg Documented By: CARMEL Morphine Sulfate (Morphine Sulfate 4 Mg/Ml Cartridge) 4 mg IVPUSH Q4H PRN; Protocol PRN Reason: Pain, Mild (Pain Scale 1-3) Last Admin: 10/21/22 04:29 Dose: 4 mg Documented By: NICOLE Nicotine (Nicotine 21 Mg Patch.Td24) 21 mg TRANSDERMA DAILY [facility] Last Admin: 10/20/22 09:28 Dose: 21 mg Documented By: CARMEL Omeprazole (Omeprazole 20 Mg Capsule.) 20 mg PO DAILY@0630 [facility] Last Admin: 10/21/22 06:09 Dose: 20 mg Documented By: NICOLE Ondansetron HCl (Ondansetron Hcl 4 Mg/2 Ml Vial) 4 mg IVPUSH Q8H PRN PRN Reason: Nausea and Vomiting Last Admin: 10/14/22 09:13 Dose: 4 mg Documented By: LUCIO Ondansetron HCl (Ondansetron Hcl 4 Mg/2 Ml Vial) 4 mg IVPUSH Q6H PRN PRN Reason: Nausea Oxycodone HCl (Oxycodone Hcl Immed Release 5 Mg Tablet) 5 mg PO Q4H PRN PRN Reason: Pain, Moderate (Pain Scale 4-6 Oxycodone HCl (Oxycodone Hcl Immed Release 5 Mg Tablet) 10 mg PO Q4H PRN PRN Reason: Pain, Severe (Pain Scale 7-10) Pharmacy Consult (Consult Rx Perform Med Rec) 1 each MISCELLANE ONCE PRN PRN Reason: Consult order Polyethylene Glycol (Polyethylene Glycol 3350 17 Gm Powd.Pack) 17 gm PO DAILY PRN PRN Reason: Constipation Sertraline HCl (Sertraline Hcl 25 Mg Tablet) 25 mg PO DAILY [facility] Last Admin: 10/20/22 09:29 Dose: 25 mg Documented By: CARMEL Sodium Chloride (0.9 % Sodium Chloride Flush 3 Ml Syringe) [facility] Last Admin: 10/20/22 23:58 Dose: 3 ml Documented By: NICOLE <Estefanía Lancaster PA-C - Last Filed: 10/21/22 09:36> Labs CBC & Chem 7: 10/21/22 07:43 10/20/22 06:18 <Estefanía Lancaster PA-C - Last Filed: 10/21/22 09:36> Labs: Laboratory Results - last 24 hr 10/18/22 10/21/22 05:46 07:43 MCV 70.4 L MCH 21.2 L MCHC 30.2 L RDW 20.7 H Plt Count 612 H D MPV 8.8 L Absolute Nucleated RBC 0.000 Nucleated RBC % (auto) 0.0 Smear Path Review <Estefanía Lancaster PA-C - Last Filed: 10/21/22 09:36> Procedures Date of Service Date of Service: 10/21/22 <Estefanía Lancaster PA-C - Last Filed: 10/21/22 09:36> Progress Note: A&P Assessment and plan (1) Frostbite of both lower extremities: Status: Acute <Estefanía Lancaster PA-C - Last Filed: 10/21/22 09:36> Assessment and Plan: seen and examined agree with LEONEL guevaraiue pain mgt wound care with dry dressings daily <David Hackett MD - Last Filed: 10/21/22 15:36> (2) S/P transmetatarsal amputation of foot: Status: Acute <Estefanía Lancaster PA-C - Last Filed: 10/21/22 09:36> Assessment and Plan: 27 year old female s/p b/l transmetatarsal amputation for b/l frostbite. Dressings intact this morning- both amp sites clean and flaps viable on dressing change yesterday. Reports continued severe pain- analgesics adjusted this am with tylenol ATC. Pain control will be difficult in light of IVDA. ?Midline functioning. Will return to change dressings once she is able to be medicated. Cont non weight bearing both feet, PT. <Estefanía Lancaster PA-C - Last Filed: 10/21/22 09:36> Time Spent With Patient Time: Total time managing care of this patient today ____ minutes. <Estefanía Lancaster PA-C - Last Filed: 10/21/22 09:36> Quality Stroke Does the patient have a stroke diagnosis?: No <CONNOR Medrano Last Filed: 10/21/22 09:36> VTE Prior VTE?: No <Estefanía Lancaster PA-C - Last Filed: 10/21/22 09:36> VTE Risk Level:: Medical - moderate - high <CONNOR Medrano Last Filed: 10/21/22 09:36> VTE Device Contraindication: N/A - Device Ordered <CONNOR Medrano Last Filed: 10/21/22 09:36> VTE Drug Contraindication: N/A - Med Ordered <Estefanía Lancaster PA-C - Last Filed: 10/21/22 09:36>
[2022-10-21 08:27] LABS: Creatinine Clr Calc Pharmacy 110.8; Estimated Glomerular Filt Rate > 60
[2022-10-21] MEDS: Docusate Sodium 100 MG CAPSULE PO ×2 (08:28→20:04)
[2022-10-21] MEDS: Ferrous Sulfate 324 MG TABLET.DR PO ×2 (08:28→16:10)
[2022-10-21] MEDS: Sertraline HCL 25 MG TABLET PO (08:28)
[2022-10-21] MEDS: 0.9 % Sodium Chloride Flush 3 ML SYRINGE IVFLUSH ×3 (08:29→23:53)
[2022-10-21] MEDS: methADONE HCl 20 MG/2 ML ORAL.CONC 65 MG PO (08:29)
[2022-10-21] MEDS: Heparin Sodium,Porcine Flush 50 UNITS/5 ML SYRINGE IVFLUSH ×3 (08:30→22:26)
[2022-10-21] MEDS: Acetaminophen 325 MG TABLET 650 MG PO ×3 (08:54→20:04)
[2022-10-21] MEDS: Nicotine 21 MG PATCH.TD24 TRANSDERMA (08:54)
[2022-10-21] MEDS: oxyCODONE HCl Immed Release 5 MG TABLET 10 MG PO ×2 (11:45→20:03)
[2022-10-21] MEDS: Enoxaparin Sodium 40 MG/0.4 ML SYRINGE SUBCUT (11:45)
--- NOTE | 2022-10-21 12:55 | HO.PM.IMPN ---
Subjective Subjective Date of Service: 10/21/22 Interval History: f/u on frosbite of feet s/p noé TMA interval history : has pain in feet Physical Exam Vital Signs: Vital Signs: Last Vital Signs Temp 97.1 F 10/21/22 07:47 Pulse 72 10/21/22 07:47 Resp 18 10/21/22 07:47 BP 111/57 L 10/21/22 07:47 Pulse Ox 98 10/21/22 07:47 O2 Del Method 10/21/22 07:47 O2 Flow Rate 2.0 10/17/22 14:33 BMI result Body Mass Index 25.0 Const: Other: General: AO X 3, no acute distress Resp: CTA bilateral CVS: S1,S2,RRR GI: +BS, NT, no distention Skin: No rash, noé feet dressing in place Neuro: motor grossly intact Psych: appropriate affect Objective Data Active Medications Acetaminophen (Acetaminophen 325 Mg Tablet) 650 mg PO Q6H [facility] Last Admin: 10/21/22 08:54 Dose: 650 mg Documented By: CARMEL Clonidine HCl (Clonidine Hcl 0.1 Mg Tablet) 0.1 mg PO BID PRN; Protocol PRN Reason: opioid withdrawal Last Admin: 10/20/22 20:56 Dose: 0.1 mg Documented By: NICOLE Dextrose (Dextrose 50 % 25 Gm/50 Ml Syringe) 25 gm IVPUSH Q15M PRN; Protocol PRN Reason: per Hypoglycemia Standing Ord. Docusate Sodium (Docusate Sodium 100 Mg Capsule) 100 mg PO BID [facility] Last Admin: 10/21/22 08:28 Dose: 100 mg Documented By: CARMEL Enoxaparin Sodium (Enoxaparin Sodium 40 Mg/0.4 Ml Syringe) 40 mg SUBCUT Q24H [facility] Last Admin: 10/21/22 11:45 Dose: 40 mg Documented By: CARMEL Ferrous Sulfate (Ferrous Sulfate 324 Mg Tablet.) 324 mg PO BIDWM [facility] Last Admin: 10/21/22 08:28 Dose: 324 mg Documented By: CARMEL Glucose (Glucose Gel 15 Gm Gel..Gram.) 15 gm PO Q15M PRN; Protocol PRN Reason: per Hypoglycemia Standing Ord. Heparin Sodium (Porcine) (Heparin Sodium,Porcine Flush 50 Units/5 Ml Syringe) 50 units IVFLUSH QSHIFT [facility] Last Admin: 10/21/22 08:30 Dose: 50 units Documented By: CARMEL Melatonin (Melatonin 3 Mg Tablet) 6 mg PO BEDTIME PRN PRN Reason: Sleep Last Admin: 10/20/22 01:54 Dose: 6 mg Documented By: NICOLE Methadone HCl (Methadone Hcl 20 Mg/2 Ml Oral.Conc) 5 mg PO DAILY@1800 [facility] Last Admin: 10/20/22 18:12 Dose: 5 mg Documented By: CARMEL Methadone HCl (Methadone Hcl 20 Mg/2 Ml Oral.Conc) 65 mg PO DAILY [facility] Last Admin: 10/21/22 08:29 Dose: 65 mg Documented By: CARMEL Morphine Sulfate (Morphine Sulfate 4 Mg/Ml Cartridge) 4 mg IVPUSH Q4H PRN; Protocol PRN Reason: Pain, Mild (Pain Scale 1-3) Last Admin: 10/21/22 08:29 Dose: 4 mg Documented By: CARMEL Nicotine (Nicotine 21 Mg Patch.Td24) 21 mg TRANSDERMA DAILY [facility] Last Admin: 10/21/22 08:54 Dose: 21 mg Documented By: CARMEL Omeprazole (Omeprazole 20 Mg Capsule.Dr) 20 mg PO DAILY@0630 [facility] Last Admin: 10/21/22 06:09 Dose: 20 mg Documented By: NICOLE Ondansetron HCl (Ondansetron Hcl 4 Mg/2 Ml Vial) 4 mg IVPUSH Q8H PRN PRN Reason: Nausea and Vomiting Last Admin: 10/14/22 09:13 Dose: 4 mg Documented By: LUCIO Ondansetron HCl (Ondansetron Hcl 4 Mg/2 Ml Vial) 4 mg IVPUSH Q6H PRN PRN Reason: Nausea Oxycodone HCl (Oxycodone Hcl Immed Release 5 Mg Tablet) 5 mg PO Q4H PRN PRN Reason: Pain, Moderate (Pain Scale 4-6 Oxycodone HCl (Oxycodone Hcl Immed Release 5 Mg Tablet) 10 mg PO Q4H PRN PRN Reason: Pain, Severe (Pain Scale 7-10) Last Admin: 10/21/22 11:45 Dose: 10 mg Documented By: CARMEL Pharmacy Consult (Consult Rx Perform Med Rec) 1 each MISCELLANE ONCE PRN PRN Reason: Consult order Polyethylene Glycol (Polyethylene Glycol 3350 17 Gm Powd.Pack) 17 gm PO DAILY PRN PRN Reason: Constipation Sertraline HCl (Sertraline Hcl 25 Mg Tablet) 25 mg PO DAILY [facility] Last Admin: 10/21/22 08:28 Dose: 25 mg Documented By: CARMEL Sodium Chloride (0.9 % Sodium Chloride Flush 3 Ml Syringe) 3 ml IVFLUSH QSHIFT [facility] Last Admin: 10/21/22 08:29 Dose: 3 ml Documented By: CARMEL Labs 10/21/22 07:43 10/21/22 07:43 Labs: Laboratory Results - last 24 hr 10/21/22 10/21/22 07:43 07:43 MCV 70.4 L MCH 21.2 L MCHC 30.2 L RDW 20.7 H Plt Count 612 H D MPV 8.8 L Absolute Nucleated RBC 0.000 Nucleated RBC % (auto) 0.0 Estim Creat Clear Calc 110.8 Estimated GFR > 60 Assessment and Plan (1) Frostbite of both lower extremities: Status: Acute (2) Intertrochanteric fracture of left femur: Status: Acute (3) Acute blood loss anemia: Status: Acute Plan / with substance abuse, history of strep viridan bacteremaia here with pain in the feet, concern for cellulitis and frosbite, fever and sepsis. Frosbite-noé gangrene of toes s/p TMA POD3 continue dressing changes, pain management with morphine, oxy PT acute blood loss anemia postop s/p 1 prbc, H/H improved IVDA + for opioid, amphetamine, cocaine, canabis, fentanyl clonidine for withdrawal addiction med following and started on Methadone,? but I personally advised her against substance . depressed/anxiety: added zoloft. Left hip fracture- old and healing, no pain so no surgery DVT prophylaxis: Lovenox Need for inpatient: Frosbite with necrotic feet-s/p s/p surgery b/l foot day3,acute blood loss anemia postop s/p transfusion -moniter h/h. Time Spent With Patient Time: Total time managing care of this patient today ____ minutes. Quality Stroke Does the patient have a stroke diagnosis?: No VTE Prior VTE?: No VTE Risk Level:: Medical - moderate - high VTE Device Contraindication: N/A - Device Ordered VTE Drug Contraindication: N/A - Med Ordered
--- NOTE | 2022-10-21 14:45 | MHC.CM.PN ---
[facility] HAS A BED FOR THURSDAY IF PATIENT IS DC THEN
[2022-10-21 15:45] VITALS: BP 118/55; PULSE 82; RESP 18; TEMP 36.1; O2SAT 98
[2022-10-21] MEDS: methADONE HCl 20 MG/2 ML ORAL.CONC 5 MG PO (17:51)
[2022-10-22] VITALS: BP 114/57; PULSE 74; RESP 18; TEMP 36.5; O2SAT 97
[2022-10-22] MEDS: Melatonin 3 MG TABLET 6 MG PO
[2022-10-22] MEDS: Acetaminophen 325 MG TABLET 650 MG PO ×4 (02:04→20:54)
[2022-10-22] MEDS: oxyCODONE HCl Immed Release 5 MG TABLET 10 MG PO ×4 (05:18→20:54)
[2022-10-22] MEDS: Omeprazole 20 MG CAPSULE.DR PO (05:20)
[2022-10-22 07:47] VITALS: BP 116/69; PULSE 68; RESP 18; TEMP 36.2; O2SAT 98
[2022-10-22 07:50] LABS: Creatinine Clr Calc Pharmacy 109.2; Estimated Glomerular Filt Rate > 60
[2022-10-22] MEDS: Nicotine 21 MG PATCH.TD24 TRANSDERMA (08:47)
[2022-10-22] MEDS: methADONE HCl 20 MG/2 ML ORAL.CONC 65 MG PO (08:47)
[2022-10-22] MEDS: 0.9 % Sodium Chloride Flush 3 ML SYRINGE IVFLUSH ×3 (08:48→20:55)
[2022-10-22] MEDS: Heparin Sodium,Porcine Flush 50 UNITS/5 ML SYRINGE IVFLUSH ×3 (08:48→23:48)
[2022-10-22] MEDS: Sertraline HCL 25 MG TABLET PO (08:48)
[2022-10-22] MEDS: Ferrous Sulfate 324 MG TABLET.DR PO ×2 (08:48→17:48)
--- NOTE | 2022-10-22 10:18 | MHC.RECOVRN ---
Met with pt to follow up and provide support. Pt laying in bed, awake, watching tv, does not easily engage in conversation, guarded. Appears comfortable. Pt has food containers scattered around the room, has eaten breakfast. Pt reports doing okay but pain is not controlled. Pt also continues to report opioid withdrawal symptoms including diaphoresis throughout the day and night as well as upset stomach. Pt asking about dc plans, educated on short term rehab placement. Denies other questions or concerns at this time.
--- NOTE | 2022-10-22 10:44 | P.PNIM_ITS ---
Subjective Subjective Date of Service: 10/22/22 Interval History: f/u on frosbite of feet s/p noé TMA interval history : pain is well managed Physical Exam Vital Signs: Vital Signs: Last Vital Signs Temp 97.1 F 10/22/22 07:47 Pulse 68 10/22/22 07:47 Resp 18 10/22/22 07:47 BP 116/69 10/22/22 07:47 Pulse Ox 98 10/22/22 07:47 O2 Del Method 10/22/22 07:47 O2 Flow Rate 2.0 10/17/22 14:33 BMI result Body Mass Index 25.0 Const: Other: General: AO X 3, no acute distress Resp: CTA bilateral CVS: S1,S2,RRR GI: +BS, NT, no distention Skin: No rash, noé feet dressing in place Neuro: motor grossly intact Psych: appropriate affect Objective Data Active Medications Acetaminophen (Acetaminophen 325 Mg Tablet) 650 mg PO Q6H [facility] Last Admin: 10/22/22 08:48 Dose: 650 mg Documented By: COMPA Clonidine HCl (Clonidine Hcl 0.1 Mg Tablet) 0.1 mg PO BID PRN; Protocol PRN Reason: opioid withdrawal Last Admin: 10/20/22 20:56 Dose: 0.1 mg Documented By: NICOLE Dextrose (Dextrose 50 % 25 Gm/50 Ml Syringe) 25 gm IVPUSH Q15M PRN; Protocol PRN Reason: per Hypoglycemia Standing Ord. Docusate Sodium (Docusate Sodium 100 Mg Capsule) 100 mg PO BID [facility] Last Admin: 10/22/22 08:53 Dose: Not Given Documented By: COMPA Non-Admin Reason: Patient Refused Enoxaparin Sodium (Enoxaparin Sodium 40 Mg/0.4 Ml Syringe) 40 mg SUBCUT Q24H S Last Admin: 10/21/22 11:45 Dose: 40 mg Documented By: CARMEL Ferrous Sulfate (Ferrous Sulfate 324 Mg Tablet.) 324 mg PO BIDWM [facility] Last Admin: 10/22/22 08:48 Dose: 324 mg Documented By: COMPA Glucose (Glucose Gel 15 Gm Gel..Gram.) 15 gm PO Q15M PRN; Protocol PRN Reason: per Hypoglycemia Standing Ord. Heparin Sodium (Porcine) (Heparin Sodium,Porcine Flush 50 Units/5 Ml Syringe) 50 units IVFLUSH QSHIFT [facility] Last Admin: 10/22/22 08:48 Dose: 50 units Documented By: COMPA Melatonin (Melatonin 3 Mg Tablet) 6 mg PO BEDTIME PRN PRN Reason: Sleep Last Admin: 10/22/22 00:00 Dose: 6 mg Documented By: MELO Methadone HCl (Methadone Hcl 20 Mg/2 Ml Oral.Conc) 5 mg PO DAILY@1800 [facility] Last Admin: 10/21/22 17:51 Dose: 5 mg Documented By: CARMEL Methadone HCl (Methadone Hcl 20 Mg/2 Ml Oral.Conc) 65 mg PO DAILY [facility] Last Admin: 10/22/22 08:47 Dose: 65 mg Documented By: COMPA Morphine Sulfate (Morphine Sulfate 4 Mg/Ml Cartridge) 4 mg IVPUSH Q4H PRN; Protocol PRN Reason: Pain, Mild (Pain Scale 1-3) Last Admin: 10/21/22 22:25 Dose: 4 mg Documented By: JAMESON Nicotine (Nicotine 21 Mg Patch.Td24) 21 mg TRANSDERMA DAILY [facility] Last Admin: 10/22/22 08:47 Dose: 21 mg Documented By: COMPA Omeprazole (Omeprazole 20 Mg Capsule.Dr) 20 mg PO DAILY@0630 [facility] Last Admin: 10/22/22 05:20 Dose: 20 mg Documented By: MELO Ondansetron HCl (Ondansetron Hcl 4 Mg/2 Ml Vial) 4 mg IVPUSH Q8H PRN PRN Reason: Nausea and Vomiting Last Admin: 10/14/22 09:13 Dose: 4 mg Documented By: LUCIO Ondansetron HCl (Ondansetron Hcl 4 Mg/2 Ml Vial) 4 mg IVPUSH Q6H PRN PRN Reason: Nausea Oxycodone HCl (Oxycodone Hcl Immed Release 5 Mg Tablet) 5 mg PO Q4H PRN PRN Reason: Pain, Moderate (Pain Scale 4-6 Last Admin: 10/21/22 23:57 Dose: 5 mg Documented By: MELO Oxycodone HCl (Oxycodone Hcl Immed Release 5 Mg Tablet) 10 mg PO Q4H PRN PRN Reason: Pain, Severe (Pain Scale 7-10) Last Admin: 10/22/22 05:18 Dose: 10 mg Documented By: MELO Pharmacy Consult (Consult Rx Perform Med Rec) 1 each MISCELLANE ONCE PRN PRN Reason: Consult order Polyethylene Glycol (Polyethylene Glycol 3350 17 Gm Powd.Pack) 17 gm PO DAILY PRN PRN Reason: Constipation Sertraline HCl (Sertraline Hcl 25 Mg Tablet) 25 mg PO DAILY [facility] Last Admin: 10/22/22 08:48 Dose: 25 mg Documented By: COMPA Sodium Chloride (0.9 % Sodium Chloride Flush 3 Ml Syringe) 3 ml IVFLUSH QSHIFT [facility] Last Admin: 10/22/22 08:48 Dose: 3 ml Documented By: COMPA Labs 10/21/22 07:43 10/22/22 06:06 Labs: Laboratory Results - last 24 hr 10/22/22 06:06 Estim Creat Clear Calc 109.2 Estimated GFR > 60 Assessment and Plan (1) Frostbite of both lower extremities: Status: Acute (2) Intertrochanteric fracture of left femur: Status: Acute (3) Acute blood loss anemia: Status: Acute Plan / with substance abuse, history of strep viridan bacteremaia here with pain in the feet, concern for cellulitis and frosbite, fever and sepsis. Frosbite-oné gangrene of toes s/p TMA on 10/17 continue dressing changes, pain management with morphine, oxy PT acute blood loss anemia postop s/p 1 prbc, H/H improved IVDA + for opioid, amphetamine, cocaine, canabis, fentanyl clonidine for withdrawal addiction med following and started on Methadone,? but I personally advised her against substance . depressed/anxiety: added zoloft. Left hip fracture- old and healing, no pain so no surgery DVT prophylaxis: Lovenox Need for inpatient: post op care, awaiting placement Time Spent With Patient Time: Total time managing care of this patient today ____ minutes. Quality Stroke Does the patient have a stroke diagnosis?: No VTE Prior VTE?: No VTE Risk Level:: Medical - moderate - high VTE Device Contraindication: N/A - Device Ordered VTE Drug Contraindication: N/A - Med Ordered
[2022-10-22] MEDS: Enoxaparin Sodium 40 MG/0.4 ML SYRINGE SUBCUT (11:02)
[2022-10-22] MEDS: Morphine Sulfate 4 MG/ML CARTRIDGE IVPUSH ×2 (12:58→17:47)
--- NOTE | 2022-10-22 13:34 | P.PNGS_ITS ---
Subjective Subjective Date of Service: 10/22/22 <Estefanía Lancaster PA-C - Last Filed: 10/22/22 13:41> 10/23/22 <David Hackett MD - Last Filed: 10/23/22 09:20> Interval history: Was comfortable on PO oxycodone for pain control but refusing to do dressing change without IV morphine. Has been doing PT exercises. <Estefanía Lancaster PA-C - Last Filed: 10/22/22 13:41> Physical Exam Vital Signs: Vital Signs: Last Vital Signs Temp 97.1 F 10/22/22 07:47 Pulse 68 10/22/22 07:47 Resp 18 10/22/22 07:47 BP 116/69 10/22/22 07:47 Pulse Ox 98 10/22/22 07:47 O2 Del Method 10/22/22 07:47 O2 Flow Rate 2.0 10/17/22 14:33 BMI result Body Mass Index 25.0 <Estefanía Lancaster PA-C - Last Filed: 10/22/22 13:41> Const: General: comfortable, no acute distress and alert <Estefanía Lancaster PA-C - Last Filed: 10/22/22 13:41> Orientation/consciousness: patient oriented x3 <Estefanía Lancaster PA-C - Last Filed: 10/22/22 13:41> Resp: Effort & Inspection: normal respiratory effort <Estefanía Lancaster PA-C - Last Filed: 10/22/22 13:41> Skin: Other: b/l transmet amp site: left and right amputation sites are healing well for the most part, flaps viable, there is a small area centrally on the left foot where the suture has pulled through; eschar of dorsum of remaining left foot persists but is not progressing and beginning to scab in some areas <Estefanía Lancaster PA-C - Last Filed: 10/22/22 13:41> General skin exam: no rashes or lesions noted <CONNOR Medrano Last Filed: 10/22/22 13:41> Neuro: General: patient oriented x3 <CONNOR Medrano Last Filed: 10/22/22 13:41> Objective Data Active Medications Acetaminophen (Acetaminophen 325 Mg Tablet) 650 mg PO Q6H [facility] Last Admin: 10/22/22 08:48 Dose: 650 mg Documented By: COMPA Clonidine HCl (Clonidine Hcl 0.1 Mg Tablet) 0.1 mg PO BID PRN; Protocol PRN Reason: opioid withdrawal Last Admin: 10/20/22 20:56 Dose: 0.1 mg Documented By: NICOLE Dextrose (Dextrose 50 % 25 Gm/50 Ml Syringe) 25 gm IVPUSH Q15M PRN; Protocol PRN Reason: per Hypoglycemia Standing Ord. Docusate Sodium (Docusate Sodium 100 Mg Capsule) 100 mg PO BID [facility] Last Admin: 10/22/22 08:53 Dose: Not Given Documented By: COMPA Non-Admin Reason: Patient Refused Enoxaparin Sodium (Enoxaparin Sodium 40 Mg/0.4 Ml Syringe) 40 mg SUBCUT Q24H [facility] Last Admin: 10/22/22 11:02 Dose: 40 mg Documented By: COMPA Ferrous Sulfate (Ferrous Sulfate 324 Mg Tablet.) 324 mg PO BIDWM [facility] Last Admin: 10/22/22 08:48 Dose: 324 mg Documented By: COMPA Glucose (Glucose Gel 15 Gm Gel..Gram.) 15 gm PO Q15M PRN; Protocol PRN Reason: per Hypoglycemia Standing Ord. Heparin Sodium (Porcine) (Heparin Sodium,Porcine Flush 50 Units/5 Ml Syringe) 50 units IVFLUSH QSHIFT [facility] Last Admin: 10/22/22 08:48 Dose: 50 units Documented By: COMPA Melatonin (Melatonin 3 Mg Tablet) 6 mg PO BEDTIME PRN PRN Reason: Sleep Last Admin: 10/22/22 00:00 Dose: 6 mg Documented By: MELO Methadone HCl (Methadone Hcl 20 Mg/2 Ml Oral.Conc) 5 mg PO DAILY@1800 [facility] Last Admin: 10/21/22 17:51 Dose: 5 mg Documented By: CARMEL Methadone HCl (Methadone Hcl 20 Mg/2 Ml Oral.Conc) 65 mg PO DAILY [facility] Last Admin: 10/22/22 08:47 Dose: 65 mg Documented By: COMPA Morphine Sulfate (Morphine Sulfate 4 Mg/Ml Cartridge) 4 mg IVPUSH Q4H PRN; Protocol PRN Reason: Pain, Mild (Pain Scale 1-3) Last Admin: 10/22/22 12:58 Dose: 4 mg Documented By: COMPA Nicotine (Nicotine 21 Mg Patch.Td24) 21 mg TRANSDERMA DAILY [facility] Last Admin: 10/22/22 08:47 Dose: 21 mg Documented By: COMPA Omeprazole (Omeprazole 20 Mg Capsule.Dr) 20 mg PO DAILY@0630 [facility] Last Admin: 10/22/22 05:20 Dose: 20 mg Documented By: MELO Ondansetron HCl (Ondansetron Hcl 4 Mg/2 Ml Vial) 4 mg IVPUSH Q8H PRN PRN Reason: Nausea and Vomiting Last Admin: 10/14/22 09:13 Dose: 4 mg Documented By: LUCIO Ondansetron HCl (Ondansetron Hcl 4 Mg/2 Ml Vial) 4 mg IVPUSH Q6H PRN PRN Reason: Nausea Oxycodone HCl (Oxycodone Hcl Immed Release 5 Mg Tablet) 5 mg PO Q4H PRN PRN Reason: Pain, Moderate (Pain Scale 4-6 Last Admin: 10/21/22 23:57 Dose: 5 mg Documented By: MELO Oxycodone HCl (Oxycodone Hcl Immed Release 5 Mg Tablet) 10 mg PO Q4H PRN PRN Reason: Pain, Severe (Pain Scale 7-10) Last Admin: 10/22/22 11:02 Dose: 10 mg Documented By: COMPA Pharmacy Consult (Consult Rx Perform Med Rec) 1 each MISCELLANE ONCE PRN PRN Reason: Consult order Polyethylene Glycol (Polyethylene Glycol 3350 17 Gm Powd.Pack) 17 gm PO DAILY PRN PRN Reason: Constipation Sertraline HCl (Sertraline Hcl 25 Mg Tablet) 25 mg PO DAILY [facility] Last Admin: 10/22/22 08:48 Dose: 25 mg Documented By: COMPA Sodium Chloride (0.9 % Sodium Chloride Flush 3 Ml Syringe) 3 ml IVFLUSH QSHIFT [facility] Last Admin: 10/22/22 08:48 Dose: 3 ml Documented By: COMPA <Estefanía Lancaster PA-C - Last Filed: 10/22/22 13:41> Labs CBC & Chem 7: 10/21/22 07:43 10/22/22 06:06 <Estefanía Lancaster PA-C - Last Filed: 10/22/22 13:41> Labs: Laboratory Results - last 24 hr 10/22/22 06:06 Estim Creat Clear Calc 109.2 Estimated GFR > 60 <Estefanía Lancaster PA-C - Last Filed: 10/22/22 13:41> Procedures Date of Service Date of Service: 10/22/22 <Estefanía Lancaster PA-C - Last Filed: 10/22/22 13:41> Progress Note: A&P Assessment and plan (1) S/P transmetatarsal amputation of foot: Status: Acute <Estefanía Lancaster PA-C - Last Filed: 10/22/22 13:41> Assessment and Plan: Seen and examined independently Agree with LEONEL Lancaster <David Hackett MD - Last Filed: 10/23/22 09:20> Assessment and Plan: 27 year old female s/p b/l transmetatarsal amputation for b/l frostbite. Dressings intact this morning- both amp sites clean and flaps continue to appear viable. There is an area centrally on the left foot where a suture has pulled through that needs to be watched closely. Cont dressing changes daily, non weight bearing both feet, PT. Possible discharge to [facility] tomorrow. <Estefanía Lancaster PA-C - Last Filed: 10/22/22 13:41> Time Spent With Patient Time: Total time managing care of this patient today ____ minutes. <Estefanía Lancaster PA-C - Last Filed: 10/22/22 13:41> Quality Stroke Does the patient have a stroke diagnosis?: No <Estefanía Lancaster PA-C - Last Filed: 10/22/22 13:41> VTE Prior VTE?: No <Estefnaía Lancaster PA-C - Last Filed: 10/22/22 13:41> VTE Risk Level:: Medical - moderate - high <CONNOR Medrano Last Filed: 10/22/22 13:41> VTE Device Contraindication: N/A - Device Ordered <Estefanía Lancaster PA-C - Last Filed: 10/22/22 13:41> VTE Drug Contraindication: N/A - Med Ordered <Estefanía Lancaster PA-C - Last Filed: 10/22/22 13:41>
[2022-10-22 14:59] VITALS: BP 102/60; PULSE 136; RESP 18; TEMP 36.5; O2SAT 98
[2022-10-22] MEDS: methADONE HCl 20 MG/2 ML ORAL.CONC 5 MG PO (17:47)
[2022-10-22 19:21] VITALS: BP 117/57; PULSE 76; RESP 18; TEMP 37.4; O2SAT 98
[2022-10-22] MEDS: Docusate Sodium 100 MG CAPSULE PO (20:54)
[2022-10-22 23:52] VITALS: BP 111/56; PULSE 78; RESP 15; TEMP 36.1; O2SAT 94
[2022-10-23] MEDS: Morphine Sulfate 4 MG/ML CARTRIDGE IVPUSH ×3 (02:45→17:45)
[2022-10-23] MEDS: Acetaminophen 325 MG TABLET 650 MG PO ×3 (02:45→21:35)
[2022-10-23] MEDS: Omeprazole 20 MG CAPSULE.DR PO (05:34)
[2022-10-23 08:00] VITALS: BP 115/69; PULSE 66; RESP 16; TEMP 36.5; O2SAT 98
[2022-10-23] MEDS: Ferrous Sulfate 324 MG TABLET.DR PO ×2 (08:01→17:45)
[2022-10-23] MEDS: 0.9 % Sodium Chloride Flush 3 ML SYRINGE IVFLUSH ×3 (08:01→21:35)
[2022-10-23] MEDS: Sertraline HCL 25 MG TABLET PO (08:01)
[2022-10-23] MEDS: Nicotine 21 MG PATCH.TD24 TRANSDERMA (08:01)
[2022-10-23] MEDS: oxyCODONE HCl Immed Release 5 MG TABLET 10 MG PO ×2 (08:01→21:35)
[2022-10-23] MEDS: Heparin Sodium,Porcine Flush 50 UNITS/5 ML SYRINGE IVFLUSH ×2 (08:01→15:33)
[2022-10-23] MEDS: Docusate Sodium 100 MG CAPSULE PO ×2 (08:01→21:35)
[2022-10-23] MEDS: methADONE HCl 20 MG/2 ML ORAL.CONC 65 MG PO (08:02)
--- NOTE | 2022-10-23 09:20 | P.PNGS_ITS ---
Subjective Subjective Date of Service: 10/23/22 Interval history: Still asks for pain meds Says she has pain on left hip and both amputation sites No events reported Physical Exam Vital Signs: Vital Signs: Last Vital Signs Temp 97.7 F 10/23/22 08:00 Pulse 66 10/23/22 08:00 Resp 16 10/23/22 08:00 BP 115/69 10/23/22 08:00 Pulse Ox 98 10/23/22 08:00 O2 Del Method 10/23/22 08:00 O2 Flow Rate 2.0 10/17/22 14:33 BMI result Body Mass Index 25.0 Const: General: comfortable and no acute distress Resp: Effort & Inspection: normal respiratory effort Extrem: Other: Both amputation sites healing well, some sloughing off on the dorsum of the left foot, otherwise both incisions intact with sutures in place Objective Data Active Medications Acetaminophen (Acetaminophen 325 Mg Tablet) 650 mg PO Q6H [facility] Last Admin: 10/23/22 02:45 Dose: 650 mg Documented By: MELO Clonidine HCl (Clonidine Hcl 0.1 Mg Tablet) 0.1 mg PO BID PRN; Protocol PRN Reason: opioid withdrawal Last Admin: 10/20/22 20:56 Dose: 0.1 mg Documented By: NICOLE Dextrose (Dextrose 50 % 25 Gm/50 Ml Syringe) 25 gm IVPUSH Q15M PRN; Protocol PRN Reason: per Hypoglycemia Standing Ord. Docusate Sodium (Docusate Sodium 100 Mg Capsule) 100 mg PO BID [facility] Last Admin: 10/23/22 08:01 Dose: 100 mg Documented By: DARVIN Enoxaparin Sodium (Enoxaparin Sodium 40 Mg/0.4 Ml Syringe) 40 mg SUBCUT Q24H [facility] Last Admin: 10/22/22 11:02 Dose: 40 mg Documented By: COMPA Ferrous Sulfate (Ferrous Sulfate 324 Mg Tablet.Dr) 324 mg PO BIDWM [facility] Last Admin: 10/23/22 08:01 Dose: 324 mg Documented By: DARVIN Glucose (Glucose Gel 15 Gm Gel..Gram.) 15 gm PO Q15M PRN; Protocol PRN Reason: per Hypoglycemia Standing Ord. Heparin Sodium (Porcine) (Heparin Sodium,Porcine Flush 50 Units/5 Ml Syringe) 50 units IVFLUSH QSHIFT [facility] Last Admin: 10/23/22 08:01 Dose: 50 units Documented By: DARVIN Melatonin (Melatonin 3 Mg Tablet) 6 mg PO BEDTIME PRN PRN Reason: Sleep Last Admin: 10/22/22 00:00 Dose: 6 mg Documented By: MELO Methadone HCl (Methadone Hcl 20 Mg/2 Ml Oral.Conc) 5 mg PO DAILY@1800 [facility] Last Admin: 10/22/22 17:47 Dose: 5 mg Documented By: COMPA Methadone HCl (Methadone Hcl 20 Mg/2 Ml Oral.Conc) 65 mg PO DAILY [facility] Last Admin: 10/23/22 08:02 Dose: 65 mg Documented By: DARVIN Morphine Sulfate (Morphine Sulfate 4 Mg/Ml Cartridge) 4 mg IVPUSH Q4H PRN; Protocol PRN Reason: Pain, Mild (Pain Scale 1-3) Last Admin: 10/23/22 02:45 Dose: 4 mg Documented By: MELO Nicotine (Nicotine 21 Mg Patch.Td24) 21 mg TRANSDERMA DAILY [facility] Last Admin: 10/23/22 08:01 Dose: 21 mg Documented By: DARVIN Omeprazole (Omeprazole 20 Mg Capsule.Dr) 20 mg PO DAILY@0630 [facility] Last Admin: 10/23/22 05:34 Dose: 20 mg Documented By: MELO Ondansetron HCl (Ondansetron Hcl 4 Mg/2 Ml Vial) 4 mg IVPUSH Q8H PRN PRN Reason: Nausea and Vomiting Last Admin: 10/14/22 09:13 Dose: 4 mg Documented By: LUCIO Ondansetron HCl (Ondansetron Hcl 4 Mg/2 Ml Vial) 4 mg IVPUSH Q6H PRN PRN Reason: Nausea Oxycodone HCl (Oxycodone Hcl Immed Release 5 Mg Tablet) 5 mg PO Q4H PRN PRN Reason: Pain, Moderate (Pain Scale 4-6 Last Admin: 10/21/22 23:57 Dose: 5 mg Documented By: MELO Oxycodone HCl (Oxycodone Hcl Immed Release 5 Mg Tablet) 10 mg PO Q4H PRN PRN Reason: Pain, Severe (Pain Scale 7-10) Last Admin: 10/23/22 08:01 Dose: 10 mg Documented By: DARVIN Pharmacy Consult (Consult Rx Perform Med Rec) 1 each MISCELLANE ONCE PRN PRN Reason: Consult order Polyethylene Glycol (Polyethylene Glycol 3350 17 Gm Powd.Pack) 17 gm PO DAILY PRN PRN Reason: Constipation Sertraline HCl (Sertraline Hcl 25 Mg Tablet) 25 mg PO DAILY [facility] Last Admin: 10/23/22 08:01 Dose: 25 mg Documented By: DARVIN Sodium Chloride (0.9 % Sodium Chloride Flush 3 Ml Syringe) 3 ml IVFLUSH QSHIFT [facility] Last Admin: 10/23/22 08:01 Dose: 3 ml Documented By: DARVIN Labs 10/21/22 07:43 10/22/22 06:06 Procedures Date of Service Date of Service: 10/23/22 Progress Note: A&P Assessment and plan (1) S/P transmetatarsal amputation of foot: Status: Acute Assessment and Plan: I have changed her dressings Continue dry dressings daily, wrapped both feet with Kerlix roll and Martínez bandage No weight-bearing for now I can see her in the office in about 2-3 weeks for removal of sutures She is being placed to rehab Time Spent With Patient Time: Total time managing care of this patient today ____ minutes. Quality Stroke Does the patient have a stroke diagnosis?: No VTE Prior VTE?: No VTE Risk Level:: Medical - moderate - high VTE Device Contraindication: N/A - Device Ordered VTE Drug Contraindication: N/A - Med Ordered
--- NOTE | 2022-10-23 09:41 | HO.PM.IMPN ---
Subjective Subjective Date of Service: 10/23/22 Interval History: f/u on frosbite of feet s/p noé TMA interval history : pain is well managed, dressing changed today by Dr. cleary, I was present Review of Systems . Physical Exam Vital Signs: Vital Signs: Last Vital Signs Temp 97.7 F 10/23/22 08:00 Pulse 66 10/23/22 08:00 Resp 16 10/23/22 08:00 BP 115/69 10/23/22 08:00 Pulse Ox 98 10/23/22 08:00 O2 Del Method 10/23/22 08:00 O2 Flow Rate 2.0 10/17/22 14:33 BMI result Body Mass Index 25.0 Const: Other: General: AO X 3, no acute distress Resp: CTA bilateral CVS: S1,S2,RRR GI: +BS, NT, no distention Skin: No rash, noé feet dressing in place Neuro: motor grossly intact Psych: appropriate affect Objective Data Active Medications Acetaminophen (Acetaminophen 325 Mg Tablet) 650 mg PO Q6H [facility] Last Admin: 10/23/22 02:45 Dose: 650 mg Documented By: MELO Clonidine HCl (Clonidine Hcl 0.1 Mg Tablet) 0.1 mg PO BID PRN; Protocol PRN Reason: opioid withdrawal Last Admin: 10/20/22 20:56 Dose: 0.1 mg Documented By: NICOLE Dextrose (Dextrose 50 % 25 Gm/50 Ml Syringe) 25 gm IVPUSH Q15M PRN; Protocol PRN Reason: per Hypoglycemia Standing Ord. Docusate Sodium (Docusate Sodium 100 Mg Capsule) 100 mg PO BID [facility] Last Admin: 10/23/22 08:01 Dose: 100 mg Documented By: DARVIN Enoxaparin Sodium (Enoxaparin Sodium 40 Mg/0.4 Ml Syringe) 40 mg SUBCUT Q24H [facility] Last Admin: 10/22/22 11:02 Dose: 40 mg Documented By: COMPA Ferrous Sulfate (Ferrous Sulfate 324 Mg Tablet.) 324 mg PO BIDWM [facility] Last Admin: 10/23/22 08:01 Dose: 324 mg Documented By: DARVIN Glucose (Glucose Gel 15 Gm Gel..Gram.) 15 gm PO Q15M PRN; Protocol PRN Reason: per Hypoglycemia Standing Ord. Heparin Sodium (Porcine) (Heparin Sodium,Porcine Flush 50 Units/5 Ml Syringe) 50 units IVFLUSH QSHIFT [facility] Last Admin: 10/23/22 08:01 Dose: 50 units Documented By: DARVIN Melatonin (Melatonin 3 Mg Tablet) 6 mg PO BEDTIME PRN PRN Reason: Sleep Last Admin: 10/22/22 00:00 Dose: 6 mg Documented By: MELO Methadone HCl (Methadone Hcl 20 Mg/2 Ml Oral.Conc) 5 mg PO DAILY@1800 [facility] Last Admin: 10/22/22 17:47 Dose: 5 mg Documented By: COMPA Methadone HCl (Methadone Hcl 20 Mg/2 Ml Oral.Conc) 65 mg PO DAILY [facility] Last Admin: 10/23/22 08:02 Dose: 65 mg Documented By: DARVIN Morphine Sulfate (Morphine Sulfate 4 Mg/Ml Cartridge) 4 mg IVPUSH Q4H PRN; Protocol PRN Reason: Pain, Mild (Pain Scale 1-3) Last Admin: 10/23/22 02:45 Dose: 4 mg Documented By: MELO Nicotine (Nicotine 21 Mg Patch.Td24) 21 mg TRANSDERMA DAILY [facility] Last Admin: 10/23/22 08:01 Dose: 21 mg Documented By: DARVIN Omeprazole (Omeprazole 20 Mg Capsule.Dr) 20 mg PO DAILY@0630 [facility] Last Admin: 10/23/22 05:34 Dose: 20 mg Documented By: MELO Ondansetron HCl (Ondansetron Hcl 4 Mg/2 Ml Vial) 4 mg IVPUSH Q8H PRN PRN Reason: Nausea and Vomiting Last Admin: 10/14/22 09:13 Dose: 4 mg Documented By: LUCIO Ondansetron HCl (Ondansetron Hcl 4 Mg/2 Ml Vial) 4 mg IVPUSH Q6H PRN PRN Reason: Nausea Oxycodone HCl (Oxycodone Hcl Immed Release 5 Mg Tablet) 5 mg PO Q4H PRN PRN Reason: Pain, Moderate (Pain Scale 4-6 Last Admin: 10/21/22 23:57 Dose: 5 mg Documented By: MELO Oxycodone HCl (Oxycodone Hcl Immed Release 5 Mg Tablet) 10 mg PO Q4H PRN PRN Reason: Pain, Severe (Pain Scale 7-10) Last Admin: 10/23/22 08:01 Dose: 10 mg Documented By: DARVIN Pharmacy Consult (Consult Rx Perform Med Rec) 1 each MISCELLANE ONCE PRN PRN Reason: Consult order Polyethylene Glycol (Polyethylene Glycol 3350 17 Gm Powd.Pack) 17 gm PO DAILY PRN PRN Reason: Constipation Sertraline HCl (Sertraline Hcl 25 Mg Tablet) 25 mg PO DAILY [facility] Last Admin: 10/23/22 08:01 Dose: 25 mg Documented By: DARVIN Sodium Chloride (0.9 % Sodium Chloride Flush 3 Ml Syringe) 3 ml IVFLUSH QSHIFT [facility] Last Admin: 10/23/22 08:01 Dose: 3 ml Documented By: DARVIN Labs 10/21/22 07:43 10/22/22 06:06 Assessment and Plan (1) Frostbite of both lower extremities: Status: Acute (2) Intertrochanteric fracture of left femur: Status: Acute (3) Acute blood loss anemia: Status: Acute Plan / with substance abuse, history of strep viridan bacteremaia here with pain in the feet, concern for cellulitis and frosbite, fever and sepsis. Frosbite-noé gangrene of toes s/p TMA on 10/17 continue dressing changes, pain management with morphine, oxy PT . Dressing changed today acute blood loss anemia postop s/p 1 prbc, H/H improved IVDA + for opioid, amphetamine, cocaine, canabis, fentanyl clonidine for withdrawal addiction med following and started on Methadone,? but I personally advised her against substance . depressed/anxiety: added zoloft. Left hip fracture- old and healing, no pain so no surgery DVT prophylaxis: Lovenox Need for inpatient: post op care, awaiting placement Time Spent With Patient Time: Total time managing care of this patient today ____ minutes. Quality Stroke Does the patient have a stroke diagnosis?: No VTE Prior VTE?: No VTE Risk Level:: Medical - moderate - high VTE Device Contraindication: N/A - Device Ordered VTE Drug Contraindication: N/A - Med Ordered
--- NOTE | 2022-10-23 11:35 | MHC.CM.PN ---
Addendum entered by Yanci Sharpe 10/23/22 15:51: AFTER FURTHER DISCUSSION WITH PT. IT APPEARS SHE DOES NOT WISH TO RETURN TO THE [facility] AFTER REHAB SHE REPORTS SHE WILL BE STAYING IN [place], [facility]AR [facility]. THIS WILL BE PASSED ONTO RECOVERY NURSE TOMORROW TO DETERMINE IF PT CAN BE SET UP WITH A CLINIC IN THAT AREA ONCE PT IS ACCEPTED AT A CLINIC, [facility] IN [place] WILL GUEST DOSE HER WHILE SHE IS IN STR Addendum entered by Yanci Sharpe 10/23/22 12:15: CM RECEIVED A CALL FROM [facility] WHO STATED SHE TRIED TO SET PT UP FOR GUEST DOSING AT THEIR USUAL CLINIC HOWEVER THEY REFUSED TO TAKE HER BECAUSE SHE IS NOT ESTABLISHED AT A [facility] CLINIC OF YET. RECOVERY NURSE WILL ATTEMPT TO SET PT UP AT [facility] IN [place] FOR ONGOING CARE, LIAISON WILL THEN ATTEMPT TO SET HER UP FOR GUEST DOSING AT THE CLINIC NEAR THE [facility] Original Note: PT MEDICALLY CLEARED TO DC TO THE MEDICAL CENTER HAS INDICATED THEY HAVE A BED TODAY AND THEY ARE ABLE TO ARRANGE HER [facility] CLINIC CM MET WITH PT AND ANSWERED HER QUESTIONS REGARDING STR PT IS AWARE SHE WILL DC THIS AFTERNOON AT 1400 HOURS VIA BLS RN AND MD AWARE
[2022-10-23 15:22] VITALS: BP 123/73; PULSE 82; RESP 17; TEMP 36.3; O2SAT 98
[2022-10-23] MEDS: methADONE HCl 20 MG/2 ML ORAL.CONC 5 MG PO (17:49)
[2022-10-23 23:53] VITALS: BP 110/58; PULSE 78; RESP 18; TEMP 36.6; O2SAT 99
[2022-10-24] MEDS: Morphine Sulfate 4 MG/ML CARTRIDGE IVPUSH ×2 (00:19→10:49)
[2022-10-24] MEDS: Heparin Sodium,Porcine Flush 50 UNITS/5 ML SYRINGE IVFLUSH ×4 (00:19→23:49)
[2022-10-24] MEDS: Acetaminophen 325 MG TABLET 650 MG PO ×4 (03:35→20:17)
[2022-10-24] MEDS: oxyCODONE HCl Immed Release 5 MG TABLET PO (03:35)
[2022-10-24] MEDS: Omeprazole 20 MG CAPSULE.DR PO (05:32)
[2022-10-24] MEDS: Nicotine 21 MG PATCH.TD24 TRANSDERMA (07:22)
[2022-10-24] MEDS: Docusate Sodium 100 MG CAPSULE PO ×2 (07:22→20:17)
[2022-10-24] MEDS: oxyCODONE HCl Immed Release 5 MG TABLET 10 MG PO ×3 (07:22→20:16)
[2022-10-24] MEDS: 0.9 % Sodium Chloride Flush 3 ML SYRINGE IVFLUSH ×3 (07:22→20:17)
[2022-10-24] MEDS: Sertraline HCL 25 MG TABLET PO (07:23)
[2022-10-24] MEDS: Ferrous Sulfate 324 MG TABLET.DR PO ×2 (07:23→15:19)
[2022-10-24] MEDS: methADONE HCl 20 MG/2 ML ORAL.CONC 65 MG PO (07:23)
[2022-10-24 07:50] VITALS: BP 119/68; PULSE 66; O2SAT 100
[2022-10-24 08:00] VITALS: BP 119/68; PULSE 66; RESP 17; TEMP 36.8; O2SAT 100
--- NOTE | 2022-10-24 09:24 | HO.PM.IMPN ---
Subjective Subjective Date of Service: 10/24/22 Interval History: f/u on frosbite of feet s/p noé TMA interval history : usual pain Physical Exam Vital Signs: Vital Signs: Last Vital Signs Temp 98.2 F 10/24/22 08:00 Pulse 66 10/24/22 08:00 Resp 17 10/24/22 08:00 BP 119/68 10/24/22 08:00 Pulse Ox 100 10/24/22 08:00 O2 Del Method 10/24/22 08:00 O2 Flow Rate 2.0 10/17/22 14:33 BMI result Body Mass Index 25.0 Const: Other: General: AO X 3, no acute distress Resp: CTA bilateral CVS: S1,S2,RRR GI: +BS, NT, no distention Skin: No rash, noé feet dressing in place Neuro: motor grossly intact Psych: appropriate affect Objective Data Active Medications Acetaminophen (Acetaminophen 325 Mg Tablet) 650 mg PO Q6H [facility] Last Admin: 10/24/22 03:35 Dose: 650 mg Documented By: MELO Clonidine HCl (Clonidine Hcl 0.1 Mg Tablet) 0.1 mg PO BID PRN; Protocol PRN Reason: opioid withdrawal Last Admin: 10/20/22 20:56 Dose: 0.1 mg Documented By: NICOLE Dextrose (Dextrose 50 % 25 Gm/50 Ml Syringe) 25 gm IVPUSH Q15M PRN; Protocol PRN Reason: per Hypoglycemia Standing Ord. Docusate Sodium (Docusate Sodium 100 Mg Capsule) 100 mg PO BID [facility] Last Admin: 10/24/22 07:22 Dose: 100 mg Documented By: ROSE Enoxaparin Sodium (Enoxaparin Sodium 40 Mg/0.4 Ml Syringe) 40 mg SUBCUT Q24H [facility] Last Admin: 10/23/22 12:27 Dose: Not Given Documented By: DARVIN Non-Admin Reason: Patient Refused Ferrous Sulfate (Ferrous Sulfate 324 Mg Tablet.) 324 mg PO BIDWM [facility] Last Admin: 10/24/22 07:23 Dose: 324 mg Documented By: ROSE Glucose (Glucose Gel 15 Gm Gel..Gram.) 15 gm PO Q15M PRN; Protocol PRN Reason: per Hypoglycemia Standing Ord. Heparin Sodium (Porcine) (Heparin Sodium,Porcine Flush 50 Units/5 Ml Syringe) [facility] Admin: 10/24/22 07:22 Dose: 50 units Documented By: ROSE Melatonin (Melatonin 3 Mg Tablet) 6 mg PO BEDTIME PRN PRN Reason: Sleep Last Admin: 10/22/22 00:00 Dose: 6 mg Documented By: MELO Methadone HCl (Methadone Hcl 20 Mg/2 Ml Oral.Conc) 5 mg PO DAILY@1800 [facility] Last Admin: 10/23/22 17:49 Dose: 5 mg Documented By: DARVIN Methadone HCl (Methadone Hcl 20 Mg/2 Ml Oral.Conc) 65 mg PO DAILY [facility] Last Admin: 10/24/22 07:23 Dose: 65 mg Documented By: ROSE Morphine Sulfate (Morphine Sulfate 4 Mg/Ml Cartridge) 4 mg IVPUSH Q4H PRN; Protocol PRN Reason: Pain, Mild (Pain Scale 1-3) Last Admin: 10/24/22 00:19 Dose: 4 mg Documented By: MELO Nicotine (Nicotine 21 Mg Patch.Td24) 21 mg TRANSDERMA DAILY [facility] Last Admin: 10/24/22 07:22 Dose: 21 mg Documented By: ROSE Omeprazole (Omeprazole 20 Mg Capsule.Dr) 20 mg PO DAILY@0630 [facility] Last Admin: 10/24/22 05:32 Dose: 20 mg Documented By: MELO Ondansetron HCl (Ondansetron Hcl 4 Mg/2 Ml Vial) 4 mg IVPUSH Q8H PRN PRN Reason: Nausea and Vomiting Last Admin: 10/14/22 09:13 Dose: 4 mg Documented By: LUCIO Ondansetron HCl (Ondansetron Hcl 4 Mg/2 Ml Vial) 4 mg IVPUSH Q6H PRN PRN Reason: Nausea Oxycodone HCl (Oxycodone Hcl Immed Release 5 Mg Tablet) 5 mg PO Q4H PRN PRN Reason: Pain, Moderate (Pain Scale 4-6 Last Admin: 10/24/22 03:35 Dose: 5 mg Documented By: MELO Oxycodone HCl (Oxycodone Hcl Immed Release 5 Mg Tablet) 10 mg PO Q4H PRN PRN Reason: Pain, Severe (Pain Scale 7-10) Last Admin: 02/03/23 07:22 Dose: 10 mg Documented By: ROSE Pharmacy Consult (Consult Rx Perform Med Rec) 1 each MISCELLANE ONCE PRN PRN Reason: Consult order Polyethylene Glycol (Polyethylene Glycol 3350 17 Gm Powd.Pack) 17 gm PO DAILY PRN PRN Reason: Constipation Sertraline HCl (Sertraline Hcl 25 Mg Tablet) 25 mg PO DAILY [facility] Last Admin: 10/24/22 07:23 Dose: 25 mg Documented By: ROSE Sodium Chloride (0.9 % Sodium Chloride Flush 3 Ml Syringe) 3 ml IVFLUSH QSHIFT [facility] Last Admin: 10/24/22 07:22 Dose: 3 ml Documented By: ROSE Labs 10/21/22 07:43 10/22/22 06:06 Assessment and Plan (1) Frostbite of both lower extremities: Status: Acute (2) Intertrochanteric fracture of left femur: Status: Acute (3) Acute blood loss anemia: Status: Acute Plan / with substance abuse, history of strep viridan bacteremaia here with pain in the feet, concern for cellulitis and frosbite, fever and sepsis. Frosbite-noé gangrene of toes s/p TMA on 10/17 continue dressing changes, pain management with morphine, oxy PT . Dressing changed today acute blood loss anemia postop s/p 1 prbc, H/H improved IVDA + for opioid, amphetamine, cocaine, canabis, fentanyl clonidine for withdrawal addiction med following and started on Methadone,? but I personally continues to advise her against substance . depressed/anxiety: zoloft. Left hip fracture- old and healing, no pain so no surgery DVT prophylaxis: Lovenox Need for inpatient: post op care, awaiting placement Time Spent With Patient Time: Total time managing care of this patient today ____ minutes. Quality Stroke Does the patient have a stroke diagnosis?: No VTE Prior VTE?: No VTE Risk Level:: Medical - moderate - high VTE Device Contraindication: N/A - Device Ordered VTE Drug Contraindication: N/A - Med Ordered
[2022-10-24] MEDS: Enoxaparin Sodium 40 MG/0.4 ML SYRINGE SUBCUT (10:46)
--- NOTE | 2022-10-24 11:48 | PM.PNGS ---
Subjective Subjective Date of Service: 10/24/22 Interval history: no new complaints says she is waiting for transfer to Rehab Physical Exam Vital Signs: Vital Signs: Last Vital Signs Temp 98.2 F 10/24/22 08:00 Pulse 66 10/24/22 08:00 Resp 17 10/24/22 08:00 BP 119/68 10/24/22 08:00 Pulse Ox 100 10/24/22 08:00 O2 Del Method 10/24/22 08:00 O2 Flow Rate 2.0 10/17/22 14:33 BMI result Body Mass Index 25.0 Const: General: comfortable and no acute distress Resp: Effort & Inspection: normal respiratory effort Extrem: Other: both amputation sites clean, healing well, some thin eschar on dorsum of left foot Objective Data Active Medications Acetaminophen (Acetaminophen 325 Mg Tablet) 650 mg PO Q6H [facility] Last Admin: 10/24/22 10:47 Dose: 650 mg Documented By: ROBERT Clonidine HCl (Clonidine Hcl 0.1 Mg Tablet) 0.1 mg PO BID PRN; Protocol PRN Reason: opioid withdrawal Last Admin: 10/20/22 20:56 Dose: 0.1 mg Documented By: NICOLE Dextrose (Dextrose 50 % 25 Gm/50 Ml Syringe) 25 gm IVPUSH Q15M PRN; Protocol PRN Reason: per Hypoglycemia Standing Ord. Docusate Sodium (Docusate Sodium 100 Mg Capsule) 100 mg PO BID [facility] Last Admin: 10/24/22 07:22 Dose: 100 mg Documented By: ROSE Enoxaparin Sodium (Enoxaparin Sodium 40 Mg/0.4 Ml Syringe) 40 mg SUBCUT Q24H [facility] Last Admin: 10/24/22 10:46 Dose: 40 mg Documented By: ROBERT Ferrous Sulfate (Ferrous Sulfate 324 Mg Tablet.Dr) 324 mg PO BIDWM [facility] Last Admin: 10/24/22 07:23 Dose: 324 mg Documented By: ROSE Glucose (Glucose Gel 15 Gm Gel..Gram.) 15 gm PO Q15M PRN; Protocol PRN Reason: per Hypoglycemia Standing Ord. Heparin Sodium (Porcine) (Heparin Sodium,Porcine Flush 50 Units/5 Ml Syringe) 50 units IVFLUSH QSHIFT [facility] Last Admin: 10/24/22 07:22 Dose: 50 units Documented By: ROSE Melatonin (Melatonin 3 Mg Tablet) 6 mg PO BEDTIME PRN PRN Reason: Sleep Last Admin: 10/22/22 00:00 Dose: 6 mg Documented By: MELO Methadone HCl (Methadone Hcl 20 Mg/2 Ml Oral.Conc) 5 mg PO DAILY@1800 [facility] Last Admin: 10/23/22 17:49 Dose: 5 mg Documented By: DARVIN Methadone HCl (Methadone Hcl 20 Mg/2 Ml Oral.Conc) 65 mg PO DAILY [facility] Last Admin: 10/24/22 07:23 Dose: 65 mg Documented By: ROSE Morphine Sulfate (Morphine Sulfate 4 Mg/Ml Cartridge) 4 mg IVPUSH Q4H PRN; Protocol PRN Reason: Pain, Mild (Pain Scale 1-3) Last Admin: 10/24/22 10:49 Dose: 4 mg Documented By: ROBERT Nicotine (Nicotine 21 Mg Patch.Td24) 21 mg TRANSDERMA DAILY [facility] Last Admin: 10/24/22 07:22 Dose: 21 mg Documented By: ROSE Omeprazole (Omeprazole 20 Mg Capsule.Dr) 20 mg PO DAILY@0630 [facility] Last Admin: 10/24/22 05:32 Dose: 20 mg Documented By: MELO Ondansetron HCl (Ondansetron Hcl 4 Mg/2 Ml Vial) 4 mg IVPUSH Q8H PRN PRN Reason: Nausea and Vomiting Last Admin: 10/14/22 09:13 Dose: 4 mg Documented By: LUCIO Ondansetron HCl (Ondansetron Hcl 4 Mg/2 Ml Vial) 4 mg IVPUSH Q6H PRN PRN Reason: Nausea Oxycodone HCl (Oxycodone Hcl Immed Release 5 Mg Tablet) 5 mg PO Q4H PRN PRN Reason: Pain, Moderate (Pain Scale 4-6 Last Admin: 10/24/22 03:35 Dose: 5 mg Documented By: MELO Oxycodone HCl (Oxycodone Hcl Immed Release 5 Mg Tablet) 10 mg PO Q4H PRN PRN Reason: Pain, Severe (Pain Scale 7-10) Last Admin: 10/24/22 07:22 Dose: 10 mg Documented By: ROSE Pharmacy Consult (Consult Rx Perform Med Rec) 1 each MISCELLANE ONCE PRN PRN Reason: Consult order Polyethylene Glycol (Polyethylene Glycol 3350 17 Gm Powd.Pack) 17 gm PO DAILY PRN PRN Reason: Constipation Sertraline HCl (Sertraline Hcl 25 Mg Tablet) 25 mg PO DAILY [facility] Last Admin: 10/24/22 07:23 Dose: 25 mg Documented By: ROSE Sodium Chloride (0.9 % Sodium Chloride Flush 3 Ml Syringe) 3 ml IVFLUSH QSHIFT [facility] Last Admin: 10/24/22 07:22 Dose: 3 ml Documented By: ROSE Labs 10/21/22 07:43 10/22/22 06:06 Procedures Date of Service Date of Service: 10/24/22 Progress Note: A&P Assessment and plan (1) S/P transmetatarsal amputation of foot: Status: Acute Assessment and Plan: I have changed her dressings dry dressings with gauze daily, wrap both feet in with Kerlix and Martínez ok to use nonadherent dressings to open areas on ankle of left foot allow thin eschar to slough off if discharged - ok to ffup in office Time Spent With Patient Time: Total time managing care of this patient today ____ minutes. Quality Stroke Does the patient have a stroke diagnosis?: No VTE Prior VTE?: No VTE Risk Level:: Medical - moderate - high VTE Device Contraindication: N/A - Device Ordered VTE Drug Contraindication: N/A - Med Ordered
--- NOTE | 2022-10-24 13:57 | MHC.RECOVRN ---
Met with pt in 368 to follow up and provide support. Pt sitting in chair, awake, alert, engages in conversation but guarded. Pt reports feeling depressed about situation and uncertainty of transfer date to [facility]. T/w educated pt on process relating to [facility]/OT[facility], addressed concerns, answered questions. [facility] Pt reports pain in bilateral feet as well as hip that becomes worse at night. Pt reports she tries to move around and change positions as much as possible in bed and in the chair. Pt denies other questions or concerns. T/w available as needed.
[2022-10-24 16:00] VITALS: BP 99/57; PULSE 72; RESP 16; TEMP 36.1; O2SAT 98
[2022-10-24] MEDS: methADONE HCl 20 MG/2 ML ORAL.CONC 5 MG PO (17:18)
[2022-10-24] MEDS: Morphine Sulfate 4 MG/ML CARTRIDGE 2 MG IVPUSH ×2 (17:18→23:49)
[2022-10-24 19:44] VITALS: BP 108/58; PULSE 78; RESP 14; TEMP 36.3; O2SAT 99
[2022-10-24 23:39] VITALS: BP 118/65; PULSE 75; RESP 18; TEMP 36.1; O2SAT 99
[2022-10-25] MEDS: Acetaminophen 325 MG TABLET 650 MG PO ×4 (03:46→21:14)
[2022-10-25] MEDS: oxyCODONE HCl Immed Release 5 MG TABLET 10 MG PO ×3 (03:48→17:06)
[2022-10-25] MEDS: Omeprazole 20 MG CAPSULE.DR PO (05:38)
[2022-10-25] MEDS: Docusate Sodium 100 MG CAPSULE PO ×2 (07:55→21:14)
[2022-10-25] MEDS: Ferrous Sulfate 324 MG TABLET.DR PO ×2 (07:55→16:32)
[2022-10-25] MEDS: Sertraline HCL 25 MG TABLET PO (07:55)
[2022-10-25] MEDS: 0.9 % Sodium Chloride Flush 3 ML SYRINGE IVFLUSH ×3 (07:56→21:15)
[2022-10-25] MEDS: methADONE HCl 20 MG/2 ML ORAL.CONC 70 MG PO (07:56)
[2022-10-25] MEDS: Heparin Sodium,Porcine Flush 50 UNITS/5 ML SYRINGE IVFLUSH ×3 (07:56→21:15)
[2022-10-25 08:00] VITALS: BP 116/77; PULSE 72; RESP 18; TEMP 36.4; O2SAT 99
[2022-10-25] MEDS: Nicotine 21 MG PATCH.TD24 TRANSDERMA (08:01)
[2022-10-25] MEDS: Morphine Sulfate 4 MG/ML CARTRIDGE 2 MG IVPUSH ×3 (09:11→21:15)
--- NOTE | 2022-10-25 10:58 | P.PNIM_ITS ---
Subjective Subjective Date of Service: 10/25/22 Interval History: f/u on frosbite of feet s/p noé TMA interval history : usual pain, no new complaint Physical Exam Vital Signs: Vital Signs: Last Vital Signs Temp 97.5 F 10/25/22 08:00 Pulse 72 10/25/22 08:00 Resp 18 10/25/22 08:00 BP 116/77 10/25/22 08:00 Pulse Ox 99 10/25/22 08:00 O2 Del Method 10/25/22 08:00 O2 Flow Rate 2.0 10/17/22 14:33 BMI result Body Mass Index 25.0 Const: Other: General: AO X 3, no acute distress Resp: CTA bilateral CVS: S1,S2,RRR GI: +BS, NT, no distention Skin: No rash, noé feet dressing in place Neuro: motor grossly intact Psych: appropriate affect Objective Data Active Medications Acetaminophen (Acetaminophen 325 Mg Tablet) 650 mg PO Q6H [facility] Last Admin: 10/25/22 09:10 Dose: 650 mg Documented By: JAMIN Clonidine HCl (Clonidine Hcl 0.1 Mg Tablet) 0.1 mg PO BID PRN; Protocol PRN Reason: opioid withdrawal Last Admin: 10/20/22 20:56 Dose: 0.1 mg Documented By: NICOLE Dextrose (Dextrose 50 % 25 Gm/50 Ml Syringe) 25 gm IVPUSH Q15M PRN; Protocol PRN Reason: per Hypoglycemia Standing Ord. Docusate Sodium (Docusate Sodium 100 Mg Capsule) 100 mg PO BID [facility] Last Admin: 10/25/22 07:55 Dose: 100 mg Documented By: JAMIN Enoxaparin Sodium (Enoxaparin Sodium 40 Mg/0.4 Ml Syringe) 40 mg SUBCUT Q24H [facility] Last Admin: 10/24/22 10:46 Dose: 40 mg Documented By: ROBERT Ferrous Sulfate (Ferrous Sulfate 324 Mg Tablet.) 324 mg PO BIDWM [facility] Last Admin: 10/25/22 07:55 Dose: 324 mg Documented By: JAMIN Glucose (Glucose Gel 15 Gm Gel..Gram.) 15 gm PO Q15M PRN; Protocol PRN Reason: per Hypoglycemia Standing Ord. Heparin Sodium (Porcine) (Heparin Sodium,Porcine Flush 50 Units/5 Ml Syringe) 50 units IVFLUSH QSHIFT [facility] Last Admin: 10/25/22 07:56 Dose: 50 units Documented By: JAMIN Melatonin (Melatonin 3 Mg Tablet) 6 mg PO BEDTIME PRN PRN Reason: Sleep Last Admin: 10/22/22 00:00 Dose: 6 mg Documented By: MELO Methadone HCl (Methadone Hcl 20 Mg/2 Ml Oral.Conc) 5 mg PO DAILY@1800 [facility] Last Admin: 10/24/22 17:18 Dose: 5 mg Documented By: AALIYAHENOAL Methadone HCl (Methadone Hcl 20 Mg/2 Ml Oral.Conc) 70 mg PO DAILY [facility] Last Admin: 10/25/22 07:56 Dose: 70 mg Documented By: JAMIN Morphine Sulfate (Morphine Sulfate 4 Mg/Ml Cartridge) 2 mg IVPUSH Q6H PRN; Protocol PRN Reason: Pain, Mild (Pain Scale 1-3) Last Admin: 10/25/22 09:11 Dose: 2 mg Documented By: JAMIN Nicotine (Nicotine 21 Mg Patch.Td24) 21 mg TRANSDERMA DAILY [facility] Last Admin: 10/25/22 08:01 Dose: 21 mg Documented By: JAMIN Omeprazole (Omeprazole 20 Mg Capsule.Dr) 20 mg PO DAILY@0630 [facility] Last Admin: 10/25/22 05:38 Dose: 20 mg Documented By: NICOLE Ondansetron HCl (Ondansetron Hcl 4 Mg/2 Ml Vial) 4 mg IVPUSH Q8H PRN PRN Reason: Nausea and Vomiting Last Admin: 10/14/22 09:13 Dose: 4 mg Documented By: LUCIO Ondansetron HCl (Ondansetron Hcl 4 Mg/2 Ml Vial) 4 mg IVPUSH Q6H PRN PRN Reason: Nausea Oxycodone HCl (Oxycodone Hcl Immed Release 5 Mg Tablet) 5 mg PO Q4H PRN PRN Reason: Pain, Moderate (Pain Scale 4-6 Last Admin: 10/24/22 03:35 Dose: 5 mg Documented By: MELO Oxycodone HCl (Oxycodone Hcl Immed Release 5 Mg Tablet) 10 mg PO Q4H PRN PRN Reason: Pain, Severe (Pain Scale 7-10) Last Admin: 10/25/22 03:48 Dose: 10 mg Documented By: NICOLE Pharmacy Consult (Consult Rx Perform Med Rec) 1 each MISCELLANE ONCE PRN PRN Reason: Consult order Polyethylene Glycol (Polyethylene Glycol 3350 17 Gm Powd.Pack) 17 gm PO DAILY PRN PRN Reason: Constipation Sertraline HCl (Sertraline Hcl 25 Mg Tablet) 25 mg PO DAILY [facility] Last Admin: 10/25/22 07:55 Dose: 25 mg Documented By: JAMIN Sodium Chloride (0.9 % Sodium Chloride Flush 3 Ml Syringe) 3 ml IVFLUSH QSHIFT [facility] Last Admin: 10/25/22 07:56 Dose: 3 ml Documented By: JAMIN Labs 10/21/22 07:43 10/22/22 06:06 Assessment and Plan (1) Frostbite of both lower extremities: Status: Acute (2) Intertrochanteric fracture of left femur: Status: Acute (3) Acute blood loss anemia: Status: Acute Plan / with substance abuse, history of strep viridan bacteremaia here with pain in the feet, concern for cellulitis and frosbite, fever and sepsis. Frosbite-noé gangrene of toes s/p TMA on 10/17 continue dressing changes, pain management with morphine, oxy PT . Dressing change by surgery wean off IV pain meds acute blood loss anemia postop s/p 1 prbc, H/H improved IVDA + for opioid, amphetamine, cocaine, canabis, fentanyl clonidine for withdrawal addiction med following and started on Methadone,? but I personally continues to advise her against substance . depressed/anxiety: zoloft. Left hip fracture- old and healing, no pain so no surgery DVT prophylaxis: Lovenox Need for inpatient: post op care, awaiting placement, no rehab bed until thursday Time Spent With Patient Time: Total time managing care of this patient today ____ minutes. Quality Stroke Does the patient have a stroke diagnosis?: No VTE Prior VTE?: No VTE Risk Level:: Medical - moderate - high VTE Device Contraindication: N/A - Device Ordered VTE Drug Contraindication: N/A - Med Ordered
[2022-10-25] MEDS: Enoxaparin Sodium 40 MG/0.4 ML SYRINGE SUBCUT (11:22)
--- NOTE | 2022-10-25 12:59 | MHC.RECOVRN ---
Met with pt to provide support. Pt laying in bed, awake, difficult to engage in conversation. Discussed methadone split dose discontinuing, pain medication taper, and antidepressant increased dose. Pt denies questions or concerns. Pt reports recently receiving pain medication and would like to take a nap. T/w available as needed.
[2022-10-25 15:32] VITALS: BP 107/61; PULSE 73; RESP 15; TEMP 36; O2SAT 99
[2022-10-25] MEDS: cloNIDine HCL 0.1 MG TABLET PO (16:39)
[2022-10-25 23:54] VITALS: BP 93/55; PULSE 67; RESP 16; TEMP 36.5; O2SAT 99
[2022-10-26] MEDS: oxyCODONE HCl Immed Release 5 MG TABLET 10 MG PO ×3 (01:45→16:00)
[2022-10-26] MEDS: Omeprazole 20 MG CAPSULE.DR PO (04:57)
[2022-10-26] MEDS: Morphine Sulfate 4 MG/ML CARTRIDGE 2 MG IVPUSH ×3 (04:57→21:00)
[2022-10-26 08:00] VITALS: BP 108/55; PULSE 66; RESP 18; TEMP 36.2; O2SAT 98
[2022-10-26] MEDS: Nicotine 21 MG PATCH.TD24 TRANSDERMA (08:14)
[2022-10-26] MEDS: methADONE HCl 20 MG/2 ML ORAL.CONC 70 MG PO (08:14)
[2022-10-26] MEDS: Ferrous Sulfate 324 MG TABLET.DR PO ×2 (08:15→16:04)
[2022-10-26] MEDS: Docusate Sodium 100 MG CAPSULE PO ×2 (08:15→21:02)
[2022-10-26] MEDS: Acetaminophen 325 MG TABLET 650 MG PO ×3 (08:15→21:02)
[2022-10-26] MEDS: Sertraline HCL 50 MG TABLET PO (08:15)
[2022-10-26] MEDS: 0.9 % Sodium Chloride Flush 3 ML SYRINGE IVFLUSH ×2 (08:15→16:01)
[2022-10-26] MEDS: Heparin Sodium,Porcine Flush 50 UNITS/5 ML SYRINGE IVFLUSH ×2 (08:15→16:01)
--- NOTE | 2022-10-26 08:24 | P.PNIM_ITS ---
Subjective Subjective Date of Service: 10/26/22 Interval History: f/u on frosbite of feet s/p noé TMA interval history : usual pain, no new complaint Physical Exam Vital Signs: Vital Signs: Last Vital Signs Temp 97.7 F 10/25/22 23:54 Pulse 67 10/25/22 23:54 Resp 16 10/25/22 23:54 BP 93/55 L 10/25/22 23:54 Pulse Ox 99 10/25/22 23:54 O2 Del Method 10/25/22 23:54 O2 Flow Rate 2.0 10/17/22 14:33 BMI result Body Mass Index 25.0 Const: Other: General: AO X 3, no acute distress Resp: CTA bilateral CVS: S1,S2,RRR GI: +BS, NT, no distention Skin: No rash, noé feet dressing in place Neuro: motor grossly intact Psych: appropriate affect Objective Data Active Medications Acetaminophen (Acetaminophen 325 Mg Tablet) 650 mg PO Q6H [facility] Last Admin: 10/26/22 08:15 Dose: 650 mg Documented By: LOIDA Clonidine HCl (Clonidine Hcl 0.1 Mg Tablet) 0.1 mg PO BID PRN; Protocol PRN Reason: opioid withdrawal Last Admin: 10/25/22 16:39 Dose: 0.1 mg Documented By: JAMIN Dextrose (Dextrose 50 % 25 Gm/50 Ml Syringe) 25 gm IVPUSH Q15M PRN; Protocol PRN Reason: per Hypoglycemia Standing Ord. Docusate Sodium (Docusate Sodium 100 Mg Capsule) 100 mg PO BID [facility] Last Admin: 10/26/22 08:15 Dose: 100 mg Documented By: LODIA Enoxaparin Sodium (Enoxaparin Sodium 40 Mg/0.4 Ml Syringe) 40 mg SUBCUT Q24H [facility] Last Admin: 10/25/22 11:22 Dose: 40 mg Documented By: JAMIN Ferrous Sulfate (Ferrous Sulfate 324 Mg Tablet.Dr) 324 mg PO BIDWM [facility] Last Admin: 10/26/22 08:15 Dose: 324 mg Documented By: LOIDA Glucose (Glucose Gel 15 Gm Gel..Gram.) 15 gm PO Q15M PRN; Protocol PRN Reason: per Hypoglycemia Standing Ord. Heparin Sodium (Porcine) (Heparin Sodium,Porcine Flush 50 Units/5 Ml Syringe) [facility] Last Admin: 10/26/22 08:15 Dose: 50 units Documented By: LOIDA Melatonin (Melatonin 3 Mg Tablet) 6 mg PO BEDTIME PRN PRN Reason: Sleep Last Admin: 10/22/22 00:00 Dose: 6 mg Documented By: MELO Methadone HCl (Methadone Hcl 20 Mg/2 Ml Oral.Conc) 70 mg PO DAILY [facility] Last Admin: 10/26/22 08:14 Dose: 70 mg Documented By: LOIDA Morphine Sulfate (Morphine Sulfate 4 Mg/Ml Cartridge) 2 mg IVPUSH Q6H PRN; Prot ocol PRN Reason: Pain, Mild (Pain Scale 1-3) Last Admin: 10/26/22 04:57 Dose: 2 mg Documented By: NICOLE Nicotine (Nicotine 21 Mg Patch.Td24) 21 mg TRANSDERMA DAILY [facility] Last Admin: 10/26/22 08:14 Dose: 21 mg Documented By: LOIDA Omeprazole (Omeprazole 20 Mg Capsule.Dr) 20 mg PO DAILY@0630 [facility] Last Admin: 10/26/22 04:57 Dose: 20 mg Documented By: NICOLE Ondansetron HCl (Ondansetron Hcl 4 Mg/2 Ml Vial) 4 mg IVPUSH Q8H PRN PRN Reason: Nausea and Vomiting Last Admin: 10/14/22 09:13 Dose: 4 mg Documented By: LUCIO Ondansetron HCl (Ondansetron Hcl 4 Mg/2 Ml Vial) 4 mg IVPUSH Q6H PRN PRN Reason: Nausea Oxycodone HCl (Oxycodone Hcl Immed Release 5 Mg Tablet) 5 mg PO Q4H PRN PRN Reason: Pain, Moderate (Pain Scale 4-6 Last Admin: 10/24/22 03:35 Dose: 5 mg Documented By: MELO Oxycodone HCl (Oxycodone Hcl Immed Release 5 Mg Tablet) 10 mg PO Q4H PRN PRN Reason: Pain, Severe (Pain Scale 7-10) Last Admin: 10/26/22 01:45 Dose: 10 mg Documented By: NICOLE Pharmacy Consult (Consult Rx Perform Med Rec) 1 each MISCELLANE ONCE PRN PRN Reason: Consult order Polyethylene Glycol (Polyethylene Glycol 3350 17 Gm Powd.Pack) 17 gm PO DAILY PRN PRN Reason: Constipation Sertraline HCl (Sertraline Hcl 50 Mg Tablet) 50 mg PO DAILY [facility] Last Admin: 10/26/22 08:15 Dose: 50 mg Documented By: LOIDA Sodium Chloride (0.9 % Sodium Chloride Flush 3 Ml Syringe) 3 ml IVFLUSH QSHIFT [facility] Last Admin: 10/26/22 08:15 Dose: 3 ml Documented By: LOIDA Labs 10/21/22 07:43 10/22/22 06:06 Assessment and Plan (1) Frostbite of both lower extremities: Status: Acute (2) Intertrochanteric fracture of left femur: Status: Acute (3) Acute blood loss anemia: Status: Acute Plan with substance abuse, history of strep viridan bacteremaia here with pain in the feet, concern for cellulitis and frosbite, fever and sepsis. Frosbite-noé gangrene of toes s/p TMA on 10/17 pain management, wean off morphine PT . Dressing change by surgery acute blood loss anemia postop s/p 1 prbc, H/H improved IVDA + for opioid, amphetamine, cocaine, canabis, fentanyl clonidine for withdrawal addiction med following and started on Methadone,? but I personally continues to advise her against substance . depressed/anxiety: zoloft. Left hip fracture- old and healing, no pain so no surgery DVT prophylaxis: Lovenox Need for inpatient: post op care, awaiting placement, no rehab bed until 10/27 Time Spent With Patient Time: Total time managing care of this patient today ____ minutes. Quality Stroke Does the patient have a stroke diagnosis?: No VTE Prior VTE?: No VTE Risk Level:: Medical - moderate - high VTE Device Contraindication: N/A - Device Ordered VTE Drug Contraindication: N/A - Med Ordered
[2022-10-26] MEDS: Enoxaparin Sodium 40 MG/0.4 ML SYRINGE SUBCUT (10:22)
--- NOTE | 2022-10-26 11:50 | MHC.RECOVRN ---
Briefly met with pt to check in. Pt asleep, briefly wakes to voice. Requesting to continue to nap. T/w available as needed.
[2022-10-26 12:08] VITALS: RESP 16
[2022-10-26 15:30] VITALS: BP 121/34; PULSE 68; RESP 18; TEMP 36.8; O2SAT 98
[2022-10-26 21:00] VITALS: RESP 18
[2022-10-27] VITALS: BP 101/57; PULSE 65; RESP 18; TEMP 36.3; O2SAT 99
[2022-10-27] MEDS: 0.9 % Sodium Chloride Flush 3 ML SYRINGE IVFLUSH ×4 (00:04→20:09)
[2022-10-27] MEDS: Heparin Sodium,Porcine Flush 50 UNITS/5 ML SYRINGE IVFLUSH ×3 (00:04→15:36)
[2022-10-27] MEDS: oxyCODONE HCl Immed Release 5 MG TABLET 10 MG PO ×4 (00:11→18:58)
[2022-10-27] MEDS: Morphine Sulfate 4 MG/ML CARTRIDGE 2 MG IVPUSH ×2 (04:18→14:22)
[2022-10-27] MEDS: Omeprazole 20 MG CAPSULE.DR PO (06:05)
[2022-10-27 07:46] VITALS: BP 110/65; PULSE 60; RESP 17; TEMP 36.4; O2SAT 99
[2022-10-27] MEDS: Nicotine 21 MG PATCH.TD24 TRANSDERMA (08:05)
[2022-10-27] MEDS: Ferrous Sulfate 324 MG TABLET.DR PO ×2 (08:06→15:36)
[2022-10-27] MEDS: Sertraline HCL 50 MG TABLET PO (08:06)
[2022-10-27] MEDS: Acetaminophen 325 MG TABLET 650 MG PO ×3 (08:07→20:08)
[2022-10-27] MEDS: Docusate Sodium 100 MG CAPSULE PO ×2 (08:08→20:08)
[2022-10-27] MEDS: methADONE HCl 20 MG/2 ML ORAL.CONC 70 MG PO (08:08)
[2022-10-27] MEDS: Enoxaparin Sodium 40 MG/0.4 ML SYRINGE SUBCUT (11:32)
--- NOTE | 2022-10-27 11:36 | HO.PM.IMPN ---
Subjective Subjective Date of Service: 10/27/22 Interval History: f/u on frosbite of feet s/p noé TMA interval history : no new issues, awaiting placement Physical Exam Vital Signs: Vital Signs: Last Vital Signs Temp 97.6 F 10/27/22 07:46 Pulse 60 10/27/22 07:46 Resp 17 10/27/22 07:46 BP 110/65 10/27/22 07:46 Pulse Ox 99 10/27/22 07:46 O2 Del Method 10/27/22 07:46 O2 Flow Rate 2.0 10/17/22 14:33 BMI result Body Mass Index 25.0 Const: Other: General: AO X 3, no acute distress Resp: CTA bilateral CVS: S1,S2,RRR GI: +BS, NT, no distention Skin: No rash, noé feet dressing in place Neuro: motor grossly intact Psych: appropriate affect Objective Data Active Medications Acetaminophen (Acetaminophen 325 Mg Tablet) 650 mg PO Q6H [facility] Last Admin: 10/27/22 08:07 Dose: 650 mg Documented By: RONNIE Clonidine HCl (Clonidine Hcl 0.1 Mg Tablet) 0.1 mg PO BID PRN; Protocol PRN Reason: opioid withdrawal Last Admin: 10/25/22 16:39 Dose: 0.1 mg Documented By: JAMIN Dextrose (Dextrose 50 % 25 Gm/50 Ml Syringe) 25 gm IVPUSH Q15M PRN; Protocol PRN Reason: per Hypoglycemia Standing Ord. Docusate Sodium (Docusate Sodium 100 Mg Capsule) 100 mg PO BID [facility] Last Admin: 10/27/22 08:08 Dose: 100 mg Documented By: RONNIE Enoxaparin Sodium (Enoxaparin Sodium 40 Mg/0.4 Ml Syringe) 40 mg SUBCUT Q24H [facility] Last Admin: 10/27/22 11:32 Dose: 40 mg Documented By: ROSE Ferrous Sulfate (Ferrous Sulfate 324 Mg Tablet.) 324 mg PO BIDWM [facility] Last Admin: 10/27/22 08:06 Dose: 324 mg Documented By: RONNIE Glucose (Glucose Gel 15 Gm Gel..Gram.) 15 gm PO Q15M PRN; Protocol PRN Reason: per Hypoglycemia Standing Ord. Heparin Sodium (Porcine) (Heparin Sodium,Porcine Flush 50 Units/5 Ml Syringe) 50 units IVFLUSH QSHIFT [facility] Last Admin: 10/27/22 08:06 Dose: 50 units Documented By: RONNIE Melatonin (Melatonin 3 Mg Tablet) 6 mg PO BEDTIME PRN PRN Reason: Sleep Last Admin: 10/22/22 00:00 Dose: 6 mg Documented By: MELO Methadone HCl (Methadone Hcl 20 Mg/2 Ml Oral.Conc) 70 mg PO DAILY [facility] Last Admin: 10/27/22 08:08 Dose: 70 mg Documented By: RONNIE Morphine Sulfate (Morphine Sulfate 4 Mg/Ml Cartridge) 2 mg IVPUSH Q6H PRN; Protocol PRN Reason: Pain, Mild (Pain Scale 1-3) Last Admin: 10/27/22 04:18 Dose: 2 mg Documented By: SATYA Nicotine (Nicotine 21 Mg Patch.Td24) 21 mg TRANSDERMA DAILY [facility] Last Admin: 10/27/22 08:05 Dose: 21 mg Documented By: RONNIE Omeprazole (Omeprazole 20 Mg Capsule.Dr) 20 mg PO DAILY@0630 [facility] Last Admin: 10/27/22 06:05 Dose: 20 mg Documented By: SATYA Ondansetron HCl (Ondansetron Hcl 4 Mg/2 Ml Vial) 4 mg IVPUSH Q8H PRN PRN Reason: Nausea and Vomiting Last Admin: 10/14/22 09:13 Dose: 4 mg Documented By: LUCIO Ondansetron HCl (Ondansetron Hcl 4 Mg/2 Ml Vial) 4 mg IVPUSH Q6H PRN PRN Reason: Nausea Oxycodone HCl (Oxycodone Hcl Immed Release 5 Mg Tablet) 5 mg PO Q4H PRN PRN Reason: Pain, Moderate (Pain Scale 4-6 Last Admin: 10/24/22 03:35 Dose: 5 mg Documented By: MELO Oxycodone HCl (Oxycodone Hcl Immed Release 5 Mg Tablet) 10 mg PO Q4H PRN PRN Reason: Pain, Severe (Pain Scale 7-10) Last Admin: 10/27/22 11:32 Dose: 10 mg Documented By: ROSE Pharmacy Consult (Consult Rx Perform Med Rec) 1 each MISCELLANE ONCE PRN PRN Reason: Consult order Polyethylene Glycol (Polyethylene Glycol 3350 17 Gm Powd.Pack) 17 gm PO DAILY PRN PRN Reason: Constipation Sertraline HCl (Sertraline Hcl 50 Mg Tablet) 50 mg PO DAILY [facility] Last Admin: 10/27/22 08:06 Dose: 50 mg Documented By: RONNIE Sodium Chloride (0.9 % Sodium Chloride Flush 3 Ml Syringe) 3 ml IVFLUSH QSHIFT [facility] Last Admin: 10/27/22 08:08 Dose: 3 ml Documented By: RONNIE Labs 10/21/22 07:43 10/22/22 06:06 Assessment and Plan (1) Frostbite of both lower extremities: Status: Acute (2) Intertrochanteric fracture of left femur: Status: Acute (3) Acute blood loss anemia: Status: Acute Plan with substance abuse, history of strep viridan bacteremaia here with pain in the feet, concern for cellulitis and frosbite, fever and sepsis. Frosbite leading to bilateral s/p TMA on 10/17 pain management, wean off morphine PT . Dressing change by surgery acute blood loss anemia postop was transfused 1 prbc, H/H improved IVDA + for opioid, amphetamine, cocaine, canabis, fentanyl clonidine for withdrawal addiction med following and started on Methadone,? but I personally continue to advise her on substance use depressed/anxiety: zoloft. Left hip fracture- old and healing, no pain so no surgery DVT prophylaxis: Lovenox Need for inpatient: post op care, awaiting placement when rehab bed available Time Spent With Patient Time: Total time managing care of this patient today ____ minutes. Quality Stroke Does the patient have a stroke diagnosis?: No VTE Prior VTE?: No VTE Risk Level:: Medical - moderate - high VTE Device Contraindication: N/A - Device Ordered VTE Drug Contraindication: N/A - Med Ordered
[2022-10-27 15:21] VITALS: BP 102/62; PULSE 68; RESP 18; TEMP 36.3; O2SAT 99
--- NOTE | 2022-10-27 17:06 | P.PNADD_ITS ---
Subjective Subjective Date of Service: 10/27/22 Reason For Visit: Sepsis Cellulitis Interim History: Patient seen in follow up reporting she is experiencing sweating in the late afternoon Methadone dose is 70mg in AM Review of Systems Acute medical concerns: Yes Medical Review of Systems: unchanged Mental Status Exam Mental Status Exam Patient Appearance: Appropriate Patient Orientation: Person, Place, Time and Situation Affect Description: Blunted Thought Process: Goal Oriented Diagnostics Vital Signs (24Hr): Vital Signs - 24 hr 10/26/22 21:00 10/27/22 00:00 10/27/22 07:46 Temperature 97.3 F 97.6 F Pulse Rate 65 60 Respiratory Rate 18 18 17 Blood Pressure 101/57 L 110/65 Pulse Oximetry 99 99 Oxygen Delivery Method Room Air Room Air 10/27/22 15:21 Temperature 97.3 F Pulse Rate 68 Respiratory Rate 18 Blood Pressure 102/62 Pulse Oximetry 99 Oxygen Delivery Method Room Air BMI result Body Mass Index 25.0 Labs 10/21/22 07:43 10/22/22 06:06 Imaging Radiology Impressions: ITS Impressions Aorta w/Runoff CTA 10/08/22 06:10 IMPRESSION: 1. Normal appearance of the vasculature with no evidence of stenosis or occlusion. 2. No acute finding in the abdomen or pelvis. 3. Redemonstration of the left femoral neck fracture with persistent varus angulation. There is some callus formation now present. Hip/Pelvis X-Ray 10/10/22 12:50 IMPRESSION: Intertrochanteric fracture left hip with medial angulation. Guidance Fluoroscopy 10/14/22 15:21 IMPRESSION: Fluoroscopy provided for the orthopedic department. Please see operative report for additional information. Medications Medications Current Medications Acetaminophen (Acetaminophen 325 Mg Tablet) 650 mg PO Q6H [facility] Last Admin: 10/27/22 14:22 Dose: 650 mg Clonidine HCl (Clonidine Hcl 0.1 Mg Tablet) 0.1 mg PO BID PRN; Protocol PRN Reason: opioid withdrawal Last Admin: 10/25/22 16:39 Dose: 0.1 mg Dextrose (Dextrose 50 % 25 Gm/50 Ml Syringe) 25 gm IVPUSH Q15M PRN; Protocol PRN Reason: per Hypoglycemia Standing Ord. Docusate Sodium (Docusate Sodium 100 Mg Capsule) 100 mg PO BID [facility] Last Admin: 10/27/22 08:08 Dose: 100 mg Enoxaparin Sodium (Enoxaparin Sodium 40 Mg/0.4 Ml Syringe) 40 mg SUBCUT Q24H [facility] Last Admin: 10/27/22 11:32 Dose: 40 mg Ferrous Sulfate (Ferrous Sulfate 324 Mg Tablet.) 324 mg PO BIDWM [facility] Last Admin: 10/27/22 15:36 Dose: 324 mg Glucose (Glucose Gel 15 Gm Gel..Gram.) 15 gm PO Q15M PRN; Protocol PRN Reason: per Hypoglycemia Standing Ord. Heparin Sodium (Porcine) (Heparin Sodium,Porcine Flush 50 Units/5 Ml Syringe) 50 units IVFLUSH QSHIFT [facility] Last Admin: 10/27/22 15:36 Dose: 50 units Melatonin (Melatonin 3 Mg Tablet) 6 mg PO BEDTIME PRN PRN Reason: Sleep Last Admin: 10/22/22 00:00 Dose: 6 mg Methadone HCl (Methadone Hcl 20 Mg/2 Ml Oral.Conc) 70 mg PO DAILY [facility] Last Admin: 10/27/22 08:08 Dose: 70 mg Morphine Sulfate (Morphine Sulfate 4 Mg/Ml Cartridge) 2 mg IVPUSH Q6H PRN; Protocol PRN Reason: Pain, Mild (Pain Scale 1-3) Last Admin: 10/27/22 14:22 Dose: 2 mg Nicotine (Nicotine 21 Mg Patch.Td24) 21 mg TRANSDERMA DAILY [facility] Last Admin: 10/27/22 08:05 Dose: 21 mg Omeprazole (Omeprazole 20 Mg Capsule.) 20 mg PO DAILY@0630 [facility] Last Admin: 10/27/22 06:05 Dose: 20 mg Ondansetron HCl (Ondansetron Hcl 4 Mg/2 Ml Vial) 4 mg IVPUSH Q8H PRN PRN Reason: Nausea and Vomiting Last Admin: 10/14/22 09:13 Dose: 4 mg Ondansetron HCl (Ondansetron Hcl 4 Mg/2 Ml Vial) 4 mg IVPUSH Q6H PRN PRN Reason: Nausea Oxycodone HCl (Oxycodone Hcl Immed Release 5 Mg Tablet) 5 mg PO Q4H PRN PRN Reason: Pain, Moderate (Pain Scale 4-6 Last Admin: 10/24/22 03:35 Dose: 5 mg Oxycodone HCl (Oxycodone Hcl Immed Release 5 Mg Tablet) 10 mg PO Q4H PRN PRN Reason: Pain, Severe (Pain Scale 7-10) Last Admin: 10/27/22 11:32 Dose: 10 mg Pharmacy Consult (Consult Rx Perform Med Rec) 1 each MISCELLANE ONCE PRN PRN Reason: Consult order Polyethylene Glycol (Polyethylene Glycol 3350 17 Gm Powd.Pack) 17 gm PO DAILY PRN PRN Reason: Constipation Sertraline HCl (Sertraline Hcl 50 Mg Tablet) 50 mg PO DAILY [facility] Last Admin: 10/27/22 08:06 Dose: 50 mg Sodium Chloride (0.9 % Sodium Chloride Flush 3 Ml Syringe) 3 ml IVFLUSH QSHIFT [facility] Last Admin: 10/27/22 15:36 Dose: 3 ml Allergies Allergies Allergy/AdvReac Type Severity Reaction Status Date / Time No Known Allergies Allergy Verified 07/13/22 00:07 Assessment & Plan Assessment & Plan (1) Opioid use disorder: Status: Acute Code(s): F11.90 - Opioid use, unspecified, uncomplicated Assessment and Plan: * methadone dose increase to 75mg daily * no additional changes * sertraline had been increased to 50mg QD over the weeked--encouraged patient to keep drapes open to during he day to allow light into her room Total time managing care of this patient today __25__ minutes.
[2022-10-27 20:22] VITALS: BP 106/57; PULSE 70; RESP 18; TEMP 36.7; O2SAT 99
[2022-10-27 23:42] VITALS: BP 115/62; PULSE 65; RESP 18; TEMP 36.4; O2SAT 98
[2022-10-28] MEDS: Morphine Sulfate 4 MG/ML CARTRIDGE 2 MG IVPUSH ×3 (00:03→14:38)
[2022-10-28] MEDS: Heparin Sodium,Porcine Flush 50 UNITS/5 ML SYRINGE IVFLUSH ×2 (00:04→07:18)
[2022-10-28] MEDS: oxyCODONE HCl Immed Release 5 MG TABLET 10 MG PO ×3 (01:53→17:09)
[2022-10-28] MEDS: Acetaminophen 325 MG TABLET 650 MG PO ×3 (03:31→14:38)
[2022-10-28] MEDS: Omeprazole 20 MG CAPSULE.DR PO (05:21)
[2022-10-28] MEDS: Ferrous Sulfate 324 MG TABLET.DR PO ×2 (07:18→17:06)
[2022-10-28] MEDS: 0.9 % Sodium Chloride Flush 3 ML SYRINGE IVFLUSH (07:18)
[2022-10-28 07:34] VITALS: BP 107/59; PULSE 61; RESP 18; TEMP 36.4; O2SAT 98
[2022-10-28] MEDS: methADONE HCl 20 MG/2 ML ORAL.CONC 75 MG PO (09:29)
[2022-10-28] MEDS: Docusate Sodium 100 MG CAPSULE PO (09:30)
[2022-10-28] MEDS: Sertraline HCL 50 MG TABLET PO (09:30)
[2022-10-28] MEDS: Nicotine 21 MG PATCH.TD24 TRANSDERMA (09:30)
[2022-10-28] MEDS: Enoxaparin Sodium 40 MG/0.4 ML SYRINGE SUBCUT (12:05)
--- NOTE | 2022-10-28 14:03 | MHC.CM.PN ---
Pt has been accepted to [facility] for a 5pm In[facility] BLS transfer time pending [facility] auth. Per [facility] UR RN, auth will be expedited and is expected. [facility] has arranged for pt to go to the [facility] methadone clinic on 2 in the am for an initial pt assessment visit. [facility] will then transfer as guest dosing to [facility] in [place]. Last dose letter uploaded and hard copy included w/d/c folder. MD aware of need for <30 day order - will include in d/c summary/instructions. Pt and her aunt updated on plan and in agreement.
[2022-10-28 14:50] VITALS: BP 106/56; PULSE 77; RESP 18; TEMP 36.6; O2SAT 99
--- NOTE | 2022-10-28 15:44 | PM.DS ---
DS: Providers Provider Date of Service: 10/28/22 Date of admission: 10/08/22 11:36 Date of discharge: 10/28/22 Primary care physician: Unknown Physician Consults: 10/08/22 07:35 Consult to General Surgery Stat Consulting Provider: David Hackett Reason for consultation: frostbite to feet 1 week prior, cellulitis 10/08/22 16:40 Addiction Medicine Routine Consulting Provider: Addiction Covering Reason for consultation: poysubstance abuse Has provider been notified: No 10/10/22 11:48 Consult to Orthopedics Routine Consulting Provider: Doug Vieyra Reason for consultation: Hip fracture Has provider been notified: No 10/14/22 08:30 Consult to Infectious Diseases Routine Consulting Provider: Krista Sutton Reason for consultation: leg cellulitis vs foresbite Has provider been notified: No 10/15/22 13:26 Consult to Psychiatry Routine Consulting Provider: Psych Covering Reason for consultation: anxiety /depression Has provider been notified: No DS: Diagnosis Discharge Diagnosis (1) Opioid use disorder: Status: Acute (2) Acute blood loss anemia: Status: Acute (3) Sepsis: Status: Acute (4) S/P transmetatarsal amputation of foot: Status: Acute (5) IV drug abuse: Status: Acute (6) Frostbite of both lower extremities: Status: Acute (7) Intertrochanteric fracture of left femur: Status: Acute DS: Summary Hospital Course Hospital Course: 27-year-old female with history of substance abuse who presented to the ED with pain and swelling in the feet.? She is homeless has been staying outside in the cold and has affected her feet and fear she's gotten frosbite awake ago and has been having severe pain and numbness? in the feet.? Her last hopitalization was ? from 08/19/2022 to 08/21/2022 for strep viridans in June but unfortunately left AMA but was provided doxycyline which she claimed she took. She has been having fevers up to 101, tachycardia,and WBC of 20K and concern for cellulitis of the feet and sepsis and has been given Ceftriaxone and Vanomycin, blood cultures are pending hospital course: with substance abuse, history of strep viridan bacteremaia here with pain in the feet, concern for cellulitis and frosbite, fever and sepsis. Initially was started on broad-spectrum IV antibiotics, blood culture seems to be negative, patient denies any fever or chills, seen by infectious disease as well as surgery: Lower extremity changes thought to be related to frostbite rather than cellulitis. Hence antibiotic discontinued,sepsis unlikely considering above( intial findings) possibly related to frosbite. Patient subsequently also had bilateral transmetatarsal amputation?due to frosbite. Patient will be going to rehab: General surgery recommended:foot dressing: dry dressings with gauze daily, wrap both feet in with Kerlix and Martínez ok to use nonadherent dressings to open areas on ankle of left foot allow thin eschar to slough off. In addition-on imaging found to have hip fracture seems old, seen by Orthopedics-Healing, stable fracture found on exam under anesthesia and fluoro PT/OT for wbat , gait traning, strength hx of ivdu: on methdone ,rehab will arrange methadone. Anemia of acute blood loss possible postop: Given 1 PRBC H&H is stable around 9. Continue iron and monitor CBC closely. patient also has hepatitis-C antibody positive history: Current follow-up with Infectious Disease out patiently . Patient is to follow-up with the orthopedic and general surgery out patiently. Plan: For bilateral foot transplant amputation-please see above general surgery recommendations. For left hip fracture probably old: Healing, follow-up of ortho recommendations. Monitor CBC closely Follow-up with Infectious Disease forhepatitis-C antibody positive history. Patient may benefit from less than 30 days stay. Above management discussed the patient in detail length she understand and in agreement with the above plan, time spent 50 minute. Time Spent with Patient Time attestation: Total time managing care of this patient today ____ minutes. Discharge coordination time: Greater than 30 minutes Quality: Safe Use of Opioids Does Pt have an Active Cancer Diagnosis on the Problem List?: No Quality: Stroke Does the patient have a stroke diagnosis?: No Physical Exam Vital Signs: Vital Signs: Last Vital Signs Temp 97.8 F 10/28/22 14:50 Pulse 77 10/28/22 14:50 Resp 18 10/28/22 14:50 BP 106/56 L 10/28/22 14:50 Pulse Ox 99 10/28/22 14:50 O2 Del Method 10/28/22 14:50 O2 Flow Rate 2.0 10/17/22 14:33 BMI result Body Mass Index 25.0 General: AO X 3, no acute distress Resp:? CTA bilateral CVS: S1,S2,RRR GI: +BS, NT, no distention Skin: No rash, noé feet dressing in place Neuro:? motor grossly intact Psych: appropriate affec DS: Data Data Completed and Pending Completed studies during hospitalization [Text1]: Pending at discharge 10/17/22 12:45 Surgical [PTH] Routine Imaging Chest x-ray: Radiologist's impression: ITS Impressions Aorta w/Runoff CTA 10/08/22 06:10 IMPRESSION: 1. Normal appearance of the vasculature with no evidence of stenosis or occlusion. 2. No acute finding in the abdomen or pelvis. 3. Redemonstration of the left femoral neck fracture with persistent varus angulation. There is some callus formation now present. Hip/Pelvis X-Ray 10/10/22 12:50 IMPRESSION: Intertrochanteric fracture left hip with medial angulation. Guidance Fluoroscopy 10/14/22 15:21 IMPRESSION: Fluoroscopy provided for the orthopedic department. Please see operative report for additional information. Discharge Plan Discharge Anticipated Discharge Date/Time: 10/28/22 15:01 Patient Disposition: Xfer SNF Discharge Diagnosis: left hip fracture ,Frosbite leading to bilateral s/p TMA ,acute blood loss anemia postop Referrals: Doug Vieyra MD [Physician] - 1 Week (follow up outpatient.) David Hackett MD [Physician] - 2 Weeks (follow up outaptient) Physician,Unknown J [Primary Care Provider] - 1 Week Krista Sutton MD [Physician] - 1 Week (follow up outpatient) Discharge Medications: New nicotine 21 mg/24 hr Patch 24 Hour 21 mg transdermal DAILY Qty: 7 0RF enoxaparin 40 mg/0.4 mL Syringe 40 mg subcut Q24H Qty: 1 0RF heparin, porcine (PF) [Heparin LockFlush(Porcine)(PF)] 10 unit/mL Syringe 50 unit IVFLUSH QSHIFT Qty: 10 0RF ferrous sulfate 324 mg (65 mg iron) Tablet,Delayed Release (Dr/Ec) 324 mg PO BIDWM Qty: 30 0RF clonidine HCl 0.1 mg Tablet 0.1 mg PO BID PRN (Reason: opioid withdrawal) Qty: 14 0RF Protocol: Hold for SBP< HOLD for SBP < : 90 acetaminophen 325 mg Tablet 650 mg PO Q6H Qty: 7 0RF polyethylene glycol 3350 17 gram Powder In Packet 17 g PO DAILY PRN (Reason: Constipation) Qty: 1 0RF melatonin 3 mg Tablet 6 mg PO BEDTIME PRN (Reason: Sleep) Qty: 1 0RF docusate sodium 100 mg Capsule 100 mg PO BID Qty: 30 0RF omeprazole 20 mg Capsule,Delayed Release(Dr/Ec) 20 mg PO DAILY@0630 Qty: 30 0RF methadone [Methadose] 10 mg/mL Concentrate 75 mg PO DAILY Qty: 1 0RF Rx Instructions: Partial Fill upon patient request. sertraline 50 mg Tablet 50 mg PO DAILY Qty: 1 0RF oxycodone 5 mg Tablet 5 mg PO Q4H PRN (Reason: Pain, Moderate (Pain Scale 4-6) Qty: 20 0RF Rx Instructions: Partial Fill upon patient request. oxycodone 5 mg Tablet 10 mg PO Q4H PRN (Reason: Pain, Severe (Pain Scale 7-10)) Qty: 10 0RF Rx Instructions: Partial Fill upon patient request. Discharge Orders: Discharge Order (Routine); Ordered 10/28/22 Ordered By: Marci Guevara Activity on Discharge: As tolerated Stand Alone Forms: Patient Portal Discharge page Care Plan Goals: with substance abuse, history of strep viridan bacteremaia here with pain in the feet, concern for cellulitis and frosbite, fever and sepsis. Initially was started on broad-spectrum IV antibiotic, blood culture seems to be negative, patient denies any fever or chills, seen by infectious disease as well as surgery: Lower extremity changes thought to be related to frostbite rather than cellulitis. Hence antibiotic discontinued. Patient subsequently also had bilateral transmetatarsal amputation?due to frosbite. Patient will be going to rehab: General surgery recommended:foot dressing: dry dressings with gauze daily, wrap both feet in with Kerlix and Martínez ok to use nonadherent dressings to open areas on ankle of left foot allow thin eschar to slough off. In addition-on imaging found to have hip fracture seems old, seen by Orthopedics-Healing, stable fracture found on exam under anesthesia and fluoro PT/OT for wbat , gait traning, strength Anemia of acute blood loss possible postop: Given 1 PRBC H&H is stable around 9. Continue iron and monitor CBC closely. Patient is to follow-up with the orthopedic and general surgery out patiently. Health Concerns: As above. Plan of Treatment: As above. Assessment: as above.
--- NOTE | 2022-10-31 13:35 | P.OP_ITS ---
Operative Note Operative Note Date of Service: 10/14/22 Narrative: Date of Service: 10/14/22 Pre-op diagnosis: Healed left hip IT fracture Post-op diagnosis: same Procedure: Exam under anesthesia left hip Implants: none Surgeon: Doug Vieyra MD Anesthesia: GETA Was an Production Supervisor Off Shift used for this Procedure?: No Estimated blood loss (mL): 0 IV fluids (mL): 200 Pathology: none sent Condition: stable Disposition: PACU Procedure in detail: Patient was brought to the operating room and prepped and draped in standard sterile fashion. Time-out was called to identify proper site procedure proper surgeon and IV antibiotics per weight were administered. She was positioned on the fracture table and a traction and slight internal rotation were performed and biplanar fluoroscopy. I applied extensive tractuion but was unable to alter the alignement of the fracture and succeeded only in distracting the joint temporarily. This confimred that the fracture had progressed to malunion. Given her ongoing active IVDU and frostbite of the feet I elected not to proceed forward with open takedown of the malunion and ORIF. This can be done later when she is more stable medically. Patient was then extubated and brought to recovery room stable condition there were no known complications.
== END 2022-10-28 18:23 | disposition skilled nursing facility (03) | DRG 710 ==
LOC: HO.ED 10-08 08:48 → HO.EDOVER 10-08 11:42 → HO.S3 10-08 16:28
PROVIDERS: Emergency Medicine Emergency Medical Services; Orthopaedic Surgery; Physician Assistant; Physician Assistant Surgical; Surgery; Admitting Provider Internal Medicine; Emergency Provider Emergency Medicine; Visit Provider Internal Medicine
PROC: 0Y6P0Z0 Detachment at Right 1st Toe, Complete, Open Approach (ICD-10-PCS; CPT 28805; principal; 2022-10-17 11:50)
DX: A41.9 Sepsis, unspecified organism (principal); D62 Acute posthemorrhagic anemia; L03.115 Cellulitis of right lower limb; F32.A Depression, unspecified; F41.9 Anxiety disorder, unspecified; T34.822A Frostbite with tissue necrosis of left foot, initial encounter; F11.23 Opioid dependence with withdrawal; T34.821A Frostbite with tissue necrosis of right foot, initial encounter; L03.116 Cellulitis of left lower limb; Z59.02 Unsheltered homelessness; X31.XXXA Exposure to excessive natural cold, initial encounter; Z20.822 Contact with and (suspected) exposure to COVID-19; Z79.899 Other long term (current) drug therapy
CPT/HCPCS: 0241U; 36410; 36415; 73502; 75635; 80048; 80051; 80053; 80173; 80202; 80307; 81001; 81025; 82550; 82565; 82607; 82728; 82746; 82947; 83540; 83605; 85014; 85018; 85025; 85027; 85652; 86140; 86850; 86900; 86901; 86923; 87040; 87086; 88305; 88311; 93005; 97110; 97116; 97163; 97167; 97530; 97535; 99285; C1713; C1751; C1769; C1894; J0131; J0690; J0696; J1170; J1200; J1642; J1650; J1885; J2250; J2270; J2405; J2795; J3010; J3370; J3371; P9016; Q9967

== ENCOUNTER → 2022-11-13 11:15 | Outpatient (BNVA) | payer OTHER, SELFPAY | PROVIDERS: Visit Provider Physician Assistant Surgical | DX: Z89.431 Acquired absence of right foot (principal); Z89.432 Acquired absence of left foot; F14.20 Cocaine dependence, uncomplicated; F11.20 Opioid dependence, uncomplicated; T33.822A Superficial frostbite of left foot, initial encounter; T33.821A Superficial frostbite of right foot, initial encounter; X31.XXXA Exposure to excessive natural cold, initial encounter; Y93.9 Activity, unspecified; Y92.89 Other specified places as the place of occurrence of the external cause; Y99.8 Other external cause status; Z59.02 Unsheltered homelessness | CPT/HCPCS: 99212 ==

== ENCOUNTER → 2022-11-14 10:17 | Outpatient (BNVA) | payer OTHER, SELFPAY | PROVIDERS: Visit Provider Internal Medicine | DX: B18.2 Chronic viral hepatitis C (principal) | CPT/HCPCS: 99212 ==

== ENCOUNTER → 2022-11-27 14:23 | Outpatient (BNVA) | payer OTHER, SELFPAY | PROVIDERS: Visit Provider Surgery | DX: Z89.422 Acquired absence of other left toe(s) (principal) | CPT/HCPCS: 99212 ==

== ENCOUNTER 2023-04-27 12:22 | Outpatient (REF) | payer MEDICAID, SELFPAY | END 2023-04-27 12:23 | disposition home or self-care (01) | LOC: HO.HOSX 12:22 | PROVIDERS: Visit Provider Orthopaedic Surgery | DX: Z13.89 Encounter for screening for other disorder (principal) ==

== ENCOUNTER 2023-06-08 11:58 | Outpatient (REF) | payer MEDICAID, SELFPAY | END 2023-06-08 11:59 | disposition home or self-care (01) | LOC: HO.HOSX 11:58 | PROVIDERS: Visit Provider Orthopaedic Surgery | DX: Z13.89 Encounter for screening for other disorder (principal) ==

== ENCOUNTER 2023-07-17 09:23 | Outpatient (REF) | payer MEDICAID, SELFPAY | END 2023-07-17 09:24 | disposition home or self-care (01) | LOC: HO.HOSX 09:23 | PROVIDERS: Visit Provider Orthopaedic Surgery | DX: Z13.89 Encounter for screening for other disorder (principal) ==